=== PATIENT | female | born 1955 | race Asian ===

== ENCOUNTER 2018-05-23 19:32 | Inpatient (IN) | payer MEDICAID ==
[2018-05-23 20:35] LABS: % EOSINOPHILS 1.2 % (0.0-5.0); % LYMPHOCYTES 24.4 % (20.0-50.0); % MONOCYTES 7.9 % (2.0-10.0); % NEUTROPHILS 66.5 % (40.0-80.0); EOSINOPHILE ABSOLUTE 0.1 Th/cmm (0.1-0.4); HEMATOCRIT 35.9 % (41.0-60); HEMOGLOBIN 12.2 gm/dL (12-16); LYMPHOCYTE ABSOLUTE 1.8 Th/cmm (1.5-3.0); MEAN CORPUSCULAR HEMOGLOBIN 32.6 pg (27.0-31.0); MEAN PLATELET VOLUME 8.7 fl; MONOCYTE ABSOLUTE 0.6 Th/cmm (0.3-1.0); NEUTROPHILE ABSOLUTE 4.8 Th/cmm (1.8-8.0); PLATELET COUNT 153 Th/cmm (150-400); RED BLOOD COUNT 3.74 Mil/cmm (3.80-5.10); RED CELL DISTRIBUTION WIDTH 12.7 % (11.5-20.0); WHITE BLOOD COUNT 7.3 Th/cmm (4.8-10.8)
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
[2018-05-23 21:26] LABS: URINE SOURCE RANDOM
[2018-05-23 21:31] LABS: URINE BILIRUBIN NEGATIVE (NEGATIVE); URINE BLOOD NEGATIVE (NEGATIVE); URINE GLUCOSE (UA) 100 mg/dL (NEGATIVE); URINE KETONE NEGATIVE (NEGATIVE); URINE LEUKOCYTE ESTERASE NEGATIVE (NEGATIVE); URINE NITRATE NEGATIVE (NEGATIVE); URINE PH 7.5 (4.6 - 8.0); URINE PROTEIN NEGATIVE (NEGATIVE); URINE UROBILINOGEN 0.2 E.U./dL (0.2 - 1.0)
[2018-05-23 21:32] LABS: URINE CLARITY CLEAR (CLEAR); URINE COLOR YELLOW; URINE MICROSCOPIC INDICATED? YES
[2018-05-23 21:39] LABS: URINE EPITHELIAL CELLS FEW /lpf (FEW); URINE RBC 0-2 /hpf (0-5); URINE WBC 0-2 /hpf (0-5)
[2018-05-23 21:40] LABS: URINE BACTERIA OCCASIONAL /hpf (NONE SEEN)
[2018-05-23] MEDS ORDERED: Haloperidol Lactate 5 mg/mL 1mL Vial IM STA (22:55)
[2018-05-23 23:52] LABS: ALB/GLOB RATIO 1.5 (1.0-1.8); BILIRUBIN,TOTAL 0.2 mg/dL (0.3-1.0); BUN - UREA NITROGEN 14 mg/dL (7-25); CALCIUM SERUM 9.1 mg/dL (8.6-10.3); CARBON DIOXIDE 17.5 mEq/L (21.0-31.0); CREATININE - SERUM 0.5 mg/dL (0.6-1.2); GFR AFRICAN-AMERICAN > 60.0 ml/min (>90); GFR NON AFRICAN-AMERICAN > 60.0 ml/min; GLUCOSE 241 mg/dL (70-105); SGOT 18 U/L (13-39); SGPT/ALT 14 U/L (7-52); TOTAL PROTEIN,SERUM 6.7 gm/dL (6.0-8.3)
[2018-05-24] MEDS ORDERED: Haloperidol Lactate 5 mg/mL 1mL Vial IM STA (00:18)
[2018-05-24] MEDS ORDERED: Haloperidol Lactate 5 mg/mL 1mL Vial ONE (00:51)
[2018-05-24 01:20] LABS: ALKALINE PHOSPHATASE 92 U/L (34-104); ANION GAP 23.7 (7.0-16.0); CHLORIDE 93 mEq/L (98-107); POTASSIUM SERUM 4.2 mEq/L (3.5-5.1); SODIUM SERUM 130 mEq/L (136-145)
[2018-05-24] MEDS: Sodium Chloride 0.45% 1,000 ML IV SCH (02:10)
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
--- NOTE | 2018-05-24 08:28 | Diagnostic Imaging Report ---
Portable chest x-ray HISTORY: Shortness of breath The overall heart size is difficult to assess with portable technique and poor inspiration. No acute focal pulmonary processes. Suggestion of old right rib fractures. Deformity associated with an old fracture of the distal right clavicle noted. IMPRESSION: 1. No definite acute pulmonary abnormalities
[2018-05-24 08:40] LABS: % BASOPHILS 0.2 % (0.0-2.0); % LYMPHOCYTES 20.7 % (20.0-50.0); % MONOCYTES 8.4 % (2.0-10.0); % NEUTROPHILS 69.7 % (40.0-80.0); EOSINOPHILE ABSOLUTE 0.1 Th/cmm (0.1-0.4); HEMATOCRIT 36.2 % (41.0-60); HEMOGLOBIN 12.8 gm/dL (12-16); LYMPHOCYTE ABSOLUTE 1.5 Th/cmm (1.5-3.0); MEAN CELL VOLUME 94.5 fl (81-100); MEAN CORPUSCULAR HEMOGLOBIN 33.4 pg (27.0-31.0); MEAN CORPUSCULAR HGB CONC 35.4 pg (28.0-36.0); MEAN PLATELET VOLUME 8.2 fl; MONOCYTE ABSOLUTE 0.6 Th/cmm (0.3-1.0); PLATELET COUNT 193 Th/cmm (150-400); RED BLOOD COUNT 3.83 Mil/cmm (3.80-5.10); RED CELL DISTRIBUTION WIDTH 13.1 % (11.5-20.0); WHITE BLOOD COUNT 7.2 Th/cmm (4.8-10.8)
[2018-05-24 09:28] LABS: ALB/GLOB RATIO 1.7 (1.0-1.8); ALKALINE PHOSPHATASE 88 U/L (34-104); ANION GAP 11.4 (7.0-16.0); BILIRUBIN,TOTAL 0.3 mg/dL (0.3-1.0); BUN - UREA NITROGEN 12 mg/dL (7-25); CALCIUM SERUM 9.2 mg/dL (8.6-10.3); CARBON DIOXIDE 28.5 mEq/L (21.0-31.0); CHLORIDE 96 mEq/L (98-107); CHOLESTEROL 171 mg/dL (<200); CREATININE - SERUM 0.5 mg/dL (0.6-1.2); GFR AFRICAN-AMERICAN > 60.0 ml/min (>90); GFR NON AFRICAN-AMERICAN > 60.0 ml/min; GLUCOSE 209 mg/dL (70-105); HDL -HIGH DENSITY LIPOPROTEIN 67 mg/dL (23-92); POTASSIUM SERUM 3.9 mEq/L (3.5-5.1); SGOT 18 U/L (13-39); SGPT/ALT 14 U/L (7-52); SODIUM SERUM 132 mEq/L (136-145); TOTAL PROTEIN,SERUM 6.4 gm/dL (6.0-8.3); TRIGLYCERIDES 191 mg/dL (<150)
[2018-05-24 11:06] VITALS: BP 139/82
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
[2018-05-24 21:26] LABS: A1C % 5.9 % (4.0-6.0)
[2018-05-25 06:51] LABS: % BASOPHILS 0.5 % (0.0-2.0); % EOSINOPHILS 1.1 % (0.0-5.0); % LYMPHOCYTES 27.1 % (20.0-50.0); % MONOCYTES 11.5 % (2.0-10.0); % NEUTROPHILS 59.8 % (40.0-80.0); EOSINOPHILE ABSOLUTE 0.1 Th/cmm (0.1-0.4); HEMATOCRIT 35.2 % (41.0-60); HEMOGLOBIN 12.2 gm/dL (12-16); LYMPHOCYTE ABSOLUTE 1.9 Th/cmm (1.5-3.0); MEAN CELL VOLUME 94.1 fl (81-100); MEAN CORPUSCULAR HEMOGLOBIN 32.7 pg (27.0-31.0); MEAN CORPUSCULAR HGB CONC 34.7 pg (28.0-36.0); MONOCYTE ABSOLUTE 0.8 Th/cmm (0.3-1.0); NEUTROPHILE ABSOLUTE 4.2 Th/cmm (1.8-8.0); PLATELET COUNT 194 Th/cmm (150-400); RED BLOOD COUNT 3.74 Mil/cmm (3.80-5.10); RED CELL DISTRIBUTION WIDTH 12.9 % (11.5-20.0)
[2018-05-25 07:06] LABS: ALB/GLOB RATIO 1.4 (1.0-1.8); ALBUMIN 3.6 gm/dL (3.7-5.3); ALKALINE PHOSPHATASE 57 U/L (34-104); ANION GAP 9.4 (7.0-16.0); BILIRUBIN,TOTAL 0.3 mg/dL (0.3-1.0); BUN - UREA NITROGEN 14 mg/dL (7-25); CALCIUM SERUM 9.1 mg/dL (8.6-10.3); CARBON DIOXIDE 29.7 mEq/L (21.0-31.0); CHLORIDE 98 mEq/L (98-107); CREATININE - SERUM 0.4 mg/dL (0.6-1.2); GFR AFRICAN-AMERICAN > 60.0 ml/min (>90); GFR NON AFRICAN-AMERICAN > 60.0 ml/min; POTASSIUM SERUM 4.1 mEq/L (3.5-5.1); SGOT 17 U/L (13-39); SGPT/ALT 16 U/L (7-52); SODIUM SERUM 133 mEq/L (136-145); TOTAL PROTEIN,SERUM 6.1 gm/dL (6.0-8.3)
[2018-05-25 07:15] LABS: GLUCOSE 126 mg/dL (70-105)
--- NOTE | 2018-05-25 11:49 | General Progress Note ---
Subjective - Review of Systems Events since last encounter: patient irritable confused Objective - Results Result Diagrams: 05/25/18 06:15 05/25/18 06:15 Recent Labs: Laboratory Last Values WBC 7.0 Th/cmm (4.8-10.8) 05/25/18 06:15 RBC 3.74 Mil/cmm (3.80-5.10) L 05/25/18 06:15 Hgb 12.2 gm/dL (12-16) 05/25/18 06:15 Hct 35.2 % (41.0-60) L 05/25/18 06:15 MCV 94.1 fl (81-100) 05/25/18 06:15 MCH 32.7 pg (27.0-31.0) H 05/25/18 06:15 MCHC Differential 34.7 pg (28.0-36.0) 05/25/18 06:15 RDW 12.9 % (11.5-20.0) 05/25/18 06:15 Plt Count 194 Th/cmm (150-400) 05/25/18 06:15 MPV 8.0 fl 05/25/18 06:15 Neutrophils % 59.8 % (40.0-80.0) 05/25/18 06:15 Lymphocytes % 27.1 % (20.0-50.0) 05/25/18 06:15 Monocytes % 11.5 % (2.0-10.0) H 05/25/18 06:15 Eosinophils % 1.1 % (0.0-5.0) 05/25/18 06:15 Basophils % 0.5 % (0.0-2.0) 05/25/18 06:15 Sodium 133 mEq/L (136-145) L 05/25/18 06:15 Potassium 4.1 mEq/L (3.5-5.1) 05/25/18 06:15 Chloride 98 mEq/L (98-107) 05/25/18 06:15 Carbon Dioxide 29.7 mEq/L (21.0-31.0) 05/25/18 06:15 Anion Gap 9.4 (7.0-16.0) 05/25/18 06:15 BUN 14 mg/dL (7-25) 05/25/18 06:15 Creatinine 0.4 mg/dL (0.6-1.2) L 05/25/18 06:15 Est GFR ( Amer) > 60.0 ml/min (>90) 05/25/18 06:15 Est GFR (Non-Af Amer) > 60.0 ml/min 05/25/18 06:15 BUN/Creatinine Ratio 35.0 05/25/18 06:15 Glucose 126 mg/dL (70-105) H D 05/25/18 06:15 POC Glucose 141 MG/DL (70 - 105) H 05/24/18 11:49 Hemoglobin A1c % 5.9 % (4.0-6.0) 05/23/18 20:08 Calcium 9.1 mg/dL (8.6-10.3) 05/25/18 06:15 Total Bilirubin 0.3 mg/dL (0.3-1.0) 05/25/18 06:15 AST 17 U/L (13-39) 05/25/18 06:15 ALT 16 U/L (7-52) 05/25/18 06:15 Alkaline Phosphatase 57 U/L (34-104) 05/25/18 06:15 Troponin I 0.01 ng/mL (0.01-0.05) 05/23/18 20:08 B-Natriuretic Peptide 44.6 pg/mL (5.0-100.0) 05/23/18 20:08 Total Protein 6.1 gm/dL (6.0-8.3) 05/25/18 06:15 Albumin 3.6 gm/dL (3.7-5.3) L 05/25/18 06:15 Globulin 2.5 gm/dL 05/25/18 06:15 Albumin/Globulin Ratio 1.4 (1.0-1.8) 05/25/18 06:15 Triglycerides 191 mg/dL (<150) H 05/24/18 08:14 Cholesterol 171 mg/dL (<200) 05/24/18 08:14 LDL Cholesterol Direct 80 mg/dL (75-193) 05/24/18 08:14 HDL Cholesterol 67 mg/dL (23-92) 05/24/18 08:14 Urine Source RANDOM 05/23/18 20:30 Urine Color YELLOW 05/23/18 20:30 Urine Clarity CLEAR (CLEAR) 05/23/18 20:30 Urine pH 7.5 (4.6 - 8.0) 05/23/18 20:30 Ur Specific [place] 1.010 (1.005-1.030) 05/23/18 20:30 Urine Protein NEGATIVE mg/dL (NEGATIVE) 05/23/18 20:30 Urine Glucose (UA) 100 mg/dL (NEGATIVE) H 05/23/18 20:30 Urine Ketones NEGATIVE mg/dL (NEGATIVE) 05/23/18 20:30 Urine Blood NEGATIVE (NEGATIVE) 05/23/18 20:30 Urine Nitrate NEGATIVE (NEGATIVE) 05/23/18 20:30 Urine Bilirubin NEGATIVE (NEGATIVE) 05/23/18 20:30 Urine Urobilinogen 0.2 E.U./dL (0.2 - 1.0) 05/23/18 20:30 Ur Leukocyte Esterase NEGATIVE (NEGATIVE) 05/23/18 20:30 Urine RBC 0-2 /hpf (0-5) 05/23/18 20:30 Urine WBC 0-2 /hpf (0-5) 05/23/18 20:30 Ur Epithelial Cells FEW /lpf (FEW) 05/23/18 20:30 Urine Bacteria OCCASIONAL /hpf (NONE SEEN) 05/23/18 20:30 - Physical Exam Vitals and I&O: Vital Signs Temp 97.6 F 05/25/18 00:00 Pulse 64 05/25/18 09:49 Resp 18 05/25/18 00:00 BP 115/74 05/25/18 09:49 Pulse Ox 97 05/25/18 00:00 Intake & Output 05/24/18 05/25/18 05/25/18 18:59 06:59 18:59 Intake Total 800 200 Balance 800 200 Weight (lbs) 55.701 kg 55.707 kg Intake: Oral 800 200 Other: # Voids 6 2 # Bowel Movements 3 Weight Source Bedscale Bedscale Active Medications: Current Medications Divalproex Sodium (Depakote Dr) 250 mg PO QAM [facility]; Protocol Stop: 07/24/18 08:59 Last Admin: 05/25/18 09:47 Dose: 250 mg Divalproex Sodium (Depakote Er) 500 mg PO QPM [facility]; Protocol Stop: 07/23/18 16:59 Last Admin: 05/24/18 16:57 Dose: 500 mg Famotidine (Pepcid) 20 mg PO DAILY [facility] Stop: 07/24/18 08:59 Last Admin: 05/25/18 09:47 Dose: 20 mg Gabapentin (Neurontin) 300 mg PO BID [facility] Stop: 07/23/18 16:59 Last Admin: 05/25/18 09:47 Dose: 300 mg Sodium Chloride (Nacl 0.45%) 1,000 mls @ 50 mls/hr IV .Q20H [facility] Stop: 07/23/18 01:57 Last Admin: 05/24/18 02:10 Dose: 50 mls/hr Lorazepam (Ativan) 1 mg IVP Q4HR PRN; Protocol PRN Reason: agitation Stop: 07/23/18 02:35 Last Admin: 05/24/18 02:38 Dose: 1 mg Lorazepam (Ativan) 1 mg PO Q4HR PRN; Protocol PRN Reason: Agitation Stop: 07/23/18 07:14 Last Admin: 05/24/18 15:33 Dose: 1 mg Memantine (Namenda) 10 mg PO BID [facility] Stop: 07/23/18 16:59 Last Admin: 05/25/18 09:47 Dose: 10 mg Metformin HCl (Glucophage) 500 mg PO BID [facility] Stop: 07/23/18 16:59 Last Admin: 05/25/18 09:46 Dose: 500 mg Propranolol HCl (Inderal) 10 mg PO BID [facility] Stop: 07/23/18 16:59 Last Admin: 05/25/18 09:49 Dose: 10 mg Quetiapine Fumarate (Seroquel) 25 mg PO TID [facility]; Protocol Stop: 07/23/18 13:59 Last Admin: 05/25/18 09:47 Dose: 25 mg Risperidone (Risperdal) 3 mg PO HS [facility]; Protocol Stop: 07/23/18 20:59 Last Admin: 05/24/18 23:11 Dose: 3 mg Simvastatin (Zocor) 20 mg PO HS [facility]; Protocol Stop: 07/23/18 20:59 Last Admin: 05/24/18 23:11 Dose: 20 mg Nutritional Asmnt/Malnutr-PDOC - Dietary Evaluation Malnutrition Findings (Please click <Entered> for more info): Nutritional Asmnt/Malnutrition Start: 05/24/18 16: 46 Text: Status: Complete Freq: Protocol: Document 05/24/18 16:46 [email or web address] (Rec: 05/24/18 16:53 [email or web address]) Nutritional Asmnt/Malnutrition Patient General Information Nutritional Screening High Risk Diagnosis altered mental status Pertinent Medical Hx/Surgical Hx HTN, DM, dyslipidemia, dementia, bipolar Subjective Information Pt seen lying in bed at time of visit, has 1:1 sitter. Per Sitter, pt ate very well 100% of lunch. Pt is Vietnamese speaking noted per nurse note. Current Diet Order/ Nutrition Support CCHO 60gm Pertinent Medications pepcid, glucophage, seroquel, nacl 0.45% Pertinent Labs 05/24 Na 132, Cl 96, Cr 0.5, glucose 209, POC 136-141 Nutritional Hx/Data Height 1.68 m Height (Calculated Centimeters) 167.6 Current Weight (lbs) 55.792 kg Weight (Calculated Kilograms) 55.8 Weight (Calculated Grams) 14511.9 [place] Body Weight 142 Body Mass Index (BMI) 19.8 Weight Status Approriate GI Symptoms GI Symptoms None Last BM not indicated Difficult in: None Skin Integrity/Comment: old abdominal midline incision scar Current %PO Good (75-100%) Estimated Nutritional Goals BEE in Kcals: Using Current wt Calories/Kcals/Kg 25-30 Kcals Calculated 4508-6561 Protein: Using Current wt Protein g/k-1.2 Protein Calculated 56-67 Fluid: ml 1400-1680ml (1ml/kcal) Nutritional Problem 1. Problem Problem altered nutrition related labs Etiology hx of DM, electrolytes imbalance Signs/Symptoms: glucose 209, POC 136-141, Na 132, Cl 96 Malnutrition Alert Is there a minimum of two criteria No selected? Query Text:Check all the applicable criteria. A minimum of two criteria are recommended for diagnosis of either severe or non-severe malnutrition. Malnutrition Related to Morbid Obesity Malnutrition related to morbid obesity No Intervention/Recommendation Comments 1. Continue with CCHO 60gm diet as ordered. 2. Monitor PO intake, wt, labs and skin integrity 3. F/U as moderate risk in 3-5 days, 05/27-05/29 Expected Outcomes/Goals Expected Outcomes/Goals 1. PO intake to meet at least 75% of nutritional needs. 2. Wt stability, skin to remain intact, labs to approach WNL.
--- NOTE | 2018-05-25 18:10 | Consultation ---
DATE OF CONSULTATION: 05/25/[address] Patiño. HISTORY OF PRESENT ILLNESS: This is a 63-year-old oriental male patient who has been agitated, yelling, screaming, and aggressive behavior at this time. The patient was brought to the Emergency Room and the patient is admitted. The patient had abnormal EKG and hence cardiac consult was requested. PAST MEDICAL HISTORY: Hypertension, diabetes, hyperlipidemia, dementia, and bipolar. FAMILY HISTORY: Unremarkable. SOCIAL HISTORY: The patient is a nonsmoker. PHYSICAL EXAMINATION: VITAL SIGNS: Blood pressure 130/80, pulse 70, and respirations 20. HEAD: Normocephalic. No lumps or bumps. EYES: Pupils equal, reactive to light. Fundi show AV nicking, sclerae white, conjunctivae pink. NECK: Carotid 2+. Normal upstroke. JVD flat. Thyroid not palpable. Lymph nodes not palpable. CHEST: Shows increased AP diameter. No kyphosis, scoliosis. LUNGS: Bilateral bronchovesicular breath sounds. HEART: PMI fifth intercostal space with lateral to midclavicular line. S1, S2. No S3, S4, soft systolic murmur. ABDOMEN: Soft. Liver, spleen not palpable. No organomegaly. Bowel sounds active. NEUROLOGIC: Unremarkable. EXTREMITIES: Peripheral pulses 2+. No pedal edema. DIAGNOSTIC STUDIES: Her EKG shows anterior wall infarct, age indeterminant. CLINICAL IMPRESSION: 1. 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 2. Hypertension. 3. Diabetes mellitus type 2. 4. Hyperlipidemia. 5. Dementia. 6. Bipolar. PLAN: The patient's infarction is old. We will continue with present management. The patient did not keep the telemetry. JOB# [id number]
[2018-05-26] MEDS: Sodium Chloride 0.45% 1,000 ML IV SCH ×2 (07:53→13:33)
--- NOTE | 2018-05-27 10:02 | Internal Medicine Prog Note ---
Internal Medicine Subjective - Subjective Service Date: 05/27/18 Patient seen and examined:: with staff Patient is:: awake Per staff patient has:: no adverse event, tolerating meds Internal Medicine Objective - Results Result Diagrams: 05/25/18 06:15 05/25/18 06:15 Recent Labs: Laboratory Last Values WBC 7.0 Th/cmm (4.8-10.8) 05/25/18 06:15 RBC 3.74 Mil/cmm (3.80-5.10) L 05/25/18 06:15 Hgb 12.2 gm/dL (12-16) 05/25/18 06:15 Hct 35.2 % (41.0-60) L 05/25/18 06:15 MCV 94.1 fl (81-100) 05/25/18 06:15 MCH 32.7 pg (27.0-31.0) H 05/25/18 06:15 MCHC Differential 34.7 pg (28.0-36.0) 05/25/18 06:15 RDW 12.9 % (11.5-20.0) 05/25/18 06:15 Plt Count 194 Th/cmm (150-400) 05/25/18 06:15 MPV 8.0 fl 05/25/18 06:15 Neutrophils % 59.8 % (40.0-80.0) 05/25/18 06:15 Lymphocytes % 27.1 % (20.0-50.0) 05/25/18 06:15 Monocytes % 11.5 % (2.0-10.0) H 05/25/18 06:15 Eosinophils % 1.1 % (0.0-5.0) 05/25/18 06:15 Basophils % 0.5 % (0.0-2.0) 05/25/18 06:15 Sodium 133 mEq/L (136-145) L 05/25/18 06:15 Potassium 4.1 mEq/L (3.5-5.1) 05/25/18 06:15 Chloride 98 mEq/L (98-107) 05/25/18 06:15 Carbon Dioxide 29.7 mEq/L (21.0-31.0) 05/25/18 06:15 Anion Gap 9.4 (7.0-16.0) 05/25/18 06:15 BUN 14 mg/dL (7-25) 05/25/18 06:15 Creatinine 0.4 mg/dL (0.6-1.2) L 05/25/18 06:15 Est GFR ( Amer) > 60.0 ml/min (>90) 05/25/18 06:15 Est GFR (Non-Af Amer) > 60.0 ml/min 05/25/18 06:15 BUN/Creatinine Ratio 35.0 05/25/18 06:15 Glucose 126 mg/dL (70-105) H D 05/25/18 06:15 POC Glucose 141 MG/DL (70 - 105) H 05/24/18 11:49 Hemoglobin A1c % 5.9 % (4.0-6.0) 05/23/18 20:08 Calcium 9.1 mg/dL (8.6-10.3) 05/25/18 06:15 Total Bilirubin 0.3 mg/dL (0.3-1.0) 05/25/18 06:15 AST 17 U/L (13-39) 05/25/18 06:15 ALT 16 U/L (7-52) 05/25/18 06:15 Alkaline Phosphatase 57 U/L (34-104) 05/25/18 06:15 Troponin I 0.01 ng/mL (0.01-0.05) 05/23/18 20:08 B-Natriuretic Peptide 44.6 pg/mL (5.0-100.0) 05/23/18 20:08 Total Protein 6.1 gm/dL (6.0-8.3) 05/25/18 06:15 Albumin 3.6 gm/dL (3.7-5.3) L 05/25/18 06:15 Globulin 2.5 gm/dL 05/25/18 06:15 Albumin/Globulin Ratio 1.4 (1.0-1.8) 05/25/18 06:15 Triglycerides 191 mg/dL (<150) H 05/24/18 08:14 Cholesterol 171 mg/dL (<200) 05/24/18 08:14 LDL Cholesterol Direct 80 mg/dL (75-193) 05/24/18 08:14 HDL Cholesterol 67 mg/dL (23-92) 05/24/18 08:14 Urine Source RANDOM 05/23/18 20:30 Urine Color YELLOW 05/23/18 20:30 Urine Clarity CLEAR (CLEAR) 05/23/18 20:30 Urine pH 7.5 (4.6 - 8.0) 05/23/18 20:30 Ur Specific [place] 1.010 (1.005-1.030) 05/23/18 20:30 Urine Protein NEGATIVE mg/dL (NEGATIVE) 05/23/18 20:30 Urine Glucose (UA) 100 mg/dL (NEGATIVE) H 05/23/18 20:30 Urine Ketones NEGATIVE mg/dL (NEGATIVE) 05/23/18 20:30 Urine Blood NEGATIVE (NEGATIVE) 05/23/18 20:30 Urine Nitrate NEGATIVE (NEGATIVE) 05/23/18 20:30 Urine Bilirubin NEGATIVE (NEGATIVE) 05/23/18 20:30 Urine Urobilinogen 0.2 E.U./dL (0.2 - 1.0) 05/23/18 20:30 Ur Leukocyte Esterase NEGATIVE (NEGATIVE) 05/23/18 20:30 Urine RBC 0-2 /hpf (0-5) 05/23/18 20:30 Urine WBC 0-2 /hpf (0-5) 05/23/18 20:30 Ur Epithelial Cells FEW /lpf (FEW) 05/23/18 20:30 Urine Bacteria OCCASIONAL /hpf (NONE SEEN) 05/23/18 20:30 - Physical Exam Vitals and I&O: Vital Signs Temp 97.2 F 05/27/18 08:00 Pulse 56 05/27/18 08:54 Resp 18 05/27/18 08:00 BP 149/73 05/27/18 08:54 Pulse Ox 100 05/27/18 08:00 Intake & Output 05/26/18 05/27/18 05/27/18 18:59 06:59 18:59 Intake Total 1500 440 Balance 1500 440 Weight (lbs) 121 lb 121 lb Intake: Oral 1500 440 Other: # Voids 5 3 Stool Characteristics Soft Weight Source Bedscale Estimated Active Medications: Current Medications Divalproex Sodium (Depakote Dr) 250 mg PO QAM [facility]; Protocol Stop: 07/24/18 08:59 Last Admin: 05/27/18 08:52 Dose: 250 mg Divalproex Sodium (Depakote Er) 500 mg PO QPM [facility]; Protocol Stop: 07/23/18 16:59 Last Admin: 05/26/18 17:35 Dose: 500 mg Famotidine (Pepcid) 20 mg PO DAILY [facility] Stop: 07/24/18 08:59 Last Admin: 05/27/18 08:53 Dose: 20 mg Gabapentin (Neurontin) 300 mg PO BID [facility] Stop: 07/23/18 16:59 Last Admin: 05/27/18 08:52 Dose: 300 mg Sodium Chloride (Nacl 0.45%) 1,000 mls @ 50 mls/hr IV .Q20H [facility] Stop: 07/23/18 01:57 Last Admin: 05/26/18 13:33 Dose: Not Given Lorazepam (Ativan) 1 mg IVP Q4HR PRN; Protocol PRN Reason: agitation Stop: 07/23/18 02:35 Last Admin: 05/24/18 02:38 Dose: 1 mg Lorazepam (Ativan) 1 mg PO Q4HR PRN; Protocol PRN Reason: Agitation Stop: 07/23/18 07:14 Last Admin: 05/27/18 08:54 Dose: 1 mg Memantine (Namenda) 10 mg PO BID [facility] Stop: 07/23/18 16:59 Last Admin: 05/27/18 08:53 Dose: 10 mg Metformin HCl (Glucophage) 500 mg PO BID [facility] Stop: 07/23/18 16:59 Last Admin: 05/27/18 08:53 Dose: 500 mg Propranolol HCl (Inderal) 10 mg PO BID [facility] Stop: 07/23/18 16:59 Last Admin: 05/27/18 08:54 Dose: 10 mg Quetiapine Fumarate (Seroquel) 25 mg PO TID [facility]; Protocol Stop: 07/23/18 13:59 Last Admin: 05/27/18 08:53 Dose: 25 mg Risperidone (Risperdal) 3 mg PO HS [facility]; Protocol Stop: 07/23/18 20:59 Last Admin: 05/26/18 20:19 Dose: 3 mg Simvastatin (Zocor) 20 mg PO HS [facility]; Protocol Stop: 07/23/18 20:59 Last Admin: 05/26/18 23:39 Dose: 20 mg General: alert HEENT: NC/AT, PERRLA Neck: Supple Lungs: CTAB Cardiovascular: RRR, Normal S1, Normal S2, without murmur Abdomen: soft, non-tender, non-distended Neurological: alert Internal Medicine Assmt/Plan - Assessment Assessment: abnormal ekg htn hyperlipidemia dementia - Plan Plan: follow up labs in am cardiology follow up continue current plan of care Nutritional Asmnt/Malnutr-PDOC - Dietary Evaluation Malnutrition Findings (Please click <Entered> for more info): Nutritional Asmnt/Malnutrition Start: 05/24/18 16: 46 Text: Status: Complete Freq: Protocol: Document 05/24/18 16:46 ZUHAIR (Rec: 05/24/18 16:53 [email or web address] [email or web address]) Nutritional Asmnt/Malnutrition Patient General Information Nutritional Screening High Risk Diagnosis altered mental status Pertinent Medical Hx/Surgical Hx HTN, DM, dyslipidemia, dementia, bipolar Subjective Information Pt seen lying in bed at time of visit, has 1:1 sitter. Per Sitter, pt ate very well 100% of lunch. Pt is Bengali speaking noted per nurse note. Current Diet Order/ Nutrition Support CCHO 60gm Pertinent Medications pepcid, glucophage, seroquel, nacl 0.45% Pertinent Labs 05/24 Na 132, Cl 96, Cr 0.5, glucose 209, POC 136-141 Nutritional Hx/Data Height 5 ft 6 in Height (Calculated Centimeters) 167.6 Current Weight (lbs) 123 lb Weight (Calculated Kilograms) 55.8 Weight (Calculated Grams) 03657.9 [place] Body Weight 142 Body Mass Index (BMI) 19.8 Weight Status Approriate GI Symptoms GI Symptoms None Last BM not indicated Difficult in: None Skin Integrity/Comment: old abdominal midline incision scar Current %PO Good (75-100%) Estimated Nutritional Goals BEE in Kcals: Using Current wt Calories/Kcals/Kg 25-30 Kcals Calculated 4269-8858 Protein: Using Current wt Protein g/k-1.2 Protein Calculated 56-67 Fluid: ml 1400-1680ml (1ml/kcal) Nutritional Problem 1. Problem Problem altered nutrition related labs Etiology hx of DM, electrolytes imbalance Signs/Symptoms: glucose 209, POC 136-141, Na 132, Cl 96 Malnutrition Alert Is there a minimum of two criteria No selected? Query Text:Check all the applicable criteria. A minimum of two criteria are recommended for diagnosis of either severe or non-severe malnutrition. Malnutrition Related to Morbid Obesity Malnutrition related to morbid obesity No Intervention/Recommendation Comments 1. Continue with [facility] 60gm diet as ordered. 2. Monitor PO intake, wt, labs and skin integrity 3. F/U as moderate risk in 3-5 days, 05/27-05/29 Expected Outcomes/Goals Expected Outcomes/Goals 1. PO intake to meet at least 75% of nutritional needs. 2. Wt stability, skin to remain intact, labs to approach WNL.
[2018-05-28 05:49] LABS: % BASOPHILS 0.2 % (0.0-2.0); % EOSINOPHILS 1.8 % (0.0-5.0); % LYMPHOCYTES 30.9 % (20.0-50.0); % MONOCYTES 11.8 % (2.0-10.0); % NEUTROPHILS 55.3 % (40.0-80.0); EOSINOPHILE ABSOLUTE 0.1 Th/cmm (0.1-0.4); HEMATOCRIT 35.7 % (41.0-60); HEMOGLOBIN 12.1 gm/dL (12-16); LYMPHOCYTE ABSOLUTE 1.9 Th/cmm (1.5-3.0); MEAN CELL VOLUME 96.9 fl (81-100); MEAN CORPUSCULAR HEMOGLOBIN 32.9 pg (27.0-31.0); MEAN CORPUSCULAR HGB CONC 33.9 pg (28.0-36.0); MEAN PLATELET VOLUME 7.9 fl; MONOCYTE ABSOLUTE 0.7 Th/cmm (0.3-1.0); NEUTROPHILE ABSOLUTE 3.4 Th/cmm (1.8-8.0); PLATELET COUNT 186 Th/cmm (150-400); RED BLOOD COUNT 3.69 Mil/cmm (3.80-5.10); RED CELL DISTRIBUTION WIDTH 12.9 % (11.5-20.0); WHITE BLOOD COUNT 6.1 Th/cmm (4.8-10.8)
[2018-05-28 05:58] LABS: ANION GAP 10.5 (7.0-16.0); BUN - UREA NITROGEN 17 mg/dL (7-25); CALCIUM SERUM 9.2 mg/dL (8.6-10.3); CARBON DIOXIDE 27.2 mEq/L (21.0-31.0); CHLORIDE 101 mEq/L (98-107); CREATININE - SERUM 0.4 mg/dL (0.6-1.2); GFR AFRICAN-AMERICAN > 60.0 ml/min (>90); GFR NON AFRICAN-AMERICAN > 60.0 ml/min; GLUCOSE 138 mg/dL (70-105); POTASSIUM SERUM 3.7 mEq/L (3.5-5.1); SODIUM SERUM 135 mEq/L (136-145)
--- NOTE | 2018-05-28 13:05 | General Progress Note ---
Subjective - Review of Systems Events since last encounter: awake in no distress tolerating meds well Objective - Results Result Diagrams: 05/28/18 05:05 05/28/18 05:05 Recent Labs: Laboratory Last Values WBC 6.1 Th/cmm (4.8-10.8) 05/28/18 05:05 RBC 3.69 Mil/cmm (3.80-5.10) L 05/28/18 05:05 Hgb 12.1 gm/dL (12-16) 05/28/18 05:05 Hct 35.7 % (41.0-60) L 05/28/18 05:05 MCV 96.9 fl (81-100) 05/28/18 05:05 MCH 32.9 pg (27.0-31.0) H 05/28/18 05:05 MCHC Differential 33.9 pg (28.0-36.0) 05/28/18 05:05 RDW 12.9 % (11.5-20.0) 05/28/18 05:05 Plt Count 186 Th/cmm (150-400) 05/28/18 05:05 MPV 7.9 fl 05/28/18 05:05 Neutrophils % 55.3 % (40.0-80.0) 05/28/18 05:05 Lymphocytes % 30.9 % (20.0-50.0) 05/28/18 05:05 Monocytes % 11.8 % (2.0-10.0) H 05/28/18 05:05 Eosinophils % 1.8 % (0.0-5.0) 05/28/18 05:05 Basophils % 0.2 % (0.0-2.0) 05/28/18 05:05 Sodium 135 mEq/L (136-145) L 05/28/18 05:05 Potassium 3.7 mEq/L (3.5-5.1) 05/28/18 05:05 Chloride 101 mEq/L (98-107) 05/28/18 05:05 Carbon Dioxide 27.2 mEq/L (21.0-31.0) 05/28/18 05:05 Anion Gap 10.5 (7.0-16.0) 05/28/18 05:05 BUN 17 mg/dL (7-25) 05/28/18 05:05 Creatinine 0.4 mg/dL (0.6-1.2) L 05/28/18 05:05 Est GFR ( Amer) > 60.0 ml/min (>90) 05/28/18 05:05 Est GFR (Non-Af Amer) > 60.0 ml/min 05/28/18 05:05 BUN/Creatinine Ratio 42.5 05/28/18 05:05 Glucose 138 mg/dL (70-105) H 05/28/18 05:05 POC Glucose 141 MG/DL (70 - 105) H 05/24/18 11:49 Hemoglobin A1c % 5.9 % (4.0-6.0) 05/23/18 20:08 Calcium 9.2 mg/dL (8.6-10.3) 05/28/18 05:05 Total Bilirubin 0.3 mg/dL (0.3-1.0) 05/25/18 06:15 AST 17 U/L (13-39) 05/25/18 06:15 ALT 16 U/L (7-52) 05/25/18 06:15 Alkaline Phosphatase 57 U/L (34-104) 05/25/18 06:15 Troponin I 0.01 ng/mL (0.01-0.05) 05/23/18 20:08 B-Natriuretic Peptide 44.6 pg/mL (5.0-100.0) 05/23/18 20:08 Total Protein 6.1 gm/dL (6.0-8.3) 05/25/18 06:15 Albumin 3.6 gm/dL (3.7-5.3) L 05/25/18 06:15 Globulin 2.5 gm/dL 05/25/18 06:15 Albumin/Globulin Ratio 1.4 (1.0-1.8) 05/25/18 06:15 Triglycerides 191 mg/dL (<150) H 05/24/18 08:14 Cholesterol 171 mg/dL (<200) 05/24/18 08:14 LDL Cholesterol Direct 80 mg/dL (75-193) 05/24/18 08:14 HDL Cholesterol 67 mg/dL (23-92) 05/24/18 08:14 Urine Source RANDOM 05/23/18 20:30 Urine Color YELLOW 05/23/18 20:30 Urine Clarity CLEAR (CLEAR) 05/23/18 20:30 Urine pH 7.5 (4.6 - 8.0) 05/23/18 20:30 Ur Specific [place] 1.010 (1.005-1.030) 05/23/18 20:30 Urine Protein NEGATIVE mg/dL (NEGATIVE) 05/23/18 20:30 Urine Glucose (UA) 100 mg/dL (NEGATIVE) H 05/23/18 20:30 Urine Ketones NEGATIVE mg/dL (NEGATIVE) 05/23/18 20:30 Urine Blood NEGATIVE (NEGATIVE) 05/23/18 20:30 Urine Nitrate NEGATIVE (NEGATIVE) 05/23/18 20:30 Urine Bilirubin NEGATIVE (NEGATIVE) 05/23/18 20:30 Urine Urobilinogen 0.2 E.U./dL (0.2 - 1.0) 05/23/18 20:30 Ur Leukocyte Esterase NEGATIVE (NEGATIVE) 05/23/18 20:30 Urine RBC 0-2 /hpf (0-5) 05/23/18 20:30 Urine WBC 0-2 /hpf (0-5) 05/23/18 20:30 Ur Epithelial Cells FEW /lpf (FEW) 05/23/18 20:30 Urine Bacteria OCCASIONAL /hpf (NONE SEEN) 05/23/18 20:30 - Physical Exam Vitals and I&O: Vital Signs Temp 97.7 F 05/28/18 04:48 Pulse 60 05/28/18 04:48 Resp 18 05/28/18 04:48 BP 131/69 05/28/18 04:48 Pulse Ox 98 05/28/18 04:48 Intake & Output 05/27/18 05/28/18 05/28/18 18:59 06:59 18:59 Intake Total 700 Balance 700 Weight (lbs) 54.885 kg Intake: Oral 700 Other: Stool Characteristics Soft Weight Source Estimated Active Medications: Current Medications Divalproex Sodium (Depakote Dr) 250 mg PO QAM [facility]; Protocol Stop: 07/24/18 08:59 Last Admin: 05/27/18 08:52 Dose: 250 mg Divalproex Sodium (Depakote Er) 500 mg PO QPM [facility]; Protocol Stop: 07/23/18 16:59 Last Admin: 05/27/18 16:26 Dose: 500 mg Famotidine (Pepcid) 20 mg PO DAILY [facility] Stop: 07/24/18 08:59 Last Admin: 05/27/18 08:53 Dose: 20 mg Gabapentin (Neurontin) 300 mg PO BID [facility] Stop: 07/23/18 16:59 Last Admin: 05/27/18 16:26 Dose: 300 mg Sodium Chloride (Nacl 0.45%) 1,000 mls @ 50 mls/hr IV .Q20H [facility] Stop: 07/23/18 01:57 Last Admin: 05/26/18 13:33 Dose: Not Given Lorazepam (Ativan) 1 mg IVP Q4HR PRN; Protocol PRN Reason: agitation Stop: 07/23/18 02:35 Last Admin: 05/24/18 02:38 Dose: 1 mg Lorazepam (Ativan) 1 mg PO Q4HR PRN; Protocol PRN Reason: Agitation Stop: 07/23/18 07:14 Last Admin: 05/27/18 08:54 Dose: 1 mg Memantine (Namenda) 10 mg PO BID [facility] Stop: 07/23/18 16:59 Last Admin: 05/27/18 16:26 Dose: 10 mg Metformin HCl (Glucophage) 500 mg PO BID [facility] Stop: 07/23/18 16:59 Last Admin: 05/27/18 16:26 Dose: 500 mg Propranolol HCl (Inderal) 10 mg PO BID [facility] Stop: 07/23/18 16:59 Last Admin: 05/27/18 16:29 Dose: Not Given Quetiapine Fumarate (Seroquel) 25 mg PO TID [facility]; Protocol Stop: 07/23/18 13:59 Last Admin: 05/27/18 20:02 Dose: 25 mg Risperidone (Risperdal) 3 mg PO HS [facility]; Protocol Stop: 07/23/18 20:59 Last Admin: 05/27/18 20:02 Dose: 3 mg Simvastatin (Zocor) 20 mg PO HS [facility]; Protocol Stop: 07/23/18 20:59 Last Admin: 05/27/18 20:02 Dose: 20 mg Nutritional Asmnt/Malnutr-PDOC - Dietary Evaluation Malnutrition Findings (Please click <Entered> for more info): Nutritional Asmnt/Malnutrition Start: 05/24/18 16: 46 Text: Status: Complete Freq: Protocol: Document 05/24/18 16:46 [email or web address] (Rec: 05/24/18 16:53 AKOSUA [email or web address]) Nutritional Asmnt/Malnutrition Patient General Information Nutritional Screening High Risk Diagnosis altered mental status Pertinent Medical Hx/Surgical Hx HTN, DM, dyslipidemia, dementia, bipolar Subjective Information Pt seen lying in bed at time of visit, has 1:1 sitter. Per Sitter, pt ate very well 100% of lunch. Pt is Czech speaking noted per nurse note. Current Diet Order/ Nutrition Support CCHO 60gm Pertinent Medications pepcid, glucophage, seroquel, nacl 0.45% Pertinent Labs 05/24 Na 132, Cl 96, Cr 0.5, glucose 209, POC 136-141 Nutritional Hx/Data Height 1.68 m Height (Calculated Centimeters) 167.6 Current Weight (lbs) 55.792 kg Weight (Calculated Kilograms) 55.8 Weight (Calculated Grams) 19962.9 [place] Body Weight 142 Body Mass Index (BMI) 19.8 Weight Status Approriate GI Symptoms GI Symptoms None Last BM not indicated Difficult in: None Skin Integrity/Comment: old abdominal midline incision scar Current %PO Good (75-100%) Estimated Nutritional Goals BEE in Kcals: Using Current wt Calories/Kcals/Kg 25-30 Kcals Calculated 2964-4513 Protein: Using Current wt Protein g/k-1.2 Protein Calculated 56-67 Fluid: ml 1400-1680ml (1ml/kcal) Nutritional Problem 1. Problem Problem altered nutrition related labs Etiology hx of DM, electrolytes imbalance Signs/Symptoms: glucose 209, POC 136-141, Na 132, Cl 96 Malnutrition Alert Is there a minimum of two criteria No selected? Query Text:Check all the applicable criteria. A minimum of two criteria are recommended for diagnosis of either severe or non-severe malnutrition. Malnutrition Related to Morbid Obesity Malnutrition related to morbid obesity No Intervention/Recommendation Comments 1. Continue with CCHO 60gm diet as ordered. 2. Monitor PO intake, wt, labs and skin integrity 3. F/U as moderate risk in 3-5 days, 05/27-05/29 Expected Outcomes/Goals Expected Outcomes/Goals 1. PO intake to meet at least 75% of nutritional needs. 2. Wt stability, skin to remain intact, labs to approach WNL.
[2018-05-29] MEDS ORDERED: Pneumococcal Vaccine 0.5 mL Vial IM ONE (13:09)
--- NOTE | 2018-05-29 16:43 | Internal Medicine Prog Note ---
Internal Medicine Subjective - Subjective Patient is:: awake Per staff patient has:: no adverse event, tolerating meds Internal Medicine Objective - Results Result Diagrams: 05/28/18 05:05 05/28/18 05:05 Recent Labs: Laboratory Last Values WBC 6.1 Th/cmm (4.8-10.8) 05/28/18 05:05 RBC 3.69 Mil/cmm (3.80-5.10) L 05/28/18 05:05 Hgb 12.1 gm/dL (12-16) 05/28/18 05:05 Hct 35.7 % (41.0-60) L 05/28/18 05:05 MCV 96.9 fl (81-100) 05/28/18 05:05 MCH 32.9 pg (27.0-31.0) H 05/28/18 05:05 MCHC Differential 33.9 pg (28.0-36.0) 05/28/18 05:05 RDW 12.9 % (11.5-20.0) 05/28/18 05:05 Plt Count 186 Th/cmm (150-400) 05/28/18 05:05 MPV 7.9 fl 05/28/18 05:05 Neutrophils % 55.3 % (40.0-80.0) 05/28/18 05:05 Lymphocytes % 30.9 % (20.0-50.0) 05/28/18 05:05 Monocytes % 11.8 % (2.0-10.0) H 05/28/18 05:05 Eosinophils % 1.8 % (0.0-5.0) 05/28/18 05:05 Basophils % 0.2 % (0.0-2.0) 05/28/18 05:05 Sodium 135 mEq/L (136-145) L 05/28/18 05:05 Potassium 3.7 mEq/L (3.5-5.1) 05/28/18 05:05 Chloride 101 mEq/L (98-107) 05/28/18 05:05 Carbon Dioxide 27.2 mEq/L (21.0-31.0) 05/28/18 05:05 Anion Gap 10.5 (7.0-16.0) 05/28/18 05:05 BUN 17 mg/dL (7-25) 05/28/18 05:05 Creatinine 0.4 mg/dL (0.6-1.2) L 05/28/18 05:05 Est GFR ( Amer) > 60.0 ml/min (>90) 05/28/18 05:05 Est GFR (Non-Af Amer) > 60.0 ml/min 05/28/18 05:05 BUN/Creatinine Ratio 42.5 05/28/18 05:05 Glucose 138 mg/dL (70-105) H 05/28/18 05:05 POC Glucose 141 MG/DL (70 - 105) H 05/24/18 11:49 Hemoglobin A1c % 5.9 % (4.0-6.0) 05/23/18 20:08 Calcium 9.2 mg/dL (8.6-10.3) 05/28/18 05:05 Total Bilirubin 0.3 mg/dL (0.3-1.0) 05/25/18 06:15 AST 17 U/L (13-39) 05/25/18 06:15 ALT 16 U/L (7-52) 05/25/18 06:15 Alkaline Phosphatase 57 U/L (34-104) 05/25/18 06:15 Troponin I 0.01 ng/mL (0.01-0.05) 05/23/18 20:08 B-Natriuretic Peptide 44.6 pg/mL (5.0-100.0) 05/23/18 20:08 Total Protein 6.1 gm/dL (6.0-8.3) 05/25/18 06:15 Albumin 3.6 gm/dL (3.7-5.3) L 05/25/18 06:15 Globulin 2.5 gm/dL 05/25/18 06:15 Albumin/Globulin Ratio 1.4 (1.0-1.8) 05/25/18 06:15 Triglycerides 191 mg/dL (<150) H 05/24/18 08:14 Cholesterol 171 mg/dL (<200) 05/24/18 08:14 LDL Cholesterol Direct 80 mg/dL (75-193) 05/24/18 08:14 HDL Cholesterol 67 mg/dL (23-92) 05/24/18 08:14 Urine Source RANDOM 05/23/18 20:30 Urine Color YELLOW 05/23/18 20:30 Urine Clarity CLEAR (CLEAR) 05/23/18 20:30 Urine pH 7.5 (4.6 - 8.0) 05/23/18 20:30 Ur Specific [place] 1.010 (1.005-1.030) 05/23/18 20:30 Urine Protein NEGATIVE mg/dL (NEGATIVE) 05/23/18 20:30 Urine Glucose (UA) 100 mg/dL (NEGATIVE) H 05/23/18 20:30 Urine Ketones NEGATIVE mg/dL (NEGATIVE) 05/23/18 20:30 Urine Blood NEGATIVE (NEGATIVE) 05/23/18 20:30 Urine Nitrate NEGATIVE (NEGATIVE) 05/23/18 20:30 Urine Bilirubin NEGATIVE (NEGATIVE) 05/23/18 20:30 Urine Urobilinogen 0.2 E.U./dL (0.2 - 1.0) 05/23/18 20:30 Ur Leukocyte Esterase NEGATIVE (NEGATIVE) 05/23/18 20:30 Urine RBC 0-2 /hpf (0-5) 05/23/18 20:30 Urine WBC 0-2 /hpf (0-5) 05/23/18 20:30 Ur Epithelial Cells FEW /lpf (FEW) 05/23/18 20:30 Urine Bacteria OCCASIONAL /hpf (NONE SEEN) 05/23/18 20:30 - Physical Exam Vitals and I&O: Vital Signs Temp 97.0 F 05/29/18 14:35 Pulse 52 05/29/18 14:35 Resp 18 05/29/18 14:35 BP 126/74 05/29/18 14:35 Pulse Ox 100 05/29/18 14:35 Intake & Output 05/28/18 05/29/18 05/29/18 18:59 06:59 18:59 Intake Total 440 Balance 440 Weight (lbs) 54.885 kg Intake: Oral 440 Other: Stool Characteristics Soft Weight Source Estimated Active Medications: Current Medications Divalproex Sodium (Depakote Dr) 250 mg PO QAM [facility]; Protocol Stop: 07/24/18 08:59 Last Admin: 05/29/18 08:31 Dose: 250 mg Divalproex Sodium (Depakote Er) 500 mg PO QPM [facility]; Protocol Stop: 07/23/18 16:59 Last Admin: 05/28/18 16:56 Dose: 500 mg Famotidine (Pepcid) 20 mg PO DAILY [facility] Stop: 07/24/18 08:59 Last Admin: 05/29/18 08:31 Dose: 20 mg Gabapentin (Neurontin) 300 mg PO BID [facility] Stop: 07/23/18 16:59 Last Admin: 05/29/18 08:31 Dose: 300 mg Sodium Chloride (Nacl 0.45%) 1,000 mls @ 50 mls/hr IV .Q20H [facility] Stop: 07/23/18 01:57 Last Admin: 05/26/18 13:33 Dose: Not Given Lorazepam (Ativan) 1 mg IVP Q4HR PRN; Protocol PRN Reason: agitation Stop: 07/23/18 02:35 Last Admin: 05/24/18 02:38 Dose: 1 mg Lorazepam (Ativan) 1 mg PO Q4HR PRN; Protocol PRN Reason: Agitation Stop: 07/23/18 07:14 Last Admin: 05/29/18 15:33 Dose: 1 mg Memantine (Namenda) 10 mg PO BID [facility] Stop: 07/23/18 16:59 Last Admin: 05/29/18 08:32 Dose: 10 mg Metformin HCl (Glucophage) 500 mg PO BID [facility] Stop: 07/23/18 16:59 Last Admin: 05/29/18 08:31 Dose: 500 mg Propranolol HCl (Inderal) 10 mg PO BID [facility] Stop: 07/23/18 16:59 Last Admin: 05/29/18 08:32 Dose: 10 mg Quetiapine Fumarate (Seroquel) 25 mg PO TID [facility]; Protocol Stop: 07/23/18 13:59 Last Admin: 05/29/18 13:03 Dose: 25 mg Risperidone (Risperdal) 3 mg PO HS [facility]; Protocol Stop: 07/23/18 20:59 Last Admin: 05/28/18 20:06 Dose: 3 mg Simvastatin (Zocor) 20 mg PO HS [facility]; Protocol Stop: 07/23/18 20:59 Last Admin: 05/28/18 20:06 Dose: 20 mg General: alert HEENT: NC/AT, PERRLA Neck: Supple Lungs: CTAB Cardiovascular: RRR, Normal S1, Normal S2, without murmur Abdomen: soft, non-tender, non-distended Neurological: alert Nutritional Asmnt/Malnutr-PDOC - Dietary Evaluation Malnutrition Findings (Please click <Entered> for more info): Nutritional Asmnt/Malnutrition Start: 05/24/18 16: 46 Text: Status: Complete Freq: Protocol: Document 05/24/18 16:46 [email or web address] (Rec: 05/24/18 16:53 [email or web address]) Nutritional Asmnt/Malnutrition Patient General Information Nutritional Screening High Risk Diagnosis altered mental status Pertinent Medical Hx/Surgical Hx HTN, DM, dyslipidemia, dementia, bipolar Subjective Information Pt seen lying in bed at time of visit, has 1:1 sitter. Per Sitter, pt ate very well 100% of lunch. Pt is [place] speaking noted per nurse note. Current Diet Order/ Nutrition Support CCHO 60gm Pertinent Medications pepcid, glucophage, seroquel, nacl 0.45% Pertinent Labs 05/24 Na 132, Cl 96, Cr 0.5, glucose 209, POC 136-141 Nutritional Hx/Data Height 1.68 m Height (Calculated Centimeters) 167.6 Current Weight (lbs) 55.792 kg Weight (Calculated Kilograms) 55.8 Weight (Calculated Grams) 01816.9 [place] Body Weight 142 Body Mass Index (BMI) 19.8 Weight Status Approriate GI Symptoms GI Symptoms None Last BM not indicated Difficult in: None Skin Integrity/Comment: old abdominal midline incision scar Current %PO Good (75-100%) Estimated Nutritional Goals BEE in Kcals: Using Current wt Calories/Kcals/Kg 25-30 Kcals Calculated 5136-6655 Protein: Using Current wt Protein g/k-1.2 Protein Calculated 56-67 Fluid: ml 1400-1680ml (1ml/kcal) Nutritional Problem 1. Problem Problem altered nutrition related labs Etiology hx of DM, electrolytes imbalance Signs/Symptoms: glucose 209, POC 136-141, Na 132, Cl 96 Malnutrition Alert Is there a minimum of two criteria No selected? Query Text:Check all the applicable criteria. A minimum of two criteria are recommended for diagnosis of either severe or non-severe malnutrition. Malnutrition Related to Morbid Obesity Malnutrition related to morbid obesity No Intervention/Recommendation Comments 1. Continue with CCHO 60gm diet as ordered. 2. Monitor PO intake, wt, labs and skin integrity 3. F/U as moderate risk in 3-5 days, 05/27-05/29 Expected Outcomes/Goals Expected Outcomes/Goals 1. PO intake to meet at least 75% of nutritional needs. 2. Wt stability, skin to remain intact, labs to approach WNL.
--- NOTE | 2018-05-31 13:49 | Internal Medicine Prog Note ---
Internal Medicine Subjective - Subjective Service Date: 05/31/18 Patient is:: awake Per staff patient has:: no adverse event, tolerating meds Internal Medicine Objective - Results Result Diagrams: 05/28/18 05:05 05/28/18 05:05 Recent Labs: Laboratory Last Values WBC 6.1 Th/cmm (4.8-10.8) 05/28/18 05:05 RBC 3.69 Mil/cmm (3.80-5.10) L 05/28/18 05:05 Hgb 12.1 gm/dL (12-16) 05/28/18 05:05 Hct 35.7 % (41.0-60) L 05/28/18 05:05 MCV 96.9 fl (81-100) 05/28/18 05:05 MCH 32.9 pg (27.0-31.0) H 05/28/18 05:05 MCHC Differential 33.9 pg (28.0-36.0) 05/28/18 05:05 RDW 12.9 % (11.5-20.0) 05/28/18 05:05 Plt Count 186 Th/cmm (150-400) 05/28/18 05:05 MPV 7.9 fl 05/28/18 05:05 Neutrophils % 55.3 % (40.0-80.0) 05/28/18 05:05 Lymphocytes % 30.9 % (20.0-50.0) 05/28/18 05:05 Monocytes % 11.8 % (2.0-10.0) H 05/28/18 05:05 Eosinophils % 1.8 % (0.0-5.0) 05/28/18 05:05 Basophils % 0.2 % (0.0-2.0) 05/28/18 05:05 Sodium 135 mEq/L (136-145) L 05/28/18 05:05 Potassium 3.7 mEq/L (3.5-5.1) 05/28/18 05:05 Chloride 101 mEq/L (98-107) 05/28/18 05:05 Carbon Dioxide 27.2 mEq/L (21.0-31.0) 05/28/18 05:05 Anion Gap 10.5 (7.0-16.0) 05/28/18 05:05 BUN 17 mg/dL (7-25) 05/28/18 05:05 Creatinine 0.4 mg/dL (0.6-1.2) L 05/28/18 05:05 Est GFR ( Amer) > 60.0 ml/min (>90) 05/28/18 05:05 Est GFR (Non-Af Amer) > 60.0 ml/min 05/28/18 05:05 BUN/Creatinine Ratio 42.5 05/28/18 05:05 Glucose 138 mg/dL (70-105) H 05/28/18 05:05 POC Glucose 141 MG/DL (70 - 105) H 05/24/18 11:49 Hemoglobin A1c % 5.9 % (4.0-6.0) 05/23/18 20:08 Calcium 9.2 mg/dL (8.6-10.3) 05/28/18 05:05 Total Bilirubin 0.3 mg/dL (0.3-1.0) 05/25/18 06:15 AST 17 U/L (13-39) 05/25/18 06:15 ALT 16 U/L (7-52) 05/25/18 06:15 Alkaline Phosphatase 57 U/L (34-104) 05/25/18 06:15 Troponin I 0.01 ng/mL (0.01-0.05) 05/23/18 20:08 B-Natriuretic Peptide 44.6 pg/mL (5.0-100.0) 05/23/18 20:08 Total Protein 6.1 gm/dL (6.0-8.3) 05/25/18 06:15 Albumin 3.6 gm/dL (3.7-5.3) L 05/25/18 06:15 Globulin 2.5 gm/dL 05/25/18 06:15 Albumin/Globulin Ratio 1.4 (1.0-1.8) 05/25/18 06:15 Triglycerides 191 mg/dL (<150) H 05/24/18 08:14 Cholesterol 171 mg/dL (<200) 05/24/18 08:14 LDL Cholesterol Direct 80 mg/dL (75-193) 05/24/18 08:14 HDL Cholesterol 67 mg/dL (23-92) 05/24/18 08:14 Urine Source RANDOM 05/23/18 20:30 Urine Color YELLOW 05/23/18 20:30 Urine Clarity CLEAR (CLEAR) 05/23/18 20:30 Urine pH 7.5 (4.6 - 8.0) 05/23/18 20:30 Ur Specific [place] 1.010 (1.005-1.030) 05/23/18 20:30 Urine Protein NEGATIVE mg/dL (NEGATIVE) 05/23/18 20:30 Urine Glucose (UA) 100 mg/dL (NEGATIVE) H 05/23/18 20:30 Urine Ketones NEGATIVE mg/dL (NEGATIVE) 05/23/18 20:30 Urine Blood NEGATIVE (NEGATIVE) 05/23/18 20:30 Urine Nitrate NEGATIVE (NEGATIVE) 05/23/18 20:30 Urine Bilirubin NEGATIVE (NEGATIVE) 05/23/18 20:30 Urine Urobilinogen 0.2 E.U./dL (0.2 - 1.0) 05/23/18 20:30 Ur Leukocyte Esterase NEGATIVE (NEGATIVE) 05/23/18 20:30 Urine RBC 0-2 /hpf (0-5) 05/23/18 20:30 Urine WBC 0-2 /hpf (0-5) 05/23/18 20:30 Ur Epithelial Cells FEW /lpf (FEW) 05/23/18 20:30 Urine Bacteria OCCASIONAL /hpf (NONE SEEN) 05/23/18 20:30 - Physical Exam Vitals and I&O: Vital Signs Temp 98.3 F 05/31/18 08:00 Pulse 82 05/31/18 08:34 Resp 18 05/31/18 08:00 BP 112/68 05/31/18 08:34 Pulse Ox 98 05/31/18 08:00 Intake & Output 05/30/18 05/31/18 05/31/18 18:59 06:59 18:59 Intake Total 900 Balance 900 Weight (lbs) 128 lb 128 lb Intake: Oral 900 Other: # Voids 4 2 # Bowel Movements 1 0 Weight Source Bedscale Bedscale Active Medications: Current Medications Divalproex Sodium (Depakote Dr) 250 mg PO QAM [facility]; Protocol Stop: 07/24/18 08:59 Last Admin: 05/31/18 08:34 Dose: 250 mg Divalproex Sodium (Depakote Er) 500 mg PO QPM [facility]; Protocol Stop: 07/23/18 16:59 Last Admin: 05/30/18 16:52 Dose: 500 mg Famotidine (Pepcid) 20 mg PO DAILY [facility] Stop: 07/24/18 08:59 Last Admin: 05/31/18 08:34 Dose: 20 mg Gabapentin (Neurontin) 300 mg PO BID [facility] Stop: 07/23/18 16:59 Last Admin: 05/31/18 08:34 Dose: 300 mg Sodium Chloride (Nacl 0.45%) 1,000 mls @ 50 mls/hr IV .Q20H [facility] Stop: 07/23/18 01:57 Last Admin: 05/26/18 13:33 Dose: Not Given Lorazepam (Ativan) 1 mg PO Q4HR PRN; Protocol PRN Reason: Agitation Stop: 07/30/18 12:30 Memantine (Namenda) 10 mg PO BID [facility] Stop: 07/23/18 16:59 Last Admin: 05/31/18 08:34 Dose: 10 mg Metformin HCl (Glucophage) 500 mg PO BID [facility] Stop: 07/23/18 16:59 Last Admin: 05/31/18 08:34 Dose: 500 mg Propranolol HCl (Inderal) 10 mg PO BID [facility] Stop: 07/23/18 16:59 Last Admin: 05/31/18 08:34 Dose: Not Given Quetiapine Fumarate (Seroquel) 25 mg PO TID [facility]; Protocol Stop: 07/23/18 13:59 Last Admin: 05/31/18 08:34 Dose: 25 mg Risperidone (Risperdal) 3 mg PO HS [facility]; Protocol Stop: 07/23/18 20:59 Last Admin: 05/30/18 21:25 Dose: 3 mg Simvastatin (Zocor) 20 mg PO HS [facility]; Protocol Stop: 07/23/18 20:59 Last Admin: 05/30/18 21:25 Dose: 20 mg General: alert HEENT: NC/AT, PERRLA Neck: Supple Lungs: CTAB Cardiovascular: RRR, Normal S1, Normal S2, without murmur Abdomen: soft, non-tender, non-distended Neurological: alert Internal Medicine Assmt/Plan - Assessment Assessment: abnormal ekg htn hyperlipidemia dementia - Plan Plan: follow up labs in am cardiology follow up continue current plan of care Nutritional Asmnt/Malnutr-PDOC - Dietary Evaluation Malnutrition Findings (Please click <Entered> for more info): Nutritional Asmnt/Malnutrition Start: 05/24/18 16: 46 Text: Status: Complete Freq: Protocol: Document 05/24/18 16:46 BREANNEELTON (Rec: 05/24/18 16:53 [email or web address] [email or web address]) Nutritional Asmnt/Malnutrition Patient General Information Nutritional Screening High Risk Diagnosis altered mental status Pertinent Medical Hx/Surgical Hx HTN, DM, dyslipidemia, dementia, bipolar Subjective Information Pt seen lying in bed at time of visit, has 1:1 sitter. Per Sitter, pt ate very well 100% of lunch. Pt is Armenian speaking noted per nurse note. Current Diet Order/ Nutrition Support CCHO 60gm Pertinent Medications pepcid, glucophage, seroquel, nacl 0.45% Pertinent Labs 05/24 Na 132, Cl 96, Cr 0.5, glucose 209, POC 136-141 Nutritional Hx/Data Height 5 ft 6 in Height (Calculated Centimeters) 167.6 Current Weight (lbs) 123 lb Weight (Calculated Kilograms) 55.8 Weight (Calculated Grams) 62282.9 [place] Body Weight 142 Body Mass Index (BMI) 19.8 Weight Status Approriate GI Symptoms GI Symptoms None Last BM not indicated Difficult in: None Skin Integrity/Comment: old abdominal midline incision scar Current %PO Good (75-100%) Estimated Nutritional Goals BEE in Kcals: Using Current wt Calories/Kcals/Kg 25-30 Kcals Calculated 4685-0528 Protein: Using Current wt Protein g/k-1.2 Protein Calculated 56-67 Fluid: ml 1400-1680ml (1ml/kcal) Nutritional Problem 1. Problem Problem altered nutrition related labs Etiology hx of DM, electrolytes imbalance Signs/Symptoms: glucose 209, POC 136-141, Na 132, Cl 96 Malnutrition Alert Is there a minimum of two criteria No selected? Query Text:Check all the applicable criteria. A minimum of two criteria are recommended for diagnosis of either severe or non-severe malnutrition. Malnutrition Related to Morbid Obesity Malnutrition related to morbid obesity No Intervention/Recommendation Comments 1. Continue with CCHO 60gm diet as ordered. 2. Monitor PO intake, wt, labs and skin integrity 3. F/U as moderate risk in 3-5 days, 05/27-05/29 Expected Outcomes/Goals Expected Outcomes/Goals 1. PO intake to meet at least 75% of nutritional needs. 2. Wt stability, skin to remain intact, labs to approach WNL.
--- NOTE | 2018-06-01 11:08 | General Progress Note ---
Subjective - Review of Systems Events since last encounter: awake alert no distress Objective - Results Result Diagrams: 05/28/18 05:05 05/28/18 05:05 Recent Labs: Laboratory Last Values WBC 6.1 Th/cmm (4.8-10.8) 05/28/18 05:05 RBC 3.69 Mil/cmm (3.80-5.10) L 05/28/18 05:05 Hgb 12.1 gm/dL (12-16) 05/28/18 05:05 Hct 35.7 % (41.0-60) L 05/28/18 05:05 MCV 96.9 fl (81-100) 05/28/18 05:05 MCH 32.9 pg (27.0-31.0) H 05/28/18 05:05 MCHC Differential 33.9 pg (28.0-36.0) 05/28/18 05:05 RDW 12.9 % (11.5-20.0) 05/28/18 05:05 Plt Count 186 Th/cmm (150-400) 05/28/18 05:05 MPV 7.9 fl 05/28/18 05:05 Neutrophils % 55.3 % (40.0-80.0) 05/28/18 05:05 Lymphocytes % 30.9 % (20.0-50.0) 05/28/18 05:05 Monocytes % 11.8 % (2.0-10.0) H 05/28/18 05:05 Eosinophils % 1.8 % (0.0-5.0) 05/28/18 05:05 Basophils % 0.2 % (0.0-2.0) 05/28/18 05:05 Sodium 135 mEq/L (136-145) L 05/28/18 05:05 Potassium 3.7 mEq/L (3.5-5.1) 05/28/18 05:05 Chloride 101 mEq/L (98-107) 05/28/18 05:05 Carbon Dioxide 27.2 mEq/L (21.0-31.0) 05/28/18 05:05 Anion Gap 10.5 (7.0-16.0) 05/28/18 05:05 BUN 17 mg/dL (7-25) 05/28/18 05:05 Creatinine 0.4 mg/dL (0.6-1.2) L 05/28/18 05:05 Est GFR ( Amer) > 60.0 ml/min (>90) 05/28/18 05:05 Est GFR (Non-Af Amer) > 60.0 ml/min 05/28/18 05:05 BUN/Creatinine Ratio 42.5 05/28/18 05:05 Glucose 138 mg/dL (70-105) H 05/28/18 05:05 POC Glucose 141 MG/DL (70 - 105) H 05/24/18 11:49 Hemoglobin A1c % 5.9 % (4.0-6.0) 05/23/18 20:08 Calcium 9.2 mg/dL (8.6-10.3) 05/28/18 05:05 Total Bilirubin 0.3 mg/dL (0.3-1.0) 05/25/18 06:15 AST 17 U/L (13-39) 05/25/18 06:15 ALT 16 U/L (7-52) 05/25/18 06:15 Alkaline Phosphatase 57 U/L (34-104) 05/25/18 06:15 Troponin I 0.01 ng/mL (0.01-0.05) 05/23/18 20:08 B-Natriuretic Peptide 44.6 pg/mL (5.0-100.0) 05/23/18 20:08 Total Protein 6.1 gm/dL (6.0-8.3) 05/25/18 06:15 Albumin 3.6 gm/dL (3.7-5.3) L 05/25/18 06:15 Globulin 2.5 gm/dL 05/25/18 06:15 Albumin/Globulin Ratio 1.4 (1.0-1.8) 05/25/18 06:15 Triglycerides 191 mg/dL (<150) H 05/24/18 08:14 Cholesterol 171 mg/dL (<200) 05/24/18 08:14 LDL Cholesterol Direct 80 mg/dL (75-193) 05/24/18 08:14 HDL Cholesterol 67 mg/dL (23-92) 05/24/18 08:14 Urine Source RANDOM 05/23/18 20:30 Urine Color YELLOW 05/23/18 20:30 Urine Clarity CLEAR (CLEAR) 05/23/18 20:30 Urine pH 7.5 (4.6 - 8.0) 05/23/18 20:30 Ur Specific [place] 1.010 (1.005-1.030) 05/23/18 20:30 Urine Protein NEGATIVE mg/dL (NEGATIVE) 05/23/18 20:30 Urine Glucose (UA) 100 mg/dL (NEGATIVE) H 05/23/18 20:30 Urine Ketones NEGATIVE mg/dL (NEGATIVE) 05/23/18 20:30 Urine Blood NEGATIVE (NEGATIVE) 05/23/18 20:30 Urine Nitrate NEGATIVE (NEGATIVE) 05/23/18 20:30 Urine Bilirubin NEGATIVE (NEGATIVE) 05/23/18 20:30 Urine Urobilinogen 0.2 E.U./dL (0.2 - 1.0) 05/23/18 20:30 Ur Leukocyte Esterase NEGATIVE (NEGATIVE) 05/23/18 20:30 Urine RBC 0-2 /hpf (0-5) 05/23/18 20:30 Urine WBC 0-2 /hpf (0-5) 05/23/18 20:30 Ur Epithelial Cells FEW /lpf (FEW) 05/23/18 20:30 Urine Bacteria OCCASIONAL /hpf (NONE SEEN) 05/23/18 20:30 - Physical Exam Vitals and I&O: Vital Signs Temp 98.0 F 06/01/18 04:00 Pulse 85 06/01/18 09:06 Resp 19 06/01/18 04:00 BP 145/40 06/01/18 09:06 Pulse Ox 99 06/01/18 04:00 Intake & Output 05/31/18 06/01/18 06/01/18 18:59 06:59 18:59 Intake Total 1800 500 Balance 1800 500 Weight (lbs) 58.06 kg 56.699 kg Intake: Oral 1800 500 Other: # Voids 4 5 # Bowel Movements 0 1 Weight Source Bedscale Bedscale Active Medications: Current Medications Divalproex Sodium (Depakote Dr) 250 mg PO QAM [facility]; Protocol Stop: 07/24/18 08:59 Last Admin: 06/01/18 09:04 Dose: 250 mg Divalproex Sodium (Depakote Er) 500 mg PO QPM [facility]; Protocol Stop: 07/23/18 16:59 Last Admin: 05/31/18 16:29 Dose: 500 mg Famotidine (Pepcid) 20 mg PO DAILY [facility] Stop: 07/24/18 08:59 Last Admin: 06/01/18 09:05 Dose: 20 mg Gabapentin (Neurontin) 300 mg PO BID [facility] Stop: 07/23/18 16:59 Last Admin: 06/01/18 09:05 Dose: 300 mg Sodium Chloride (Nacl 0.45%) 1,000 mls @ 50 mls/hr IV .Q20H [facility] Stop: 07/23/18 01:57 Last Admin: 05/26/18 13:33 Dose: Not Given Lorazepam (Ativan) 1 mg PO Q4HR PRN; Protocol PRN Reason: Agitation Stop: 07/30/18 12:30 Last Admin: 05/31/18 22:11 Dose: 1 mg Memantine (Namenda) 10 mg PO BID [facility] Stop: 07/23/18 16:59 Last Admin: 06/01/18 09:04 Dose: 10 mg Metformin HCl (Glucophage) 500 mg PO BID [facility] Stop: 07/23/18 16:59 Last Admin: 06/01/18 09:05 Dose: 500 mg Propranolol HCl (Inderal) 10 mg PO BID [facility] Stop: 07/23/18 16:59 Last Admin: 06/01/18 09:06 Dose: 10 mg Quetiapine Fumarate (Seroquel) 25 mg PO TID [facility]; Protocol Stop: 07/23/18 13:59 Last Admin: 06/01/18 09:04 Dose: 25 mg Risperidone (Risperdal) 3 mg PO [facility]; Protocol Stop: 07/23/18 20:59 Last Admin: 05/31/18 21:45 Dose: 3 mg Simvastatin (Zocor) 20 mg PO HS [facility]; Protocol Stop: 07/23/18 20:59 Last Admin: 05/31/18 21:44 Dose: 20 mg General: No acute distress HEENT: Atraumatic, PERRLA Neck: Supple, JVD, Thyromegaly Cardiovascular: Regular rate, Normal S1, Normal S2 Lungs: Clear to auscultation Abdomen: Bowel sounds Assessment/Plan - Plan Plan: as per order sheet Nutritional Asmnt/Malnutr-PDOC - Dietary Evaluation Malnutrition Findings (Please click <Entered> for more info): Nutritional Asmnt/Malnutrition Start: 05/24/18 16: 46 Text: Status: Complete Freq: Protocol: Document 05/24/18 16:46 [email or web address] (Rec: 05/24/18 16:53 [email or web address]) Nutritional Asmnt/Malnutrition Patient General Information Nutritional Screening High Risk Diagnosis altered mental status Pertinent Medical Hx/Surgical Hx HTN, DM, dyslipidemia, dementia, bipolar Subjective Information Pt seen lying in bed at time of visit, has 1:1 sitter. Per Sitter, pt ate very well 100% of lunch. Pt is Indonesian speaking noted per nurse note. Current Diet Order/ Nutrition Support CCHO 60gm Pertinent Medications pepcid, glucophage, seroquel, nacl 0.45% Pertinent Labs 05/24 Na 132, Cl 96, Cr 0.5, glucose 209, POC 136-141 Nutritional Hx/Data Height 1.68 m Height (Calculated Centimeters) 167.6 Current Weight (lbs) 55.792 kg Weight (Calculated Kilograms) 55.8 Weight (Calculated Grams) 12243.9 [place] Body Weight 142 Body Mass Index (BMI) 19.8 Weight Status Approriate GI Symptoms GI Symptoms None Last BM not indicated Difficult in: None Skin Integrity/Comment: old abdominal midline incision scar Current %PO Good (75-100%) Estimated Nutritional Goals BEE in Kcals: Using Current wt Calories/Kcals/Kg 25-30 Kcals Calculated 1080-5970 Protein: Using Current wt Protein g/k-1.2 Protein Calculated 56-67 Fluid: ml 1400-1680ml (1ml/kcal) Nutritional Problem 1. Problem Problem altered nutrition related labs Etiology hx of DM, electrolytes imbalance Signs/Symptoms: glucose 209, POC 136-141, Na 132, Cl 96 Malnutrition Alert Is there a minimum of two criteria No selected? Query Text:Check all the applicable criteria. A minimum of two criteria are recommended for diagnosis of either severe or non-severe malnutrition. Malnutrition Related to Morbid Obesity Malnutrition related to morbid obesity No Intervention/Recommendation Comments 1. Continue with CCHO 60gm diet as ordered. 2. Monitor PO intake, wt, labs and skin integrity 3. F/U as moderate risk in 3-5 days, 05/27-05/29 Expected Outcomes/Goals Expected Outcomes/Goals 1. PO intake to meet at least 75% of nutritional needs. 2. Wt stability, skin to remain intact, labs to approach WNL.
--- NOTE | 2018-06-02 11:54 | Internal Medicine Prog Note ---
Internal Medicine Subjective - Subjective Service Date: 06/02/18 Patient is:: awake Per staff patient has:: no adverse event, tolerating meds Internal Medicine Objective - Results Result Diagrams: 05/28/18 05:05 05/28/18 05:05 Recent Labs: Laboratory Last Values WBC 6.1 Th/cmm (4.8-10.8) 05/28/18 05:05 RBC 3.69 Mil/cmm (3.80-5.10) L 05/28/18 05:05 Hgb 12.1 gm/dL (12-16) 05/28/18 05:05 Hct 35.7 % (41.0-60) L 05/28/18 05:05 MCV 96.9 fl (81-100) 05/28/18 05:05 MCH 32.9 pg (27.0-31.0) H 05/28/18 05:05 MCHC Differential 33.9 pg (28.0-36.0) 05/28/18 05:05 RDW 12.9 % (11.5-20.0) 05/28/18 05:05 Plt Count 186 Th/cmm (150-400) 05/28/18 05:05 MPV 7.9 fl 05/28/18 05:05 Neutrophils % 55.3 % (40.0-80.0) 05/28/18 05:05 Lymphocytes % 30.9 % (20.0-50.0) 05/28/18 05:05 Monocytes % 11.8 % (2.0-10.0) H 05/28/18 05:05 Eosinophils % 1.8 % (0.0-5.0) 05/28/18 05:05 Basophils % 0.2 % (0.0-2.0) 05/28/18 05:05 Sodium 135 mEq/L (136-145) L 05/28/18 05:05 Potassium 3.7 mEq/L (3.5-5.1) 05/28/18 05:05 Chloride 101 mEq/L (98-107) 05/28/18 05:05 Carbon Dioxide 27.2 mEq/L (21.0-31.0) 05/28/18 05:05 Anion Gap 10.5 (7.0-16.0) 05/28/18 05:05 BUN 17 mg/dL (7-25) 05/28/18 05:05 Creatinine 0.4 mg/dL (0.6-1.2) L 05/28/18 05:05 Est GFR ( Amer) > 60.0 ml/min (>90) 05/28/18 05:05 Est GFR (Non-Af Amer) > 60.0 ml/min 05/28/18 05:05 BUN/Creatinine Ratio 42.5 05/28/18 05:05 Glucose 138 mg/dL (70-105) H 05/28/18 05:05 POC Glucose 141 MG/DL (70 - 105) H 05/24/18 11:49 Hemoglobin A1c % 5.9 % (4.0-6.0) 05/23/18 20:08 Calcium 9.2 mg/dL (8.6-10.3) 05/28/18 05:05 Total Bilirubin 0.3 mg/dL (0.3-1.0) 05/25/18 06:15 AST 17 U/L (13-39) 05/25/18 06:15 ALT 16 U/L (7-52) 05/25/18 06:15 Alkaline Phosphatase 57 U/L (34-104) 05/25/18 06:15 Troponin I 0.01 ng/mL (0.01-0.05) 05/23/18 20:08 B-Natriuretic Peptide 44.6 pg/mL (5.0-100.0) 05/23/18 20:08 Total Protein 6.1 gm/dL (6.0-8.3) 05/25/18 06:15 Albumin 3.6 gm/dL (3.7-5.3) L 05/25/18 06:15 Globulin 2.5 gm/dL 05/25/18 06:15 Albumin/Globulin Ratio 1.4 (1.0-1.8) 05/25/18 06:15 Triglycerides 191 mg/dL (<150) H 05/24/18 08:14 Cholesterol 171 mg/dL (<200) 05/24/18 08:14 LDL Cholesterol Direct 80 mg/dL (75-193) 05/24/18 08:14 HDL Cholesterol 67 mg/dL (23-92) 05/24/18 08:14 Urine Source RANDOM 05/23/18 20:30 Urine Color YELLOW 05/23/18 20:30 Urine Clarity CLEAR (CLEAR) 05/23/18 20:30 Urine pH 7.5 (4.6 - 8.0) 05/23/18 20:30 Ur Specific [place] 1.010 (1.005-1.030) 05/23/18 20:30 Urine Protein NEGATIVE mg/dL (NEGATIVE) 05/23/18 20:30 Urine Glucose (UA) 100 mg/dL (NEGATIVE) H 05/23/18 20:30 Urine Ketones NEGATIVE mg/dL (NEGATIVE) 05/23/18 20:30 Urine Blood NEGATIVE (NEGATIVE) 05/23/18 20:30 Urine Nitrate NEGATIVE (NEGATIVE) 05/23/18 20:30 Urine Bilirubin NEGATIVE (NEGATIVE) 05/23/18 20:30 Urine Urobilinogen 0.2 E.U./dL (0.2 - 1.0) 05/23/18 20:30 Ur Leukocyte Esterase NEGATIVE (NEGATIVE) 05/23/18 20:30 Urine RBC 0-2 /hpf (0-5) 05/23/18 20:30 Urine WBC 0-2 /hpf (0-5) 05/23/18 20:30 Ur Epithelial Cells FEW /lpf (FEW) 05/23/18 20:30 Urine Bacteria OCCASIONAL /hpf (NONE SEEN) 05/23/18 20:30 - Physical Exam Vitals and I&O: Vital Signs Temp 96.7 F 06/02/18 08:00 Pulse 63 06/02/18 09:02 Resp 18 06/02/18 10:00 BP 145/66 06/02/18 09:02 Pulse Ox 100 06/02/18 08:00 Intake & Output 06/01/18 06/02/18 06/02/18 18:59 06:59 18:59 Intake Total 2500 500 Balance 2500 500 Weight (lbs) 126 lb 125 lb Intake: Oral 2500 500 Other: # Voids 5 4 # Bowel Movements 1 Stool Characteristics Formed Weight Source Bedscale Bedscale Active Medications: Current Medications Divalproex Sodium (Depakote Dr) 250 mg PO QAM [facility]; Protocol Stop: 07/24/18 08:59 Last Admin: 06/02/18 09:01 Dose: 250 mg Divalproex Sodium (Depakote Er) 500 mg PO QPM [facility]; Protocol Stop: 07/23/18 16:59 Last Admin: 08/30/18 16:53 Dose: 500 mg Famotidine (Pepcid) 20 mg PO DAILY [facility] Stop: 07/24/18 08:59 Last Admin: 06/02/18 09:01 Dose: 20 mg Gabapentin (Neurontin) 300 mg PO BID [facility] Stop: 07/23/18 16:59 Last Admin: 06/02/18 09:01 Dose: 300 mg Sodium Chloride (Nacl 0.45%) 1,000 mls @ 50 mls/hr IV .Q20H [facility] Stop: 07/23/18 01:57 Last Admin: 05/26/18 13:33 Dose: Not Given Lorazepam (Ativan) 1 mg PO Q4HR PRN; Protocol PRN Reason: Agitation Stop: 07/30/18 12:30 Last Admin: 06/02/18 04:12 Dose: 1 mg Memantine (Namenda) 10 mg PO BID [facility] Stop: 07/23/18 16:59 Last Admin: 06/02/18 09:02 Dose: 10 mg Metformin HCl (Glucophage) 500 mg PO BID [facility] Stop: 07/23/18 16:59 Last Admin: 06/02/18 09:01 Dose: 500 mg Propranolol HCl (Inderal) 10 mg PO BID [facility] Stop: 07/23/18 16:59 Last Admin: 06/02/18 09:02 Dose: 10 mg Quetiapine Fumarate (Seroquel) 25 mg PO TID [facility]; Protocol Stop: 07/23/18 13:59 Last Admin: 06/02/18 09:02 Dose: 25 mg Risperidone (Risperdal) 3 mg PO HS [facility]; Protocol Stop: 07/23/18 20:59 Last Admin: 06/01/18 20:44 Dose: 3 mg Simvastatin (Zocor) 20 mg PO HS [facility]; Protocol Stop: 07/23/18 20:59 Last Admin: 06/01/18 20:44 Dose: 20 mg General: alert HEENT: NC/AT, PERRLA Neck: Supple Lungs: CTAB Cardiovascular: RRR, Normal S1, Normal S2, without murmur Abdomen: soft, non-tender, non-distended Neurological: alert Internal Medicine Assmt/Plan - Assessment Assessment: abnormal ekg htn hyperlipidemia dementia - Plan Plan: follow up labs in am cardiology follow up continue current plan of care Nutritional Asmnt/Malnutr-PDOC - Dietary Evaluation Malnutrition Findings (Please click <Entered> for more info): Nutritional Asmnt/Malnutrition Start: 05/24/18 16: 46 Text: Status: Complete Freq: Protocol: Document 05/24/18 16:46 AKOSUA (Rec: 05/24/18 16:53 [email or web address]) Nutritional Asmnt/Malnutrition Patient General Information Nutritional Screening High Risk Diagnosis altered mental status Pertinent Medical Hx/Surgical Hx HTN, DM, dyslipidemia, dementia, bipolar Subjective Information Pt seen lying in bed at time of visit, has 1:1 sitter. Per Sitter, pt ate very well 100% of lunch. Pt is Hungarian speaking noted per nurse note. Current Diet Order/ Nutrition Support CCHO 60gm Pertinent Medications pepcid, glucophage, seroquel, nacl 0.45% Pertinent Labs 05/24 Na 132, Cl 96, Cr 0.5, glucose 209, POC 136-141 Nutritional Hx/Data Height 5 ft 6 in Height (Calculated Centimeters) 167.6 Current Weight (lbs) 123 lb Weight (Calculated Kilograms) 55.8 Weight (Calculated Grams) [address]282.9 [place] Body Weight 142 Body Mass Index (BMI) 19.8 Weight Status Approriate GI Symptoms GI Symptoms None Last BM not indicated Difficult in: None Skin Integrity/Comment: old abdominal midline incision scar Current %PO Good (75-100%) Estimated Nutritional Goals BEE in Kcals: Using Current wt Calories/Kcals/Kg 25-30 Kcals Calculated 4270-8107 Protein: Using Current wt Protein g/k-1.2 Protein Calculated 56-67 Fluid: ml 1400-1680ml (1ml/kcal) Nutritional Problem 1. Problem Problem altered nutrition related labs Etiology hx of DM, electrolytes imbalance Signs/Symptoms: glucose 209, POC 136-141, Na 132, Cl 96 Malnutrition Alert Is there a minimum of two criteria No selected? Query Text:Check all the applicable criteria. A minimum of two criteria are recommended for diagnosis of either severe or non-severe malnutrition. Malnutrition Related to Morbid Obesity Malnutrition related to morbid obesity No Intervention/Recommendation Comments 1. Continue with CCHO 60gm diet as ordered. 2. Monitor PO intake, wt, labs and skin integrity 3. F/U as moderate risk in 3-5 days, 05/27-05/29 Expected Outcomes/Goals Expected Outcomes/Goals 1. PO intake to meet at least 75% of nutritional needs. 2. Wt stability, skin to remain intact, labs to approach WNL.
--- NOTE | 2018-06-03 19:07 | Progress Notes ---
DATE: 06/03/2018 SUBJECTIVE: The patient was seen in her room. The patient is currently on a 1:1 sitter due to confusion and agitation. Currently, the patient appears to be guarded and easily gets agitated . Currently, the patient is in no acute distress. OBJECTIVE: VITAL SIGNS: Temperature 97.4, heart rate of 84, blood pressure 132/62, respiration of 18 and 99% on room air. HEENT: Head is atraumatic and normocephalic. Eyes: Bilateral conjunctivae are clear. Bilateral pupils equal, round and reactive. NECK: Supple. No JVD. CARDIOVASCULAR: S1 and S2, without murmur. PULMONARY: Clear to auscultation. GASTROINTESTINAL: Soft and nontender without guarding. Positive bowel sounds. MUSCULOSKELETAL: No clubbing. No cyanosis noted. ASSESSMENT: 1. Dementia. 2. Hypertension. 3. Hyperlipidemia. PLAN: We will continue to keep the patient inpatient. We will follow up with a director hospice operations to monitor the patient's condition and behavior. Treatment plans were discussed with the patient's nurse. Treatment plans were discussed with Dr. Patiño. JOB# [id number]
[2018-06-04 05:44] LABS: % EOSINOPHILS 1.5 % (0.0-5.0); % LYMPHOCYTES 35.6 % (20.0-50.0); % MONOCYTES 12.5 % (2.0-10.0); % NEUTROPHILS 49.4 % (40.0-80.0); BASOPHILE ABSOLUTE 0.1 Th/cumm (0-0.2); EOSINOPHILE ABSOLUTE 0.1 Th/cmm (0.1-0.4); HEMATOCRIT 39.3 % (41.0-60); HEMOGLOBIN 13.1 gm/dL (12-16); LYMPHOCYTE ABSOLUTE 2.2 Th/cmm (1.5-3.0); MEAN CORPUSCULAR HEMOGLOBIN 32.4 pg (27.0-31.0); MEAN CORPUSCULAR HGB CONC 33.4 pg (28.0-36.0); MEAN PLATELET VOLUME 8.7 fl; MONOCYTE ABSOLUTE 0.8 Th/cmm (0.3-1.0); NEUTROPHILE ABSOLUTE 3.1 Th/cmm (1.8-8.0); PLATELET COUNT 168 Th/cmm (150-400); RED BLOOD COUNT 4.05 Mil/cmm (3.80-5.10); RED CELL DISTRIBUTION WIDTH 13.3 % (11.5-20.0); WHITE BLOOD COUNT 6.3 Th/cmm (4.8-10.8)
[2018-06-04 05:59] LABS: BUN - UREA NITROGEN 16 mg/dL (7-25); CALCIUM SERUM 9.5 mg/dL (8.6-10.3); CARBON DIOXIDE 24.7 mEq/L (21.0-31.0); CHLORIDE 98 mEq/L (98-107); CREATININE - SERUM 0.4 mg/dL (0.6-1.2); GFR AFRICAN-AMERICAN > 60.0 ml/min (>90); GFR NON AFRICAN-AMERICAN > 60.0 ml/min; GLUCOSE 133 mg/dL (70-105); POTASSIUM SERUM 3.7 mEq/L (3.5-5.1); SODIUM SERUM 130 mEq/L (136-145)
--- NOTE | 2018-06-04 09:17 | General Progress Note ---
Subjective - Review of Systems Events since last encounter: patient is irritable confused Objective - Results Result Diagrams: 06/04/18 05:00 06/04/18 05:00 Recent Labs: Laboratory Last Values WBC 6.3 Th/cmm (4.8-10.8) 06/04/18 05:00 RBC 4.05 Mil/cmm (3.80-5.10) 06/04/18 05:00 Hgb 13.1 gm/dL (12-16) 06/04/18 05:00 Hct 39.3 % (41.0-60) L 06/04/18 05:00 MCV 97.0 fl (81-100) 06/04/18 05:00 MCH 32.4 pg (27.0-31.0) H 06/04/18 05:00 MCHC Differential 33.4 pg (28.0-36.0) 06/04/18 05:00 RDW 13.3 % (11.5-20.0) 06/04/18 05:00 Plt Count 168 Th/cmm (150-400) 06/04/18 05:00 MPV 8.7 fl 06/04/18 05:00 Neutrophils % 49.4 % (40.0-80.0) 06/04/18 05:00 Lymphocytes % 35.6 % (20.0-50.0) 06/04/18 05:00 Monocytes % 12.5 % (2.0-10.0) H 06/04/18 05:00 Eosinophils % 1.5 % (0.0-5.0) 06/04/18 05:00 Basophils % 1.0 % (0.0-2.0) 06/04/18 05:00 Sodium 130 mEq/L (136-145) L 06/04/18 05:00 Potassium 3.7 mEq/L (3.5-5.1) 06/04/18 05:00 Chloride 98 mEq/L (98-107) 06/04/18 05:00 Carbon Dioxide 24.7 mEq/L (21.0-31.0) 06/04/18 05:00 Anion Gap 11.0 (7.0-16.0) 06/04/18 05:00 BUN 16 mg/dL (7-25) 06/04/18 05:00 Creatinine 0.4 mg/dL (0.6-1.2) L 06/04/18 05:00 Est GFR ( Amer) > 60.0 ml/min (>90) 06/04/18 05:00 Est GFR (Non-Af Amer) > 60.0 ml/min 06/04/18 05:00 BUN/Creatinine Ratio 40.0 06/04/18 05:00 Glucose 133 mg/dL (70-105) H 06/04/18 05:00 POC Glucose 141 MG/DL (70 - 105) H 05/24/18 11:49 Hemoglobin A1c % 5.9 % (4.0-6.0) 05/23/18 20:08 Calcium 9.5 mg/dL (8.6-10.3) 06/04/18 05:00 Total Bilirubin 0.3 mg/dL (0.3-1.0) 05/25/18 06:15 AST 17 U/L (13-39) 05/25/18 06:15 ALT 16 U/L (7-52) 05/25/18 06:15 Alkaline Phosphatase 57 U/L (34-104) 05/25/18 06:15 Troponin I 0.01 ng/mL (0.01-0.05) 05/23/18 20:08 B-Natriuretic Peptide 44.6 pg/mL (5.0-100.0) 05/23/18 20:08 Total Protein 6.1 gm/dL (6.0-8.3) 05/25/18 06:15 Albumin 3.6 gm/dL (3.7-5.3) L 05/25/18 06:15 Globulin 2.5 gm/dL 05/25/18 06:15 Albumin/Globulin Ratio 1.4 (1.0-1.8) 05/25/18 06:15 Triglycerides 191 mg/dL (<150) H 05/24/18 08:14 Cholesterol 171 mg/dL (<200) 05/24/18 08:14 LDL Cholesterol Direct 80 mg/dL (75-193) 05/24/18 08:14 HDL Cholesterol 67 mg/dL (23-92) 05/24/18 08:14 Urine Source RANDOM 05/23/18 20:30 Urine Color YELLOW 05/23/18 20:30 Urine Clarity CLEAR (CLEAR) 05/23/18 20:30 Urine pH 7.5 (4.6 - 8.0) 05/23/18 20:30 Ur Specific [place] 1.010 (1.005-1.030) 05/23/18 20:30 Urine Protein NEGATIVE mg/dL (NEGATIVE) 05/23/18 20:30 Urine Glucose (UA) 100 mg/dL (NEGATIVE) H 05/23/18 20:30 Urine Ketones NEGATIVE mg/dL (NEGATIVE) 05/23/18 20:30 Urine Blood NEGATIVE (NEGATIVE) 05/23/18 20:30 Urine Nitrate NEGATIVE (NEGATIVE) 05/23/18 20:30 Urine Bilirubin NEGATIVE (NEGATIVE) 05/23/18 20:30 Urine Urobilinogen 0.2 E.U./dL (0.2 - 1.0) 05/23/18 20:30 Ur Leukocyte Esterase NEGATIVE (NEGATIVE) 05/23/18 20:30 Urine RBC 0-2 /hpf (0-5) 05/23/18 20:30 Urine WBC 0-2 /hpf (0-5) 05/23/18 20:30 Ur Epithelial Cells FEW /lpf (FEW) 05/23/18 20:30 Urine Bacteria OCCASIONAL /hpf (NONE SEEN) 05/23/18 20:30 - Physical Exam Vitals and I&O: Vital Signs Temp 97.0 F 06/04/18 08:01 Pulse 67 06/04/18 08:19 Resp 18 06/04/18 08:01 BP 126/70 06/04/18 08:19 Pulse Ox 98 06/04/18 08:01 Intake & Output 06/03/18 06/04/18 06/04/18 18:59 06:59 18:59 Intake Total 750 600 Balance 750 600 Weight (lbs) 57.153 kg 58.06 kg Intake: Oral 750 600 Other: # Voids 4 4 # Bowel Movements 1 1 Weight Source Bedscale Bedscale Active Medications: Current Medications Divalproex Sodium (Depakote Dr) 250 mg PO QAM [facility]; Protocol Stop: 07/24/18 08:59 Last Admin: 06/04/18 08:19 Dose: 250 mg Divalproex Sodium (Depakote Er) 500 mg PO QPM [facility]; Protocol Stop: 07/23/18 16:59 Last Admin: 06/03/18 16:16 Dose: 500 mg Famotidine (Pepcid) 20 mg PO DAILY [facility] Stop: 07/24/18 08:59 Last Admin: 06/04/18 08:19 Dose: 20 mg Gabapentin (Neurontin) 300 mg PO BID [facility] Stop: 07/23/18 16:59 Last Admin: 06/04/18 08:19 Dose: 300 mg Sodium Chloride (Nacl 0.45%) 1,000 mls @ 50 mls/hr IV .Q20H [facility] Stop: 07/23/18 01:57 Last Admin: 05/26/18 13:33 Dose: Not Given Lorazepam (Ativan) 1 mg PO Q4HR PRN; Protocol PRN Reason: Agitation Stop: 07/30/18 12:30 Last Admin: 06/03/18 22:04 Dose: 1 mg Memantine (Namenda) 10 mg PO BID [facility] Stop: 07/23/18 16:59 Last Admin: 06/04/18 08:19 Dose: 10 mg Metformin HCl (Glucophage) 500 mg PO BID [facility] Stop: 07/23/18 16:59 Last Admin: 06/04/18 08:19 Dose: 500 mg Propranolol HCl (Inderal) 10 mg PO BID [facility] Stop: 07/23/18 16:59 Last Admin: 06/04/18 08:19 Dose: 10 mg Quetiapine Fumarate (Seroquel) 25 mg PO TID [facility]; Protocol Stop: 07/23/18 13:59 Last Admin: 06/04/18 08:19 Dose: 25 mg Risperidone (Risperdal) 3 mg PO [facility]; Protocol Stop: 07/23/18 20:59 Last Admin: 06/03/18 20:39 Dose: 3 mg Simvastatin (Zocor) 20 mg PO HS [facility]; Protocol Stop: 07/23/18 20:59 Last Admin: 06/03/18 20:39 Dose: 20 mg General: No acute distress HEENT: Atraumatic, PERRLA Neck: Supple, JVD, Thyromegaly Cardiovascular: Regular rate, Normal S1, Normal S2 Lungs: Clear to auscultation Abdomen: Bowel sounds Assessment/Plan - Problem List Patient Problems: All Active Problems Dementia (Acute) F03.90 HTN (hypertension) (Acute) I10 Hyperlipidemia (Acute) E78.5 - Plan Plan: as per order sheet cpm Nutritional Asmnt/Malnutr-PDOC - Dietary Evaluation Malnutrition Findings (Please click <Entered> for more info): Nutritional Asmnt/Malnutrition Start: 05/24/18 16: 46 Text: Status: Complete Freq: Protocol: Document 05/24/18 16:46 AKOSUA (Rec: 05/24/18 16:53 [email or web address]) Nutritional Asmnt/Malnutrition Patient General Information Nutritional Screening High Risk Diagnosis altered mental status Pertinent Medical Hx/Surgical Hx HTN, DM, dyslipidemia, dementia, bipolar Subjective Information Pt seen lying in bed at time of visit, has 1:1 sitter. Per Sitter, pt ate very well 100% of lunch. Pt is Nepali speaking noted per nurse note. Current Diet Order/ Nutrition Support CCHO 60gm Pertinent Medications pepcid, glucophage, seroquel, nacl 0.45% Pertinent Labs 05/24 Na 132, Cl 96, Cr 0.5, glucose 209, POC 136-141 Nutritional Hx/Data Height 1.68 m Height (Calculated Centimeters) 167.6 Current Weight (lbs) 55.792 kg Weight (Calculated Kilograms) 55.8 Weight (Calculated Grams) 66476.9 [place] Body Weight 142 Body Mass Index (BMI) 19.8 Weight Status Approriate GI Symptoms GI Symptoms None Last BM not indicated Difficult in: None Skin Integrity/Comment: old abdominal midline incision scar Current %PO Good (75-100%) Estimated Nutritional Goals BEE in Kcals: Using Current wt Calories/Kcals/Kg 25-30 Kcals Calculated 7074-3903 Protein: Using Current wt Protein g/k-1.2 Protein Calculated 56-67 Fluid: ml 1400-1680ml (1ml/kcal) Nutritional Problem 1. Problem Problem altered nutrition related labs Etiology hx of DM, electrolytes imbalance Signs/Symptoms: glucose 209, POC 136-141, Na 132, Cl 96 Malnutrition Alert Is there a minimum of two criteria No selected? Query Text:Check all the applicable criteria. A minimum of two criteria are recommended for diagnosis of either severe or non-severe malnutrition. Malnutrition Related to Morbid Obesity Malnutrition related to morbid obesity No Intervention/Recommendation Comments 1. Continue with CCHO 60gm diet as ordered. 2. Monitor PO intake, wt, labs and skin integrity 3. F/U as moderate risk in 3-5 days, 05/27-05/29 Expected Outcomes/Goals Expected Outcomes/Goals 1. PO intake to meet at least 75% of nutritional needs. 2. Wt stability, skin to remain intact, labs to approach WNL.
--- NOTE | 2018-06-05 10:16 | General Progress Note ---
Subjective - Review of Systems Events since last encounter: patient still confused irritable Objective - Results Result Diagrams: 06/04/18 05:00 06/04/18 05:00 Recent Labs: Laboratory Last Values WBC 6.3 Th/cmm (4.8-10.8) 06/04/18 05:00 RBC 4.05 Mil/cmm (3.80-5.10) 06/04/18 05:00 Hgb 13.1 gm/dL (12-16) 06/04/18 05:00 Hct 39.3 % (41.0-60) L 06/04/18 05:00 MCV 97.0 fl (81-100) 06/04/18 05:00 MCH 32.4 pg (27.0-31.0) H 06/04/18 05:00 MCHC Differential 33.4 pg (28.0-36.0) 06/04/18 05:00 RDW 13.3 % (11.5-20.0) 06/04/18 05:00 Plt Count 168 Th/cmm (150-400) 06/04/18 05:00 MPV 8.7 fl 06/04/18 05:00 Neutrophils % 49.4 % (40.0-80.0) 06/04/18 05:00 Lymphocytes % 35.6 % (20.0-50.0) 06/04/18 05:00 Monocytes % 12.5 % (2.0-10.0) H 06/04/18 05:00 Eosinophils % 1.5 % (0.0-5.0) 06/04/18 05:00 Basophils % 1.0 % (0.0-2.0) 06/04/18 05:00 Sodium 130 mEq/L (136-145) L 06/04/18 05:00 Potassium 3.7 mEq/L (3.5-5.1) 06/04/18 05:00 Chloride 98 mEq/L (98-107) 06/04/18 05:00 Carbon Dioxide 24.7 mEq/L (21.0-31.0) 06/04/18 05:00 Anion Gap 11.0 (7.0-16.0) 06/04/18 05:00 BUN 16 mg/dL (7-25) 06/04/18 05:00 Creatinine 0.4 mg/dL (0.6-1.2) L 06/04/18 05:00 Est GFR ( Amer) > 60.0 ml/min (>90) 06/04/18 05:00 Est GFR (Non-Af Amer) > 60.0 ml/min 06/04/18 05:00 BUN/Creatinine Ratio 40.0 06/04/18 05:00 Glucose 133 mg/dL (70-105) H 06/04/18 05:00 POC Glucose 141 MG/DL (70 - 105) H 05/24/18 11:49 Hemoglobin A1c % 5.9 % (4.0-6.0) 05/23/18 20:08 Calcium 9.5 mg/dL (8.6-10.3) 06/04/18 05:00 Total Bilirubin 0.3 mg/dL (0.3-1.0) 05/25/18 06:15 AST 17 U/L (13-39) 05/25/18 06:15 ALT 16 U/L (7-52) 05/25/18 06:15 Alkaline Phosphatase 57 U/L (34-104) 05/25/18 06:15 Troponin I 0.01 ng/mL (0.01-0.05) 05/23/18 20:08 B-Natriuretic Peptide 44.6 pg/mL (5.0-100.0) 05/23/18 20:08 Total Protein 6.1 gm/dL (6.0-8.3) 05/25/18 06:15 Albumin 3.6 gm/dL (3.7-5.3) L 05/25/18 06:15 Globulin 2.5 gm/dL 05/25/18 06:15 Albumin/Globulin Ratio 1.4 (1.0-1.8) 05/25/18 06:15 Triglycerides 191 mg/dL (<150) H 05/24/18 08:14 Cholesterol 171 mg/dL (<200) 05/24/18 08:14 LDL Cholesterol Direct 80 mg/dL (75-193) 05/24/18 08:14 HDL Cholesterol 67 mg/dL (23-92) 05/24/18 08:14 Urine Source RANDOM 05/23/18 20:30 Urine Color YELLOW 05/23/18 20:30 Urine Clarity CLEAR (CLEAR) 05/23/18 20:30 Urine pH 7.5 (4.6 - 8.0) 05/23/18 20:30 Ur Specific [place] 1.010 (1.005-1.030) 05/23/18 20:30 Urine Protein NEGATIVE mg/dL (NEGATIVE) 05/23/18 20:30 Urine Glucose (UA) 100 mg/dL (NEGATIVE) H 05/23/18 20:30 Urine Ketones NEGATIVE mg/dL (NEGATIVE) 05/23/18 20:30 Urine Blood NEGATIVE (NEGATIVE) 05/23/18 20:30 Urine Nitrate NEGATIVE (NEGATIVE) 05/23/18 20:30 Urine Bilirubin NEGATIVE (NEGATIVE) 05/23/18 20:30 Urine Urobilinogen 0.2 E.U./dL (0.2 - 1.0) 05/23/18 20:30 Ur Leukocyte Esterase NEGATIVE (NEGATIVE) 05/23/18 20:30 Urine RBC 0-2 /hpf (0-5) 05/23/18 20:30 Urine WBC 0-2 /hpf (0-5) 05/23/18 20:30 Ur Epithelial Cells FEW /lpf (FEW) 05/23/18 20:30 Urine Bacteria OCCASIONAL /hpf (NONE SEEN) 05/23/18 20:30 - Physical Exam Vitals and I&O: Vital Signs Temp 98.7 F 06/05/18 08:23 Pulse 91 06/05/18 08:23 Resp 18 06/05/18 08:23 BP 124/67 06/05/18 08:23 Pulse Ox 95 06/05/18 08:23 Intake & Output 06/04/18 06/05/18 06/05/18 18:59 06:59 18:59 Intake Total 700 450 Balance 700 450 Weight (lbs) 58.06 kg 58.06 kg Intake: Oral 700 450 Other: # Voids 4 3 # Bowel Movements 0 Weight Source Bedscale Bedscale Active Medications: Current Medications Divalproex Sodium (Depakote Dr) 250 mg PO QAM [facility]; Protocol Stop: 07/24/18 08:59 Last Admin: 06/05/18 08:20 Dose: 250 mg Divalproex Sodium (Depakote Er) 500 mg PO QPM [facility]; Protocol Stop: 07/23/18 16:59 Last Admin: 06/04/18 16:04 Dose: 500 mg Famotidine (Pepcid) 20 mg PO DAILY [facility] Stop: 07/24/18 08:59 Last Admin: 06/05/18 08:20 Dose: 20 mg Gabapentin (Neurontin) 300 mg PO BID [facility] Stop: 07/23/18 16:59 Last Admin: 06/05/18 08:20 Dose: 300 mg Sodium Chloride (Nacl 0.45%) 1,000 mls @ 50 mls/hr IV .Q20H [facility] Stop: 07/23/18 01:57 Last Admin: 05/26/18 13:33 Dose: Not Given Lorazepam (Ativan) 1 mg PO Q4HR PRN; Protocol PRN Reason: Agitation Stop: 07/30/18 12:30 Last Admin: 06/05/18 08:20 Dose: 1 mg Magnesium Hydroxide (Milk Of Magnesia) 30 ml PO DAILY PRN PRN Reason: Constipation Stop: 08/03/18 17:37 Memantine (Namenda) 10 mg PO BID [facility] Stop: 07/23/18 16:59 Last Admin: 06/05/18 08:20 Dose: 10 mg Metformin HCl (Glucophage) 500 mg PO BID [facility] Stop: 07/23/18 16:59 Last Admin: 06/05/18 08:20 Dose: 500 mg Propranolol HCl (Inderal) 10 mg PO BID [facility] Stop: 07/23/18 16:59 Last Admin: 06/05/18 08:19 Dose: 10 mg Quetiapine Fumarate (Seroquel) 25 mg PO TID [facility]; Protocol Stop: 07/23/18 13:59 Last Admin: 06/05/18 08:20 Dose: 25 mg Risperidone (Risperdal) 3 mg PO HS [facility]; Protocol Stop: 07/23/18 20:59 Last Admin: 06/04/18 20:47 Dose: 3 mg Simvastatin (Zocor) 20 mg PO HS [facility]; Protocol Stop: 07/23/18 20:59 Last Admin: 06/04/18 20:47 Dose: 20 mg General: No acute distress HEENT: Atraumatic, PERRLA Neck: Supple, JVD, Thyromegaly Cardiovascular: Regular rate, Normal S1, Normal S2 Lungs: Clear to auscultation Abdomen: Bowel sounds Assessment/Plan - Problem List Patient Problems: All Active Problems Dementia (Acute) F03.90 HTN (hypertension) (Acute) I10 Hyperlipidemia (Acute) E78.5 - Plan Plan: as per order sheet cpm Nutritional Asmnt/Malnutr-PDOC - Dietary Evaluation Malnutrition Findings (Please click <Entered> for more info): Nutritional Asmnt/Malnutrition Start: 05/24/18 16: 46 Text: Status: Complete Freq: Protocol: Document 05/24/18 16:46 [email or web address] (Rec: 05/24/18 16:53 [email or web address] [email or web address]) Nutritional Asmnt/Malnutrition Patient General Information Nutritional Screening High Risk Diagnosis altered mental status Pertinent Medical Hx/Surgical Hx HTN, DM, dyslipidemia, dementia, bipolar Subjective Information Pt seen lying in bed at time of visit, has 1:1 sitter. Per Sitter, pt ate very well 100% of lunch. Pt is Uzbek speaking noted per nurse note. Current Diet Order/ Nutrition Support CCHO 60gm Pertinent Medications pepcid, glucophage, seroquel, nacl 0.45% Pertinent Labs 05/24 Na 132, Cl 96, Cr 0.5, glucose 209, POC 136-141 Nutritional Hx/Data Height 1.68 m Height (Calculated Centimeters) 167.6 Current Weight (lbs) 55.792 kg Weight (Calculated Kilograms) 55.8 Weight (Calculated Grams) 72184.9 [place] Body Weight 142 Body Mass Index (BMI) 19.8 Weight Status Approriate GI Symptoms GI Symptoms None Last BM not indicated Difficult in: None Skin Integrity/Comment: old abdominal midline incision scar Current %PO Good (75-100%) Estimated Nutritional Goals BEE in Kcals: Using Current wt Calories/Kcals/Kg 25-30 Kcals Calculated 4365-3723 Protein: Using Current wt Protein g/k-1.2 Protein Calculated 56-67 Fluid: ml 1400-1680ml (1ml/kcal) Nutritional Problem 1. Problem Problem altered nutrition related labs Etiology hx of DM, electrolytes imbalance Signs/Symptoms: glucose 209, POC 136-141, Na 132, Cl 96 Malnutrition Alert Is there a minimum of two criteria No selected? Query Text:Check all the applicable criteria. A minimum of two criteria are recommended for diagnosis of either severe or non-severe malnutrition. Malnutrition Related to Morbid Obesity Malnutrition related to morbid obesity No Intervention/Recommendation Comments 1. Continue with CCHO 60gm diet as ordered. 2. Monitor PO intake, wt, labs and skin integrity 3. F/U as moderate risk in 3-5 days, 05/27-05/29 Expected Outcomes/Goals Expected Outcomes/Goals 1. PO intake to meet at least 75% of nutritional needs. 2. Wt stability, skin to remain intact, labs to approach WNL.
[2018-06-06] MEDS: Magnesium Hydroxide (MOM) 30 mL UDC PO PRN (16:46)
[2018-06-07] MEDS: Magnesium Hydroxide (MOM) 30 mL UDC PO PRN (08:44)
--- NOTE | 2018-06-07 15:28 | General Progress Note ---
Subjective - Review of Systems Events since last encounter: patient awake in no distress no signs of pain Objective - Results Result Diagrams: 06/04/18 05:00 06/04/18 05:00 Recent Labs: Laboratory Last Values WBC 6.3 Th/cmm (4.8-10.8) 06/04/18 05:00 RBC 4.05 Mil/cmm (3.80-5.10) 06/04/18 05:00 Hgb 13.1 gm/dL (12-16) 06/04/18 05:00 Hct 39.3 % (41.0-60) L 06/04/18 05:00 MCV 97.0 fl (81-100) 06/04/18 05:00 MCH 32.4 pg (27.0-31.0) H 06/04/18 05:00 MCHC Differential 33.4 pg (28.0-36.0) 06/04/18 05:00 RDW 13.3 % (11.5-20.0) 06/04/18 05:00 Plt Count 168 Th/cmm (150-400) 06/04/18 05:00 MPV 8.7 fl 06/04/18 05:00 Neutrophils % 49.4 % (40.0-80.0) 06/04/18 05:00 Lymphocytes % 35.6 % (20.0-50.0) 06/04/18 05:00 Monocytes % 12.5 % (2.0-10.0) H 06/04/18 05:00 Eosinophils % 1.5 % (0.0-5.0) 06/04/18 05:00 Basophils % 1.0 % (0.0-2.0) 06/04/18 05:00 Sodium 130 mEq/L (136-145) L 06/04/18 05:00 Potassium 3.7 mEq/L (3.5-5.1) 06/04/18 05:00 Chloride 98 mEq/L (98-107) 06/04/18 05:00 Carbon Dioxide 24.7 mEq/L (21.0-31.0) 06/04/18 05:00 Anion Gap 11.0 (7.0-16.0) 06/04/18 05:00 BUN 16 mg/dL (7-25) 06/04/18 05:00 Creatinine 0.4 mg/dL (0.6-1.2) L 06/04/18 05:00 Est GFR ( Amer) > 60.0 ml/min (>90) 06/04/18 05:00 Est GFR (Non-Af Amer) > 60.0 ml/min 06/04/18 05:00 BUN/Creatinine Ratio 40.0 06/04/18 05:00 Glucose 133 mg/dL (70-105) H 06/04/18 05:00 POC Glucose 141 MG/DL (70 - 105) H 05/24/18 11:49 Hemoglobin A1c % 5.9 % (4.0-6.0) 05/23/18 20:08 Calcium 9.5 mg/dL (8.6-10.3) 06/04/18 05:00 Total Bilirubin 0.3 mg/dL (0.3-1.0) 05/25/18 06:15 AST 17 U/L (13-39) 05/25/18 06:15 ALT 16 U/L (7-52) 05/25/18 06:15 Alkaline Phosphatase 57 U/L (34-104) 05/25/18 06:15 Troponin I 0.01 ng/mL (0.01-0.05) 05/23/18 20:08 B-Natriuretic Peptide 44.6 pg/mL (5.0-100.0) 05/23/18 20:08 Total Protein 6.1 gm/dL (6.0-8.3) 05/25/18 06:15 Albumin 3.6 gm/dL (3.7-5.3) L 05/25/18 06:15 Globulin 2.5 gm/dL 05/25/18 06:15 Albumin/Globulin Ratio 1.4 (1.0-1.8) 05/25/18 06:15 Triglycerides 191 mg/dL (<150) H 05/24/18 08:14 Cholesterol 171 mg/dL (<200) 05/24/18 08:14 LDL Cholesterol Direct 80 mg/dL (75-193) 05/24/18 08:14 HDL Cholesterol 67 mg/dL (23-92) 05/24/18 08:14 Urine Source RANDOM 05/23/18 20:30 Urine Color YELLOW 05/23/18 20:30 Urine Clarity CLEAR (CLEAR) 05/23/18 20:30 Urine pH 7.5 (4.6 - 8.0) 05/23/18 20:30 Ur Specific [place] 1.010 (1.005-1.030) 05/23/18 20:30 Urine Protein NEGATIVE mg/dL (NEGATIVE) 05/23/18 20:30 Urine Glucose (UA) 100 mg/dL (NEGATIVE) H 05/23/18 20:30 Urine Ketones NEGATIVE mg/dL (NEGATIVE) 05/23/18 20:30 Urine Blood NEGATIVE (NEGATIVE) 05/23/18 20:30 Urine Nitrate NEGATIVE (NEGATIVE) 05/23/18 20:30 Urine Bilirubin NEGATIVE (NEGATIVE) 05/23/18 20:30 Urine Urobilinogen 0.2 E.U./dL (0.2 - 1.0) 05/23/18 20:30 Ur Leukocyte Esterase NEGATIVE (NEGATIVE) 05/23/18 20:30 Urine RBC 0-2 /hpf (0-5) 05/23/18 20:30 Urine WBC 0-2 /hpf (0-5) 05/23/18 20:30 Ur Epithelial Cells FEW /lpf (FEW) 05/23/18 20:30 Urine Bacteria OCCASIONAL /hpf (NONE SEEN) 05/23/18 20:30 - Physical Exam Vitals and I&O: Vital Signs Temp 97.4 F 06/07/18 11:00 Pulse 96 06/07/18 11:00 Resp 19 06/07/18 11:00 BP 143/88 06/07/18 11:00 Pulse Ox 96 06/07/18 11:00 Intake & Output 06/06/18 06/07/18 06/07/18 18:59 06:59 18:59 Intake Total 700 Balance 700 Weight (lbs) 58.967 kg 58.967 kg Intake: Oral 700 Other: # Voids 5 # Bowel Movements 0 0 Weight Source Bedscale Bedscale Active Medications: Current Medications Divalproex Sodium (Depakote Dr) 250 mg PO QAM [facility]; Protocol Stop: 07/24/18 08:59 Last Admin: 06/07/18 08:43 Dose: 250 mg Divalproex Sodium (Depakote Er) 500 mg PO QPM [facility]; Protocol Stop: 07/23/18 16:59 Last Admin: 06/06/18 16:39 Dose: 500 mg Famotidine (Pepcid) 20 mg PO DAILY [facility] Stop: 07/24/18 08:59 Last Admin: 06/07/18 08:44 Dose: 20 mg Gabapentin (Neurontin) 300 mg PO BID [facility] Stop: 07/23/18 16:59 Last Admin: 06/07/18 08:44 Dose: 300 mg Sodium Chloride (Nacl 0.45%) 1,000 mls @ 50 mls/hr IV .Q20H [facility] Stop: 07/23/18 01:57 Last Admin: 05/26/18 13:33 Dose: Not Given Lactulose (Cephulac) 30 gm PO DAILY PRN PRN Reason: Constipation Stop: 08/06/18 13:18 Lorazepam (Ativan) 1 mg PO Q4HR PRN; Protocol PRN Reason: Agitation Stop: 07/30/18 12:30 Last Admin: 06/06/18 14:39 Dose: 1 mg Magnesium Hydroxide (Milk Of Magnesia) 30 ml PO DAILY PRN PRN Reason: Constipation Stop: 08/03/18 17:37 Last Admin: 06/07/18 08:44 Dose: 30 ml Memantine (Namenda) 10 mg PO BID [facility] Stop: 07/23/18 16:59 Last Admin: 06/07/18 08:44 Dose: 10 mg Metformin HCl (Glucophage) 500 mg PO BID [facility] Stop: 07/23/18 16:59 Last Admin: 06/07/18 08:43 Dose: 500 mg Propranolol HCl (Inderal) 10 mg PO BID [facility] Stop: 07/23/18 16:59 Last Admin: 06/07/18 08:44 Dose: 10 mg Quetiapine Fumarate (Seroquel) 25 mg PO TID [facility]; Protocol Stop: 07/23/18 13:59 Last Admin: 06/07/18 13:31 Dose: 25 mg Risperidone (Risperdal) 3 mg PO HS [facility]; Protocol Stop: 07/23/18 20:59 Last Admin: 06/06/18 21:00 Dose: 3 mg Simvastatin (Zocor) 20 mg PO HS [facility]; Protocol Stop: 07/23/18 20:59 Last Admin: 06/06/18 21:00 Dose: 20 mg General: No acute distress HEENT: Atraumatic, PERRLA Neck: Supple, JVD, Thyromegaly Cardiovascular: Regular rate, Normal S1, Normal S2 Lungs: Clear to auscultation Abdomen: Bowel sounds Assessment/Plan - Problem List Patient Problems: All Active Problems Dementia (Acute) F03.90 HTN (hypertension) (Acute) I10 Hyperlipidemia (Acute) E78.5 - Plan Plan: as per order sheet cpm Nutritional Asmnt/Malnutr-PDOC - Dietary Evaluation Malnutrition Findings (Please click <Entered> for more info): Nutritional Asmnt/Malnutrition Start: 05/24/18 16: 46 Text: Status: Complete Freq: Protocol: Document 05/24/18 16:46 LCHENG (Rec: 05/24/18 16:53 [email or web address] [email or web address]) Nutritional Asmnt/Malnutrition Patient General Information Nutritional Screening High Risk Diagnosis altered mental status Pertinent Medical Hx/Surgical Hx HTN, DM, dyslipidemia, dementia, bipolar Subjective Information Pt seen lying in bed at time of visit, has 1:1 sitter. Per Sitter, pt ate very well 100% of lunch. Pt is Maori speaking noted per nurse note. Current Diet Order/ Nutrition Support CCHO 60gm Pertinent Medications pepcid, glucophage, seroquel, nacl 0.45% Pertinent Labs 05/24 Na 132, Cl 96, Cr 0.5, glucose 209, POC 136-141 Nutritional Hx/Data Height 1.68 m Height (Calculated Centimeters) 167.6 Current Weight (lbs) 55.792 kg Weight (Calculated Kilograms) 55.8 Weight (Calculated Grams) 57750.9 [place] Body Weight 142 Body Mass Index (BMI) 19.8 Weight Status Approriate GI Symptoms GI Symptoms None Last BM not indicated Difficult in: None Skin Integrity/Comment: old abdominal midline incision scar Current %PO Good (75-100%) Estimated Nutritional Goals BEE in Kcals: Using Current wt Calories/Kcals/Kg 25-30 Kcals Calculated 8562-4850 Protein: Using Current wt Protein g/k-1.2 Protein Calculated 56-67 Fluid: ml 1400-1680ml (1ml/kcal) Nutritional Problem 1. Problem Problem altered nutrition related labs Etiology hx of DM, electrolytes imbalance Signs/Symptoms: glucose 209, POC 136-141, Na 132, Cl 96 Malnutrition Alert Is there a minimum of two criteria No selected? Query Text:Check all the applicable criteria. A minimum of two criteria are recommended for diagnosis of either severe or non-severe malnutrition. Malnutrition Related to Morbid Obesity Malnutrition related to morbid obesity No Intervention/Recommendation Comments 1. Continue with [facility] 60gm diet as ordered. 2. Monitor PO intake, wt, labs and skin integrity 3. F/U as moderate risk in 3-5 days, 05/27-05/29 Expected Outcomes/Goals Expected Outcomes/Goals 1. PO intake to meet at least 75% of nutritional needs. 2. Wt stability, skin to remain intact, labs to approach WNL.
[2018-06-07] MEDS: Lactulose 10 Gm/15 mL 30mL UDC PO PRN (16:32)
[2018-06-08 06:39] LABS: % BASOPHILS 0.2 % (0.0-2.0); % EOSINOPHILS 1.3 % (0.0-5.0); % LYMPHOCYTES 35.6 % (20.0-50.0); % MONOCYTES 11.1 % (2.0-10.0); % NEUTROPHILS 51.8 % (40.0-80.0); EOSINOPHILE ABSOLUTE 0.1 Th/cmm (0.1-0.4); HEMATOCRIT 40.3 % (41.0-60); HEMOGLOBIN 13.4 gm/dL (12-16); LYMPHOCYTE ABSOLUTE 2.4 Th/cmm (1.5-3.0); MEAN CELL VOLUME 96.8 fl (81-100); MEAN CORPUSCULAR HEMOGLOBIN 32.1 pg (27.0-31.0); MEAN CORPUSCULAR HGB CONC 33.2 pg (28.0-36.0); MEAN PLATELET VOLUME 8.5 fl; MONOCYTE ABSOLUTE 0.7 Th/cmm (0.3-1.0); NEUTROPHILE ABSOLUTE 3.5 Th/cmm (1.8-8.0); PLATELET COUNT 213 Th/cmm (150-400); RED BLOOD COUNT 4.16 Mil/cmm (3.80-5.10); RED CELL DISTRIBUTION WIDTH 13.6 % (11.5-20.0); WHITE BLOOD COUNT 6.7 Th/cmm (4.8-10.8)
[2018-06-08 06:58] LABS: ANION GAP 10.4 (7.0-16.0); BUN - UREA NITROGEN 18 mg/dL (7-25); CALCIUM SERUM 9.8 mg/dL (8.6-10.3); CARBON DIOXIDE 31.4 mEq/L (21.0-31.0); CHLORIDE 99 mEq/L (98-107); CREATININE - SERUM 0.5 mg/dL (0.6-1.2); GFR AFRICAN-AMERICAN > 60.0 ml/min (>90); GFR NON AFRICAN-AMERICAN > 60.0 ml/min; GLUCOSE 138 mg/dL (70-105); POTASSIUM SERUM 3.8 mEq/L (3.5-5.1); SODIUM SERUM 137 mEq/L (136-145)
--- NOTE | 2018-06-08 11:23 | General Progress Note ---
Subjective - Review of Systems Events since last encounter: patient awake in no acute distress Objective - Results Result Diagrams: 06/08/18 06:08 06/08/18 06:08 Recent Labs: Laboratory Last Values WBC 6.7 Th/cmm (4.8-10.8) 06/08/18 06:08 RBC 4.16 Mil/cmm (3.80-5.10) 06/08/18 06:08 Hgb 13.4 gm/dL (12-16) 06/08/18 06:08 Hct 40.3 % (41.0-60) L 06/08/18 06:08 MCV 96.8 fl (81-100) 06/08/18 06:08 MCH 32.1 pg (27.0-31.0) H 06/08/18 06:08 MCHC Differential 33.2 pg (28.0-36.0) 06/08/18 06:08 RDW 13.6 % (11.5-20.0) 06/08/18 06:08 Plt Count 213 Th/cmm (150-400) 06/08/18 06:08 MPV 8.5 fl 06/08/18 06:08 Neutrophils % 51.8 % (40.0-80.0) 06/08/18 06:08 Lymphocytes % 35.6 % (20.0-50.0) 06/08/18 06:08 Monocytes % 11.1 % (2.0-10.0) H 06/08/18 06:08 Eosinophils % 1.3 % (0.0-5.0) 06/08/18 06:08 Basophils % 0.2 % (0.0-2.0) 06/08/18 06:08 Sodium 137 mEq/L (136-145) 06/08/18 06:08 Potassium 3.8 mEq/L (3.5-5.1) 06/08/18 06:08 Chloride 99 mEq/L (98-107) 06/08/18 06:08 Carbon Dioxide 31.4 mEq/L (21.0-31.0) H 06/08/18 06:08 Anion Gap 10.4 (7.0-16.0) 06/08/18 06:08 BUN 18 mg/dL (7-25) 06/08/18 06:08 Creatinine 0.5 mg/dL (0.6-1.2) L 06/08/18 06:08 Est GFR ( Amer) > 60.0 ml/min (>90) 06/08/18 06:08 Est GFR (Non-Af Amer) > 60.0 ml/min 06/08/18 06:08 BUN/Creatinine Ratio 36.0 06/08/18 06:08 Glucose 138 mg/dL (70-105) H 06/08/18 06:08 POC Glucose 141 MG/DL (70 - 105) H 05/24/18 11:49 Hemoglobin A1c % 5.9 % (4.0-6.0) 05/23/18 20:08 Calcium 9.8 mg/dL (8.6-10.3) 06/08/18 06:08 Total Bilirubin 0.3 mg/dL (0.3-1.0) 05/25/18 06:15 AST 17 U/L (13-39) 05/25/18 06:15 ALT 16 U/L (7-52) 05/25/18 06:15 Alkaline Phosphatase 57 U/L (34-104) 05/25/18 06:15 Troponin I 0.01 ng/mL (0.01-0.05) 05/23/18 20:08 B-Natriuretic Peptide 44.6 pg/mL (5.0-100.0) 05/23/18 20:08 Total Protein 6.1 gm/dL (6.0-8.3) 05/25/18 06:15 Albumin 3.6 gm/dL (3.7-5.3) L 05/25/18 06:15 Globulin 2.5 gm/dL 05/25/18 06:15 Albumin/Globulin Ratio 1.4 (1.0-1.8) 05/25/18 06:15 Triglycerides 191 mg/dL (<150) H 05/24/18 08:14 Cholesterol 171 mg/dL (<200) 05/24/18 08:14 LDL Cholesterol Direct 80 mg/dL (75-193) 05/24/18 08:14 HDL Cholesterol 67 mg/dL (23-92) 05/24/18 08:14 Urine Source RANDOM 05/23/18 20:30 Urine Color YELLOW 05/23/18 20:30 Urine Clarity CLEAR (CLEAR) 05/23/18 20:30 Urine pH 7.5 (4.6 - 8.0) 05/23/18 20:30 Ur Specific [place] 1.010 (1.005-1.030) 05/23/18 20:30 Urine Protein NEGATIVE mg/dL (NEGATIVE) 05/23/18 20:30 Urine Glucose (UA) 100 mg/dL (NEGATIVE) H 05/23/18 20:30 Urine Ketones NEGATIVE mg/dL (NEGATIVE) 05/23/18 20:30 Urine Blood NEGATIVE (NEGATIVE) 05/23/18 20:30 Urine Nitrate NEGATIVE (NEGATIVE) 05/23/18 20:30 Urine Bilirubin NEGATIVE (NEGATIVE) 05/23/18 20:30 Urine Urobilinogen 0.2 E.U./dL (0.2 - 1.0) 05/23/18 20:30 Ur Leukocyte Esterase NEGATIVE (NEGATIVE) 05/23/18 20:30 Urine RBC 0-2 /hpf (0-5) 05/23/18 20:30 Urine WBC 0-2 /hpf (0-5) 05/23/18 20:30 Ur Epithelial Cells FEW /lpf (FEW) 05/23/18 20:30 Urine Bacteria OCCASIONAL /hpf (NONE SEEN) 05/23/18 20:30 - Physical Exam Vitals and I&O: Vital Signs Temp 97.4 F 06/08/18 04:00 Pulse 87 06/08/18 04:00 Resp 20 06/08/18 07:41 BP 117/75 06/08/18 04:00 Pulse Ox 95 06/08/18 04:00 Intake & Output 06/07/18 06/08/18 06/08/18 18:59 06:59 18:59 Intake Total 800 600 Output Total 0 Balance 800 600 Weight (lbs) 58.967 kg 58.967 kg 58.967 kg Intake: Oral 800 600 Output: Stool 0 Other: # Voids 3 2 # Bowel Movements 2 0 Weight Source Bedscale Bedscale Bedscale Active Medications: Current Medications Divalproex Sodium (Depakote Dr) 250 mg PO QAM [facility]; Protocol Stop: 07/24/18 08:59 Last Admin: 06/08/18 08:56 Dose: 250 mg Divalproex Sodium (Depakote Er) 500 mg PO QPM [facility]; Protocol Stop: 07/23/18 16:59 Last Admin: 06/07/18 16:28 Dose: 500 mg Famotidine (Pepcid) 20 mg PO DAILY [facility] Stop: 07/24/18 08:59 Last Admin: 06/08/18 08:58 Dose: 20 mg Gabapentin (Neurontin) 300 mg PO BID [facility] Stop: 07/23/18 16:59 Last Admin: 06/08/18 08:56 Dose: 300 mg Sodium Chloride (Nacl 0.45%) 1,000 mls @ 50 mls/hr IV .Q20H [facility] Stop: 07/23/18 01:57 Last Admin: 05/26/18 13:33 Dose: Not Given Lactulose (Cephulac) 30 gm PO DAILY PRN PRN Reason: Constipation Stop: 08/06/18 13:18 Last Admin: 06/07/18 16:32 Dose: 30 gm Lorazepam (Ativan) 1 mg PO Q4HR PRN; Protocol PRN Reason: Agitation Stop: 07/30/18 12:30 Last Admin: 06/06/18 14:39 Dose: 1 mg Magnesium Hydroxide (Milk Of Magnesia) 30 ml PO DAILY PRN PRN Reason: Constipation Stop: 08/03/18 17:37 Last Admin: 06/07/18 08:44 Dose: 30 ml Memantine (Namenda) 10 mg PO BID [facility] Stop: 07/23/18 16:59 Last Admin: 06/08/18 08:56 Dose: 10 mg Metformin HCl (Glucophage) 500 mg PO BID [facility] Stop: 07/23/18 16:59 Last Admin: 06/08/18 08:57 Dose: 500 mg Propranolol HCl (Inderal) 10 mg PO BID [facility] Stop: 07/23/18 16:59 Last Admin: 06/07/18 16:28 Dose: 10 mg Quetiapine Fumarate (Seroquel) 25 mg PO TID [facility]; Protocol Stop: 07/23/18 13:59 Last Admin: 06/07/18 21:00 Dose: 25 mg Risperidone (Risperdal) 3 mg PO HS [facility]; Protocol Stop: 07/23/18 20:59 Last Admin: 06/07/18 21:00 Dose: 3 mg Simvastatin (Zocor) 20 mg PO HS [facility]; Protocol Stop: 07/23/18 20:59 Last Admin: 06/07/18 21:00 Dose: 20 mg General: No acute distress HEENT: Atraumatic, PERRLA Neck: Supple, JVD, Thyromegaly Cardiovascular: Regular rate, Normal S1, Normal S2 Lungs: Clear to auscultation Abdomen: Bowel sounds Assessment/Plan - Problem List Patient Problems: All Active Problems Dementia (Acute) F03.90 HTN (hypertension) (Acute) I10 Hyperlipidemia (Acute) E78.5 - Plan Plan: as per order sheet cpm Nutritional Asmnt/Malnutr-PDOC - Dietary Evaluation Malnutrition Findings (Please click <Entered> for more info): Nutritional Asmnt/Malnutrition Start: 05/24/18 16: 46 Text: Status: Complete Freq: Protocol: Document 05/24/18 16:46 AKOSUA (Rec: 05/24/18 16:53 [email or web address]) Nutritional Asmnt/Malnutrition Patient General Information Nutritional Screening High Risk Diagnosis altered mental status Pertinent Medical Hx/Surgical Hx HTN, DM, dyslipidemia, dementia, bipolar Subjective Information Pt seen lying in bed at time of visit, has 1:1 sitter. Per Sitter, pt ate very well 100% of lunch. Pt is Syriac speaking noted per nurse note. Current Diet Order/ Nutrition Support CCHO 60gm Pertinent Medications pepcid, glucophage, seroquel, nacl 0.45% Pertinent Labs 05/24 Na 132, Cl 96, Cr 0.5, glucose 209, POC 136-141 Nutritional Hx/Data Height 1.68 m Height (Calculated Centimeters) 167.6 Current Weight (lbs) 55.792 kg Weight (Calculated Kilograms) 55.8 Weight (Calculated Grams) 12027.9 [place] Body Weight 142 Body Mass Index (BMI) 19.8 Weight Status Approriate GI Symptoms GI Symptoms None Last BM not indicated Difficult in: None Skin Integrity/Comment: old abdominal midline incision scar Current %PO Good (75-100%) Estimated Nutritional Goals BEE in Kcals: Using Current wt Calories/Kcals/Kg 25-30 Kcals Calculated 3646-6586 Protein: Using Current wt Protein g/k-1.2 Protein Calculated 56-67 Fluid: ml 1400-1680ml (1ml/kcal) Nutritional Problem 1. Problem Problem altered nutrition related labs Etiology hx of DM, electrolytes imbalance Signs/Symptoms: glucose 209, POC 136-141, Na 132, Cl 96 Malnutrition Alert Is there a minimum of two criteria No selected? Query Text:Check all the applicable criteria. A minimum of two criteria are recommended for diagnosis of either severe or non-severe malnutrition. Malnutrition Related to Morbid Obesity Malnutrition related to morbid obesity No Intervention/Recommendation Comments 1. Continue with CCHO 60gm diet as ordered. 2. Monitor PO intake, wt, labs and skin integrity 3. F/U as moderate risk in 3-5 days, 05/27-05/29 Expected Outcomes/Goals Expected Outcomes/Goals 1. PO intake to meet at least 75% of nutritional needs. 2. Wt stability, skin to remain intact, labs to approach WNL.
--- NOTE | 2018-06-09 16:01 | Internal Medicine Prog Note ---
Internal Medicine Subjective - Subjective Service Date: 06/09/18 Patient is:: awake Per staff patient has:: no adverse event, tolerating meds Internal Medicine Objective - Results Result Diagrams: 06/08/18 06:08 06/08/18 06:08 Recent Labs: Laboratory Last Values WBC 6.7 Th/cmm (4.8-10.8) 06/08/18 06:08 RBC 4.16 Mil/cmm (3.80-5.10) 06/08/18 06:08 Hgb 13.4 gm/dL (12-16) 06/08/18 06:08 Hct 40.3 % (41.0-60) L 06/08/18 06:08 MCV 96.8 fl (81-100) 06/08/18 06:08 MCH 32.1 pg (27.0-31.0) H 06/08/18 06:08 MCHC Differential 33.2 pg (28.0-36.0) 06/08/18 06:08 RDW 13.6 % (11.5-20.0) 06/08/18 06:08 Plt Count 213 Th/cmm (150-400) 06/08/18 06:08 MPV 8.5 fl 06/08/18 06:08 Neutrophils % 51.8 % (40.0-80.0) 06/08/18 06:08 Lymphocytes % 35.6 % (20.0-50.0) 06/08/18 06:08 Monocytes % 11.1 % (2.0-10.0) H 06/08/18 06:08 Eosinophils % 1.3 % (0.0-5.0) 06/08/18 06:08 Basophils % 0.2 % (0.0-2.0) 06/08/18 06:08 Sodium 137 mEq/L (136-145) 06/08/18 06:08 Potassium 3.8 mEq/L (3.5-5.1) 06/08/18 06:08 Chloride 99 mEq/L (98-107) 06/08/18 06:08 Carbon Dioxide 31.4 mEq/L (21.0-31.0) H 06/08/18 06:08 Anion Gap 10.4 (7.0-16.0) 06/08/18 06:08 BUN 18 mg/dL (7-25) 06/08/18 06:08 Creatinine 0.5 mg/dL (0.6-1.2) L 06/08/18 06:08 Est GFR ( Amer) > 60.0 ml/min (>90) 06/08/18 06:08 Est GFR (Non-Af Amer) > 60.0 ml/min 06/08/18 06:08 BUN/Creatinine Ratio 36.0 06/08/18 06:08 Glucose 138 mg/dL (70-105) H 06/08/18 06:08 POC Glucose 141 MG/DL (70 - 105) H 05/24/18 11:49 Hemoglobin A1c % 5.9 % (4.0-6.0) 05/23/18 20:08 Calcium 9.8 mg/dL (8.6-10.3) 06/08/18 06:08 Total Bilirubin 0.3 mg/dL (0.3-1.0) 05/25/18 06:15 AST 17 U/L (13-39) 05/25/18 06:15 ALT 16 U/L (7-52) 05/25/18 06:15 Alkaline Phosphatase 57 U/L (34-104) 05/25/18 06:15 Troponin I 0.01 ng/mL (0.01-0.05) 05/23/18 20:08 B-Natriuretic Peptide 44.6 pg/mL (5.0-100.0) 05/23/18 20:08 Total Protein 6.1 gm/dL (6.0-8.3) 05/25/18 06:15 Albumin 3.6 gm/dL (3.7-5.3) L 05/25/18 06:15 Globulin 2.5 gm/dL 05/25/18 06:15 Albumin/Globulin Ratio 1.4 (1.0-1.8) 05/25/18 06:15 Triglycerides 191 mg/dL (<150) H 05/24/18 08:14 Cholesterol 171 mg/dL (<200) 05/24/18 08:14 LDL Cholesterol Direct 80 mg/dL (75-193) 05/24/18 08:14 HDL Cholesterol 67 mg/dL (23-92) 05/24/18 08:14 Urine Source RANDOM 05/23/18 20:30 Urine Color YELLOW 05/23/18 20:30 Urine Clarity CLEAR (CLEAR) 05/23/18 20:30 Urine pH 7.5 (4.6 - 8.0) 05/23/18 20:30 Ur Specific [place] 1.010 (1.005-1.030) 05/23/18 20:30 Urine Protein NEGATIVE mg/dL (NEGATIVE) 05/23/18 20:30 Urine Glucose (UA) 100 mg/dL (NEGATIVE) H 05/23/18 20:30 Urine Ketones NEGATIVE mg/dL (NEGATIVE) 05/23/18 20:30 Urine Blood NEGATIVE (NEGATIVE) 05/23/18 20:30 Urine Nitrate NEGATIVE (NEGATIVE) 05/23/18 20:30 Urine Bilirubin NEGATIVE (NEGATIVE) 05/23/18 20:30 Urine Urobilinogen 0.2 E.U./dL (0.2 - 1.0) 05/23/18 20:30 Ur Leukocyte Esterase NEGATIVE (NEGATIVE) 05/23/18 20:30 Urine RBC 0-2 /hpf (0-5) 05/23/18 20:30 Urine WBC 0-2 /hpf (0-5) 05/23/18 20:30 Ur Epithelial Cells FEW /lpf (FEW) 05/23/18 20:30 Urine Bacteria OCCASIONAL /hpf (NONE SEEN) 05/23/18 20:30 - Physical Exam Vitals and I&O: Vital Signs Temp 98.1 F 06/09/18 04:00 Pulse 75 06/09/18 09:54 Resp 18 06/09/18 08:00 BP 148/73 06/09/18 09:54 Pulse Ox 99 06/09/18 04:00 Intake & Output 06/08/18 06/09/18 06/09/18 18:59 06:59 18:59 Weight (lbs) 130 lb Other: Weight Source Bedscale Active Medications: Current Medications Divalproex Sodium (Depakote Dr) 250 mg PO QAM [facility]; Protocol Stop: 07/24/18 08:59 Last Admin: 06/09/18 09:53 Dose: 250 mg Divalproex Sodium (Depakote Er) 500 mg PO QPM [facility]; Protocol Stop: 07/23/18 16:59 Last Admin: 06/08/18 16:37 Dose: 500 mg Famotidine (Pepcid) 20 mg PO DAILY [facility] Stop: 07/24/18 08:59 Last Admin: 06/09/18 09:53 Dose: 20 mg Gabapentin (Neurontin) 300 mg PO BID [facility] Stop: 07/23/18 16:59 Last Admin: 06/09/18 09:53 Dose: 300 mg Sodium Chloride (Nacl 0.45%) 1,000 mls @ 50 mls/hr IV .Q20H [facility] Stop: 07/23/18 01:57 Last Admin: 05/26/18 13:33 Dose: Not Given Lactulose (Cephulac) 30 gm PO DAILY PRN PRN Reason: Constipation Stop: 08/06/18 13:18 Last Admin: 06/07/18 16:32 Dose: 30 gm Lorazepam (Ativan) 1 mg PO Q4HR PRN; Protocol PRN Reason: Agitation Stop: 07/30/18 12:30 Last Admin: 06/09/18 00:24 Dose: 1 mg Magnesium Hydroxide (Milk Of Magnesia) 30 ml PO DAILY PRN PRN Reason: Constipation Stop: 08/03/18 17:37 Last Admin: 06/07/18 08:44 Dose: 30 ml Memantine (Namenda) 10 mg PO BID [facility] Stop: 07/23/18 16:59 Last Admin: 06/09/18 09:53 Dose: 10 mg Metformin HCl (Glucophage) 500 mg PO BID [facility] Stop: 07/23/18 16:59 Last Admin: 06/09/18 09:52 Dose: 500 mg Propranolol HCl (Inderal) 10 mg PO BID [facility] Stop: 07/23/18 16:59 Last Admin: 06/09/18 09:54 Dose: 10 mg Quetiapine Fumarate (Seroquel) 25 mg PO TID [facility]; Protocol Stop: 07/23/18 13:59 Last Admin: 06/09/18 09:52 Dose: 25 mg Risperidone (Risperdal) 3 mg PO HS [facility]; Protocol Stop: 07/23/18 20:59 Last Admin: 06/08/18 22:07 Dose: 3 mg Simvastatin (Zocor) 20 mg PO HS [facility]; Protocol Stop: 07/23/18 20:59 Last Admin: 06/08/18 22:07 Dose: 20 mg General: alert HEENT: NC/AT, PERRLA Neck: Supple Lungs: CTAB Cardiovascular: RRR, Normal S1, Normal S2, without murmur Abdomen: soft, non-tender, non-distended Neurological: alert Internal Medicine Assmt/Plan - Assessment Assessment: abnormal ekg htn hyperlipidemia dementia - Plan Plan: follow up labs in am cardiology follow up continue current plan of care Nutritional Asmnt/Malnutr-PDOC - Dietary Evaluation Malnutrition Findings (Please click <Entered> for more info): Nutritional Asmnt/Malnutrition Start: 05/24/18 16: 46 Text: Status: Complete Freq: Protocol: Document 05/24/18 16:46 LCHENG (Rec: 05/24/18 16:53 HENG [email or web address]) Nutritional Asmnt/Malnutrition Patient General Information Nutritional Screening High Risk Diagnosis altered mental status Pertinent Medical Hx/Surgical Hx HTN, DM, dyslipidemia, dementia, bipolar Subjective Information Pt seen lying in bed at time of visit, has 1:1 sitter. Per Sitter, pt ate very well 100% of lunch. Pt is Romanian speaking noted per nurse note. Current Diet Order/ Nutrition Support CCHO 60gm Pertinent Medications pepcid, glucophage, seroquel, nacl 0.45% Pertinent Labs 05/24 Na 132, Cl 96, Cr 0.5, glucose 209, POC 136-141 Nutritional Hx/Data Height 5 ft 6 in Height (Calculated Centimeters) 167.6 Current Weight (lbs) 123 lb Weight (Calculated Kilograms) 55.8 Weight (Calculated Grams) 63409.9 [place] Body Weight 142 Body Mass Index (BMI) 19.8 Weight Status Approriate GI Symptoms GI Symptoms None Last BM not indicated Difficult in: None Skin Integrity/Comment: old abdominal midline incision scar Current %PO Good (75-100%) Estimated Nutritional Goals BEE in Kcals: Using Current wt Calories/Kcals/Kg 25-30 Kcals Calculated 0637-5218 Protein: Using Current wt Protein g/k-1.2 Protein Calculated 56-67 Fluid: ml 1400-1680ml (1ml/kcal) Nutritional Problem 1. Problem Problem altered nutrition related labs Etiology hx of DM, electrolytes imbalance Signs/Symptoms: glucose 209, POC 136-141, Na 132, Cl 96 Malnutrition Alert Is there a minimum of two criteria No selected? Query Text:Check all the applicable criteria. A minimum of two criteria are recommended for diagnosis of either severe or non-severe malnutrition. Malnutrition Related to Morbid Obesity Malnutrition related to morbid obesity No Intervention/Recommendation Comments 1. Continue with [facility] 60gm diet as ordered. 2. Monitor PO intake, wt, labs and skin integrity 3. F/U as moderate risk in 3-5 days, 05/27-05/29 Expected Outcomes/Goals Expected Outcomes/Goals 1. PO intake to meet at least 75% of nutritional needs. 2. Wt stability, skin to remain intact, labs to approach WNL.
--- NOTE | 2018-06-10 22:18 | Progress Notes ---
DATE: 06/10/2018 SUBJECTIVE: The patient was seen in her room. The patient is a poor historian due to medical condition. Otherwise, the patient appears to be in no acute distress. The patient is still currently on a 1:1 sitter for safety. OBJECTIVE: VITAL SIGNS: Temperature 96.7, heart rate 73, blood pressure 137/80, respiration of 16, 96% on room air. HEENT: Head is atraumatic and normocephalic. Eyes: Bilateral conjunctivae are clear. Bilateral pupils are equally round and reactive. NECK: Supple. No JVD. CARDIOVASCULAR: S1 and S2, without murmur. PULMONARY: Clear to auscultation. GASTROINTESTINAL: Soft and nontender without guarding. Positive bowel sounds. MUSCULOSKELETAL: No clubbing. No cyanosis noted. ASSESSMENT: 1. Dementia. 2. Hypertension. 3. Hyperlipidemia. PLAN: With the patient inpatient, we will follow up with the social media developer for placement. Treatment plans were discussed with the patient's nurse. Treatment plans were discussed with Dr. Patiño. JOB# [id number]
[2018-06-11] MEDS: Hydrocodone/APAP 5mg/325mg Tab PO PRN ×3 (03:39→17:57)
[2018-06-11 06:47] LABS: % BASOPHILS 0.5 % (0.0-2.0); % EOSINOPHILS 0.4 % (0.0-5.0); % LYMPHOCYTES 21.8 % (20.0-50.0); % MONOCYTES 12.3 % (2.0-10.0); HEMATOCRIT 33.7 % (41.0-60); HEMOGLOBIN 11.2 gm/dL (12-16); LYMPHOCYTE ABSOLUTE 1.9 Th/cmm (1.5-3.0); MEAN CELL VOLUME 97.2 fl (81-100); MEAN CORPUSCULAR HEMOGLOBIN 32.3 pg (27.0-31.0); MEAN CORPUSCULAR HGB CONC 33.2 pg (28.0-36.0); MEAN PLATELET VOLUME 8.5 fl; MONOCYTE ABSOLUTE 1.1 Th/cmm (0.3-1.0); NEUTROPHILE ABSOLUTE 5.9 Th/cmm (1.8-8.0); PLATELET COUNT 196 Th/cmm (150-400); RED BLOOD COUNT 3.47 Mil/cmm (3.80-5.10); RED CELL DISTRIBUTION WIDTH 13.4 % (11.5-20.0); WHITE BLOOD COUNT 8.9 Th/cmm (4.8-10.8)
[2018-06-11 07:04] LABS: ANION GAP 9.5 (7.0-16.0); BUN - UREA NITROGEN 11 mg/dL (7-25); CALCIUM SERUM 8.8 mg/dL (8.6-10.3); CARBON DIOXIDE 27.9 mEq/L (21.0-31.0); CHLORIDE 94 mEq/L (98-107); CREATININE - SERUM 0.4 mg/dL (0.6-1.2); GFR AFRICAN-AMERICAN > 60.0 ml/min (>90); GFR NON AFRICAN-AMERICAN > 60.0 ml/min; GLUCOSE 206 mg/dL (70-105); POTASSIUM SERUM 3.4 mEq/L (3.5-5.1); SODIUM SERUM 128 mEq/L (136-145)
[2018-06-11] MEDS ORDERED: Potassium Chloride 20 mEq ER Tab PO ONE (08:51)
--- NOTE | 2018-06-11 09:31 | Diagnostic Imaging Report ---
Right shoulder 3 views Indication: Fall Comparison: Chest x-ray performed 05/23/2018 Findings: There is a mildly displaced fracture involving the right humeral neck and metadiaphyseal region. Subtle extension to the right humeral head cannot be excluded. No dislocation. Mild degenerative changes are noted. Mild surrounding soft tissue swelling is noted. There appears to be an old right lower rib fracture. Impression: Mild displaced acute appearing fracture of the right humeral neck and negative diaphyseal region. Subtle extension to the right humeral head cannot be excluded. No evidence of dislocation. In the setting of trauma, if clinical symptoms persist and there is continued concern for an occult fracture, follow up exams in 5-7 days is suggested.
--- NOTE | 2018-06-11 11:18 | General Progress Note ---
Subjective - Review of Systems Events since last encounter: patient awake in no distress poor historian with h/o dementia Objective - Results Result Diagrams: 06/11/18 06:24 06/11/18 06:24 Recent Labs: Laboratory Last Values WBC 8.9 Th/cmm (4.8-10.8) 06/11/18 06:24 RBC 3.47 Mil/cmm (3.80-5.10) L 06/11/18 06:24 Hgb 11.2 gm/dL (12-16) L 06/11/18 06:24 Hct 33.7 % (41.0-60) L 06/11/18 06:24 MCV 97.2 fl (81-100) 06/11/18 06:24 MCH 32.3 pg (27.0-31.0) H 06/11/18 06:24 MCHC Differential 33.2 pg (28.0-36.0) 06/11/18 06:24 RDW 13.4 % (11.5-20.0) 06/11/18 06:24 Plt Count 196 Th/cmm (150-400) 06/11/18 06:24 MPV 8.5 fl 06/11/18 06:24 Neutrophils % 65.0 % (40.0-80.0) 06/11/18 06:24 Lymphocytes % 21.8 % (20.0-50.0) 06/11/18 06:24 Monocytes % 12.3 % (2.0-10.0) H 06/11/18 06:24 Eosinophils % 0.4 % (0.0-5.0) 06/11/18 06:24 Basophils % 0.5 % (0.0-2.0) 06/11/18 06:24 Sodium 128 mEq/L (136-145) L 06/11/18 06:24 Potassium 3.4 mEq/L (3.5-5.1) L 06/11/18 06:24 Chloride 94 mEq/L (98-107) L 06/11/18 06:24 Carbon Dioxide 27.9 mEq/L (21.0-31.0) 06/11/18 06:24 Anion Gap 9.5 (7.0-16.0) 06/11/18 06:24 BUN 11 mg/dL (7-25) 06/11/18 06:24 Creatinine 0.4 mg/dL (0.6-1.2) L 06/11/18 06:24 Est GFR ( Amer) > 60.0 ml/min (>90) 06/11/18 06:24 Est GFR (Non-Af Amer) > 60.0 ml/min 06/11/18 06:24 BUN/Creatinine Ratio 27.5 06/11/18 06:24 Glucose 206 mg/dL (70-105) H 06/11/18 06:24 POC Glucose 141 MG/DL (70 - 105) H 05/24/18 11:49 Hemoglobin A1c % 5.9 % (4.0-6.0) 05/23/18 20:08 Calcium 8.8 mg/dL (8.6-10.3) 06/11/18 06:24 Total Bilirubin 0.3 mg/dL (0.3-1.0) 05/25/18 06:15 AST 17 U/L (13-39) 05/25/18 06:15 ALT 16 U/L (7-52) 05/25/18 06:15 Alkaline Phosphatase 57 U/L (34-104) 05/25/18 06:15 Troponin I 0.01 ng/mL (0.01-0.05) 05/23/18 20:08 B-Natriuretic Peptide 44.6 pg/mL (5.0-100.0) 05/23/18 20:08 Total Protein 6.1 gm/dL (6.0-8.3) 05/25/18 06:15 Albumin 3.6 gm/dL (3.7-5.3) L 05/25/18 06:15 Globulin 2.5 gm/dL 05/25/18 06:15 Albumin/Globulin Ratio 1.4 (1.0-1.8) 05/25/18 06:15 Triglycerides 191 mg/dL (<150) H 05/24/18 08:14 Cholesterol 171 mg/dL (<200) 05/24/18 08:14 LDL Cholesterol Direct 80 mg/dL (75-193) 05/24/18 08:14 HDL Cholesterol 67 mg/dL (23-92) 05/24/18 08:14 Urine Source RANDOM 05/23/18 20:30 Urine Color YELLOW 05/23/18 20:30 Urine Clarity CLEAR (CLEAR) 05/23/18 20:30 Urine pH 7.5 (4.6 - 8.0) 05/23/18 20:30 Ur Specific [place] 1.010 (1.005-1.030) 05/23/18 20:30 Urine Protein NEGATIVE mg/dL (NEGATIVE) 05/23/18 20:30 Urine Glucose (UA) 100 mg/dL (NEGATIVE) H 05/23/18 20:30 Urine Ketones NEGATIVE mg/dL (NEGATIVE) 05/23/18 20:30 Urine Blood NEGATIVE (NEGATIVE) 05/23/18 20:30 Urine Nitrate NEGATIVE (NEGATIVE) 05/23/18 20:30 Urine Bilirubin NEGATIVE (NEGATIVE) 05/23/18 20:30 Urine Urobilinogen 0.2 E.U./dL (0.2 - 1.0) 05/23/18 20:30 Ur Leukocyte Esterase NEGATIVE (NEGATIVE) 05/23/18 20:30 Urine RBC 0-2 /hpf (0-5) 05/23/18 20:30 Urine WBC 0-2 /hpf (0-5) 05/23/18 20:30 Ur Epithelial Cells FEW /lpf (FEW) 05/23/18 20:30 Urine Bacteria OCCASIONAL /hpf (NONE SEEN) 05/23/18 20:30 - Physical Exam Vitals and I&O: Vital Signs Temp 98.2 F 06/11/18 04:00 Pulse 72 06/11/18 09:47 Resp 20 06/11/18 04:00 BP 130/81 06/11/18 09:47 Pulse Ox 98 06/11/18 04:00 Intake & Output 06/10/18 06/11/18 06/11/18 18:59 06:59 18:59 Intake Total 500 Output Total 1 Balance 499 Weight (lbs) 58.967 kg Intake: Oral 500 Output: Stool 1 Other: # Voids 3 Stool Characteristics Brown Weight Source Bedscale Active Medications: Current Medications Acetaminophen (Tylenol) 650 mg PO Q4H PRN PRN Reason: Pain (Moderate) Stop: 08/09/18 19:58 Last Admin: 06/10/18 20:27 Dose: 650 mg Acetaminophen/Hydrocodone Bitart ([place] 5mg/325mg) 1 tab PO Q6H PRN PRN Reason: Pain (Severe) 7-10 Stop: 08/09/18 21:57 Last Admin: 06/11/18 11:02 Dose: 1 tab Divalproex Sodium (Depakote Dr) 250 mg PO QAM [facility]; Protocol Stop: 07/24/18 08:59 Last Admin: 06/11/18 09:47 Dose: 250 mg Divalproex Sodium (Depakote Er) 500 mg PO QPM [facility]; Protocol Stop: 07/23/18 16:59 Last Admin: 06/10/18 16:05 Dose: 500 mg Famotidine (Pepcid) 20 mg PO DAILY MARGARETH Stop: 07/24/18 08:59 Last Admin: 06/11/18 09:47 Dose: 20 mg Gabapentin (Neurontin) 300 mg PO BID [facility] Stop: 07/23/18 16:59 Last Admin: 06/11/18 09:47 Dose: 300 mg Sodium Chloride (Nacl 0.45%) 1,000 mls @ 50 mls/hr IV .Q20H [facility] Stop: 07/23/18 01:57 Last Admin: 05/26/18 13:33 Dose: Not Given Lactulose (Cephulac) 30 gm PO DAILY PRN PRN Reason: Constipation Stop: 08/06/18 13:18 Last Admin: 06/07/18 16:32 Dose: 30 gm Lorazepam (Ativan) 1 mg PO Q4HR PRN; Protocol PRN Reason: Agitation Stop: 07/30/18 12:30 Last Admin: 06/11/18 05:27 Dose: 1 mg Magnesium Hydroxide (Milk Of Magnesia) 30 ml PO DAILY PRN PRN Reason: Constipation Stop: 08/03/18 17:37 Last Admin: 06/07/18 08:44 Dose: 30 ml Memantine (Namenda) 10 mg PO BID [facility] Stop: 07/23/18 16:59 Last Admin: 06/11/18 09:47 Dose: 10 mg Metformin HCl (Glucophage) 500 mg PO BID [facility] Stop: 07/23/18 16:59 Last Admin: 06/11/18 09:47 Dose: 500 mg Propranolol HCl (Inderal) 10 mg PO BID [facility] Stop: 07/23/18 16:59 Last Admin: 06/11/18 09:47 Dose: 10 mg Quetiapine Fumarate (Seroquel) 25 mg PO TID [facility]; Protocol Stop: 07/23/18 13:59 Last Admin: 06/11/18 09:47 Dose: 25 mg Risperidone (Risperdal) 3 mg PO HS MARGARETH; Protocol Stop: 07/23/18 20:59 Last Admin: 06/10/18 20:27 Dose: 3 mg Simvastatin (Zocor) 20 mg PO HS MARGARETH; Protocol Stop: 07/23/18 20:59 Last Admin: 06/10/18 20:27 Dose: 20 mg Sodium Chloride (Nacl Tab) 2 gm PO BID MARGARETH Stop: 08/10/18 08:59 Last Admin: 06/11/18 09:46 Dose: 2 gm General: No acute distress HEENT: Atraumatic, PERRLA Neck: Supple, JVD, Thyromegaly Cardiovascular: Regular rate, Normal S1, Normal S2 Lungs: Clear to auscultation Abdomen: Bowel sounds Assessment/Plan - Problem List Patient Problems: All Active Problems Dementia (Acute) F03.90 HTN (hypertension) (Acute) I10 Hyperlipidemia (Acute) E78.5 - Plan Plan: as per order sheet cpm Nutritional Asmnt/Malnutr-PDOC - Dietary Evaluation Malnutrition Findings (Please click <Entered> for more info): Nutritional Asmnt/Malnutrition Start: 05/24/18 16: 46 Text: Status: Complete Freq: Protocol: Document 05/24/18 16:46 LCHENG (Rec: 05/24/18 16:53 [email or web address] [id number]) Nutritional Asmnt/Malnutrition Patient General Information Nutritional Screening High Risk Diagnosis altered mental status Pertinent Medical Hx/Surgical Hx HTN, DM, dyslipidemia, dementia, bipolar Subjective Information Pt seen lying in bed at time of visit, has 1:1 sitter. Per Sitter, pt ate very well 100% of lunch. Pt is Lao speaking noted per nurse note. Current Diet Order/ Nutrition Support CCHO 60gm Pertinent Medications pepcid, glucophage, seroquel, nacl 0.45% Pertinent Labs 05/24 Na 132, Cl 96, Cr 0.5, glucose 209, POC 136-141 Nutritional Hx/Data Height 1.68 m Height (Calculated Centimeters) 167.6 Current Weight (lbs) 55.792 kg Weight (Calculated Kilograms) 55.8 Weight (Calculated Grams) 72582.9 [place] Body Weight 142 Body Mass Index (BMI) 19.8 Weight Status Approriate GI Symptoms GI Symptoms None Last BM not indicated Difficult in: None Skin Integrity/Comment: old abdominal midline incision scar Current %PO Good (75-100%) Estimated Nutritional Goals BEE in Kcals: Using Current wt Calories/Kcals/Kg 25-30 Kcals Calculated 4856-9097 Protein: Using Current wt Protein g/k-1.2 Protein Calculated 56-67 Fluid: ml 1400-1680ml (1ml/kcal) Nutritional Problem 1. Problem Problem altered nutrition related labs Etiology hx of DM, electrolytes imbalance Signs/Symptoms: glucose 209, POC 136-141, Na 132, Cl 96 Malnutrition Alert Is there a minimum of two criteria No selected? Query Text:Check all the applicable criteria. A minimum of two criteria are recommended for diagnosis of either severe or non-severe malnutrition. Malnutrition Related to Morbid Obesity Malnutrition related to morbid obesity No Intervention/Recommendation Comments 1. Continue with [facility] 60gm diet as ordered. 2. Monitor PO intake, wt, labs and skin integrity 3. F/U as moderate risk in 3-5 days, 05/27-05/29 Expected Outcomes/Goals Expected Outcomes/Goals 1. PO intake to meet at least 75% of nutritional needs. 2. Wt stability, skin to remain intact, labs to approach WNL.
[2018-06-12] MEDS: Hydrocodone/APAP 5mg/325mg Tab PO PRN ×3 (04:17→20:59)
--- NOTE | 2018-06-12 04:32 | Consultation ---
DATE OF CONSULTATION: 06/11/2018 ORTHOPEDIC SURGERY CONSULTATION HISTORY OF PRESENT ILLNESS: The patient is a 63-year-old lady admitted to the [facility] on 05/24/2018 because of "increasing agitation." She lives at a board and care facility and apparently became belligerent and hostile and out of control, so she was brought to the Emergency Room. She has been under treatment for her condition and apparently, she fell during the night on 06/09/2018, injuring her right shoulder. X-rays were taken, which showed a fracture. I was called in orthopedic consultation regarding this injury. PAST MEDICAL HISTORY: I can get no information from the patient whatsoever. She is agitated and pacing in her room. She will not wear her sling. She moved her right arm about wildly as she is fussing with the bed clothes like she is trying to make her bed. I observed bruising and swelling about the right shoulder/upper humerus area. I did not attempt to move the arm, but I observed her moving it through 30-40% of normal range. I observed that she moved and used her hand and fingers quite well. The left arm and shoulder are normal and are less than half the size of the injured right shoulder. I am unable to evaluate the patient much further because of her constant pacing about and she will not follow any requests or commands. X-rays of right shoulder, two views on 06/10/2018 show a fracture of the upper shaft just below the surgical neck of the right humerus, overall alignment -- the bone ends are in contact i.e., not offset. There is slight angulation or displacement. ORTHOPEDIC DIAGNOSIS: Fracture, proximal right humerus, closed, displaced. RECOMMENDATIONS: The patient does not appear to be a suitable surgical candidate at this point. If she would wear her sling and not the elbow hang down by gravity, it would probably keep the fracture in satisfactory position. If she did have surgery and plate and screw fixation of the fracture, her wild behavior and activities would probably pull the fixation apart and that would be problem and probably require a second operation to remove the hardware. A followup x-ray in a few days to check the position would be appropriate if it is desired that she have surgery, I would like to wait 5-7 days and allow the swelling and reaction to the trauma to subside somewhat. If the followup x-ray showed that the fracture is still nondisplaced or minimally displaced, then she could be treated nonoperatively. I will follow this patient with you. Thank you for this interesting referral. JOB# [id number]
[2018-06-12 05:52] LABS: ALB/GLOB RATIO 1.5 (1.0-1.8); ALKALINE PHOSPHATASE 58 U/L (34-104); ANION GAP 9.7 (7.0-16.0); BILIRUBIN,TOTAL 0.4 mg/dL (0.3-1.0); BUN - UREA NITROGEN 9 mg/dL (7-25); CALCIUM SERUM 9.4 mg/dL (8.6-10.3); CHLORIDE 95 mEq/L (98-107); CREATININE - SERUM 0.4 mg/dL (0.6-1.2); GFR AFRICAN-AMERICAN > 60.0 ml/min (>90); GFR NON AFRICAN-AMERICAN > 60.0 ml/min; GLUCOSE 174 mg/dL (70-105); POTASSIUM SERUM 3.7 mEq/L (3.5-5.1); SGOT 12 U/L (13-39); SGPT/ALT 10 U/L (7-52); SODIUM SERUM 132 mEq/L (136-145); TOTAL PROTEIN,SERUM 6.7 gm/dL (6.0-8.3)
--- NOTE | 2018-06-12 15:18 | General Progress Note ---
Subjective - Review of Systems Events since last encounter: patient admitted with increased agitation otherwise in no distress Objective - Results Result Diagrams: 06/11/18 06:24 06/12/18 04:55 Recent Labs: Laboratory Last Values WBC 8.9 Th/cmm (4.8-10.8) 06/11/18 06:24 RBC 3.47 Mil/cmm (3.80-5.10) L 06/11/18 06:24 Hgb 11.2 gm/dL (12-16) L 06/11/18 06:24 Hct 33.7 % (41.0-60) L 06/11/18 06:24 MCV 97.2 fl (81-100) 06/11/18 06:24 MCH 32.3 pg (27.0-31.0) H 06/11/18 06:24 MCHC Differential 33.2 pg (28.0-36.0) 06/11/18 06:24 RDW 13.4 % (11.5-20.0) 06/11/18 06:24 Plt Count 196 Th/cmm (150-400) 06/11/18 06:24 MPV 8.5 fl 06/11/18 06:24 Neutrophils % 65.0 % (40.0-80.0) 06/11/18 06:24 Lymphocytes % 21.8 % (20.0-50.0) 06/11/18 06:24 Monocytes % 12.3 % (2.0-10.0) H 06/11/18 06:24 Eosinophils % 0.4 % (0.0-5.0) 06/11/18 06:24 Basophils % 0.5 % (0.0-2.0) 06/11/18 06:24 Sodium 132 mEq/L (136-145) L 06/12/18 04:55 Potassium 3.7 mEq/L (3.5-5.1) 06/12/18 04:55 Chloride 95 mEq/L (98-107) L 06/12/18 04:55 Carbon Dioxide 31.0 mEq/L (21.0-31.0) 06/12/18 04:55 Anion Gap 9.7 (7.0-16.0) 06/12/18 04:55 BUN 9 mg/dL (7-25) 06/12/18 04:55 Creatinine 0.4 mg/dL (0.6-1.2) L 06/12/18 04:55 Est GFR ( Amer) > 60.0 ml/min (>90) 06/12/18 04:55 Est GFR (Non-Af Amer) > 60.0 ml/min 06/12/18 04:55 BUN/Creatinine Ratio 22.5 06/12/18 04:55 Glucose 174 mg/dL (70-105) H 06/12/18 04:55 POC Glucose 141 MG/DL (70 - 105) H 05/24/18 11:49 Hemoglobin A1c % 5.9 % (4.0-6.0) 05/23/18 20:08 Calcium 9.4 mg/dL (8.6-10.3) 06/12/18 04:55 Total Bilirubin 0.4 mg/dL (0.3-1.0) 06/12/18 04:55 AST 12 U/L (13-39) L 06/12/18 04:55 ALT 10 U/L (7-52) 06/12/18 04:55 Alkaline Phosphatase 58 U/L (34-104) 06/12/18 04:55 Troponin I 0.01 ng/mL (0.01-0.05) 05/23/18 20:08 B-Natriuretic Peptide 44.6 pg/mL (5.0-100.0) 05/23/18 20:08 Total Protein 6.7 gm/dL (6.0-8.3) 06/12/18 04:55 Albumin 4.0 gm/dL (3.7-5.3) 06/12/18 04:55 Globulin 2.7 gm/dL 06/12/18 04:55 Albumin/Globulin Ratio 1.5 (1.0-1.8) 06/12/18 04:55 Triglycerides 191 mg/dL (<150) H 05/24/18 08:14 Cholesterol 171 mg/dL (<200) 05/24/18 08:14 LDL Cholesterol Direct 80 mg/dL (75-193) 05/24/18 08:14 HDL Cholesterol 67 mg/dL (23-92) 05/24/18 08:14 Urine Source RANDOM 05/23/18 20:30 Urine Color YELLOW 05/23/18 20:30 Urine Clarity CLEAR (CLEAR) 05/23/18 20:30 Urine pH 7.5 (4.6 - 8.0) 05/23/18 20:30 Ur Specific [place] 1.010 (1.005-1.030) 05/23/18 20:30 Urine Protein NEGATIVE mg/dL (NEGATIVE) 05/23/18 20:30 Urine Glucose (UA) 100 mg/dL (NEGATIVE) H 05/23/18 20:30 Urine Ketones NEGATIVE mg/dL (NEGATIVE) 05/23/18 20:30 Urine Blood NEGATIVE (NEGATIVE) 05/23/18 20:30 Urine Nitrate NEGATIVE (NEGATIVE) 05/23/18 20:30 Urine Bilirubin NEGATIVE (NEGATIVE) 05/23/18 20:30 Urine Urobilinogen 0.2 E.U./dL (0.2 - 1.0) 05/23/18 20:30 Ur Leukocyte Esterase NEGATIVE (NEGATIVE) 05/23/18 20:30 Urine RBC 0-2 /hpf (0-5) 05/23/18 20:30 Urine WBC 0-2 /hpf (0-5) 05/23/18 20:30 Ur Epithelial Cells FEW /lpf (FEW) 05/23/18 20:30 Urine Bacteria OCCASIONAL /hpf (NONE SEEN) 05/23/18 20:30 - Physical Exam Vitals and I&O: Vital Signs Temp 98.7 F 06/12/18 12:00 Pulse 83 06/12/18 12:00 Resp 18 06/12/18 12:00 BP 123/69 06/12/18 12:00 Pulse Ox 97 06/12/18 12:00 Intake & Output 06/11/18 06/12/18 06/12/18 18:59 06:59 18:59 Intake Total 1000 Balance 1000 Weight (lbs) 58.967 kg 58.967 kg Intake: Oral 1000 Other: # Voids 4 Weight Source Bedscale Estimated Active Medications: Current Medications Acetaminophen (Tylenol) 650 mg PO Q4H PRN PRN Reason: Pain (Moderate) Stop: 08/09/18 19:58 Last Admin: 06/10/18 20:27 Dose: 650 mg Acetaminophen/Hydrocodone Bitart ([place] 5mg/325mg) 1 tab PO Q6H PRN PRN Reason: Pain (Severe) 7-10 Stop: 08/09/18 21:57 Last Admin: 06/12/18 11:43 Dose: 1 tab Divalproex Sodium (Depakote Dr) 250 mg PO QAM [facility]; Protocol Stop: 07/24/18 08:59 Last Admin: 06/12/18 08:28 Dose: 250 mg Divalproex Sodium (Depakote Er) 500 mg PO QPM [facility]; Protocol Stop: 07/23/18 16:59 Last Admin: 06/11/18 16:43 Dose: 500 mg Famotidine (Pepcid) 20 mg PO DAILY MARGARETH Stop: 07/24/18 08:59 Last Admin: 06/12/18 08:28 Dose: 20 mg Gabapentin (Neurontin) 300 mg PO BID MARGARETH Stop: 07/23/18 16:59 Last Admin: 06/12/18 08:28 Dose: 300 mg Sodium Chloride (Nacl 0.45%) 1,000 mls @ 50 mls/hr IV .Q20H [facility] Stop: 07/23/18 01:57 Last Admin: 05/26/18 13:33 Dose: Not Given Lactulose (Cephulac) 30 gm PO DAILY PRN PRN Reason: Constipation Stop: 08/06/18 13:18 Last Admin: 06/07/18 16:32 Dose: 30 gm Lorazepam (Ativan) 1 mg PO Q4HR PRN; Protocol PRN Reason: Agitation Stop: 07/30/18 12:30 Last Admin: 06/12/18 04:17 Dose: 1 mg Magnesium Hydroxide (Milk Of Magnesia) 30 ml PO DAILY PRN PRN Reason: Constipation Stop: 08/03/18 17:37 Last Admin: 06/07/18 08:44 Dose: 30 ml Memantine (Namenda) 10 mg PO BID [facility] Stop: 07/23/18 16:59 Last Admin: 06/12/18 08:28 Dose: 10 mg Metformin HCl (Glucophage) 500 mg PO BID MARGARETH Stop: 07/23/18 16:59 Last Admin: 06/12/18 08:28 Dose: 500 mg Propranolol HCl (Inderal) 10 mg PO BID [facility] Stop: 07/23/18 16:59 Last Admin: 06/12/18 08:28 Dose: 10 mg Quetiapine Fumarate (Seroquel) 25 mg PO TID [facility]; Protocol Stop: 07/23/18 13:59 Last Admin: 06/12/18 14:05 Dose: 25 mg Risperidone (Risperdal) 3 mg PO HS MARGARETH; Protocol Stop: 07/23/18 20:59 Last Admin: 06/11/18 21:55 Dose: 3 mg Simvastatin (Zocor) 20 mg PO HS MARGARETH; Protocol Stop: 07/23/18 20:59 Last Admin: 06/11/18 21:56 Dose: 20 mg Sodium Chloride (Nacl Tab) 2 gm PO BID MARGARETH Stop: 08/10/18 08:59 Last Admin: 06/12/18 08:28 Dose: 2 gm General: No acute distress HEENT: Atraumatic, PERRLA Neck: Supple, JVD, Thyromegaly Cardiovascular: Regular rate, Normal S1, Normal S2 Lungs: Clear to auscultation Abdomen: Bowel sounds Assessment/Plan - Problem List Patient Problems: All Active Problems Dementia (Acute) F03.90 HTN (hypertension) (Acute) I10 Hyperlipidemia (Acute) E78.5 - Plan Plan: as per order sheet cpm Nutritional Asmnt/Malnutr-PDOC - Dietary Evaluation Malnutrition Findings (Please click <Entered> for more info): Nutritional Asmnt/Malnutrition Start: 05/24/18 16: 46 Text: Status: Complete Freq: Protocol: Document 05/24/18 16:46 LCHENG (Rec: 05/24/18 16:53 [email or web address]) Nutritional Asmnt/Malnutrition Patient General Information Nutritional Screening High Risk Diagnosis altered mental status Pertinent Medical Hx/Surgical Hx HTN, DM, dyslipidemia, dementia, bipolar Subjective Information Pt seen lying in bed at time of visit, has 1:1 sitter. Per Sitter, pt ate very well 100% of lunch. Pt is Kinyarwanda speaking noted per nurse note. Current Diet Order/ Nutrition Support CCHO 60gm Pertinent Medications pepcid, glucophage, seroquel, nacl 0.45% Pertinent Labs 05/24 Na 132, Cl 96, Cr 0.5, glucose 209, POC 136-141 Nutritional Hx/Data Height 1.68 m Height (Calculated Centimeters) 167.6 Current Weight (lbs) 55.792 kg Weight (Calculated Kilograms) 55.8 Weight (Calculated Grams) 62811.9 [place] Body Weight 142 Body Mass Index (BMI) 19.8 Weight Status Approriate GI Symptoms GI Symptoms None Last BM not indicated Difficult in: None Skin Integrity/Comment: old abdominal midline incision scar Current %PO Good (75-100%) Estimated Nutritional Goals BEE in Kcals: Using Current wt Calories/Kcals/Kg 25-30 Kcals Calculated 0327-5388 Protein: Using Current wt Protein g/k-1.2 Protein Calculated 56-67 Fluid: ml 1400-1680ml (1ml/kcal) Nutritional Problem 1. Problem Problem altered nutrition related labs Etiology hx of DM, electrolytes imbalance Signs/Symptoms: glucose 209, POC 136-141, Na 132, Cl 96 Malnutrition Alert Is there a minimum of two criteria No selected? Query Text:Check all the applicable criteria. A minimum of two criteria are recommended for diagnosis of either severe or non-severe malnutrition. Malnutrition Related to Morbid Obesity Malnutrition related to morbid obesity No Intervention/Recommendation Comments 1. Continue with CCHO 60gm diet as ordered. 2. Monitor PO intake, wt, labs and skin integrity 3. F/U as moderate risk in 3-5 days, 05/27-05/29 Expected Outcomes/Goals Expected Outcomes/Goals 1. PO intake to meet at least 75% of nutritional needs. 2. Wt stability, skin to remain intact, labs to approach WNL.
[2018-06-13] MEDS: Hydrocodone/APAP 5mg/325mg Tab PO PRN (04:14)
--- NOTE | 2018-06-13 19:52 | Internal Medicine Prog Note ---
Internal Medicine Subjective - Subjective Service Date: 06/13/18 Patient is:: awake, confused Per staff patient has:: no adverse event, tolerating meds Internal Medicine Objective - Results Result Diagrams: 06/11/18 06:24 06/12/18 04:55 Recent Labs: Laboratory Last Values WBC 8.9 Th/cmm (4.8-10.8) 06/11/18 06:24 RBC 3.47 Mil/cmm (3.80-5.10) L 06/11/18 06:24 Hgb 11.2 gm/dL (12-16) L 06/11/18 06:24 Hct 33.7 % (41.0-60) L 06/11/18 06:24 MCV 97.2 fl (81-100) 06/11/18 06:24 MCH 32.3 pg (27.0-31.0) H 06/11/18 06:24 MCHC Differential 33.2 pg (28.0-36.0) 06/11/18 06:24 RDW 13.4 % (11.5-20.0) 06/11/18 06:24 Plt Count 196 Th/cmm (150-400) 06/11/18 06:24 MPV 8.5 fl 06/11/18 06:24 Neutrophils % 65.0 % (40.0-80.0) 06/11/18 06:24 Lymphocytes % 21.8 % (20.0-50.0) 06/11/18 06:24 Monocytes % 12.3 % (2.0-10.0) H 06/11/18 06:24 Eosinophils % 0.4 % (0.0-5.0) 06/11/18 06:24 Basophils % 0.5 % (0.0-2.0) 06/11/18 06:24 Sodium 132 mEq/L (136-145) L 06/12/18 04:55 Potassium 3.7 mEq/L (3.5-5.1) 06/12/18 04:55 Chloride 95 mEq/L (98-107) L 06/12/18 04:55 Carbon Dioxide 31.0 mEq/L (21.0-31.0) 06/12/18 04:55 Anion Gap 9.7 (7.0-16.0) 06/12/18 04:55 BUN 9 mg/dL (7-25) 06/12/18 04:55 Creatinine 0.4 mg/dL (0.6-1.2) L 06/12/18 04:55 Est GFR ( Amer) > 60.0 ml/min (>90) 06/12/18 04:55 Est GFR (Non-Af Amer) > 60.0 ml/min 06/12/18 04:55 BUN/Creatinine Ratio 22.5 06/12/18 04:55 Glucose 174 mg/dL (70-105) H 06/12/18 04:55 POC Glucose 141 MG/DL (70 - 105) H 05/24/18 11:49 Hemoglobin A1c % 5.9 % (4.0-6.0) 05/23/18 20:08 Calcium 9.4 mg/dL (8.6-10.3) 06/12/18 04:55 Total Bilirubin 0.4 mg/dL (0.3-1.0) 06/12/18 04:55 AST 12 U/L (13-39) L 06/12/18 04:55 ALT 10 U/L (7-52) 06/12/18 04:55 Alkaline Phosphatase 58 U/L (34-104) 06/12/18 04:55 Troponin I 0.01 ng/mL (0.01-0.05) 05/23/18 20:08 B-Natriuretic Peptide 44.6 pg/mL (5.0-100.0) 05/23/18 20:08 Total Protein 6.7 gm/dL (6.0-8.3) 06/12/18 04:55 Albumin 4.0 gm/dL (3.7-5.3) 06/12/18 04:55 Globulin 2.7 gm/dL 06/12/18 04:55 Albumin/Globulin Ratio 1.5 (1.0-1.8) 06/12/18 04:55 Triglycerides 191 mg/dL (<150) H 05/24/18 08:14 Cholesterol 171 mg/dL (<200) 05/24/18 08:14 LDL Cholesterol Direct 80 mg/dL (75-193) 05/24/18 08:14 HDL Cholesterol 67 mg/dL (23-92) 05/24/18 08:14 Urine Source RANDOM 05/23/18 20:30 Urine Color YELLOW 08/21/18 20:30 Urine Clarity CLEAR (CLEAR) 05/23/18 20:30 Urine pH 7.5 (4.6 - 8.0) 05/23/18 20:30 Ur Specific [place] 1.010 (1.005-1.030) 05/23/18 20:30 Urine Protein NEGATIVE mg/dL (NEGATIVE) 05/23/18 20:30 Urine Glucose (UA) 100 mg/dL (NEGATIVE) H 05/23/18 20:30 Urine Ketones NEGATIVE mg/dL (NEGATIVE) 05/23/18 20:30 Urine Blood NEGATIVE (NEGATIVE) 05/23/18 20:30 Urine Nitrate NEGATIVE (NEGATIVE) 05/23/18 20:30 Urine Bilirubin NEGATIVE (NEGATIVE) 05/23/18 20:30 Urine Urobilinogen 0.2 E.U./dL (0.2 - 1.0) 05/23/18 20:30 Ur Leukocyte Esterase NEGATIVE (NEGATIVE) 05/23/18 20:30 Urine RBC 0-2 /hpf (0-5) 05/23/18 20:30 Urine WBC 0-2 /hpf (0-5) 05/23/18 20:30 Ur Epithelial Cells FEW /lpf (FEW) 05/23/18 20:30 Urine Bacteria OCCASIONAL /hpf (NONE SEEN) 05/23/18 20:30 - Physical Exam Vitals and I&O: Vital Signs Temp 97.7 F 06/13/18 16:00 Pulse 96 06/13/18 16:45 Resp 18 06/13/18 16:00 BP 155/86 06/13/18 16:45 Pulse Ox 95 06/13/18 16:00 Intake & Output 06/13/18 06/13/18 06/14/18 06:59 18:59 06:59 Intake Total 240 1100 Balance 240 1100 Weight (lbs) 130 lb 130 lb Intake: Oral 240 1100 Other: # Voids 1 4 Weight Source Estimated Bedscale Active Medications: Current Medications Acetaminophen (Tylenol) 650 mg PO Q4H PRN PRN Reason: Pain (Moderate) Stop: 08/09/18 19:58 Last Admin: 06/10/18 20:27 Dose: 650 mg Acetaminophen/Hydrocodone Bitart ([place] 5mg/325mg) 1 tab PO Q6H PRN PRN Reason: Pain (Severe) 7-10 Stop: 08/09/18 21:57 Last Admin: 06/13/18 04:14 Dose: 1 tab Divalproex Sodium (Depakote Dr) 250 mg PO QAM [facility]; Protocol Stop: 07/24/18 08:59 Last Admin: 06/13/18 08:54 Dose: 250 mg Divalproex Sodium (Depakote Er) 500 mg PO QPM [facility]; Protocol Stop: 07/23/18 16:59 Last Admin: 06/13/18 16:44 Dose: 500 mg Famotidine (Pepcid) 20 mg PO DAILY [facility] Stop: 07/24/18 08:59 Last Admin: 06/13/18 08:54 Dose: 20 mg Gabapentin (Neurontin) 300 mg PO BID [facility] Stop: 07/23/18 16:59 Last Admin: 06/13/18 17:32 Dose: 300 mg Sodium Chloride (Nacl 0.45%) 1,000 mls @ 50 mls/hr IV .Q20H [facility] Stop: 07/23/18 01:57 Last Admin: 05/26/18 13:33 Dose: Not Given Lactulose (Cephulac) 30 gm PO DAILY PRN PRN Reason: Constipation Stop: 08/06/18 13:18 Last Admin: 06/07/18 16:32 Dose: 30 gm Lorazepam (Ativan) 1 mg PO Q4HR PRN; Protocol PRN Reason: Agitation Stop: 07/30/18 12:30 Last Admin: 06/13/18 04:13 Dose: 1 mg Magnesium Hydroxide (Milk Of Magnesia) 30 ml PO DAILY PRN PRN Reason: Constipation Stop: 08/03/18 17:37 Last Admin: 06/07/18 08:44 Dose: 30 ml Memantine (Namenda) 10 mg PO BID [facility] Stop: 07/23/18 16:59 Last Admin: 06/13/18 16:43 Dose: 10 mg Metformin HCl (Glucophage) 500 mg PO BID [facility] Stop: 07/23/18 16:59 Last Admin: 06/13/18 16:45 Dose: 500 mg Propranolol HCl (Inderal) 10 mg PO BID [facility] Stop: 07/23/18 16:59 Last Admin: 06/13/18 16:45 Dose: 10 mg Quetiapine Fumarate (Seroquel) 25 mg PO TID [facility]; Protocol Stop: 07/23/18 13:59 Last Admin: 06/13/18 13:54 Dose: 25 mg Risperidone (Risperdal) 3 mg PO HS [facility]; Protocol Stop: 07/23/18 20:59 Last Admin: 06/12/18 20:59 Dose: 3 mg Simvastatin (Zocor) 20 mg PO HS [facility]; Protocol Stop: 07/23/18 20:59 Last Admin: 06/12/18 20:59 Dose: 20 mg Sodium Chloride (Nacl Tab) 2 gm PO BID [facility] Stop: 08/10/18 08:59 Last Admin: 06/13/18 16:44 Dose: 2 gm General: alert HEENT: NC/AT, PERRLA Neck: Supple Lungs: CTAB Cardiovascular: RRR, Normal S1, Normal S2, without murmur Abdomen: soft, non-tender, non-distended Neurological: alert Internal Medicine Assmt/Plan - Assessment Assessment: abnormal ekg htn hyperlipidemia dementia - Plan Plan: follow up labs in am cardiology follow up continue current plan of care Nutritional Asmnt/Malnutr-PDOC - Dietary Evaluation Malnutrition Findings (Please click <Entered> for more info): Nutritional Asmnt/Malnutrition Start: 05/24/18 16: 46 Text: Status: Complete Freq: Protocol: Document 05/24/18 16:46 LCHENG (Rec: 05/24/18 16:53 [email or web address]) Nutritional Asmnt/Malnutrition Patient General Information Nutritional Screening High Risk Diagnosis altered mental status Pertinent Medical Hx/Surgical Hx HTN, DM, dyslipidemia, dementia, bipolar Subjective Information Pt seen lying in bed at time of visit, has 1:1 sitter. Per Sitter, pt ate very well 100% of lunch. Pt is Thai speaking noted per nurse note. Current Diet Order/ Nutrition Support CCHO 60gm Pertinent Medications pepcid, glucophage, seroquel, nacl 0.45% Pertinent Labs 05/24 Na 132, Cl 96, Cr 0.5, glucose 209, POC 136-141 Nutritional Hx/Data Height 5 ft 6 in Height (Calculated Centimeters) 167.6 Current Weight (lbs) 123 lb Weight (Calculated Kilograms) 55.8 Weight (Calculated Grams) 79559.9 [place] Body Weight 142 Body Mass Index (BMI) 19.8 Weight Status Approriate GI Symptoms GI Symptoms None Last BM not indicated Difficult in: None Skin Integrity/Comment: old abdominal midline incision scar Current %PO Good (75-100%) Estimated Nutritional Goals BEE in Kcals: Using Current wt Calories/Kcals/Kg 25-30 Kcals Calculated 1483-5608 Protein: Using Current wt Protein g/k-1.2 Protein Calculated 56-67 Fluid: ml 1400-1680ml (1ml/kcal) Nutritional Problem 1. Problem Problem altered nutrition related labs Etiology hx of DM, electrolytes imbalance Signs/Symptoms: glucose 209, POC 136-141, Na 132, Cl 96 Malnutrition Alert Is there a minimum of two criteria No selected? Query Text:Check all the applicable criteria. A minimum of two criteria are recommended for diagnosis of either severe or non-severe malnutrition. Malnutrition Related to Morbid Obesity Malnutrition related to morbid obesity No Intervention/Recommendation Comments 1. Continue with CCHO 60gm diet as ordered. 2. Monitor PO intake, wt, labs and skin integrity 3. F/U as moderate risk in 3-5 days, 05/27-05/29 Expected Outcomes/Goals Expected Outcomes/Goals 1. PO intake to meet at least 75% of nutritional needs. 2. Wt stability, skin to remain intact, labs to approach WNL.
--- NOTE | 2018-06-14 12:09 | General Progress Note ---
Subjective - Review of Systems Events since last encounter: awake alert but confused tolerating meds well Objective - Results Result Diagrams: 06/11/18 06:24 06/12/18 04:55 Recent Labs: Laboratory Last Values WBC 8.9 Th/cmm (4.8-10.8) 06/11/18 06:24 RBC 3.47 Mil/cmm (3.80-5.10) L 06/11/18 06:24 Hgb 11.2 gm/dL (12-16) L 06/11/18 06:24 Hct 33.7 % (41.0-60) L 06/11/18 06:24 MCV 97.2 fl (81-100) 06/11/18 06:24 MCH 32.3 pg (27.0-31.0) H 06/11/18 06:24 MCHC Differential 33.2 pg (28.0-36.0) 06/11/18 06:24 RDW 13.4 % (11.5-20.0) 06/11/18 06:24 Plt Count 196 Th/cmm (150-400) 06/11/18 06:24 MPV 8.5 fl 06/11/18 06:24 Neutrophils % 65.0 % (40.0-80.0) 06/11/18 06:24 Lymphocytes % 21.8 % (20.0-50.0) 06/11/18 06:24 Monocytes % 12.3 % (2.0-10.0) H 06/11/18 06:24 Eosinophils % 0.4 % (0.0-5.0) 06/11/18 06:24 Basophils % 0.5 % (0.0-2.0) 06/11/18 06:24 Sodium 132 mEq/L (136-145) L 06/12/18 04:55 Potassium 3.7 mEq/L (3.5-5.1) 06/12/18 04:55 Chloride 95 mEq/L (98-107) L 06/12/18 04:55 Carbon Dioxide 31.0 mEq/L (21.0-31.0) 06/12/18 04:55 Anion Gap 9.7 (7.0-16.0) 06/12/18 04:55 BUN 9 mg/dL (7-25) 06/12/18 04:55 Creatinine 0.4 mg/dL (0.6-1.2) L 06/12/18 04:55 Est GFR ( Amer) > 60.0 ml/min (>90) 06/12/18 04:55 Est GFR (Non-Af Amer) > 60.0 ml/min 06/12/18 04:55 BUN/Creatinine Ratio 22.5 06/12/18 04:55 Glucose 174 mg/dL (70-105) H 06/12/18 04:55 POC Glucose 141 MG/DL (70 - 105) H 05/24/18 11:49 Hemoglobin A1c % 5.9 % (4.0-6.0) 05/23/18 20:08 Calcium 9.4 mg/dL (8.6-10.3) 06/12/18 04:55 Total Bilirubin 0.4 mg/dL (0.3-1.0) 06/12/18 04:55 AST 12 U/L (13-39) L 06/12/18 04:55 ALT 10 U/L (7-52) 06/12/18 04:55 Alkaline Phosphatase 58 U/L (34-104) 06/12/18 04:55 Troponin I 0.01 ng/mL (0.01-0.05) 05/23/18 20:08 B-Natriuretic Peptide 44.6 pg/mL (5.0-100.0) 05/23/18 20:08 Total Protein 6.7 gm/dL (6.0-8.3) 06/12/18 04:55 Albumin 4.0 gm/dL (3.7-5.3) 06/12/18 04:55 Globulin 2.7 gm/dL 06/12/18 04:55 Albumin/Globulin Ratio 1.5 (1.0-1.8) 06/12/18 04:55 Triglycerides 191 mg/dL (<150) H 05/24/18 08:14 Cholesterol 171 mg/dL (<200) 05/24/18 08:14 LDL Cholesterol Direct 80 mg/dL (75-193) 05/24/18 08:14 HDL Cholesterol 67 mg/dL (23-92) 05/24/18 08:14 Urine Source RANDOM 05/23/18 20:30 Urine Color YELLOW 05/23/18 20:30 Urine Clarity CLEAR (CLEAR) 05/23/18 20:30 Urine pH 7.5 (4.6 - 8.0) 05/23/18 20:30 Ur Specific [place] 1.010 (1.005-1.030) 05/23/18 20:30 Urine Protein NEGATIVE mg/dL (NEGATIVE) 05/23/18 20:30 Urine Glucose (UA) 100 mg/dL (NEGATIVE) H 05/23/18 20:30 Urine Ketones NEGATIVE mg/dL (NEGATIVE) 05/23/18 20:30 Urine Blood NEGATIVE (NEGATIVE) 05/23/18 20:30 Urine Nitrate NEGATIVE (NEGATIVE) 05/23/18 20:30 Urine Bilirubin NEGATIVE (NEGATIVE) 05/23/18 20:30 Urine Urobilinogen 0.2 E.U./dL (0.2 - 1.0) 05/23/18 20:30 Ur Leukocyte Esterase NEGATIVE (NEGATIVE) 05/23/18 20:30 Urine RBC 0-2 /hpf (0-5) 05/23/18 20:30 Urine WBC 0-2 /hpf (0-5) 05/23/18 20:30 Ur Epithelial Cells FEW /lpf (FEW) 05/23/18 20:30 Urine Bacteria OCCASIONAL /hpf (NONE SEEN) 05/23/18 20:30 - Physical Exam Vitals and I&O: Vital Signs Temp 97.0 F 06/14/18 08:00 Pulse 96 06/14/18 08:28 Resp 18 06/14/18 08:00 BP 144/97 06/14/18 08:28 Pulse Ox 94 06/14/18 08:00 Intake & Output 06/13/18 06/14/18 06/14/18 18:59 06:59 18:59 Intake Total 1100 Balance 1100 Weight (lbs) 58.967 kg 59.421 kg Intake: Oral 1100 Other: # Voids 4 3 Weight Source Bedscale Bedscale Active Medications: Current Medications Acetaminophen (Tylenol) 650 mg PO Q4H PRN PRN Reason: Pain (Moderate) Stop: 08/09/18 19:58 Last Admin: 06/10/18 20:27 Dose: 650 mg Acetaminophen/Hydrocodone Bitart ([place] 5mg/325mg) 1 tab PO Q6H PRN PRN Reason: Pain (Severe) 7-10 Stop: 08/09/18 21:57 Last Admin: 06/13/18 04:14 Dose: 1 tab Divalproex Sodium (Depakote Dr) 250 mg PO QAM [facility]; Protocol Stop: 07/24/18 08:59 Last Admin: 06/14/18 08:25 Dose: 250 mg Divalproex Sodium (Depakote Er) 500 mg PO QPM [facility]; Protocol Stop: 07/23/18 16:59 Last Admin: 06/13/18 16:44 Dose: 500 mg Famotidine (Pepcid) 20 mg PO DAILY [facility] Stop: 07/24/18 08:59 Last Admin: 06/14/18 08:24 Dose: 20 mg Gabapentin (Neurontin) 300 mg PO BID [facility] Stop: 07/23/18 16:59 Last Admin: 06/14/18 08:24 Dose: 300 mg Sodium Chloride (Nacl 0.45%) 1,000 mls @ 50 mls/hr IV .Q20H [facility] Stop: 07/23/18 01:57 Last Admin: 05/26/18 13:33 Dose: Not Given Lactulose (Cephulac) 30 gm PO DAILY PRN PRN Reason: Constipation Stop: 08/06/18 13:18 Last Admin: 06/07/18 16:32 Dose: 30 gm Lorazepam (Ativan) 1 mg PO Q4HR PRN; Protocol PRN Reason: Agitation Stop: 07/30/18 12:30 Last Admin: 06/13/18 04:13 Dose: 1 mg Magnesium Hydroxide (Milk Of Magnesia) 30 ml PO DAILY PRN PRN Reason: Constipation Stop: 08/03/18 17:37 Last Admin: 06/07/18 08:44 Dose: 30 ml Memantine (Namenda) 10 mg PO BID [facility] Stop: 07/23/18 16:59 Last Admin: 06/14/18 08:25 Dose: 10 mg Metformin HCl (Glucophage) 500 mg PO BID [facility] Stop: 07/23/18 16:59 Last Admin: 06/14/18 08:24 Dose: 500 mg Propranolol HCl (Inderal) 10 mg PO BID [facility] Stop: 07/23/18 16:59 Last Admin: 06/14/18 08:28 Dose: 10 mg Quetiapine Fumarate (Seroquel) 25 mg PO TID [facility]; Protocol Stop: 07/23/18 13:59 Last Admin: 06/14/18 08:24 Dose: 25 mg Risperidone (Risperdal) 3 mg PO HS [facility]; Protocol Stop: 07/23/18 20:59 Last Admin: 06/13/18 21:01 Dose: 3 mg Simvastatin (Zocor) 20 mg PO HS [facility]; Protocol Stop: 07/23/18 20:59 Last Admin: 06/13/18 21:01 Dose: 20 mg Sodium Chloride (Nacl Tab) 2 gm PO BID [facility] Stop: 08/10/18 08:59 Last Admin: 06/14/18 08:24 Dose: 2 gm General: No acute distress HEENT: Atraumatic, PERRLA Neck: Supple, JVD, Thyromegaly Cardiovascular: Regular rate, Normal S1, Normal S2 Lungs: Clear to auscultation Abdomen: Bowel sounds Assessment/Plan - Problem List Patient Problems: All Active Problems Dementia (Acute) F03.90 HTN (hypertension) (Acute) I10 Hyperlipidemia (Acute) E78.5 - Plan Plan: continue current management Nutritional Asmnt/Malnutr-PDOC - Dietary Evaluation Malnutrition Findings (Please click <Entered> for more info): Nutritional Asmnt/Malnutrition Start: 05/24/18 16: 46 Text: Status: Complete Freq: Protocol: Document 05/24/18 16:46 [email or web address] (Rec: 05/24/18 16:53 AKOSUA [email or web address]) Nutritional Asmnt/Malnutrition Patient General Information Nutritional Screening High Risk Diagnosis altered mental status Pertinent Medical Hx/Surgical Hx HTN, DM, dyslipidemia, dementia, bipolar Subjective Information Pt seen lying in bed at time of visit, has 1:1 sitter. Per Sitter, pt ate very well 100% of lunch. Pt is Occitan speaking noted per nurse note. Current Diet Order/ Nutrition Support CCHO 60gm Pertinent Medications pepcid, glucophage, seroquel, nacl 0.45% Pertinent Labs 05/24 Na 132, Cl 96, Cr 0.5, glucose 209, POC 136-141 Nutritional Hx/Data Height 1.68 m Height (Calculated Centimeters) 167.6 Current Weight (lbs) 55.792 kg Weight (Calculated Kilograms) 55.8 Weight (Calculated Grams) 26455.9 [place] Body Weight 142 Body Mass Index (BMI) 19.8 Weight Status Approriate GI Symptoms GI Symptoms None Last BM not indicated Difficult in: None Skin Integrity/Comment: old abdominal midline incision scar Current %PO Good (75-100%) Estimated Nutritional Goals BEE in Kcals: Using Current wt Calories/Kcals/Kg 25-30 Kcals Calculated 7981-0725 Protein: Using Current wt Protein g/k-1.2 Protein Calculated 56-67 Fluid: ml 1400-1680ml (1ml/kcal) Nutritional Problem 1. Problem Problem altered nutrition related labs Etiology hx of DM, electrolytes imbalance Signs/Symptoms: glucose 209, POC 136-141, Na 132, Cl 96 Malnutrition Alert Is there a minimum of two criteria No selected? Query Text:Check all the applicable criteria. A minimum of two criteria are recommended for diagnosis of either severe or non-severe malnutrition. Malnutrition Related to Morbid Obesity Malnutrition related to morbid obesity No Intervention/Recommendation Comments 1. Continue with CCHO 60gm diet as ordered. 2. Monitor PO intake, wt, labs and skin integrity 3. F/U as moderate risk in 3-5 days, 05/27-05/29 Expected Outcomes/Goals Expected Outcomes/Goals 1. PO intake to meet at least 75% of nutritional needs. 2. Wt stability, skin to remain intact, labs to approach WNL.
[2018-06-14] MEDS: Hydrocodone/APAP 5mg/325mg Tab PO PRN (21:19)
[2018-06-15] MEDS: Hydrocodone/APAP 5mg/325mg Tab PO PRN ×2 (08:57→18:15)
--- NOTE | 2018-06-15 09:44 | General Progress Note ---
Subjective - Review of Systems Events since last encounter: patient still confused in no acute distress Objective - Results Result Diagrams: 06/11/18 06:24 06/12/18 04:55 Recent Labs: Laboratory Last Values WBC 8.9 Th/cmm (4.8-10.8) 06/11/18 06:24 RBC 3.47 Mil/cmm (3.80-5.10) L 06/11/18 06:24 Hgb 11.2 gm/dL (12-16) L 06/11/18 06:24 Hct 33.7 % (41.0-60) L 06/11/18 06:24 MCV 97.2 fl (81-100) 06/11/18 06:24 MCH 32.3 pg (27.0-31.0) H 06/11/18 06:24 MCHC Differential 33.2 pg (28.0-36.0) 06/11/18 06:24 RDW 13.4 % (11.5-20.0) 06/11/18 06:24 Plt Count 196 Th/cmm (150-400) 06/11/18 06:24 MPV 8.5 fl 06/11/18 06:24 Neutrophils % 65.0 % (40.0-80.0) 06/11/18 06:24 Lymphocytes % 21.8 % (20.0-50.0) 06/11/18 06:24 Monocytes % 12.3 % (2.0-10.0) H 06/11/18 06:24 Eosinophils % 0.4 % (0.0-5.0) 06/11/18 06:24 Basophils % 0.5 % (0.0-2.0) 06/11/18 06:24 Sodium 132 mEq/L (136-145) L 06/12/18 04:55 Potassium 3.7 mEq/L (3.5-5.1) 06/12/18 04:55 Chloride 95 mEq/L (98-107) L 06/12/18 04:55 Carbon Dioxide 31.0 mEq/L (21.0-31.0) 06/12/18 04:55 Anion Gap 9.7 (7.0-16.0) 06/12/18 04:55 BUN 9 mg/dL (7-25) 06/12/18 04:55 Creatinine 0.4 mg/dL (0.6-1.2) L 06/12/18 04:55 Est GFR ( Amer) > 60.0 ml/min (>90) 06/12/18 04:55 Est GFR (Non-Af Amer) > 60.0 ml/min 06/12/18 04:55 BUN/Creatinine Ratio 22.5 06/12/18 04:55 Glucose 174 mg/dL (70-105) H 06/12/18 04:55 POC Glucose 141 MG/DL (70 - 105) H 05/24/18 11:49 Hemoglobin A1c % 5.9 % (4.0-6.0) 05/23/18 20:08 Calcium 9.4 mg/dL (8.6-10.3) 06/12/18 04:55 Total Bilirubin 0.4 mg/dL (0.3-1.0) 06/12/18 04:55 AST 12 U/L (13-39) L 06/12/18 04:55 ALT 10 U/L (7-52) 06/12/18 04:55 Alkaline Phosphatase 58 U/L (34-104) 06/12/18 04:55 Troponin I 0.01 ng/mL (0.01-0.05) 05/23/18 20:08 B-Natriuretic Peptide 44.6 pg/mL (5.0-100.0) 05/23/18 20:08 Total Protein 6.7 gm/dL (6.0-8.3) 06/12/18 04:55 Albumin 4.0 gm/dL (3.7-5.3) 06/12/18 04:55 Globulin 2.7 gm/dL 06/12/18 04:55 Albumin/Globulin Ratio 1.5 (1.0-1.8) 06/12/18 04:55 Triglycerides 191 mg/dL (<150) H 05/24/18 08:14 Cholesterol 171 mg/dL (<200) 05/24/18 08:14 LDL Cholesterol Direct 80 mg/dL (75-193) 05/24/18 08:14 HDL Cholesterol 67 mg/dL (23-92) 05/24/18 08:14 Urine Source RANDOM 05/23/18 20:30 Urine Color YELLOW 05/23/18 20:30 Urine Clarity CLEAR (CLEAR) 05/23/18 20:30 Urine pH 7.5 (4.6 - 8.0) 05/23/18 20:30 Ur Specific [place] 1.010 (1.005-1.030) 05/23/18 20:30 Urine Protein NEGATIVE mg/dL (NEGATIVE) 05/23/18 20:30 Urine Glucose (UA) 100 mg/dL (NEGATIVE) H 05/23/18 20:30 Urine Ketones NEGATIVE mg/dL (NEGATIVE) 05/23/18 20:30 Urine Blood NEGATIVE (NEGATIVE) 05/23/18 20:30 Urine Nitrate NEGATIVE (NEGATIVE) 05/23/18 20:30 Urine Bilirubin NEGATIVE (NEGATIVE) 05/23/18 20:30 Urine Urobilinogen 0.2 E.U./dL (0.2 - 1.0) 05/23/18 20:30 Ur Leukocyte Esterase NEGATIVE (NEGATIVE) 05/23/18 20:30 Urine RBC 0-2 /hpf (0-5) 05/23/18 20:30 Urine WBC 0-2 /hpf (0-5) 05/23/18 20:30 Ur Epithelial Cells FEW /lpf (FEW) 05/23/18 20:30 Urine Bacteria OCCASIONAL /hpf (NONE SEEN) 05/23/18 20:30 - Physical Exam Vitals and I&O: Vital Signs Temp 97.6 F 06/15/18 08:00 Pulse 98 06/15/18 08:00 Resp 20 06/15/18 08:00 BP 144/72 06/15/18 08:00 Pulse Ox 98 06/15/18 08:00 Intake & Output 06/14/18 06/15/18 06/15/18 18:59 06:59 18:59 Intake Total 950 Balance 950 Weight (lbs) 59.421 kg Intake: Oral 950 Other: # Voids 3 # Bowel Movements 0 Weight Source Bedscale Active Medications: Current Medications Acetaminophen (Tylenol) 650 mg PO Q4H PRN PRN Reason: Pain (Moderate) Stop: 08/09/18 19:58 Last Admin: 06/10/18 20:27 Dose: 650 mg Acetaminophen/Hydrocodone Bitart ([place] 5mg/325mg) 1 tab PO Q6H PRN PRN Reason: Pain (Severe) 7-10 Stop: 08/09/18 21:57 Last Admin: 06/15/18 08:57 Dose: 1 tab Divalproex Sodium (Depakote Dr) 250 mg PO QAM [facility]; Protocol Stop: 07/24/18 08:59 Last Admin: 06/15/18 08:56 Dose: 250 mg Divalproex Sodium (Depakote Er) 500 mg PO QPM [facility]; Protocol Stop: 07/23/18 16:59 Last Admin: 06/14/18 16:38 Dose: 500 mg Famotidine (Pepcid) 20 mg PO DAILY [facility] Stop: 07/24/18 08:59 Last Admin: 06/15/18 08:56 Dose: 20 mg Gabapentin (Neurontin) 300 mg PO BID [facility] Stop: 07/23/18 16:59 Last Admin: 06/15/18 08:57 Dose: 300 mg Sodium Chloride (Nacl 0.45%) 1,000 mls @ 50 mls/hr IV .Q20H MARG[facility]ETH Stop: 07/23/18 01:57 Last Admin: 05/26/18 13:33 Dose: Not Given Lactulose (Cephulac) 30 gm PO DAILY PRN PRN Reason: Constipation Stop: 08/06/18 13:18 Last Admin: 06/07/18 16:32 Dose: 30 gm Lorazepam (Ativan) 1 mg PO Q4HR PRN; Protocol PRN Reason: Agitation Stop: 07/30/18 12:30 Last Admin: 06/15/18 08:57 Dose: 1 mg Magnesium Hydroxide (Milk Of Magnesia) 30 ml PO DAILY PRN PRN Reason: Constipation Stop: 08/03/18 17:37 Last Admin: 06/07/18 08:44 Dose: 30 ml Memantine (Namenda) 10 mg PO BID [facility] Stop: 07/23/18 16:59 Last Admin: 06/15/18 08:57 Dose: 10 mg Metformin HCl (Glucophage) 500 mg PO BID [facility] Stop: 07/23/18 16:59 Last Admin: 06/15/18 08:58 Dose: 500 mg Propranolol HCl (Inderal) 10 mg PO BID [facility] Stop: 07/23/18 16:59 Last Admin: 06/15/18 08:58 Dose: Not Given Quetiapine Fumarate (Seroquel) 25 mg PO TID [facility]; Protocol Stop: 07/23/18 13:59 Last Admin: 06/15/18 08:58 Dose: 25 mg Risperidone (Risperdal) 3 mg PO HS [facility]; Protocol Stop: 07/23/18 20:59 Last Admin: 06/14/18 21:20 Dose: 3 mg Simvastatin (Zocor) 20 mg PO HS [facility]; Protocol Stop: 07/23/18 20:59 Last Admin: 06/14/18 21:17 Dose: 20 mg Sodium Chloride (Nacl Tab) 2 gm PO BID [facility] Stop: 08/10/18 08:59 Last Admin: 06/15/18 09:03 Dose: Not Given General: No acute distress HEENT: Atraumatic, PERRLA Neck: Supple, JVD, Thyromegaly Cardiovascular: Regular rate, Normal S1, Normal S2 Lungs: Clear to auscultation Abdomen: Bowel sounds Assessment/Plan - Problem List Patient Problems: All Active Problems Dementia (Acute) F03.90 HTN (hypertension) (Acute) I10 Hyperlipidemia (Acute) E78.5 - Plan Plan: continue current management Nutritional Asmnt/Malnutr-PDOC - Dietary Evaluation Malnutrition Findings (Please click <Entered> for more info): Nutritional Asmnt/Malnutrition Start: 05/24/18 16: 46 Text: Status: Complete Freq: Protocol: Document 05/24/18 16:46 [email or web address] (Rec: 05/24/18 16:53 [email or web address] [email or web address]) Nutritional Asmnt/Malnutrition Patient General Information Nutritional Screening High Risk Diagnosis altered mental status Pertinent Medical Hx/Surgical Hx HTN, DM, dyslipidemia, dementia, bipolar Subjective Information Pt seen lying in bed at time of visit, has 1:1 sitter. Per Sitter, pt ate very well 100% of lunch. Pt is Spanish speaking noted per nurse note. Current Diet Order/ Nutrition Support CCHO 60gm Pertinent Medications pepcid, glucophage, seroquel, nacl 0.45% Pertinent Labs 05/24 Na 132, Cl 96, Cr 0.5, glucose 209, POC 136-141 Nutritional Hx/Data Height 1.68 m Height (Calculated Centimeters) 167.6 Current Weight (lbs) 55.792 kg Weight (Calculated Kilograms) 55.8 Weight (Calculated Grams) 09104.9 [place] Body Weight 142 Body Mass Index (BMI) 19.8 Weight Status Approriate GI Symptoms GI Symptoms None Last BM not indicated Difficult in: None Skin Integrity/Comment: old abdominal midline incision scar Current %PO Good (75-100%) Estimated Nutritional Goals BEE in Kcals: Using Current wt Calories/Kcals/Kg 25-30 Kcals Calculated 6575-4398 Protein: Using Current wt Protein g/k-1.2 Protein Calculated 56-67 Fluid: ml 1400-1680ml (1ml/kcal) Nutritional Problem 1. Problem Problem altered nutrition related labs Etiology hx of DM, electrolytes imbalance Signs/Symptoms: glucose 209, POC 136-141, Na 132, Cl 96 Malnutrition Alert Is there a minimum of two criteria No selected? Query Text:Check all the applicable criteria. A minimum of two criteria are recommended for diagnosis of either severe or non-severe malnutrition. Malnutrition Related to Morbid Obesity Malnutrition related to morbid obesity No Intervention/Recommendation Comments 1. [facility] diet as ordered. 2. Monitor PO intake, wt, labs and skin integrity 3. F/U as moderate risk in 3-5 days, 05/27-05/29 Expected Outcomes/Goals Expected Outcomes/Goals 1. PO intake to meet at least 75% of nutritional needs. 2. Wt stability, skin to remain intact, labs to approach WNL.
[2018-06-15] MEDS: Lactulose 10 Gm/15 mL 30mL UDC PO PRN (18:18)
--- NOTE | 2018-06-16 21:12 | Internal Medicine Prog Note ---
Internal Medicine Subjective - Subjective Service Date: 06/16/18 Patient seen and examined:: with staff Patient is:: awake, confused Per staff patient has:: no adverse event, tolerating meds Internal Medicine Objective - Results Result Diagrams: 06/11/18 06:24 06/12/18 04:55 Recent Labs: Laboratory Last Values WBC 8.9 Th/cmm (4.8-10.8) 06/11/18 06:24 RBC 3.47 Mil/cmm (3.80-5.10) L 06/11/18 06:24 Hgb 11.2 gm/dL (12-16) L 06/11/18 06:24 Hct 33.7 % (41.0-60) L 06/11/18 06:24 MCV 97.2 fl (81-100) 06/11/18 06:24 MCH 32.3 pg (27.0-31.0) H 06/11/18 06:24 MCHC Differential 33.2 pg (28.0-36.0) 06/11/18 06:24 RDW 13.4 % (11.5-20.0) 06/11/18 06:24 Plt Count 196 Th/cmm (150-400) 06/11/18 06:24 MPV 8.5 fl 06/11/18 06:24 Neutrophils % 65.0 % (40.0-80.0) 06/11/18 06:24 Lymphocytes % 21.8 % (20.0-50.0) 06/11/18 06:24 Monocytes % 12.3 % (2.0-10.0) H 06/11/18 06:24 Eosinophils % 0.4 % (0.0-5.0) 06/11/18 06:24 Basophils % 0.5 % (0.0-2.0) 06/11/18 06:24 Sodium 132 mEq/L (136-145) L 06/12/18 04:55 Potassium 3.7 mEq/L (3.5-5.1) 06/12/18 04:55 Chloride 95 mEq/L (98-107) L 06/12/18 04:55 Carbon Dioxide 31.0 mEq/L (21.0-31.0) 06/12/18 04:55 Anion Gap 9.7 (7.0-16.0) 06/12/18 04:55 BUN 9 mg/dL (7-25) 06/12/18 04:55 Creatinine 0.4 mg/dL (0.6-1.2) L 06/12/18 04:55 Est GFR ( Amer) > 60.0 ml/min (>90) 06/12/18 04:55 Est GFR (Non-Af Amer) > 60.0 ml/min 06/12/18 04:55 BUN/Creatinine Ratio 22.5 06/12/18 04:55 Glucose 174 mg/dL (70-105) H 06/12/18 04:55 POC Glucose 141 MG/DL (70 - 105) H 05/24/18 11:49 Hemoglobin A1c % 5.9 % (4.0-6.0) 05/23/18 20:08 Calcium 9.4 mg/dL (8.6-10.3) 06/12/18 04:55 Total Bilirubin 0.4 mg/dL (0.3-1.0) 06/12/18 04:55 AST 12 U/L (13-39) L 06/12/18 04:55 ALT 10 U/L (7-52) 06/12/18 04:55 Alkaline Phosphatase 58 U/L (34-104) 06/12/18 04:55 Troponin I 0.01 ng/mL (0.01-0.05) 05/23/18 20:08 B-Natriuretic Peptide 44.6 pg/mL (5.0-100.0) 05/23/18 20:08 Total Protein 6.7 gm/dL (6.0-8.3) 06/12/18 04:55 Albumin 4.0 gm/dL (3.7-5.3) 06/12/18 04:55 Globulin 2.7 gm/dL 06/12/18 04:55 Albumin/Globulin Ratio 1.5 (1.0-1.8) 06/12/18 04:55 Triglycerides 191 mg/dL (<150) H 05/24/18 08:14 Cholesterol 171 mg/dL (<200) 05/24/18 08:14 LDL Cholesterol Direct 80 mg/dL (75-193) 05/24/18 08:14 HDL Cholesterol 67 mg/dL (23-92) 05/24/18 08:14 Urine Source RANDOM 05/23/18 20:30 Urine Color YELLOW 05/23/18 20:30 Urine Clarity CLEAR (CLEAR) 05/23/18 20:30 Urine pH 7.5 (4.6 - 8.0) 05/23/18 20:30 Ur Specific [place] 1.010 (1.005-1.030) 05/23/18 20:30 Urine Protein NEGATIVE mg/dL (NEGATIVE) 05/23/18 20:30 Urine Glucose (UA) 100 mg/dL (NEGATIVE) H 05/23/18 20:30 Urine Ketones NEGATIVE mg/dL (NEGATIVE) 05/23/18 20:30 Urine Blood NEGATIVE (NEGATIVE) 05/23/18 20:30 Urine Nitrate NEGATIVE (NEGATIVE) 05/23/18 20:30 Urine Bilirubin NEGATIVE (NEGATIVE) 05/23/18 20:30 Urine Urobilinogen 0.2 E.U./dL (0.2 - 1.0) 05/23/18 20:30 Ur Leukocyte Esterase NEGATIVE (NEGATIVE) 05/23/18 20:30 Urine RBC 0-2 /hpf (0-5) 05/23/18 20:30 Urine WBC 0-2 /hpf (0-5) 05/23/18 20:30 Ur Epithelial Cells FEW /lpf (FEW) 05/23/18 20:30 Urine Bacteria OCCASIONAL /hpf (NONE SEEN) 05/23/18 20:30 - Physical Exam Vitals and I&O: Vital Signs Temp 97.3 F 06/16/18 16:00 Pulse 93 06/16/18 18:17 Resp 17 06/16/18 16:00 BP 130/75 06/16/18 18:17 Pulse Ox 98 06/16/18 16:00 Intake & Output 06/16/18 06/16/18 06/17/18 06:59 18:59 06:59 Intake Total 1000 1000 Balance 1000 1000 Weight (lbs) 131 lb 130 lb Intake: Oral 1000 1000 Other: # Voids 3 3 # Bowel Movements 1 1 Stool Characteristics Formed Weight Source Bedscale Bedscale Active Medications: Current Medications Acetaminophen (Tylenol) 650 mg PO Q4H PRN PRN Reason: Pain (Moderate) Stop: 08/09/18 19:58 Last Admin: 06/10/18 20:27 Dose: 650 mg Acetaminophen/Hydrocodone Bitart ([place] 5mg/325mg) 1 tab PO Q6H PRN PRN Reason: Pain (Severe) 7-10 Stop: 08/09/18 21:57 Last Admin: 06/15/18 18:15 Dose: 1 tab Divalproex Sodium (Depakote Dr) 250 mg PO QAM [facility]; Protocol Stop: 07/24/18 08:59 Last Admin: 06/16/18 09:17 Dose: 250 mg Divalproex Sodium (Depakote Er) 500 mg PO QPM [facility]; Protocol Stop: 07/23/18 16:59 Last Admin: 06/16/18 16:56 Dose: 500 mg Famotidine (Pepcid) 20 mg PO DAILY [facility] Stop: 07/24/18 08:59 Last Admin: 06/16/18 09:17 Dose: 20 mg Gabapentin (Neurontin) 300 mg PO BID [facility] Stop: 07/23/18 16:59 Last Admin: 06/16/18 16:57 Dose: 300 mg Sodium Chloride (Nacl 0.45%) 1,000 mls @ 50 mls/hr IV .Q20H [facility] Stop: 07/23/18 01:57 Last Admin: 05/26/18 13:33 Dose: Not Given Lactulose (Cephulac) 30 gm PO DAILY PRN PRN Reason: Constipation Stop: 08/06/18 13:18 Last Admin: 06/15/18 18:18 Dose: 30 gm Lorazepam (Ativan) 1 mg PO Q4HR PRN; Protocol PRN Reason: Agitation Stop: 07/30/18 12:30 Last Admin: 06/16/18 20:35 Dose: 1 mg Magnesium Hydroxide (Milk Of Magnesia) 30 ml PO DAILY PRN PRN Reason: Constipation Stop: 08/03/18 17:37 Last Admin: 06/07/18 08:44 Dose: 30 ml Memantine (Namenda) 10 mg PO BID [facility] Stop: 07/23/18 16:59 Last Admin: 06/16/18 16:57 Dose: 10 mg Metformin HCl (Glucophage) 500 mg PO BID [facility] Stop: 07/23/18 16:59 Last Admin: 06/16/18 16:56 Dose: 500 mg Propranolol HCl (Inderal) 10 mg PO BID [facility] Stop: 07/23/18 16:59 Last Admin: 06/16/18 18:17 Dose: 10 mg Quetiapine Fumarate (Seroquel) 25 mg PO TID [facility]ARGARETH; Protocol Stop: 07/23/18 13:59 Last Admin: 06/16/18 20:33 Dose: 25 mg Risperidone (Risperdal) 3 mg PO HS MARGARETH; Protocol Stop: 07/23/18 20:59 Last Admin: 06/16/18 20:33 Dose: 3 mg Simvastatin (Zocor) 20 mg PO HS [facility]ARGARETH; Protocol Stop: 07/23/18 20:59 Last Admin: 06/16/18 20:33 Dose: 20 mg Sodium Chloride (Nacl Tab) 2 gm PO BID [facility]ARGARETH Stop: 08/10/18 08:59 Last Admin: 06/16/18 16:57 Dose: 2 gm General: alert HEENT: NC/AT, PERRLA Neck: Supple Lungs: CTAB Cardiovascular: RRR, Normal S1, Normal S2, without murmur Abdomen: soft, non-tender, non-distended Neurological: alert Internal Medicine Assmt/Plan - Assessment Assessment: abnormal ekg htn hyperlipidemia dementia - Plan Plan: follow up labs in am cardiology follow up continue current plan of care Nutritional Asmnt/Malnutr-PDOC - Dietary Evaluation Malnutrition Findings (Please click <Entered> for more info): Nutritional Asmnt/Malnutrition Start: 05/24/18 16: 46 Text: Status: Complete Freq: Protocol: Document 05/24/18 16:46 LCHENG (Rec: 05/24/18 16:53 [email or web address]) Nutritional Asmnt/Malnutrition Patient General Information Nutritional Screening High Risk Diagnosis altered mental status Pertinent Medical Hx/Surgical Hx HTN, DM, dyslipidemia, dementia, bipolar Subjective Information Pt seen lying in bed at time of visit, has 1:1 sitter. Per Sitter, pt ate very well 100% of lunch. Pt is Italian speaking noted per nurse note. Current Diet Order/ Nutrition Support CCHO 60gm Pertinent Medications pepcid, glucophage, seroquel, nacl 0.45% Pertinent Labs 05/24 Na 132, Cl 96, Cr 0.5, glucose 209, POC 136-141 Nutritional Hx/Data Height 5 ft 6 in Height (Calculated Centimeters) 167.6 Current Weight (lbs) 123 lb Weight (Calculated Kilograms) 55.8 Weight (Calculated Grams) 43140.9 [place] Body Weight 142 Body Mass Index (BMI) 19.8 Weight Status Approriate GI Symptoms GI Symptoms None Last BM not indicated Difficult in: None Skin Integrity/Comment: old abdominal midline incision scar Current %PO Good (75-100%) Estimated Nutritional Goals BEE in Kcals: Using Current wt Calories/Kcals/Kg 25-30 Kcals Calculated 3284-5026 Protein: Using Current wt Protein g/k-1.2 Protein Calculated 56-67 Fluid: ml 1400-1680ml (1ml/kcal) Nutritional Problem 1. Problem Problem altered nutrition related labs Etiology hx of DM, electrolytes imbalance Signs/Symptoms: glucose 209, POC 136-141, Na 132, Cl 96 Malnutrition Alert Is there a minimum of two criteria No selected? Query Text:Check all the applicable criteria. A minimum of two criteria are recommended for diagnosis of either severe or non-severe malnutrition. Malnutrition Related to Morbid Obesity Malnutrition related to morbid obesity No Intervention/Recommendation Comments 1. Continue with CCHO 60gm diet as ordered. 2. Monitor PO intake, wt, labs and skin integrity 3. F/U as moderate risk in 3-5 days, 05/27-05/29 Expected Outcomes/Goals Expected Outcomes/Goals 1. PO intake to meet at least 75% of nutritional needs. 2. Wt stability, skin to remain intact, labs to approach WNL.
--- NOTE | 2018-06-17 19:32 | Progress Notes ---
DATE: 06/17/2018 SUBJECTIVE: The patient was seen in her room with a 1:1 sitter for safety. The patient sustained a mechanical fall one week ago and had fracture on the right humerus. The patient appears to be in no acute distress, but a poor historian and easily gets agitated. OBJECTIVE: VITAL SIGNS: Temperature 97.2, heart rate 67, blood pressure 142/79, respirations of 18 and 95% on room air. HEENT: Head is atraumatic and normocephalic. Eyes: Bilateral conjunctivae are clear. Bilateral pupils are equally round and reactive. NECK: Supple. No JVD. CARDIOVASCULAR: S1 and S2, without murmur. PULMONARY: Clear to auscultation. GASTROINTESTINAL: Soft and nontender without guarding. Positive bowel sounds. MUSCULOSKELETAL: No clubbing. No cyanosis noted. ASSESSMENT: 1. Dementia. 2. Hyperlipidemia. 3. Hypertension. 4. Osteoarthritis. 5. Status post fall. 6. Right humerus fracture. PLAN: We will continue 1:1 sitter for safety and will follow up with the orthopedic doctor to see for evaluation if the patient will benefit with a surgical intervention or more on conservative management. Treatment plans were discussed with the patient's nurse. Treatment plans were discussed with Dr. Patiño. JOB# [id number]
[2018-06-17] MEDS: Hydrocodone/APAP 5mg/325mg Tab PO PRN (22:45)
[2018-06-18] MEDS ORDERED: Haloperidol Lactate 5 mg/mL 1mL Vial IM ONE (05:08)
--- NOTE | 2018-06-18 12:17 | General Progress Note ---
Subjective - Review of Systems Events since last encounter: patient awake aler s/p fall fracture rt humerus in no distress Objective - Results Result Diagrams: 06/11/18 06:24 06/12/18 04:55 Recent Labs: Laboratory Last Values WBC 8.9 Th/cmm (4.8-10.8) 06/11/18 06:24 RBC 3.47 Mil/cmm (3.80-5.10) L 06/11/18 06:24 Hgb 11.2 gm/dL (12-16) L 06/11/18 06:24 Hct 33.7 % (41.0-60) L 06/11/18 06:24 MCV 97.2 fl (81-100) 06/11/18 06:24 MCH 32.3 pg (27.0-31.0) H 06/11/18 06:24 MCHC Differential 33.2 pg (28.0-36.0) 06/11/18 06:24 RDW 13.4 % (11.5-20.0) 06/11/18 06:24 Plt Count 196 Th/cmm (150-400) 06/11/18 06:24 MPV 8.5 fl 06/11/18 06:24 Neutrophils % 65.0 % (40.0-80.0) 06/11/18 06:24 Lymphocytes % 21.8 % (20.0-50.0) 06/11/18 06:24 Monocytes % 12.3 % (2.0-10.0) H 06/11/18 06:24 Eosinophils % 0.4 % (0.0-5.0) 06/11/18 06:24 Basophils % 0.5 % (0.0-2.0) 06/11/18 06:24 Sodium 132 mEq/L (136-145) L 06/12/18 04:55 Potassium 3.7 mEq/L (3.5-5.1) 06/12/18 04:55 Chloride 95 mEq/L (98-107) L 06/12/18 04:55 Carbon Dioxide 31.0 mEq/L (21.0-31.0) 06/12/18 04:55 Anion Gap 9.7 (7.0-16.0) 06/12/18 04:55 BUN 9 mg/dL (7-25) 06/12/18 04:55 Creatinine 0.4 mg/dL (0.6-1.2) L 06/12/18 04:55 Est GFR ( Amer) > 60.0 ml/min (>90) 06/12/18 04:55 Est GFR (Non-Af Amer) > 60.0 ml/min 06/12/18 04:55 BUN/Creatinine Ratio 22.5 06/12/18 04:55 Glucose 174 mg/dL (70-105) H 06/12/18 04:55 POC Glucose 141 MG/DL (70 - 105) H 05/24/18 11:49 Hemoglobin A1c % 5.9 % (4.0-6.0) 05/23/18 20:08 Calcium 9.4 mg/dL (8.6-10.3) 06/12/18 04:55 Total Bilirubin 0.4 mg/dL (0.3-1.0) 06/12/18 04:55 AST 12 U/L (13-39) L 06/12/18 04:55 ALT 10 U/L (7-52) 06/12/18 04:55 Alkaline Phosphatase 58 U/L (34-104) 06/12/18 04:55 Troponin I 0.01 ng/mL (0.01-0.05) 05/23/18 20:08 B-Natriuretic Peptide 44.6 pg/mL (5.0-100.0) 05/23/18 20:08 Total Protein 6.7 gm/dL (6.0-8.3) 06/12/18 04:55 Albumin 4.0 gm/dL (3.7-5.3) 06/12/18 04:55 Globulin 2.7 gm/dL 06/12/18 04:55 Albumin/Globulin Ratio 1.5 (1.0-1.8) 06/12/18 04:55 Triglycerides 191 mg/dL (<150) H 05/24/18 08:14 Cholesterol 171 mg/dL (<200) 05/24/18 08:14 LDL Cholesterol Direct 80 mg/dL (75-193) 05/24/18 08:14 HDL Cholesterol 67 mg/dL (23-92) 05/24/18 08:14 Urine Source RANDOM 05/23/18 20:30 Urine Color YELLOW 05/23/18 20:30 Urine Clarity CLEAR (CLEAR) 05/23/18 20:30 Urine pH 7.5 (4.6 - 8.0) 05/23/18 20:30 Ur Specific [place] 1.010 (1.005-1.030) 05/23/18 20:30 Urine Protein NEGATIVE mg/dL (NEGATIVE) 05/23/18 20:30 Urine Glucose (UA) 100 mg/dL (NEGATIVE) H 05/23/18 20:30 Urine Ketones NEGATIVE mg/dL (NEGATIVE) 05/23/18 20:30 Urine Blood NEGATIVE (NEGATIVE) 05/23/18 20:30 Urine Nitrate NEGATIVE (NEGATIVE) 05/23/18 20:30 Urine Bilirubin NEGATIVE (NEGATIVE) 05/23/18 20:30 Urine Urobilinogen 0.2 E.U./dL (0.2 - 1.0) 05/23/18 20:30 Ur Leukocyte Esterase NEGATIVE (NEGATIVE) 05/23/18 20:30 Urine RBC 0-2 /hpf (0-5) 05/23/18 20:30 Urine WBC 0-2 /hpf (0-5) 05/23/18 20:30 Ur Epithelial Cells FEW /lpf (FEW) 05/23/18 20:30 Urine Bacteria OCCASIONAL /hpf (NONE SEEN) 05/23/18 20:30 - Physical Exam Vitals and I&O: Vital Signs Temp 97.6 F 06/18/18 08:00 Pulse 81 06/18/18 08:40 Resp 18 06/18/18 08:00 BP 182/90 06/18/18 08:40 Pulse Ox 98 06/18/18 08:00 Intake & Output 06/17/18 06/18/18 06/18/18 18:59 06:59 18:59 Intake Total 1000 250 250 Balance 1000 250 250 Weight (lbs) 55.61 kg 55.338 kg 55.338 kg Intake: Oral 1000 250 250 Other: # Voids 4 Weight Source Bedscale Bedscale Bedscale Active Medications: Current Medications Acetaminophen (Tylenol) 650 mg PO Q4H PRN PRN Reason: Pain (Moderate) Stop: 08/09/18 19:58 Last Admin: 06/10/18 20:27 Dose: 650 mg Acetaminophen/Hydrocodone Bitart ([place] 5mg/325mg) 1 tab PO Q6H PRN PRN Reason: Pain (Severe) 7-10 Stop: 08/09/18 21:57 Last Admin: 06/17/18 22:45 Dose: 1 tab Divalproex Sodium (Depakote Dr) 250 mg PO QAM [facility]; Protocol Stop: 07/24/18 08:59 Last Admin: 06/18/18 08:39 Dose: 250 mg Divalproex Sodium (Depakote Er) 500 mg PO QPM [facility]; Protocol Stop: 07/23/18 16:59 Last Admin: 06/17/18 16:22 Dose: 500 mg Famotidine (Pepcid) 20 mg PO DAILY [facility] Stop: 07/24/18 08:59 Last Admin: 06/18/18 08:40 Dose: 20 mg Gabapentin (Neurontin) 300 mg PO BID [facility] Stop: 07/23/18 16:59 Last Admin: 06/18/18 08:39 Dose: 300 mg Sodium Chloride (Nacl 0.45%) 1,000 mls @ 50 mls/hr IV .Q20H [facility] Stop: 07/23/18 01:57 Last Admin: 05/26/18 13:33 Dose: Not Given Lactulose (Cephulac) 30 gm PO DAILY PRN PRN Reason: Constipation Stop: 08/06/18 13:18 Last Admin: 06/15/18 18:18 Dose: 30 gm Lorazepam (Ativan) 1 mg PO Q4HR PRN; Protocol PRN Reason: Agitation Stop: 07/30/18 12:30 Last Admin: 06/18/18 03:42 Dose: 1 mg Magnesium Hydroxide (Milk Of Magnesia) 30 ml PO DAILY PRN PRN Reason: Constipation Stop: 08/03/18 17:37 Last Admin: 06/07/18 08:44 Dose: 30 ml Memantine (Namenda) 10 mg PO BID [facility] Stop: 07/23/18 16:59 Last Admin: 06/18/18 08:40 Dose: 10 mg Metformin HCl (Glucophage) 500 mg PO BID [facility] Stop: 07/23/18 16:59 Last Admin: 06/18/18 08:39 Dose: 500 mg Propranolol HCl (Inderal) 10 mg PO BID [facility] Stop: 07/23/18 16:59 Last Admin: 06/18/18 08:40 Dose: 10 mg Quetiapine Fumarate (Seroquel) 25 mg PO TID [facility]; Protocol Stop: 07/23/18 13:59 Last Admin: 06/18/18 08:40 Dose: 25 mg Risperidone (Risperdal) 3 mg PO HS [facility]; Protocol Stop: 07/23/18 20:59 Last Admin: 06/17/18 21:37 Dose: 3 mg Simvastatin (Zocor) 20 mg PO HS [facility]; Protocol Stop: 07/23/18 20:59 Last Admin: 06/17/18 21:37 Dose: 20 mg Sodium Chloride (Nacl Tab) 2 gm PO BID [facility] Stop: 08/10/18 08:59 Last Admin: 06/18/18 08:39 Dose: 2 gm General: No acute distress HEENT: Atraumatic, PERRLA Neck: Supple, JVD, Thyromegaly Cardiovascular: Regular rate, Normal S1, Normal S2 Lungs: Clear to auscultation Abdomen: Bowel sounds Assessment/Plan - Problem List Patient Problems: All Active Problems Dementia (Acute) F03.90 HTN (hypertension) (Acute) I10 Hyperlipidemia (Acute) E78.5 Right humeral fracture (Acute) S42.301A Status post fall (Acute) Z91.81 - Plan Plan: continue current management Nutritional Asmnt/Malnutr-PDOC - Dietary Evaluation Malnutrition Findings (Please click <Entered> for more info): Nutritional Asmnt/Malnutrition Start: 05/24/18 16: 46 Text: Status: Complete Freq: Protocol: Document 05/24/18 16:46 LCHENG (Rec: 05/24/18 16:53 [email or web address]) Nutritional Asmnt/Malnutrition Patient General Information Nutritional Screening High Risk Diagnosis altered mental status Pertinent Medical Hx/Surgical Hx HTN, DM, dyslipidemia, dementia, bipolar Subjective Information Pt seen lying in bed at time of visit, has 1:1 sitter. Per Sitter, pt ate very well 100% of lunch. Pt is Divehi speaking noted per nurse note. Current Diet Order/ Nutrition Support CCHO 60gm Pertinent Medications pepcid, glucophage, seroquel, nacl 0.45% Pertinent Labs 05/24 Na 132, Cl 96, Cr 0.5, glucose 209, POC 136-141 Nutritional Hx/Data Height 1.68 m Height (Calculated Centimeters) 167.6 Current Weight (lbs) 55.792 kg Weight (Calculated Kilograms) 55.8 Weight (Calculated Grams) 80135.9 [place] Body Weight 142 Body Mass Index (BMI) 19.8 Weight Status Approriate GI Symptoms GI Symptoms None Last BM not indicated Difficult in: None Skin Integrity/Comment: old abdominal midline incision scar Current %PO Good (75-100%) Estimated Nutritional Goals BEE in Kcals: Using Current wt Calories/Kcals/Kg 25-30 Kcals Calculated 2958-8661 Protein: Using Current wt Protein g/k-1.2 Protein Calculated 56-67 Fluid: ml 1400-1680ml (1ml/kcal) Nutritional Problem 1. Problem Problem altered nutrition related labs Etiology hx of DM, electrolytes imbalance Signs/Symptoms: glucose 209, POC 136-141, Na 132, Cl 96 Malnutrition Alert Is there a minimum of two criteria No selected? Query Text:Check all the applicable criteria. A minimum of two criteria are recommended for diagnosis of either severe or non-severe malnutrition. Malnutrition Related to Morbid Obesity Malnutrition related to morbid obesity No Intervention/Recommendation Comments 1. Continue with [facility] 60gm diet as ordered. 2. Monitor PO intake, wt, labs and skin integrity 3. F/U as moderate risk in 3-5 days, 05/27-05/29 Expected Outcomes/Goals Expected Outcomes/Goals 1. PO intake to meet at least 75% of nutritional needs. 2. Wt stability, skin to remain intact, labs to approach WNL.
[2018-06-19] MEDS: Hydrocodone/APAP 5mg/325mg Tab PO PRN (11:26)
--- NOTE | 2018-06-19 15:55 | General Progress Note ---
Subjective - Review of Systems Events since last encounter: patient awake alert s/p fall fracture rt humerus Objective - Results Result Diagrams: 06/11/18 06:24 06/12/18 04:55 Recent Labs: Laboratory Last Values WBC 8.9 Th/cmm (4.8-10.8) 06/11/18 06:24 RBC 3.47 Mil/cmm (3.80-5.10) L 06/11/18 06:24 Hgb 11.2 gm/dL (12-16) L 06/11/18 06:24 Hct 33.7 % (41.0-60) L 06/11/18 06:24 MCV 97.2 fl (81-100) 06/11/18 06:24 MCH 32.3 pg (27.0-31.0) H 06/11/18 06:24 MCHC Differential 33.2 pg (28.0-36.0) 06/11/18 06:24 RDW 13.4 % (11.5-20.0) 06/11/18 06:24 Plt Count 196 Th/cmm (150-400) 06/11/18 06:24 MPV 8.5 fl 06/11/18 06:24 Neutrophils % 65.0 % (40.0-80.0) 06/11/18 06:24 Lymphocytes % 21.8 % (20.0-50.0) 06/11/18 06:24 Monocytes % 12.3 % (2.0-10.0) H 06/11/18 06:24 Eosinophils % 0.4 % (0.0-5.0) 06/11/18 06:24 Basophils % 0.5 % (0.0-2.0) 06/11/18 06:24 Sodium 132 mEq/L (136-145) L 06/12/18 04:55 Potassium 3.7 mEq/L (3.5-5.1) 06/12/18 04:55 Chloride 95 mEq/L (98-107) L 06/12/18 04:55 Carbon Dioxide 31.0 mEq/L (21.0-31.0) 06/12/18 04:55 Anion Gap 9.7 (7.0-16.0) 06/12/18 04:55 BUN 9 mg/dL (7-25) 06/12/18 04:55 Creatinine 0.4 mg/dL (0.6-1.2) L 06/12/18 04:55 Est GFR ( Amer) > 60.0 ml/min (>90) 06/12/18 04:55 Est GFR (Non-Af Amer) > 60.0 ml/min 06/12/18 04:55 BUN/Creatinine Ratio 22.5 06/12/18 04:55 Glucose 174 mg/dL (70-105) H 06/12/18 04:55 POC Glucose 141 MG/DL (70 - 105) H 05/24/18 11:49 Hemoglobin A1c % 5.9 % (4.0-6.0) 05/23/18 20:08 Calcium 9.4 mg/dL (8.6-10.3) 06/12/18 04:55 Total Bilirubin 0.4 mg/dL (0.3-1.0) 06/12/18 04:55 AST 12 U/L (13-39) L 06/12/18 04:55 ALT 10 U/L (7-52) 06/12/18 04:55 Alkaline Phosphatase 58 U/L (34-104) 06/12/18 04:55 Troponin I 0.01 ng/mL (0.01-0.05) 05/23/18 20:08 B-Natriuretic Peptide 44.6 pg/mL (5.0-100.0) 05/23/18 20:08 Total Protein 6.7 gm/dL (6.0-8.3) 06/12/18 04:55 Albumin 4.0 gm/dL (3.7-5.3) 06/12/18 04:55 Globulin 2.7 gm/dL 06/12/18 04:55 Albumin/Globulin Ratio 1.5 (1.0-1.8) 06/12/18 04:55 Triglycerides 191 mg/dL (<150) H 05/24/18 08:14 Cholesterol 171 mg/dL (<200) 05/24/18 08:14 LDL Cholesterol Direct 80 mg/dL (75-193) 05/24/18 08:14 HDL Cholesterol 67 mg/dL (23-92) 05/24/18 08:14 Urine Source RANDOM 05/23/18 20:30 Urine Color YELLOW 05/23/18 20:30 Urine Clarity CLEAR (CLEAR) 05/23/18 20:30 Urine pH 7.5 (4.6 - 8.0) 05/23/18 20:30 Ur Specific [place] 1.010 (1.005-1.030) 05/23/18 20:30 Urine Protein NEGATIVE mg/dL (NEGATIVE) 05/23/18 20:30 Urine Glucose (UA) 100 mg/dL (NEGATIVE) H 05/23/18 20:30 Urine Ketones NEGATIVE mg/dL (NEGATIVE) 05/23/18 20:30 Urine Blood NEGATIVE (NEGATIVE) 05/23/18 20:30 Urine Nitrate NEGATIVE (NEGATIVE) 05/23/18 20:30 Urine Bilirubin NEGATIVE (NEGATIVE) 05/23/18 20:30 Urine Urobilinogen 0.2 E.U./dL (0.2 - 1.0) 05/23/18 20:30 Ur Leukocyte Esterase NEGATIVE (NEGATIVE) 05/23/18 20:30 Urine RBC 0-2 /hpf (0-5) 05/23/18 20:30 Urine WBC 0-2 /hpf (0-5) 05/23/18 20:30 Ur Epithelial Cells FEW /lpf (FEW) 05/23/18 20:30 Urine Bacteria OCCASIONAL /hpf (NONE SEEN) 05/23/18 20:30 - Physical Exam Vitals and I&O: Vital Signs Temp 96.2 F 06/19/18 12:00 Pulse 68 06/19/18 12:00 Resp 18 06/19/18 12:00 BP 133/78 06/19/18 12:00 Pulse Ox 97 06/19/18 12:00 Intake & Output 06/18/18 06/19/18 06/19/18 18:59 06:59 18:59 Intake Total 1250 650 Balance 1250 650 Weight (lbs) 55.338 kg 55.338 kg Intake: Oral 1250 650 Other: # Voids 3 3 Weight Source Bedscale Bedscale Active Medications: Current Medications Acetaminophen (Tylenol) 650 mg PO Q4H PRN PRN Reason: Pain (Moderate) Stop: 08/09/18 19:58 Last Admin: 06/10/18 20:27 Dose: 650 mg Acetaminophen/Hydrocodone Bitart ([place] 5mg/325mg) 1 tab PO Q6H PRN PRN Reason: Pain (Severe) 7-10 Stop: 08/09/18 21:57 Last Admin: 06/19/18 11:26 Dose: 1 tab Divalproex Sodium (Depakote Dr) 250 mg PO QAM [facility]; Protocol Stop: 07/24/18 08:59 Last Admin: 06/19/18 09:36 Dose: 250 mg Divalproex Sodium (Depakote Er) 500 mg PO QPM [facility]; Protocol Stop: 07/23/18 16:59 Last Admin: 06/18/18 16:32 Dose: 500 mg Famotidine (Pepcid) 20 mg PO DAILY [facility] Stop: 07/24/18 08:59 Last Admin: 06/19/18 09:35 Dose: 20 mg Gabapentin (Neurontin) 300 mg PO BID [facility] Stop: 07/23/18 16:59 Last Admin: 06/19/18 09:36 Dose: 300 mg Sodium Chloride (Nacl 0.45%) 1,000 mls @ 50 mls/hr IV .Q20H [facility] Stop: 07/23/18 01:57 Last Admin: 05/26/18 13:33 Dose: Not Given Lactulose (Cephulac) 30 gm PO DAILY PRN PRN Reason: Constipation Stop: 08/06/18 13:18 Last Admin: 06/15/18 18:18 Dose: 30 gm Lorazepam (Ativan) 1 mg PO Q4HR PRN; Protocol PRN Reason: Agitation Stop: 07/30/18 12:30 Last Admin: 06/19/18 11:25 Dose: 1 mg Magnesium Hydroxide (Milk Of Magnesia) 30 ml PO DAILY PRN PRN Reason: Constipation Stop: 08/03/18 17:37 Last Admin: 06/07/18 08:44 Dose: 30 ml Memantine (Namenda) 10 mg PO BID [facility] Stop: 07/23/18 16:59 Last Admin: 06/19/18 09:35 Dose: 10 mg Metformin HCl (Glucophage) 500 mg PO BID [facility] Stop: 07/23/18 16:59 Last Admin: 06/19/18 09:35 Dose: 500 mg Propranolol HCl (Inderal) 10 mg PO BID [facility] Stop: 07/23/18 16:59 Last Admin: 06/19/18 09:36 Dose: 10 mg Quetiapine Fumarate (Seroquel) 25 mg PO TID [facility]; Protocol Stop: 07/23/18 13:59 Last Admin: 06/19/18 13:28 Dose: 25 mg Risperidone (Risperdal) 3 mg PO HS [facility]; Protocol Stop: 07/23/18 20:59 Last Admin: 06/18/18 20:38 Dose: 3 mg Simvastatin (Zocor) 20 mg PO HS [facility]; Protocol Stop: 07/23/18 20:59 Last Admin: 06/18/18 20:38 Dose: 20 mg Sodium Chloride (Nacl Tab) 2 gm PO BID [facility] Stop: 08/10/18 08:59 Last Admin: 06/19/18 09:35 Dose: 2 gm General: No acute distress HEENT: Atraumatic, PERRLA Neck: Supple, JVD, Thyromegaly Cardiovascular: Regular rate, Normal S1, Normal S2 Lungs: Clear to auscultation Abdomen: Bowel sounds Assessment/Plan - Problem List Patient Problems: All Active Problems Dementia (Acute) F03.90 HTN (hypertension) (Acute) I10 Hyperlipidemia (Acute) E78.5 Right humeral fracture (Acute) S42.301A Status post fall (Acute) Z91.81 - Plan Plan: continue current management Nutritional Asmnt/Malnutr-PDOC - Dietary Evaluation Malnutrition Findings (Please click <Entered> for more info): Nutritional Asmnt/Malnutrition Start: 05/24/18 16: 46 Text: Status: Complete Freq: Protocol: Document 05/24/18 16:46 LCHENG (Rec: 05/24/18 16:53 LCHENG [email or web address]) Nutritional Asmnt/Malnutrition Patient General Information Nutritional Screening High Risk Diagnosis altered mental status Pertinent Medical Hx/Surgical Hx HTN, DM, dyslipidemia, dementia, bipolar Subjective Information Pt seen lying in bed at time of visit, has 1:1 sitter. Per Sitter, pt ate very well 100% of lunch. Pt is Italian speaking noted per nurse note. Current Diet Order/ Nutrition Support CCHO 60gm Pertinent Medications pepcid, glucophage, seroquel, nacl 0.45% Pertinent Labs 05/24 Na 132, Cl 96, Cr 0.5, glucose 209, POC 136-141 Nutritional Hx/Data Height 1.68 m Height (Calculated Centimeters) 167.6 Current Weight (lbs) 55.792 kg Weight (Calculated Kilograms) 55.8 Weight (Calculated Grams) 17557.9 [place] Body Weight 142 Body Mass Index (BMI) 19.8 Weight Status Approriate GI Symptoms GI Symptoms None Last BM not indicated Difficult in: None Skin Integrity/Comment: old abdominal midline incision scar Current %PO Good (75-100%) Estimated Nutritional Goals BEE in Kcals: Using Current wt Calories/Kcals/Kg 25-30 Kcals Calculated 6081-9392 Protein: Using Current wt Protein g/k-1.2 Protein Calculated 56-67 Fluid: ml 1400-1680ml (1ml/kcal) Nutritional Problem 1. Problem Problem altered nutrition related labs Etiology hx of DM, electrolytes imbalance Signs/Symptoms: glucose 209, POC 136-141, Na 132, Cl 96 Malnutrition Alert Is there a minimum of two criteria No selected? Query Text:Check all the applicable criteria. A minimum of two criteria are recommended for diagnosis of either severe or non-severe malnutrition. Malnutrition Related to Morbid Obesity Malnutrition related to morbid obesity No Intervention/Recommendation Comments 1. Continue with [facility] 60gm diet as ordered. 2. Monitor PO intake, wt, labs and skin integrity 3. F/U as moderate risk in 3-5 days, 05/27-05/29 Expected Outcomes/Goals Expected Outcomes/Goals 1. PO intake to meet at least 75% of nutritional needs. 2. Wt stability, skin to remain intact, labs to approach WNL.
[2018-06-20] MEDS: Hydrocodone/APAP 5mg/325mg Tab PO PRN ×2 (10:55→20:37)
--- NOTE | 2018-06-20 13:20 | Internal Medicine Prog Note ---
Internal Medicine Subjective - Subjective Service Date: 06/20/18 Patient is:: awake, confused Per staff patient has:: no adverse event, tolerating meds Internal Medicine Objective - Results Result Diagrams: 06/11/18 06:24 06/12/18 04:55 Recent Labs: Laboratory Last Values WBC 8.9 Th/cmm (4.8-10.8) 06/11/18 06:24 RBC 3.47 Mil/cmm (3.80-5.10) L 06/11/18 06:24 Hgb 11.2 gm/dL (12-16) L 06/11/18 06:24 Hct 33.7 % (41.0-60) L 06/11/18 06:24 MCV 97.2 fl (81-100) 06/11/18 06:24 MCH 32.3 pg (27.0-31.0) H 06/11/18 06:24 MCHC Differential 33.2 pg (28.0-36.0) 06/11/18 06:24 RDW 13.4 % (11.5-20.0) 06/11/18 06:24 Plt Count 196 Th/cmm (150-400) 06/11/18 06:24 MPV 8.5 fl 06/11/18 06:24 Neutrophils % 65.0 % (40.0-80.0) 06/11/18 06:24 Lymphocytes % 21.8 % (20.0-50.0) 06/11/18 06:24 Monocytes % 12.3 % (2.0-10.0) H 06/11/18 06:24 Eosinophils % 0.4 % (0.0-5.0) 06/11/18 06:24 Basophils % 0.5 % (0.0-2.0) 06/11/18 06:24 Sodium 132 mEq/L (136-145) L 06/12/18 04:55 Potassium 3.7 mEq/L (3.5-5.1) 06/12/18 04:55 Chloride 95 mEq/L (98-107) L 06/12/18 04:55 Carbon Dioxide 31.0 mEq/L (21.0-31.0) 06/12/18 04:55 Anion Gap 9.7 (7.0-16.0) 06/12/18 04:55 BUN 9 mg/dL (7-25) 06/12/18 04:55 Creatinine 0.4 mg/dL (0.6-1.2) L 06/12/18 04:55 Est GFR ( Amer) > 60.0 ml/min (>90) 06/12/18 04:55 Est GFR (Non-Af Amer) > 60.0 ml/min 06/12/18 04:55 BUN/Creatinine Ratio 22.5 06/12/18 04:55 Glucose 174 mg/dL (70-105) H 06/12/18 04:55 POC Glucose 141 MG/DL (70 - 105) H 05/24/18 11:49 Hemoglobin A1c % 5.9 % (4.0-6.0) 05/23/18 20:08 Calcium 9.4 mg/dL (8.6-10.3) 06/12/18 04:55 Total Bilirubin 0.4 mg/dL (0.3-1.0) 06/12/18 04:55 AST 12 U/L (13-39) L 06/12/18 04:55 ALT 10 U/L (7-52) 06/12/18 04:55 Alkaline Phosphatase 58 U/L (34-104) 06/12/18 04:55 Troponin I 0.01 ng/mL (0.01-0.05) 05/23/18 20:08 B-Natriuretic Peptide 44.6 pg/mL (5.0-100.0) 05/23/18 20:08 Total Protein 6.7 gm/dL (6.0-8.3) 06/12/18 04:55 Albumin 4.0 gm/dL (3.7-5.3) 06/12/18 04:55 Globulin 2.7 gm/dL 06/12/18 04:55 Albumin/Globulin Ratio 1.5 (1.0-1.8) 06/12/18 04:55 Triglycerides 191 mg/dL (<150) H 05/24/18 08:14 Cholesterol 171 mg/dL (<200) 05/24/18 08:14 LDL Cholesterol Direct 80 mg/dL (75-193) 05/24/18 08:14 HDL Cholesterol 67 mg/dL (23-92) 05/24/18 08:14 Urine Source RANDOM 05/23/18 20:30 Urine Color YELLOW 08/21/18 20:30 Urine Clarity CLEAR (CLEAR) 05/23/18 20:30 Urine pH 7.5 (4.6 - 8.0) 05/23/18 20:30 Ur Specific [place] 1.010 (1.005-1.030) 05/23/18 20:30 Urine Protein NEGATIVE mg/dL (NEGATIVE) 05/23/18 20:30 Urine Glucose (UA) 100 mg/dL (NEGATIVE) H 05/23/18 20:30 Urine Ketones NEGATIVE mg/dL (NEGATIVE) 05/23/18 20:30 Urine Blood NEGATIVE (NEGATIVE) 05/23/18 20:30 Urine Nitrate NEGATIVE (NEGATIVE) 05/23/18 20:30 Urine Bilirubin NEGATIVE (NEGATIVE) 05/23/18 20:30 Urine Urobilinogen 0.2 E.U./dL (0.2 - 1.0) 05/23/18 20:30 Ur Leukocyte Esterase NEGATIVE (NEGATIVE) 05/23/18 20:30 Urine RBC 0-2 /hpf (0-5) 05/23/18 20:30 Urine WBC 0-2 /hpf (0-5) 05/23/18 20:30 Ur Epithelial Cells FEW /lpf (FEW) 05/23/18 20:30 Urine Bacteria OCCASIONAL /hpf (NONE SEEN) 05/23/18 20:30 - Physical Exam Vitals and I&O: Vital Signs Temp 96.8 F 06/20/18 08:00 Pulse 103 06/20/18 09:22 Resp 19 06/20/18 08:00 BP 132/90 06/20/18 09:22 Pulse Ox 99 06/20/18 08:00 Intake & Output 06/19/18 06/20/18 06/20/18 18:59 06:59 18:59 Intake Total 950 Balance 950 Weight (lbs) 122 lb 123 lb Intake: Oral 950 Other: # Voids 3 4 # Bowel Movements 0 Weight Source Bedscale Bedscale Active Medications: Current Medications Acetaminophen (Tylenol) 650 mg PO Q4H PRN PRN Reason: Pain (Moderate) Stop: 08/09/18 19:58 Last Admin: 06/10/18 20:27 Dose: 650 mg Acetaminophen/Hydrocodone Bitart ([place] 5mg/325mg) 1 tab PO Q6H PRN PRN Reason: Pain (Severe) 7-10 Stop: 08/09/18 21:57 Last Admin: 06/20/18 10:55 Dose: 1 tab Divalproex Sodium (Depakote Dr) 250 mg PO QAM [facility]; Protocol Stop: 07/24/18 08:59 Last Admin: 06/20/18 09:21 Dose: 250 mg Divalproex Sodium (Depakote Er) 500 mg PO QPM [facility]; Protocol Stop: 07/23/18 16:59 Last Admin: 06/19/18 16:21 Dose: 500 mg Famotidine (Pepcid) 20 mg PO DAILY [facility] Stop: 07/24/18 08:59 Last Admin: 06/20/18 09:21 Dose: 20 mg Gabapentin (Neurontin) 300 mg PO BID [facility] Stop: 07/23/18 16:59 Last Admin: 06/20/18 09:22 Dose: 300 mg Sodium Chloride (Nacl 0.45%) 1,000 mls @ 50 mls/hr IV .Q20H [facility] Stop: 07/23/18 01:57 Last Admin: 05/26/18 13:33 Dose: Not Given Lactulose (Cephulac) 30 gm PO DAILY PRN PRN Reason: Constipation Stop: 08/06/18 13:18 Last Admin: 06/15/18 18:18 Dose: 30 gm Lorazepam (Ativan) 1 mg PO Q4HR PRN; Protocol PRN Reason: Agitation Stop: 07/30/18 12:30 Last Admin: 06/20/18 10:55 Dose: 1 mg Magnesium Hydroxide (Milk Of Magnesia) 30 ml PO DAILY PRN PRN Reason: Constipation Stop: 08/03/18 17:37 Last Admin: 06/07/18 08:44 Dose: 30 ml Memantine (Namenda) 10 mg PO BID [facility] Stop: 07/23/18 16:59 Last Admin: 06/20/18 09:22 Dose: 10 mg Metformin HCl (Glucophage) 500 mg PO BID [facility] Stop: 07/23/18 16:59 Last Admin: 06/20/18 09:21 Dose: 500 mg Propranolol HCl (Inderal) 10 mg PO BID [facility] Stop: 07/23/18 16:59 Last Admin: 06/20/18 09:22 Dose: Not Given Quetiapine Fumarate (Seroquel) 25 mg PO TID [facility]; Protocol Stop: 07/23/18 13:59 Last Admin: 06/20/18 09:21 Dose: 25 mg Risperidone (Risperdal) 3 mg PO HS [facility]; Protocol Stop: 07/23/18 20:59 Last Admin: 06/19/18 21:10 Dose: 3 mg Simvastatin (Zocor) 20 mg PO HS [facility]; Protocol Stop: 07/23/18 20:59 Last Admin: 06/19/18 21:15 Dose: 20 mg Sodium Chloride (Nacl Tab) 2 gm PO BID [facility] Stop: 08/10/18 08:59 Last Admin: 06/20/18 09:22 Dose: 2 gm General: alert HEENT: NC/AT, PERRLA Neck: Supple Lungs: CTAB Cardiovascular: RRR, Normal S1, Normal S2, without murmur Abdomen: soft, non-tender, non-distended Neurological: alert Internal Medicine Assmt/Plan - Assessment Assessment: abnormal ekg htn hyperlipidemia dementia - Plan Plan: follow up labs in am cardiology follow up continue current plan of care Nutritional Asmnt/Malnutr-PDOC - Dietary Evaluation Malnutrition Findings (Please click <Entered> for more info): Nutritional Asmnt/Malnutrition Start: 05/24/18 16: 46 Text: Status: Complete Freq: Protocol: Document 05/24/18 16:46 LCHENG (Rec: 05/24/18 16:53 [email or web address]) Nutritional Asmnt/Malnutrition Patient General Information Nutritional Screening High Risk Diagnosis altered mental status Pertinent Medical Hx/Surgical Hx HTN, DM, dyslipidemia, dementia, bipolar Subjective Information Pt seen lying in bed at time of visit, has 1:1 sitter. Per Sitter, pt ate very well 100% of lunch. Pt is Chinese speaking noted per nurse note. Current Diet Order/ Nutrition Support CCHO 60gm Pertinent Medications pepcid, glucophage, seroquel, nacl 0.45% Pertinent Labs 05/24 Na 132, Cl 96, Cr 0.5, glucose 209, POC 136-141 Nutritional Hx/Data Height 5 ft 6 in Height (Calculated Centimeters) 167.6 Current Weight (lbs) 123 lb Weight (Calculated Kilograms) 55.8 Weight (Calculated Grams) 37982.9 [place] Body Weight 142 Body Mass Index (BMI) 19.8 Weight Status Approriate GI Symptoms GI Symptoms None Last BM not indicated Difficult in: None Skin Integrity/Comment: old abdominal midline incision scar Current %PO Good (75-100%) Estimated Nutritional Goals BEE in Kcals: Using Current wt Calories/Kcals/Kg 25-30 Kcals Calculated 1399-1284 Protein: Using Current wt Protein g/k-1.2 Protein Calculated 56-67 Fluid: ml 1400-1680ml (1ml/kcal) Nutritional Problem 1. Problem Problem altered nutrition related labs Etiology hx of DM, electrolytes imbalance Signs/Symptoms: glucose 209, POC 136-141, Na 132, Cl 96 Malnutrition Alert Is there a minimum of two criteria No selected? Query Text:Check all the applicable criteria. A minimum of two criteria are recommended for diagnosis of either severe or non-severe malnutrition. Malnutrition Related to Morbid Obesity Malnutrition related to morbid obesity No Intervention/Recommendation Comments 1. Continue with CCHO 60gm diet as ordered. 2. Monitor PO intake, wt, labs and skin integrity 3. F/U as moderate risk in 3-5 days, 05/27-05/29 Expected Outcomes/Goals Expected Outcomes/Goals 1. PO intake to meet at least 75% of nutritional needs. 2. Wt stability, skin to remain intact, labs to approach WNL.
[2018-06-21] MEDS: Hydrocodone/APAP 5mg/325mg Tab PO PRN ×2 (11:07→21:00)
--- NOTE | 2018-06-21 16:38 | General Progress Note ---
Subjective - Review of Systems Events since last encounter: patient is awake confused Objective - Results Result Diagrams: 06/11/18 06:24 06/12/18 04:55 Recent Labs: Laboratory Last Values WBC 8.9 Th/cmm (4.8-10.8) 06/11/18 06:24 RBC 3.47 Mil/cmm (3.80-5.10) L 06/11/18 06:24 Hgb 11.2 gm/dL (12-16) L 06/11/18 06:24 Hct 33.7 % (41.0-60) L 06/11/18 06:24 MCV 97.2 fl (81-100) 06/11/18 06:24 MCH 32.3 pg (27.0-31.0) H 06/11/18 06:24 MCHC Differential 33.2 pg (28.0-36.0) 06/11/18 06:24 RDW 13.4 % (11.5-20.0) 06/11/18 06:24 Plt Count 196 Th/cmm (150-400) 06/11/18 06:24 MPV 8.5 fl 06/11/18 06:24 Neutrophils % 65.0 % (40.0-80.0) 06/11/18 06:24 Lymphocytes % 21.8 % (20.0-50.0) 06/11/18 06:24 Monocytes % 12.3 % (2.0-10.0) H 06/11/18 06:24 Eosinophils % 0.4 % (0.0-5.0) 06/11/18 06:24 Basophils % 0.5 % (0.0-2.0) 06/11/18 06:24 Sodium 132 mEq/L (136-145) L 06/12/18 04:55 Potassium 3.7 mEq/L (3.5-5.1) 06/12/18 04:55 Chloride 95 mEq/L (98-107) L 06/12/18 04:55 Carbon Dioxide 31.0 mEq/L (21.0-31.0) 06/12/18 04:55 Anion Gap 9.7 (7.0-16.0) 06/12/18 04:55 BUN 9 mg/dL (7-25) 06/12/18 04:55 Creatinine 0.4 mg/dL (0.6-1.2) L 06/12/18 04:55 Est GFR ( Amer) > 60.0 ml/min (>90) 06/12/18 04:55 Est GFR (Non-Af Amer) > 60.0 ml/min 06/12/18 04:55 BUN/Creatinine Ratio 22.5 06/12/18 04:55 Glucose 174 mg/dL (70-105) H 06/12/18 04:55 POC Glucose 141 MG/DL (70 - 105) H 05/24/18 11:49 Hemoglobin A1c % 5.9 % (4.0-6.0) 05/23/18 20:08 Calcium 9.4 mg/dL (8.6-10.3) 06/12/18 04:55 Total Bilirubin 0.4 mg/dL (0.3-1.0) 06/12/18 04:55 AST 12 U/L (13-39) L 06/12/18 04:55 ALT 10 U/L (7-52) 06/12/18 04:55 Alkaline Phosphatase 58 U/L (34-104) 06/12/18 04:55 Troponin I 0.01 ng/mL (0.01-0.05) 05/23/18 20:08 B-Natriuretic Peptide 44.6 pg/mL (5.0-100.0) 05/23/18 20:08 Total Protein 6.7 gm/dL (6.0-8.3) 06/12/18 04:55 Albumin 4.0 gm/dL (3.7-5.3) 06/12/18 04:55 Globulin 2.7 gm/dL 06/12/18 04:55 Albumin/Globulin Ratio 1.5 (1.0-1.8) 06/12/18 04:55 Triglycerides 191 mg/dL (<150) H 05/24/18 08:14 Cholesterol 171 mg/dL (<200) 05/24/18 08:14 LDL Cholesterol Direct 80 mg/dL (75-193) 05/24/18 08:14 HDL Cholesterol 67 mg/dL (23-92) 05/24/18 08:14 Urine Source RANDOM 05/23/18 20:30 Urine Color YELLOW 05/23/18 20:30 Urine Clarity CLEAR (CLEAR) 05/23/18 20:30 Urine pH 7.5 (4.6 - 8.0) 05/23/18 20:30 Ur Specific [place] 1.010 (1.005-1.030) 05/23/18 20:30 Urine Protein NEGATIVE mg/dL (NEGATIVE) 05/23/18 20:30 Urine Glucose (UA) 100 mg/dL (NEGATIVE) H 05/23/18 20:30 Urine Ketones NEGATIVE mg/dL (NEGATIVE) 05/23/18 20:30 Urine Blood NEGATIVE (NEGATIVE) 05/23/18 20:30 Urine Nitrate NEGATIVE (NEGATIVE) 05/23/18 20:30 Urine Bilirubin NEGATIVE (NEGATIVE) 05/23/18 20:30 Urine Urobilinogen 0.2 E.U./dL (0.2 - 1.0) 05/23/18 20:30 Ur Leukocyte Esterase NEGATIVE (NEGATIVE) 05/23/18 20:30 Urine RBC 0-2 /hpf (0-5) 05/23/18 20:30 Urine WBC 0-2 /hpf (0-5) 05/23/18 20:30 Ur Epithelial Cells FEW /lpf (FEW) 05/23/18 20:30 Urine Bacteria OCCASIONAL /hpf (NONE SEEN) 05/23/18 20:30 - Physical Exam Vitals and I&O: Vital Signs Temp 98.1 F 06/21/18 08:00 Pulse 82 06/21/18 09:42 Resp 20 06/21/18 10:28 BP 122/78 06/21/18 09:42 Pulse Ox 99 06/21/18 08:00 Intake & Output 06/20/18 06/21/18 06/21/18 18:59 06:59 18:59 Intake Total 450 Balance 450 Weight (lbs) 55.792 kg 56.019 kg Intake: Oral 450 Other: # Voids 3 5 # Bowel Movements 0 Weight Source Bedscale Bedscale Active Medications: Current Medications Acetaminophen (Tylenol) 650 mg PO Q4H PRN PRN Reason: Pain (Moderate) Stop: 08/09/18 19:58 Last Admin: 06/10/18 20:27 Dose: 650 mg Acetaminophen/Hydrocodone Bitart ([place] 5mg/325mg) 1 tab PO Q6H PRN PRN Reason: Pain (Severe) 7-10 Stop: 08/09/18 21:57 Last Admin: 06/21/18 11:07 Dose: 1 tab Divalproex Sodium (Depakote Dr) 250 mg PO QAM [facility]; Protocol Stop: 07/24/18 08:59 Last Admin: 06/21/18 09:40 Dose: 250 mg Divalproex Sodium (Depakote Er) 500 mg PO QPM [facility]; Protocol Stop: 07/23/18 16:59 Last Admin: 06/21/18 16:25 Dose: 500 mg Famotidine (Pepcid) 20 mg PO DAILY [facility] Stop: 07/24/18 08:59 Last Admin: 06/21/18 09:40 Dose: 20 mg Gabapentin (Neurontin) 300 mg PO BID [facility] Stop: 07/23/18 16:59 Last Admin: 06/21/18 16:25 Dose: 300 mg Sodium Chloride (Nacl 0.45%) 1,000 mls @ 50 mls/hr IV .Q20H [facility] Stop: 07/23/18 01:57 Last Admin: 05/26/18 13:33 Dose: Not Given Lactulose (Cephulac) 30 gm PO DAILY PRN PRN Reason: Constipation Stop: 08/06/18 13:18 Last Admin: 06/15/18 18:18 Dose: 30 gm Lorazepam (Ativan) 1 mg PO Q4HR PRN; Protocol PRN Reason: Agitation Stop: 07/30/18 12:30 Last Admin: 06/21/18 11:08 Dose: 1 mg Magnesium Hydroxide (Milk Of Magnesia) 30 ml PO DAILY PRN PRN Reason: Constipation Stop: 08/03/18 17:37 Last Admin: 06/07/18 08:44 Dose: 30 ml Memantine (Namenda) 10 mg PO BID [facility] Stop: 07/23/18 16:59 Last Admin: 06/21/18 16:26 Dose: 10 mg Metformin HCl (Glucophage) 500 mg PO BID [facility] Stop: 07/23/18 16:59 Last Admin: 06/21/18 16:26 Dose: 500 mg Propranolol HCl (Inderal) 10 mg PO BID [facility] Stop: 07/23/18 16:59 Last Admin: 06/21/18 09:42 Dose: 10 mg Quetiapine Fumarate (Seroquel) 25 mg PO TID [facility]; Protocol Stop: 07/23/18 13:59 Last Admin: 06/21/18 13:22 Dose: 25 mg Risperidone (Risperdal) 3 mg PO HS [facility]; Protocol Stop: 07/23/18 20:59 Last Admin: 06/20/18 20:36 Dose: 3 mg Simvastatin (Zocor) 20 mg PO HS [facility]; Protocol Stop: 07/23/18 20:59 Last Admin: 06/20/18 20:37 Dose: 20 mg Sodium Chloride (Nacl Tab) 2 gm PO BID [facility] Stop: 08/10/18 08:59 Last Admin: 06/21/18 16:26 Dose: 2 gm General: No acute distress HEENT: Atraumatic, PERRLA Neck: Supple, JVD, Thyromegaly Cardiovascular: Regular rate, Normal S1, Normal S2 Lungs: Clear to auscultation Abdomen: Bowel sounds Assessment/Plan - Problem List Patient Problems: All Active Problems Dementia (Acute) F03.90 HTN (hypertension) (Acute) I10 Hyperlipidemia (Acute) E78.5 Right humeral fracture (Acute) S42.301A Status post fall (Acute) Z91.81 - Plan Plan: continue current management Nutritional Asmnt/Malnutr-PDOC - Dietary Evaluation Malnutrition Findings (Please click <Entered> for more info): Nutritional Asmnt/Malnutrition Start: 05/24/18 16: 46 Text: Status: Complete Freq: Protocol: Document 05/24/18 16:46 LCHENG (Rec: 05/24/18 16:53 [email or web address] [email or web address]) Nutritional Asmnt/Malnutrition Patient General Information Nutritional Screening High Risk Diagnosis altered mental status Pertinent Medical Hx/Surgical Hx HTN, DM, dyslipidemia, dementia, bipolar Subjective Information Pt seen lying in bed at time of visit, has 1:1 sitter. Per Sitter, pt ate very well 100% of lunch. Pt is Portuguese speaking noted per nurse note. Current Diet Order/ Nutrition Support CCHO 60gm Pertinent Medications pepcid, glucophage, seroquel, nacl 0.45% Pertinent Labs 05/24 Na 132, Cl 96, Cr 0.5, glucose 209, POC 136-141 Nutritional Hx/Data Height 1.68 m Height (Calculated Centimeters) 167.6 Current Weight (lbs) 55.792 kg Weight (Calculated Kilograms) 55.8 Weight (Calculated Grams) 99217.9 [place] Body Weight 142 Body Mass Index (BMI) 19.8 Weight Status Approriate GI Symptoms GI Symptoms None Last BM not indicated Difficult in: None Skin Integrity/Comment: old abdominal midline incision scar Current %PO Good (75-100%) Estimated Nutritional Goals BEE in Kcals: Using Current wt Calories/Kcals/Kg 25-30 Kcals Calculated 0797-4233 Protein: Using Current wt Protein g/k-1.2 Protein Calculated 56-67 Fluid: ml 1400-1680ml (1ml/kcal) Nutritional Problem 1. Problem Problem altered nutrition related labs Etiology hx of DM, electrolytes imbalance Signs/Symptoms: glucose 209, POC 136-141, Na 132, Cl 96 Malnutrition Alert Is there a minimum of two criteria No selected? Query Text:Check all the applicable criteria. A minimum of two criteria are recommended for diagnosis of either severe or non-severe malnutrition. Malnutrition Related to Morbid Obesity Malnutrition related to morbid obesity No Intervention/Recommendation Comments 1. Continue with CCHO 60gm diet as ordered. 2. Monitor PO intake, wt, labs and skin integrity 3. F/U as moderate risk in 3-5 days, 05/27-05/29 Expected Outcomes/Goals Expected Outcomes/Goals 1. PO intake to meet at least 75% of nutritional needs. 2. Wt stability, skin to remain intact, labs to approach WNL.
[2018-06-22] MEDS: Hydrocodone/APAP 5mg/325mg Tab PO PRN ×2 (09:20→21:59)
--- NOTE | 2018-06-22 10:13 | General Progress Note ---
Subjective - Review of Systems Events since last encounter: patient is awake confused no signs of pain Objective - Results Result Diagrams: 06/11/18 06:24 06/12/18 04:55 Recent Labs: Laboratory Last Values WBC 8.9 Th/cmm (4.8-10.8) 06/11/18 06:24 RBC 3.47 Mil/cmm (3.80-5.10) L 06/11/18 06:24 Hgb 11.2 gm/dL (12-16) L 06/11/18 06:24 Hct 33.7 % (41.0-60) L 06/11/18 06:24 MCV 97.2 fl (81-100) 06/11/18 06:24 MCH 32.3 pg (27.0-31.0) H 06/11/18 06:24 MCHC Differential 33.2 pg (28.0-36.0) 06/11/18 06:24 RDW 13.4 % (11.5-20.0) 06/11/18 06:24 Plt Count 196 Th/cmm (150-400) 06/11/18 06:24 MPV 8.5 fl 06/11/18 06:24 Neutrophils % 65.0 % (40.0-80.0) 06/11/18 06:24 Lymphocytes % 21.8 % (20.0-50.0) 06/11/18 06:24 Monocytes % 12.3 % (2.0-10.0) H 06/11/18 06:24 Eosinophils % 0.4 % (0.0-5.0) 06/11/18 06:24 Basophils % 0.5 % (0.0-2.0) 06/11/18 06:24 Sodium 132 mEq/L (136-145) L 06/12/18 04:55 Potassium 3.7 mEq/L (3.5-5.1) 06/12/18 04:55 Chloride 95 mEq/L (98-107) L 06/12/18 04:55 Carbon Dioxide 31.0 mEq/L (21.0-31.0) 06/12/18 04:55 Anion Gap 9.7 (7.0-16.0) 06/12/18 04:55 BUN 9 mg/dL (7-25) 06/12/18 04:55 Creatinine 0.4 mg/dL (0.6-1.2) L 06/12/18 04:55 Est GFR ( Amer) > 60.0 ml/min (>90) 06/12/18 04:55 Est GFR (Non-Af Amer) > 60.0 ml/min 06/12/18 04:55 BUN/Creatinine Ratio 22.5 06/12/18 04:55 Glucose 174 mg/dL (70-105) H 06/12/18 04:55 POC Glucose 141 MG/DL (70 - 105) H 05/24/18 11:49 Hemoglobin A1c % 5.9 % (4.0-6.0) 05/23/18 20:08 Calcium 9.4 mg/dL (8.6-10.3) 06/12/18 04:55 Total Bilirubin 0.4 mg/dL (0.3-1.0) 06/12/18 04:55 AST 12 U/L (13-39) L 06/12/18 04:55 ALT 10 U/L (7-52) 06/12/18 04:55 Alkaline Phosphatase 58 U/L (34-104) 06/12/18 04:55 Troponin I 0.01 ng/mL (0.01-0.05) 05/23/18 20:08 B-Natriuretic Peptide 44.6 pg/mL (5.0-100.0) 05/23/18 20:08 Total Protein 6.7 gm/dL (6.0-8.3) 06/12/18 04:55 Albumin 4.0 gm/dL (3.7-5.3) 06/12/18 04:55 Globulin 2.7 gm/dL 06/12/18 04:55 Albumin/Globulin Ratio 1.5 (1.0-1.8) 06/12/18 04:55 Triglycerides 191 mg/dL (<150) H 05/24/18 08:14 Cholesterol 171 mg/dL (<200) 05/24/18 08:14 LDL Cholesterol Direct 80 mg/dL (75-193) 05/24/18 08:14 HDL Cholesterol 67 mg/dL (23-92) 05/24/18 08:14 Urine Source RANDOM 05/23/18 20:30 Urine Color YELLOW 05/23/18 20:30 Urine Clarity CLEAR (CLEAR) 05/23/18 20:30 Urine pH 7.5 (4.6 - 8.0) 05/23/18 20:30 Ur Specific [place] 1.010 (1.005-1.030) 05/23/18 20:30 Urine Protein NEGATIVE mg/dL (NEGATIVE) 05/23/18 20:30 Urine Glucose (UA) 100 mg/dL (NEGATIVE) H 05/23/18 20:30 Urine Ketones NEGATIVE mg/dL (NEGATIVE) 05/23/18 20:30 Urine Blood NEGATIVE (NEGATIVE) 05/23/18 20:30 Urine Nitrate NEGATIVE (NEGATIVE) 05/23/18 20:30 Urine Bilirubin NEGATIVE (NEGATIVE) 05/23/18 20:30 Urine Urobilinogen 0.2 E.U./dL (0.2 - 1.0) 05/23/18 20:30 Ur Leukocyte Esterase NEGATIVE (NEGATIVE) 05/23/18 20:30 Urine RBC 0-2 /hpf (0-5) 05/23/18 20:30 Urine WBC 0-2 /hpf (0-5) 05/23/18 20:30 Ur Epithelial Cells FEW /lpf (FEW) 05/23/18 20:30 Urine Bacteria OCCASIONAL /hpf (NONE SEEN) 05/23/18 20:30 - Physical Exam Vitals and I&O: Vital Signs Temp 97.0 F 06/22/18 09:31 Pulse 93 06/22/18 09:31 Resp 19 06/22/18 09:31 BP 173/85 06/22/18 09:31 Pulse Ox 98 06/22/18 09:31 Intake & Output 06/21/18 06/22/18 06/22/18 18:59 06:59 18:59 Intake Total 950 Balance 950 Weight (lbs) 55.792 kg Intake: Oral 950 Other: # Voids 5 Weight Source Bedscale Active Medications: Current Medications Acetaminophen (Tylenol) 650 mg PO Q4H PRN PRN Reason: Pain (Moderate) Stop: 08/09/18 19:58 Last Admin: 06/10/18 20:27 Dose: 650 mg Acetaminophen/Hydrocodone Bitart (Rozet 5mg/325mg) 1 tab PO Q6H PRN PRN Reason: Pain (Severe) 7-10 Stop: 08/09/18 21:57 Last Admin: 06/22/18 09:20 Dose: 1 tab Divalproex Sodium (Depakote Dr) 250 mg PO QAM [facility]; Protocol Stop: 07/24/18 08:59 Last Admin: 06/22/18 09:21 Dose: 250 mg Divalproex Sodium (Depakote Er) 500 mg PO QPM [facility]; Protocol Stop: 07/23/18 16:59 Last Admin: 06/21/18 16:25 Dose: 500 mg Famotidine (Pepcid) 20 mg PO DAILY [facility] Stop: 07/24/18 08:59 Last Admin: 06/22/18 09:21 Dose: 20 mg Gabapentin (Neurontin) 300 mg PO BID [facility] Stop: 07/23/18 16:59 Last Admin: 06/22/18 09:21 Dose: 300 mg Sodium Chloride (Nacl 0.45%) 1,000 mls @ 50 mls/hr IV .Q20H [facility] Stop: 07/23/18 01:57 Last Admin: 05/26/18 13:33 Dose: Not Given Lactulose (Cephulac) 30 gm PO DAILY PRN PRN Reason: Constipation Stop: 08/06/18 13:18 Last Admin: 06/15/18 18:18 Dose: 30 gm Lorazepam (Ativan) 1 mg PO Q4HR PRN; Protocol PRN Reason: Agitation Stop: 07/30/18 12:30 Last Admin: 06/22/18 02:26 Dose: 1 mg Magnesium Hydroxide (Milk Of Magnesia) 30 ml PO DAILY PRN PRN Reason: Constipation Stop: 08/03/18 17:37 Last Admin: 06/07/18 08:44 Dose: 30 ml Memantine (Namenda) 10 mg PO BID [facility] Stop: 07/23/18 16:59 Last Admin: 06/22/18 09:21 Dose: 10 mg Metformin HCl (Glucophage) 500 mg PO BID [facility] Stop: 07/23/18 16:59 Last Admin: 06/22/18 09:20 Dose: 500 mg Propranolol HCl (Inderal) 10 mg PO BID [facility] Stop: 07/23/18 16:59 Last Admin: 06/22/18 09:23 Dose: 10 mg Quetiapine Fumarate (Seroquel) 25 mg PO TID [facility]; Protocol Stop: 07/23/18 13:59 Last Admin: 06/22/18 09:22 Dose: 25 mg Risperidone (Risperdal) 3 mg PO HS MARGARETH; Protocol Stop: 07/23/18 20:59 Last Admin: 06/21/18 21:01 Dose: 3 mg Simvastatin (Zocor) 20 mg PO HS [facility]ARG[facility]ETH; Protocol Stop: 07/23/18 20:59 Last Admin: 06/21/18 21:01 Dose: 20 mg Sodium Chloride (Nacl Tab) 2 gm PO BID [facility]ARG[facility]ETH Stop: 08/10/18 08:59 Last Admin: 06/22/18 09:20 Dose: 2 gm General: No acute distress HEENT: Atraumatic, PERRLA Neck: Supple, JVD, Thyromegaly Cardiovascular: Regular rate, Normal S1, Normal S2 Lungs: Clear to auscultation Abdomen: Bowel sounds Assessment/Plan - Problem List Patient Problems: All Active Problems Dementia (Acute) F03.90 HTN (hypertension) (Acute) I10 Hyperlipidemia (Acute) E78.5 Right humeral fracture (Acute) S42.301A Status post fall (Acute) Z91.81 - Plan Plan: continue current management Nutritional Asmnt/Malnutr-PDOC - Dietary Evaluation Malnutrition Findings (Please click <Entered> for more info): Nutritional Asmnt/Malnutrition Start: 05/24/18 16: 46 Text: Status: Complete Freq: Protocol: Document 05/24/18 16:46 FLORENTINOG (Rec: 05/24/18 16:53 [email or web address] [email or web address]) Nutritional Asmnt/Malnutrition Patient General Information Nutritional Screening High Risk Diagnosis altered mental status Pertinent Medical Hx/Surgical Hx HTN, DM, dyslipidemia, dementia, bipolar Subjective Information Pt seen lying in bed at time of visit, has 1:1 sitter. Per Sitter, pt ate very well 100% of lunch. Pt is Japanese speaking noted per nurse note. Current Diet Order/ Nutrition Support CCHO 60gm Pertinent Medications pepcid, glucophage, seroquel, nacl 0.45% Pertinent Labs 05/24 Na 132, Cl 96, Cr 0.5, glucose 209, POC 136-141 Nutritional Hx/Data Height 1.68 m Height (Calculated Centimeters) 167.6 Current Weight (lbs) 55.792 kg Weight (Calculated Kilograms) 55.8 Weight (Calculated Grams) 41733.9 [place] Body Weight 142 Body Mass Index (BMI) 19.8 Weight Status Approriate GI Symptoms GI Symptoms None Last BM not indicated Difficult in: None Skin Integrity/Comment: old abdominal midline incision scar Current %PO Good (75-100%) Estimated Nutritional Goals BEE in Kcals: Using Current wt Calories/Kcals/Kg 25-30 Kcals Calculated 3945-2606 Protein: Using Current wt Protein g/k-1.2 Protein Calculated 56-67 Fluid: ml 1400-1680ml (1ml/kcal) Nutritional Problem 1. Problem Problem altered nutrition related labs Etiology hx of DM, electrolytes imbalance Signs/Symptoms: glucose 209, POC 136-141, Na 132, Cl 96 Malnutrition Alert Is there a minimum of two criteria No selected? Query Text:Check all the applicable criteria. A minimum of two criteria are recommended for diagnosis of either severe or non-severe malnutrition. Malnutrition Related to Morbid Obesity Malnutrition related to morbid obesity No Intervention/Recommendation Comments 1. Continue with [facility] 60gm diet as ordered. 2. Monitor PO intake, wt, labs and skin integrity 3. F/U as moderate risk in 3-5 days, 05/27-05/29 Expected Outcomes/Goals Expected Outcomes/Goals 1. PO intake to meet at least 75% of nutritional needs. 2. Wt stability, skin to remain intact, labs to approach WNL.
[2018-06-23] MEDS: Magnesium Hydroxide (MOM) 30 mL UDC PO PRN (05:37)
[2018-06-23] MEDS: Hydrocodone/APAP 5mg/325mg Tab PO PRN (10:12)
--- NOTE | 2018-06-23 12:40 | Internal Medicine Prog Note ---
Internal Medicine Subjective - Subjective Service Date: 06/23/18 Patient is:: awake, confused Per staff patient has:: no adverse event, tolerating meds Internal Medicine Objective - Results Result Diagrams: 06/11/18 06:24 06/12/18 04:55 Recent Labs: Laboratory Last Values WBC 8.9 Th/cmm (4.8-10.8) 06/11/18 06:24 RBC 3.47 Mil/cmm (3.80-5.10) L 06/11/18 06:24 Hgb 11.2 gm/dL (12-16) L 06/11/18 06:24 Hct 33.7 % (41.0-60) L 06/11/18 06:24 MCV 97.2 fl (81-100) 06/11/18 06:24 MCH 32.3 pg (27.0-31.0) H 06/11/18 06:24 MCHC Differential 33.2 pg (28.0-36.0) 06/11/18 06:24 RDW 13.4 % (11.5-20.0) 06/11/18 06:24 Plt Count 196 Th/cmm (150-400) 06/11/18 06:24 MPV 8.5 fl 06/11/18 06:24 Neutrophils % 65.0 % (40.0-80.0) 06/11/18 06:24 Lymphocytes % 21.8 % (20.0-50.0) 06/11/18 06:24 Monocytes % 12.3 % (2.0-10.0) H 06/11/18 06:24 Eosinophils % 0.4 % (0.0-5.0) 06/11/18 06:24 Basophils % 0.5 % (0.0-2.0) 06/11/18 06:24 Sodium 132 mEq/L (136-145) L 06/12/18 04:55 Potassium 3.7 mEq/L (3.5-5.1) 06/12/18 04:55 Chloride 95 mEq/L (98-107) L 06/12/18 04:55 Carbon Dioxide 31.0 mEq/L (21.0-31.0) 06/12/18 04:55 Anion Gap 9.7 (7.0-16.0) 06/12/18 04:55 BUN 9 mg/dL (7-25) 06/12/18 04:55 Creatinine 0.4 mg/dL (0.6-1.2) L 06/12/18 04:55 Est GFR ( Amer) > 60.0 ml/min (>90) 06/12/18 04:55 Est GFR (Non-Af Amer) > 60.0 ml/min 06/12/18 04:55 BUN/Creatinine Ratio 22.5 06/12/18 04:55 Glucose 174 mg/dL (70-105) H 06/12/18 04:55 POC Glucose 141 MG/DL (70 - 105) H 05/24/18 11:49 Hemoglobin A1c % 5.9 % (4.0-6.0) 05/23/18 20:08 Calcium 9.4 mg/dL (8.6-10.3) 06/12/18 04:55 Total Bilirubin 0.4 mg/dL (0.3-1.0) 06/12/18 04:55 AST 12 U/L (13-39) L 06/12/18 04:55 ALT 10 U/L (7-52) 06/12/18 04:55 Alkaline Phosphatase 58 U/L (34-104) 06/12/18 04:55 Troponin I 0.01 ng/mL (0.01-0.05) 05/23/18 20:08 B-Natriuretic Peptide 44.6 pg/mL (5.0-100.0) 05/23/18 20:08 Total Protein 6.7 gm/dL (6.0-8.3) 06/12/18 04:55 Albumin 4.0 gm/dL (3.7-5.3) 06/12/18 04:55 Globulin 2.7 gm/dL 06/12/18 04:55 Albumin/Globulin Ratio 1.5 (1.0-1.8) 06/12/18 04:55 Triglycerides 191 mg/dL (<150) H 05/24/18 08:14 Cholesterol 171 mg/dL (<200) 05/24/18 08:14 LDL Cholesterol Direct 80 mg/dL (75-193) 05/24/18 08:14 HDL Cholesterol 67 mg/dL (23-92) 05/24/18 08:14 Urine Source RANDOM 05/23/18 20:30 Urine Color YELLOW 08/21/18 20:30 Urine Clarity CLEAR (CLEAR) 05/23/18 20:30 Urine pH 7.5 (4.6 - 8.0) 05/23/18 20:30 Ur Specific [place] 1.010 (1.005-1.030) 05/23/18 20:30 Urine Protein NEGATIVE mg/dL (NEGATIVE) 05/23/18 20:30 Urine Glucose (UA) 100 mg/dL (NEGATIVE) H 05/23/18 20:30 Urine Ketones NEGATIVE mg/dL (NEGATIVE) 05/23/18 20:30 Urine Blood NEGATIVE (NEGATIVE) 05/23/18 20:30 Urine Nitrate NEGATIVE (NEGATIVE) 05/23/18 20:30 Urine Bilirubin NEGATIVE (NEGATIVE) 05/23/18 20:30 Urine Urobilinogen 0.2 E.U./dL (0.2 - 1.0) 05/23/18 20:30 Ur Leukocyte Esterase NEGATIVE (NEGATIVE) 05/23/18 20:30 Urine RBC 0-2 /hpf (0-5) 05/23/18 20:30 Urine WBC 0-2 /hpf (0-5) 05/23/18 20:30 Ur Epithelial Cells FEW /lpf (FEW) 05/23/18 20:30 Urine Bacteria OCCASIONAL /hpf (NONE SEEN) 05/23/18 20:30 - Physical Exam Vitals and I&O: Vital Signs Temp 97.8 F 06/23/18 08:00 Pulse 98 06/23/18 08:33 Resp 20 06/23/18 08:00 BP 153/80 06/23/18 08:33 Pulse Ox 97 06/23/18 08:00 Intake & Output 06/22/18 06/23/18 06/23/18 18:59 06:59 18:59 Intake Total 800 400 Balance 800 400 Weight (lbs) 123 lb 122 lb 8 oz Intake: Oral 800 400 Other: # Voids 6 5 # Bowel Movements 0 Weight Source Bedscale Bedscale Active Medications: Current Medications Acetaminophen (Tylenol) 650 mg PO Q4H PRN PRN Reason: Pain (Moderate) Stop: 08/09/18 19:58 Last Admin: 06/10/18 20:27 Dose: 650 mg Acetaminophen/Hydrocodone Bitart ([place] 5mg/325mg) 1 tab PO Q6H PRN PRN Reason: Pain (Severe) 7-10 Stop: 08/09/18 21:57 Last Admin: 06/23/18 10:12 Dose: 1 tab Divalproex Sodium (Depakote Dr) 250 mg PO QAM [facility]; Protocol Stop: 07/24/18 08:59 Last Admin: 06/23/18 08:33 Dose: 250 mg Divalproex Sodium (Depakote Er) 500 mg PO QPM [facility]; Protocol Stop: 07/23/18 16:59 Last Admin: 06/22/18 16:28 Dose: 500 mg Famotidine (Pepcid) 20 mg PO DAILY [facility] Stop: 07/24/18 08:59 Last Admin: 06/23/18 08:31 Dose: 20 mg Gabapentin (Neurontin) 300 mg PO BID [facility] Stop: 07/23/18 16:59 Last Admin: 06/23/18 08:33 Dose: 300 mg Sodium Chloride (Nacl 0.45%) 1,000 mls @ 50 mls/hr IV .Q20H [facility] Stop: 07/23/18 01:57 Last Admin: 05/26/18 13:33 Dose: Not Given Lactulose (Cephulac) 30 gm PO DAILY PRN PRN Reason: Constipation Stop: 08/06/18 13:18 Last Admin: 06/15/18 18:18 Dose: 30 gm Lorazepam (Ativan) 1 mg PO Q4HR PRN; Protocol PRN Reason: Agitation Stop: 07/30/18 12:30 Last Admin: 06/23/18 10:13 Dose: 1 mg Magnesium Hydroxide (Milk Of Magnesia) 30 ml PO DAILY PRN PRN Reason: Constipation Stop: 08/03/18 17:37 Last Admin: 06/23/18 05:37 Dose: 30 ml Memantine (Namenda) 10 mg PO BID [facility] Stop: 07/23/18 16:59 Last Admin: 06/23/18 08:33 Dose: 10 mg Metformin HCl (Glucophage) 500 mg PO BID [facility] Stop: 07/23/18 16:59 Last Admin: 06/23/18 08:31 Dose: 500 mg Propranolol HCl (Inderal) 10 mg PO BID [facility] Stop: 07/23/18 16:59 Last Admin: 06/23/18 08:33 Dose: 10 mg Quetiapine Fumarate (Seroquel) 25 mg PO TID [facility]ARG[facility]ETH; Protocol Stop: 07/23/18 13:59 Last Admin: 06/23/18 08:31 Dose: 25 mg Risperidone (Risperdal) 3 mg PO HS MARGARETH; Protocol Stop: 07/23/18 20:59 Last Admin: 06/22/18 21:58 Dose: 3 mg Simvastatin (Zocor) 20 mg PO HS MARGARETH; Protocol Stop: 07/23/18 20:59 Last Admin: 06/22/18 21:59 Dose: 20 mg Sodium Chloride (Nacl Tab) 2 gm PO BID [facility]ARG[facility]ETH Stop: 08/10/18 08:59 Last Admin: 06/23/18 08:30 Dose: 2 gm General: alert HEENT: NC/AT, PERRLA Neck: Supple Lungs: CTAB Cardiovascular: RRR, Normal S1, Normal S2, without murmur Abdomen: soft, non-tender, non-distended Neurological: alert Internal Medicine Assmt/Plan - Assessment Assessment: abnormal ekg htn hyperlipidemia dementia - Plan Plan: continue current plan of care Nutritional Asmnt/Malnutr-PDOC - Dietary Evaluation Malnutrition Findings (Please click <Entered> for more info): Nutritional Asmnt/Malnutrition Start: 05/24/18 16: 46 Text: Status: Complete Freq: Protocol: Document 05/24/18 16:46 LCHENG (Rec: 05/24/18 16:53 [email or web address] [email or web address]) Nutritional Asmnt/Malnutrition Patient General Information Nutritional Screening High Risk Diagnosis altered mental status Pertinent Medical Hx/Surgical Hx HTN, DM, dyslipidemia, dementia, bipolar Subjective Information Pt seen lying in bed at time of visit, has 1:1 sitter. Per Sitter, pt ate very well 100% of lunch. Pt is Khmer speaking noted per nurse note. Current Diet Order/ Nutrition Support CCHO 60gm Pertinent Medications pepcid, glucophage, seroquel, nacl 0.45% Pertinent Labs 05/24 Na 132, Cl 96, Cr 0.5, glucose 209, POC 136-141 Nutritional Hx/Data Height 5 ft 6 in Height (Calculated Centimeters) 167.6 Current Weight (lbs) 123 lb Weight (Calculated Kilograms) 55.8 Weight (Calculated Grams) 97178.9 [place] Body Weight 142 Body Mass Index (BMI) 19.8 Weight Status Approriate GI Symptoms GI Symptoms None Last BM not indicated Difficult in: None Skin Integrity/Comment: old abdominal midline incision scar Current %PO Good (75-100%) Estimated Nutritional Goals BEE in Kcals: Using Current wt Calories/Kcals/Kg 25-30 Kcals Calculated 6855-3845 Protein: Using Current wt Protein g/k-1.2 Protein Calculated 56-67 Fluid: ml 1400-1680ml (1ml/kcal) Nutritional Problem 1. Problem Problem altered nutrition related labs Etiology hx of DM, electrolytes imbalance Signs/Symptoms: glucose 209, POC 136-141, Na 132, Cl 96 Malnutrition Alert Is there a minimum of two criteria No selected? Query Text:Check all the applicable criteria. A minimum of two criteria are recommended for diagnosis of either severe or non-severe malnutrition. Malnutrition Related to Morbid Obesity Malnutrition related to morbid obesity No Intervention/Recommendation Comments 1. Continue with CCHO 60gm diet as ordered. 2. Monitor PO intake, wt, labs and skin integrity 3. F/U as moderate risk in 3-5 days, 05/27-05/29 Expected Outcomes/Goals Expected Outcomes/Goals 1. PO intake to meet at least 75% of nutritional needs. 2. Wt stability, skin to remain intact, labs to approach WNL.
[2018-06-24] MEDS: Hydrocodone/APAP 5mg/325mg Tab PO PRN ×2 (14:33→23:57)
--- NOTE | 2018-06-24 16:09 | Internal Medicine Prog Note ---
Internal Medicine Subjective - Subjective Service Date: 06/24/18 Patient is:: awake, agitated, confused Per staff patient has:: no adverse event, tolerating meds Internal Medicine Objective - Results Result Diagrams: 06/11/18 06:24 06/12/18 04:55 Recent Labs: Laboratory Last Values WBC 8.9 Th/cmm (4.8-10.8) 06/11/18 06:24 RBC 3.47 Mil/cmm (3.80-5.10) L 06/11/18 06:24 Hgb 11.2 gm/dL (12-16) L 06/11/18 06:24 Hct 33.7 % (41.0-60) L 06/11/18 06:24 MCV 97.2 fl (81-100) 06/11/18 06:24 MCH 32.3 pg (27.0-31.0) H 06/11/18 06:24 MCHC Differential 33.2 pg (28.0-36.0) 06/11/18 06:24 RDW 13.4 % (11.5-20.0) 06/11/18 06:24 Plt Count 196 Th/cmm (150-400) 06/11/18 06:24 MPV 8.5 fl 06/11/18 06:24 Neutrophils % 65.0 % (40.0-80.0) 06/11/18 06:24 Lymphocytes % 21.8 % (20.0-50.0) 06/11/18 06:24 Monocytes % 12.3 % (2.0-10.0) H 06/11/18 06:24 Eosinophils % 0.4 % (0.0-5.0) 06/11/18 06:24 Basophils % 0.5 % (0.0-2.0) 06/11/18 06:24 Sodium 132 mEq/L (136-145) L 06/12/18 04:55 Potassium 3.7 mEq/L (3.5-5.1) 06/12/18 04:55 Chloride 95 mEq/L (98-107) L 06/12/18 04:55 Carbon Dioxide 31.0 mEq/L (21.0-31.0) 06/12/18 04:55 Anion Gap 9.7 (7.0-16.0) 06/12/18 04:55 BUN 9 mg/dL (7-25) 06/12/18 04:55 Creatinine 0.4 mg/dL (0.6-1.2) L 06/12/18 04:55 Est GFR ( Amer) > 60.0 ml/min (>90) 06/12/18 04:55 Est GFR (Non-Af Amer) > 60.0 ml/min 06/12/18 04:55 BUN/Creatinine Ratio 22.5 06/12/18 04:55 Glucose 174 mg/dL (70-105) H 06/12/18 04:55 POC Glucose 141 MG/DL (70 - 105) H 05/24/18 11:49 Hemoglobin A1c % 5.9 % (4.0-6.0) 05/23/18 20:08 Calcium 9.4 mg/dL (8.6-10.3) 06/12/18 04:55 Total Bilirubin 0.4 mg/dL (0.3-1.0) 06/12/18 04:55 AST 12 U/L (13-39) L 06/12/18 04:55 ALT 10 U/L (7-52) 06/12/18 04:55 Alkaline Phosphatase 58 U/L (34-104) 06/12/18 04:55 Troponin I 0.01 ng/mL (0.01-0.05) 05/23/18 20:08 B-Natriuretic Peptide 44.6 pg/mL (5.0-100.0) 05/23/18 20:08 Total Protein 6.7 gm/dL (6.0-8.3) 06/12/18 04:55 Albumin 4.0 gm/dL (3.7-5.3) 06/12/18 04:55 Globulin 2.7 gm/dL 06/12/18 04:55 Albumin/Globulin Ratio 1.5 (1.0-1.8) 06/12/18 04:55 Triglycerides 191 mg/dL (<150) H 05/24/18 08:14 Cholesterol 171 mg/dL (<200) 05/24/18 08:14 LDL Cholesterol Direct 80 mg/dL (75-193) 05/24/18 08:14 HDL Cholesterol 67 mg/dL (23-92) 05/24/18 08:14 Urine Source RANDOM 05/23/18 20:30 Urine Color YELLOW 05/23/18 20:30 Urine Clarity CLEAR (CLEAR) 05/23/18 20:30 Urine pH 7.5 (4.6 - 8.0) 05/23/18 20:30 Ur Specific [place] 1.010 (1.005-1.030) 05/23/18 20:30 Urine Protein NEGATIVE mg/dL (NEGATIVE) 05/23/18 20:30 Urine Glucose (UA) 100 mg/dL (NEGATIVE) H 05/23/18 20:30 Urine Ketones NEGATIVE mg/dL (NEGATIVE) 05/23/18 20:30 Urine Blood NEGATIVE (NEGATIVE) 05/23/18 20:30 Urine Nitrate NEGATIVE (NEGATIVE) 05/23/18 20:30 Urine Bilirubin NEGATIVE (NEGATIVE) 05/23/18 20:30 Urine Urobilinogen 0.2 E.U./dL (0.2 - 1.0) 05/23/18 20:30 Ur Leukocyte Esterase NEGATIVE (NEGATIVE) 05/23/18 20:30 Urine RBC 0-2 /hpf (0-5) 05/23/18 20:30 Urine WBC 0-2 /hpf (0-5) 05/23/18 20:30 Ur Epithelial Cells FEW /lpf (FEW) 05/23/18 20:30 Urine Bacteria OCCASIONAL /hpf (NONE SEEN) 05/23/18 20:30 - Physical Exam Vitals and I&O: Vital Signs Temp 97.6 F 06/24/18 12:00 Pulse 83 06/24/18 12:00 Resp 20 06/24/18 12:00 BP 130/78 06/24/18 12:00 Pulse Ox 100 06/24/18 12:00 Intake & Output 06/23/18 06/24/18 06/24/18 18:59 06:59 18:59 Intake Total 3000 1200 Balance 3000 1200 Weight (lbs) 122 lb 14.4 oz 122 lb Intake: Oral 3000 1200 Other: # Voids 9 4 # Bowel Movements 2 Weight Source Bedscale Bedscale Active Medications: Current Medications Acetaminophen (Tylenol) 650 mg PO Q4H PRN PRN Reason: Pain (Moderate) Stop: 08/09/18 19:58 Last Admin: 06/24/18 01:18 Dose: 650 mg Acetaminophen/Hydrocodone Bitart ([place] 5mg/325mg) 1 tab PO Q6H PRN PRN Reason: Pain (Severe) 7-10 Stop: 08/09/18 21:57 Last Admin: 06/24/18 14:33 Dose: 1 tab Divalproex Sodium (Depakote Dr) 250 mg PO QAM [facility]; Protocol Stop: 07/24/18 08:59 Last Admin: 06/24/18 09:03 Dose: 250 mg Divalproex Sodium (Depakote Er) 500 mg PO QPM [facility]; Protocol Stop: 07/23/18 16:59 Last Admin: 06/23/18 17:54 Dose: 500 mg Famotidine (Pepcid) 20 mg PO DAILY [facility] Stop: 07/24/18 08:59 Last Admin: 06/24/18 09:03 Dose: 20 mg Gabapentin (Neurontin) 300 mg PO BID [facility] Stop: 07/23/18 16:59 Last Admin: 06/24/18 09:03 Dose: 300 mg Sodium Chloride (Nacl 0.45%) 1,000 mls @ 50 mls/hr IV .Q20H [facility] Stop: 07/23/18 01:57 Last Admin: 05/26/18 13:33 Dose: Not Given Lactulose (Cephulac) 30 gm PO DAILY PRN PRN Reason: Constipation Stop: 08/06/18 13:18 Last Admin: 06/15/18 18:18 Dose: 30 gm Lorazepam (Ativan) 1 mg PO Q4HR PRN; Protocol PRN Reason: Agitation Stop: 07/30/18 12:30 Last Admin: 06/24/18 07:41 Dose: 1 mg Magnesium Hydroxide (Milk Of Magnesia) 30 ml PO DAILY PRN PRN Reason: Constipation Stop: 08/03/18 17:37 Last Admin: 06/23/18 05:37 Dose: 30 ml Memantine (Namenda) 10 mg PO BID [facility] Stop: 07/23/18 16:59 Last Admin: 06/24/18 09:03 Dose: 10 mg Metformin HCl (Glucophage) 500 mg PO BID [facility] Stop: 07/23/18 16:59 Last Admin: 06/24/18 09:03 Dose: 500 mg Propranolol HCl (Inderal) 10 mg PO BID [facility] Stop: 07/23/18 16:59 Last Admin: 06/24/18 09:03 Dose: 10 mg Quetiapine Fumarate (Seroquel) 25 mg PO TID [facility]; Protocol Stop: 07/23/18 13:59 Last Admin: 06/24/18 13:59 Dose: 25 mg Risperidone (Risperdal) 3 mg PO HS [facility]; Protocol Stop: 07/23/18 20:59 Last Admin: 06/23/18 21:14 Dose: 3 mg Simvastatin (Zocor) 20 mg PO HS [facility]; Protocol Stop: 07/23/18 20:59 Last Admin: 06/23/18 21:14 Dose: 20 mg Sodium Chloride (Nacl Tab) 2 gm PO BID [facility] Stop: 08/10/18 08:59 Last Admin: 06/24/18 09:02 Dose: 2 gm General: alert HEENT: NC/AT, PERRLA Neck: Supple Lungs: CTAB Cardiovascular: RRR, Normal S1, Normal S2, without murmur Abdomen: soft, non-tender, non-distended Neurological: alert Internal Medicine Assmt/Plan - Assessment Assessment: abnormal ekg htn hyperlipidemia dementia - Plan Plan: continue current plan of care Nutritional Asmnt/Malnutr-PDOC - Dietary Evaluation Malnutrition Findings (Please click <Entered> for more info): Nutritional Asmnt/Malnutrition Start: 05/24/18 16: 46 Text: Status: Complete Freq: Protocol: Document 05/24/18 16:46 LCHENG (Rec: 05/24/18 16:53 [email or web address]) Nutritional Asmnt/Malnutrition Patient General Information Nutritional Screening High Risk Diagnosis altered mental status Pertinent Medical Hx/Surgical Hx HTN, DM, dyslipidemia, dementia, bipolar Subjective Information Pt seen lying in bed at time of visit, has 1:1 sitter. Per Sitter, pt ate very well 100% of lunch. Pt is Wolof speaking noted per nurse note. Current Diet Order/ Nutrition Support CCHO 60gm Pertinent Medications pepcid, glucophage, seroquel, nacl 0.45% Pertinent Labs 05/24 Na 132, Cl 96, Cr 0.5, glucose 209, POC 136-141 Nutritional Hx/Data Height 5 ft 6 in Height (Calculated Centimeters) 167.6 Current Weight (lbs) 123 lb Weight (Calculated Kilograms) 55.8 Weight (Calculated Grams) 18956.9 [place] Body Weight 142 Body Mass Index (BMI) 19.8 Weight Status Approriate GI Symptoms GI Symptoms None Last BM not indicated Difficult in: None Skin Integrity/Comment: old abdominal midline incision scar Current %PO Good (75-100%) Estimated Nutritional Goals BEE in Kcals: Using Current wt Calories/Kcals/Kg 25-30 Kcals Calculated 1044-0459 Protein: Using Current wt Protein g/k-1.2 Protein Calculated 56-67 Fluid: ml 1400-1680ml (1ml/kcal) Nutritional Problem 1. Problem Problem altered nutrition related labs Etiology hx of DM, electrolytes imbalance Signs/Symptoms: glucose 209, POC 136-141, Na 132, Cl 96 Malnutrition Alert Is there a minimum of two criteria No selected? Query Text:Check all the applicable criteria. A minimum of two criteria are recommended for diagnosis of either severe or non-severe malnutrition. Malnutrition Related to Morbid Obesity Malnutrition related to morbid obesity No Intervention/Recommendation Comments 1. [facility] as ordered. 2. Monitor PO intake, wt, labs and skin integrity 3. F/U as moderate risk in 3-5 days, 05/27-05/29 Expected Outcomes/Goals Expected Outcomes/Goals 1. PO intake to meet at least 75% of nutritional needs. 2. Wt stability, skin to remain intact, labs to approach WNL.
[2018-06-25] MEDS: Hydrocodone/APAP 5mg/325mg Tab PO PRN ×2 (08:03→17:42)
--- NOTE | 2018-06-25 13:23 | Internal Medicine Prog Note ---
Internal Medicine Subjective - Subjective Service Date: 06/25/18 Patient is:: awake, agitated, confused Patient Complaints of:: unable to sleep Per staff patient has:: no adverse event, tolerating meds Internal Medicine Objective - Results Result Diagrams: 06/11/18 06:24 06/12/18 04:55 Recent Labs: Laboratory Last Values WBC 8.9 Th/cmm (4.8-10.8) 06/11/18 06:24 RBC 3.47 Mil/cmm (3.80-5.10) L 06/11/18 06:24 Hgb 11.2 gm/dL (12-16) L 06/11/18 06:24 Hct 33.7 % (41.0-60) L 06/11/18 06:24 MCV 97.2 fl (81-100) 06/11/18 06:24 MCH 32.3 pg (27.0-31.0) H 06/11/18 06:24 MCHC Differential 33.2 pg (28.0-36.0) 06/11/18 06:24 RDW 13.4 % (11.5-20.0) 06/11/18 06:24 Plt Count 196 Th/cmm (150-400) 06/11/18 06:24 MPV 8.5 fl 06/11/18 06:24 Neutrophils % 65.0 % (40.0-80.0) 06/11/18 06:24 Lymphocytes % 21.8 % (20.0-50.0) 06/11/18 06:24 Monocytes % 12.3 % (2.0-10.0) H 06/11/18 06:24 Eosinophils % 0.4 % (0.0-5.0) 06/11/18 06:24 Basophils % 0.5 % (0.0-2.0) 06/11/18 06:24 Sodium 132 mEq/L (136-145) L 06/12/18 04:55 Potassium 3.7 mEq/L (3.5-5.1) 06/12/18 04:55 Chloride 95 mEq/L (98-107) L 06/12/18 04:55 Carbon Dioxide 31.0 mEq/L (21.0-31.0) 06/12/18 04:55 Anion Gap 9.7 (7.0-16.0) 06/12/18 04:55 BUN 9 mg/dL (7-25) 06/12/18 04:55 Creatinine 0.4 mg/dL (0.6-1.2) L 06/12/18 04:55 Est GFR ( Amer) > 60.0 ml/min (>90) 06/12/18 04:55 Est GFR (Non-Af Amer) > 60.0 ml/min 06/12/18 04:55 BUN/Creatinine Ratio 22.5 06/12/18 04:55 Glucose 174 mg/dL (70-105) H 06/12/18 04:55 POC Glucose 141 MG/DL (70 - 105) H 05/24/18 11:49 Hemoglobin A1c % 5.9 % (4.0-6.0) 05/23/18 20:08 Calcium 9.4 mg/dL (8.6-10.3) 06/12/18 04:55 Total Bilirubin 0.4 mg/dL (0.3-1.0) 06/12/18 04:55 AST 12 U/L (13-39) L 06/12/18 04:55 ALT 10 U/L (7-52) 06/12/18 04:55 Alkaline Phosphatase 58 U/L (34-104) 06/12/18 04:55 Troponin I 0.01 ng/mL (0.01-0.05) 05/23/18 20:08 B-Natriuretic Peptide 44.6 pg/mL (5.0-100.0) 05/23/18 20:08 Total Protein 6.7 gm/dL (6.0-8.3) 06/12/18 04:55 Albumin 4.0 gm/dL (3.7-5.3) 06/12/18 04:55 Globulin 2.7 gm/dL 06/12/18 04:55 Albumin/Globulin Ratio 1.5 (1.0-1.8) 06/12/18 04:55 Triglycerides 191 mg/dL (<150) H 05/24/18 08:14 Cholesterol 171 mg/dL (<200) 05/24/18 08:14 LDL Cholesterol Direct 80 mg/dL (75-193) 05/24/18 08:14 HDL Cholesterol 67 mg/dL (23-92) 05/24/18 08:14 Urine Source RANDOM 08/21/18 20:30 Urine Color YELLOW 05/23/18 20:30 Urine Clarity CLEAR (CLEAR) 05/23/18 20:30 Urine pH 7.5 (4.6 - 8.0) 05/23/18 20:30 Ur Specific [place] 1.010 (1.005-1.030) 05/23/18 20:30 Urine Protein NEGATIVE mg/dL (NEGATIVE) 05/23/18 20:30 Urine Glucose (UA) 100 mg/dL (NEGATIVE) H 05/23/18 20:30 Urine Ketones NEGATIVE mg/dL (NEGATIVE) 05/23/18 20:30 Urine Blood NEGATIVE (NEGATIVE) 05/23/18 20:30 Urine Nitrate NEGATIVE (NEGATIVE) 05/23/18 20:30 Urine Bilirubin NEGATIVE (NEGATIVE) 05/23/18 20:30 Urine Urobilinogen 0.2 E.U./dL (0.2 - 1.0) 05/23/18 20:30 Ur Leukocyte Esterase NEGATIVE (NEGATIVE) 05/23/18 20:30 Urine RBC 0-2 /hpf (0-5) 05/23/18 20:30 Urine WBC 0-2 /hpf (0-5) 05/23/18 20:30 Ur Epithelial Cells FEW /lpf (FEW) 05/23/18 20:30 Urine Bacteria OCCASIONAL /hpf (NONE SEEN) 05/23/18 20:30 - Physical Exam Vitals and I&O: Vital Signs Temp 97.0 F 06/25/18 04:00 Pulse 89 06/25/18 08:05 Resp 20 06/25/18 04:00 BP 149/87 06/25/18 08:05 Pulse Ox 99 06/25/18 04:00 Intake & Output 06/24/18 06/25/18 06/25/18 18:59 06:59 18:59 Intake Total 1000 800 Output Total 0 Balance 1000 800 Weight (lbs) 122 lb 123 lb Intake: Oral 1000 800 Output: Stool 0 Other: # Voids 4 5 Weight Source Bedscale Bedscale Active Medications: Current Medications Acetaminophen (Tylenol) 650 mg PO Q4H PRN PRN Reason: Pain (Moderate) Stop: 08/09/18 19:58 Last Admin: 06/25/18 05:36 Dose: 650 mg Acetaminophen/Hydrocodone Bitart ([place] 5mg/325mg) 1 tab PO Q6H PRN PRN Reason: Pain (Severe) 7-10 Stop: 08/09/18 21:57 Last Admin: 06/25/18 08:03 Dose: 1 tab Divalproex Sodium (Depakote Dr) 250 mg PO QAM [facility]; Protocol Stop: 07/24/18 08:59 Last Admin: 06/25/18 08:03 Dose: 250 mg Divalproex Sodium (Depakote Er) 500 mg PO QPM [facility]; Protocol Stop: 07/23/18 16:59 Last Admin: 06/24/18 16:12 Dose: 500 mg Famotidine (Pepcid) 20 mg PO DAILY [facility] Stop: 07/24/18 08:59 Last Admin: 06/25/18 08:03 Dose: 20 mg Gabapentin (Neurontin) 300 mg PO BID [facility] Stop: 07/23/18 16:59 Last Admin: 06/25/18 08:03 Dose: 300 mg Sodium Chloride (Nacl 0.45%) 1,000 mls @ 50 mls/hr IV .Q20H [facility] Stop: 07/23/18 01:57 Last Admin: 05/26/18 13:33 Dose: Not Given Lactulose (Cephulac) 30 gm PO DAILY PRN PRN Reason: Constipation Stop: 08/06/18 13:18 Last Admin: 06/15/18 18:18 Dose: 30 gm Lorazepam (Ativan) 1 mg PO Q4HR PRN; Protocol PRN Reason: Agitation Stop: 07/30/18 12:30 Last Admin: 06/25/18 09:42 Dose: 1 mg Magnesium Hydroxide (Milk Of Magnesia) 30 ml PO DAILY PRN PRN Reason: Constipation Stop: 08/03/18 17:37 Last Admin: 06/23/18 05:37 Dose: 30 ml Memantine (Namenda) 10 mg PO BID [facility] Stop: 07/23/18 16:59 Last Admin: 06/25/18 08:03 Dose: 10 mg Metformin HCl (Glucophage) 500 mg PO BID [facility] Stop: 07/23/18 16:59 Last Admin: 06/25/18 08:03 Dose: 500 mg Propranolol HCl (Inderal) 10 mg PO BID [facility] Stop: 07/23/18 16:59 Last Admin: 06/25/18 08:05 Dose: 10 mg Quetiapine Fumarate (Seroquel) 25 mg PO TID [facility]; Protocol Stop: 07/23/18 13:59 Last Admin: 06/25/18 08:03 Dose: 25 mg Risperidone (Risperdal) 3 mg PO HS [facility]; Protocol Stop: 07/23/18 20:59 Last Admin: 06/24/18 20:12 Dose: 3 mg Simvastatin (Zocor) 20 mg PO HS [facility]; Protocol Stop: 07/23/18 20:59 Last Admin: 06/24/18 20:11 Dose: 20 mg Sodium Chloride (Nacl Tab) 2 gm PO BID [facility] Stop: 08/10/18 08:59 Last Admin: 06/25/18 08:02 Dose: 2 gm Zolpidem Tartrate (Ambien) 10 mg PO HS PRN PRN Reason: Insomnia Stop: 08/24/18 13:21 General: alert HEENT: NC/AT, PERRLA Neck: Supple Lungs: CTAB Cardiovascular: RRR, Normal S1, Normal S2, without murmur Abdomen: soft, non-tender, non-distended Neurological: alert Internal Medicine Assmt/Plan - Assessment Assessment: abnormal ekg htn hyperlipidemia dementia - Plan Plan: continue current plan of care Nutritional Asmnt/Malnutr-PDOC - Dietary Evaluation Malnutrition Findings (Please click <Entered> for more info): Nutritional Asmnt/Malnutrition Start: 05/24/18 16: 46 Text: Status: Complete Freq: Protocol: Document 05/24/18 16:46 LCHENG (Rec: 05/24/18 16:53 [email or web address]) Nutritional Asmnt/Malnutrition Patient General Information Nutritional Screening High Risk Diagnosis altered mental status Pertinent Medical Hx/Surgical Hx HTN, DM, dyslipidemia, dementia, bipolar Subjective Information Pt seen lying in bed at time of visit, has 1:1 sitter. Per Sitter, pt ate very well 100% of lunch. Pt is Kiswahili speaking noted per nurse note. Current Diet Order/ Nutrition Support CCHO 60gm Pertinent Medications pepcid, glucophage, seroquel, nacl 0.45% Pertinent Labs 05/24 Na 132, Cl 96, Cr 0.5, glucose 209, POC 136-141 Nutritional Hx/Data Height 5 ft 6 in Height (Calculated Centimeters) 167.6 Current Weight (lbs) 123 lb Weight (Calculated Kilograms) 55.8 Weight (Calculated Grams) 30436.9 [place] Body Weight 142 Body Mass Index (BMI) 19.8 Weight Status Approriate GI Symptoms GI Symptoms None Last BM not indicated Difficult in: None Skin Integrity/Comment: old abdominal midline incision scar Current %PO Good (75-100%) Estimated Nutritional Goals BEE in Kcals: Using Current wt Calories/Kcals/Kg 25-30 Kcals Calculated 9253-6061 Protein: Using Current wt Protein g/k-1.2 Protein Calculated 56-67 Fluid: ml 1400-1680ml (1ml/kcal) Nutritional Problem 1. Problem Problem altered nutrition related labs Etiology hx of DM, electrolytes imbalance Signs/Symptoms: glucose 209, POC 136-141, Na 132, Cl 96 Malnutrition Alert Is there a minimum of two criteria No selected? Query Text:Check all the applicable criteria. A minimum of two criteria are recommended for diagnosis of either severe or non-severe malnutrition. Malnutrition Related to Morbid Obesity Malnutrition related to morbid obesity No Intervention/Recommendation Comments 1. Continue with [facility] 60gm diet as ordered. 2. Monitor PO intake, wt, labs and skin integrity 3. F/U as moderate risk in 3-5 days, 05/27-05/29 Expected Outcomes/Goals Expected Outcomes/Goals 1. PO intake to meet at least 75% of nutritional needs. 2. Wt stability, skin to remain intact, labs to approach WNL.
[2018-06-26] MEDS: Hydrocodone/APAP 5mg/325mg Tab PO PRN ×2 (05:33→13:04)
[2018-06-28] MEDS: Hydrocodone/APAP 5mg/325mg Tab PO PRN (21:25)
--- NOTE | 2018-06-29 15:28 | General Progress Note ---
Subjective - Review of Systems Events since last encounter: patient awake alert confused Objective - Results Result Diagrams: 06/11/18 06:24 06/12/18 04:55 Recent Labs: Laboratory Last Values WBC 8.9 Th/cmm (4.8-10.8) 06/11/18 06:24 RBC 3.47 Mil/cmm (3.80-5.10) L 06/11/18 06:24 Hgb 11.2 gm/dL (12-16) L 06/11/18 06:24 Hct 33.7 % (41.0-60) L 06/11/18 06:24 MCV 97.2 fl (81-100) 06/11/18 06:24 MCH 32.3 pg (27.0-31.0) H 06/11/18 06:24 MCHC Differential 33.2 pg (28.0-36.0) 06/11/18 06:24 RDW 13.4 % (11.5-20.0) 06/11/18 06:24 Plt Count 196 Th/cmm (150-400) 06/11/18 06:24 MPV 8.5 fl 06/11/18 06:24 Neutrophils % 65.0 % (40.0-80.0) 06/11/18 06:24 Lymphocytes % 21.8 % (20.0-50.0) 06/11/18 06:24 Monocytes % 12.3 % (2.0-10.0) H 06/11/18 06:24 Eosinophils % 0.4 % (0.0-5.0) 06/11/18 06:24 Basophils % 0.5 % (0.0-2.0) 06/11/18 06:24 Sodium 132 mEq/L (136-145) L 06/12/18 04:55 Potassium 3.7 mEq/L (3.5-5.1) 06/12/18 04:55 Chloride 95 mEq/L (98-107) L 06/12/18 04:55 Carbon Dioxide 31.0 mEq/L (21.0-31.0) 06/12/18 04:55 Anion Gap 9.7 (7.0-16.0) 06/12/18 04:55 BUN 9 mg/dL (7-25) 06/12/18 04:55 Creatinine 0.4 mg/dL (0.6-1.2) L 06/12/18 04:55 Est GFR ( Amer) > 60.0 ml/min (>90) 06/12/18 04:55 Est GFR (Non-Af Amer) > 60.0 ml/min 06/12/18 04:55 BUN/Creatinine Ratio 22.5 06/12/18 04:55 Glucose 174 mg/dL (70-105) H 06/12/18 04:55 POC Glucose 141 MG/DL (70 - 105) H 05/24/18 11:49 Hemoglobin A1c % 5.9 % (4.0-6.0) 05/23/18 20:08 Calcium 9.4 mg/dL (8.6-10.3) 06/12/18 04:55 Total Bilirubin 0.4 mg/dL (0.3-1.0) 06/12/18 04:55 AST 12 U/L (13-39) L 06/12/18 04:55 ALT 10 U/L (7-52) 06/12/18 04:55 Alkaline Phosphatase 58 U/L (34-104) 06/12/18 04:55 Troponin I 0.01 ng/mL (0.01-0.05) 05/23/18 20:08 B-Natriuretic Peptide 44.6 pg/mL (5.0-100.0) 05/23/18 20:08 Total Protein 6.7 gm/dL (6.0-8.3) 06/12/18 04:55 Albumin 4.0 gm/dL (3.7-5.3) 06/12/18 04:55 Globulin 2.7 gm/dL 06/12/18 04:55 Albumin/Globulin Ratio 1.5 (1.0-1.8) 06/12/18 04:55 Triglycerides 191 mg/dL (<150) H 05/24/18 08:14 Cholesterol 171 mg/dL (<200) 05/24/18 08:14 LDL Cholesterol Direct 80 mg/dL (75-193) 05/24/18 08:14 HDL Cholesterol 67 mg/dL (23-92) 05/24/18 08:14 Urine Source RANDOM 05/23/18 20:30 Urine Color YELLOW 05/23/18 20:30 Urine Clarity CLEAR (CLEAR) 05/23/18 20:30 Urine pH 7.5 (4.6 - 8.0) 05/23/18 20:30 Ur Specific [place] 1.010 (1.005-1.030) 05/23/18 20:30 Urine Protein NEGATIVE mg/dL (NEGATIVE) 05/23/18 20:30 Urine Glucose (UA) 100 mg/dL (NEGATIVE) H 05/23/18 20:30 Urine Ketones NEGATIVE mg/dL (NEGATIVE) 05/23/18 20:30 Urine Blood NEGATIVE (NEGATIVE) 05/23/18 20:30 Urine Nitrate NEGATIVE (NEGATIVE) 05/23/18 20:30 Urine Bilirubin NEGATIVE (NEGATIVE) 05/23/18 20:30 Urine Urobilinogen 0.2 E.U./dL (0.2 - 1.0) 05/23/18 20:30 Ur Leukocyte Esterase NEGATIVE (NEGATIVE) 05/23/18 20:30 Urine RBC 0-2 /hpf (0-5) 05/23/18 20:30 Urine WBC 0-2 /hpf (0-5) 05/23/18 20:30 Ur Epithelial Cells FEW /lpf (FEW) 05/23/18 20:30 Urine Bacteria OCCASIONAL /hpf (NONE SEEN) 05/23/18 20:30 - Physical Exam Vitals and I&O: Vital Signs Temp 96.8 F 06/29/18 08:00 Pulse 85 06/29/18 08:19 Resp 18 06/29/18 08:00 BP 144/81 06/29/18 08:19 Pulse Ox 97 06/29/18 08:00 Intake & Output 06/28/18 06/29/18 06/29/18 18:59 06:59 18:59 Intake Total 1000 900 Balance 1000 900 Weight (lbs) 56.699 kg 56.245 kg Intake: Oral 1000 900 Other: # Voids 3 7 # Bowel Movements 1 Weight Source Bedscale Bedscale Active Medications: Current Medications Acetaminophen (Tylenol) 650 mg PO Q4H PRN PRN Reason: Pain (Moderate) Stop: 08/09/18 19:58 Last Admin: 06/28/18 02:55 Dose: 650 mg Acetaminophen/Hydrocodone Bitart ([place] 5mg/325mg) 1 tab PO Q6H PRN PRN Reason: Pain (Severe) 7-10 Stop: 08/09/18 21:57 Last Admin: 06/28/18 21:25 Dose: 1 tab Divalproex Sodium (Depakote Dr) 250 mg PO QAM [facility]; Protocol Stop: 07/24/18 08:59 Last Admin: 06/29/18 08:19 Dose: 250 mg Divalproex Sodium (Depakote Er) 500 mg PO QPM [facility]; Protocol Stop: 07/23/18 16:59 Last Admin: 06/28/18 17:49 Dose: 500 mg Famotidine (Pepcid) 20 mg PO DAILY MARGARETH Stop: 07/24/18 08:59 Last Admin: 06/29/18 08:19 Dose: 20 mg Gabapentin (Neurontin) 300 mg PO BID [facility] Stop: 07/23/18 16:59 Last Admin: 06/29/18 08:19 Dose: 300 mg Sodium Chloride (Nacl 0.45%) 1,000 mls @ 50 mls/hr IV .Q20H MARGARETH Stop: 07/23/18 01:57 Last Admin: 05/26/18 13:33 Dose: Not Given Lactulose (Cephulac) 30 gm PO DAILY PRN PRN Reason: Constipation Stop: 08/06/18 13:18 Last Admin: 06/15/18 18:18 Dose: 30 gm Lorazepam (Ativan) 1 mg PO Q4HR PRN; Protocol PRN Reason: Agitation Stop: 07/30/18 12:30 Last Admin: 06/28/18 20:36 Dose: 1 mg Magnesium Hydroxide (Milk Of Magnesia) 30 ml PO DAILY PRN PRN Reason: Constipation Stop: 08/03/18 17:37 Last Admin: 06/23/18 05:37 Dose: 30 ml Memantine (Namenda) 10 mg PO BID [facility] Stop: 07/23/18 16:59 Last Admin: 06/29/18 08:19 Dose: 10 mg Metformin HCl (Glucophage) 500 mg PO BID [facility] Stop: 07/23/18 16:59 Last Admin: 06/29/18 08:19 Dose: 500 mg Propranolol HCl (Inderal) 10 mg PO BID [facility] Stop: 07/23/18 16:59 Last Admin: 06/29/18 08:19 Dose: 10 mg Quetiapine Fumarate (Seroquel) 25 mg PO TID [facility]; Protocol Stop: 07/23/18 13:59 Last Admin: 06/29/18 13:21 Dose: 25 mg Risperidone (Risperdal) 3 mg PO HS MARGARETH; Protocol Stop: 07/23/18 20:59 Last Admin: 06/28/18 20:37 Dose: 3 mg Simvastatin (Zocor) 20 mg PO HS MARGARETH; Protocol Stop: 07/23/18 20:59 Last Admin: 06/28/18 20:37 Dose: 20 mg Sodium Chloride (Nacl Tab) 2 gm PO BID MARGARETH Stop: 08/10/18 08:59 Last Admin: 06/29/18 08:19 Dose: 2 gm Zolpidem Tartrate (Ambien) 10 mg PO HS PRN PRN Reason: Insomnia Stop: 08/24/18 20:59 Last Admin: 06/25/18 20:51 Dose: 10 mg General: No acute distress HEENT: Atraumatic, PERRLA Neck: Supple, JVD, Thyromegaly Cardiovascular: Regular rate, Normal S1, Normal S2 Lungs: Clear to auscultation Abdomen: Bowel sounds Assessment/Plan - Problem List Patient Problems: All Active Problems Dementia (Acute) F03.90 HTN (hypertension) (Acute) I10 Hyperlipidemia (Acute) E78.5 Right humeral fracture (Acute) S42.301A Status post fall (Acute) Z91.81 - Plan Plan: continue current management labs monitor vitals diet Nutritional Asmnt/Malnutr-PDOC - Dietary Evaluation Malnutrition Findings (Please click <Entered> for more info): Nutritional Asmnt/Malnutrition Start: 05/24/18 16: 46 Text: Status: Complete Freq: Protocol: Document 05/24/18 16:46 [email or web address] (Rec: 05/24/18 16:53 [email or web address] [email or web address]) Nutritional Asmnt/Malnutrition Patient General Information Nutritional Screening High Risk Diagnosis altered mental status Pertinent Medical Hx/Surgical Hx HTN, DM, dyslipidemia, dementia, bipolar Subjective Information Pt seen lying in bed at time of visit, has 1:1 sitter. Per Sitter, pt ate very well 100% of lunch. Pt is Romanian speaking noted per nurse note. Current Diet Order/ Nutrition Support CCHO 60gm Pertinent Medications pepcid, glucophage, seroquel, nacl 0.45% Pertinent Labs 05/24 Na 132, Cl 96, Cr 0.5, glucose 209, POC 136-141 Nutritional Hx/Data Height 1.68 m Height (Calculated Centimeters) 167.6 Current Weight (lbs) 55.792 kg Weight (Calculated Kilograms) 55.8 Weight (Calculated Grams) 87208.9 [place] Body Weight 142 Body Mass Index (BMI) 19.8 Weight Status Approriate GI Symptoms GI Symptoms None Last BM not indicated Difficult in: None Skin Integrity/Comment: old abdominal midline incision scar Current %PO Good (75-100%) Estimated Nutritional Goals BEE in Kcals: Using Current wt Calories/Kcals/Kg 25-30 Kcals Calculated 2800-4934 Protein: Using Current wt Protein g/k-1.2 Protein Calculated 56-67 Fluid: ml 1400-1680ml (1ml/kcal) Nutritional Problem 1. Problem Problem altered nutrition related labs Etiology hx of DM, electrolytes imbalance Signs/Symptoms: glucose 209, POC 136-141, Na 132, Cl 96 Malnutrition Alert Is there a minimum of two criteria No selected? Query Text:Check all the applicable criteria. A minimum of two criteria are recommended for diagnosis of either severe or non-severe malnutrition. Malnutrition Related to Morbid Obesity Malnutrition related to morbid obesity No Intervention/Recommendation Comments 1. Continue with [facility] 60gm diet as ordered. 2. Monitor PO intake, wt, labs and skin integrity 3. F/U as moderate risk in 3-5 days, 05/27-05/29 Expected Outcomes/Goals Expected Outcomes/Goals 1. PO intake to meet at least 75% of nutritional needs. 2. Wt stability, skin to remain intact, labs to approach WNL.
[2018-06-29] MEDS: Hydrocodone/APAP 5mg/325mg Tab PO PRN (15:39)
[2018-06-30] MEDS: Hydrocodone/APAP 5mg/325mg Tab PO PRN ×2 (02:14→20:26)
--- NOTE | 2018-07-01 09:17 | Progress Notes ---
DATE: 07/01/2018 SUBJECTIVE: The patient was seen in her room. The patient has 1:1 sitter for safety. The patient is a poor historian due to medical condition, appears to be guarded and irritable. Otherwise, the patient appears to be in no acute distress. OBJECTIVE: VITAL SIGNS: Temperature , heart rate of 80, blood pressure 144/96, respirations 18 and 99% on room air. HEENT: Head is atraumatic and normocephalic. Eyes: Bilateral conjunctivae are clear. Bilateral pupils are equally round and reactive. NECK: Supple. No JVD. CARDIOVASCULAR: S1 and S2, without murmur. PULMONARY: Clear to auscultation. GASTROINTESTINAL: Soft and nontender without guarding. Positive bowel sounds. MUSCULOSKELETAL: No clubbing. No cyanosis noted. ASSESSMENT: 1. Dementia. 2. Osteoarthritis. 3. Gastroesophageal reflux disease. 4. Hypertension. PLAN: The patient is currently for placement. We will follow up with the case management and social media marketer. We will discontinue IV fluids for patient has a good oral intake and refusing IV insertion. We will do CBC and CMP in the morning. Treatment plans were discussed with the patient's nurse. Treatment plans were discussed with Dr. Patiño. JOB# [id number]
[2018-07-02 06:20] LABS: % BASOPHILS 0.3 % (0.0-2.0); % EOSINOPHILS 0.8 % (0.0-5.0); % LYMPHOCYTES 19.3 % (20.0-50.0); % MONOCYTES 9.4 % (2.0-10.0); % NEUTROPHILS 70.2 % (40.0-80.0); EOSINOPHILE ABSOLUTE 0.1 Th/cmm (0.1-0.4); HEMATOCRIT 35.5 % (41.0-60); HEMOGLOBIN 11.9 gm/dL (12-16); LYMPHOCYTE ABSOLUTE 1.5 Th/cmm (1.5-3.0); MEAN CELL VOLUME 96.5 fl (81-100); MEAN CORPUSCULAR HEMOGLOBIN 32.3 pg (27.0-31.0); MEAN CORPUSCULAR HGB CONC 33.5 pg (28.0-36.0); MEAN PLATELET VOLUME 7.9 fl; MONOCYTE ABSOLUTE 0.7 Th/cmm (0.3-1.0); NEUTROPHILE ABSOLUTE 5.3 Th/cmm (1.8-8.0); PLATELET COUNT 249 Th/cmm (150-400); RED BLOOD COUNT 3.68 Mil/cmm (3.80-5.10); WHITE BLOOD COUNT 7.6 Th/cmm (4.8-10.8)
[2018-07-02 06:39] LABS: ALB/GLOB RATIO 1.4 (1.0-1.8); ALBUMIN 3.8 gm/dL (3.7-5.3); ALKALINE PHOSPHATASE 141 U/L (34-104); ANION GAP 8.6 (7.0-16.0); BILIRUBIN,TOTAL 0.4 mg/dL (0.3-1.0); BUN - UREA NITROGEN 14 mg/dL (7-25); CALCIUM SERUM 9.4 mg/dL (8.6-10.3); CARBON DIOXIDE 30.6 mEq/L (21.0-31.0); CHLORIDE 99 mEq/L (98-107); CREATININE - SERUM 0.4 mg/dL (0.6-1.2); GFR AFRICAN-AMERICAN > 60.0 ml/min (>90); GFR NON AFRICAN-AMERICAN > 60.0 ml/min; GLUCOSE 214 mg/dL (70-105); POTASSIUM SERUM 3.2 mEq/L (3.5-5.1); SGOT 9 U/L (13-39); SGPT/ALT 7 U/L (7-52); SODIUM SERUM 135 mEq/L (136-145); TOTAL PROTEIN,SERUM 6.5 gm/dL (6.0-8.3)
--- NOTE | 2018-07-02 09:39 | General Progress Note ---
Subjective - Review of Systems Events since last encounter: patient awake alert confused and irritable Objective - Results Result Diagrams: 07/02/18 05:58 07/02/18 05:58 Recent Labs: Laboratory Last Values WBC 7.6 Th/cmm (4.8-10.8) 07/02/18 05:58 RBC 3.68 Mil/cmm (3.80-5.10) L 07/02/18 05:58 Hgb 11.9 gm/dL (12-16) L 07/02/18 05:58 Hct 35.5 % (41.0-60) L 07/02/18 05:58 MCV 96.5 fl (81-100) 07/02/18 05:58 MCH 32.3 pg (27.0-31.0) H 07/02/18 05:58 MCHC Differential 33.5 pg (28.0-36.0) 07/02/18 05:58 RDW 13.0 % (11.5-20.0) 07/02/18 05:58 Plt Count 249 Th/cmm (150-400) 07/02/18 05:58 MPV 7.9 fl 07/02/18 05:58 Neutrophils % 70.2 % (40.0-80.0) 07/02/18 05:58 Lymphocytes % 19.3 % (20.0-50.0) L 07/02/18 05:58 Monocytes % 9.4 % (2.0-10.0) 07/02/18 05:58 Eosinophils % 0.8 % (0.0-5.0) 07/02/18 05:58 Basophils % 0.3 % (0.0-2.0) 07/02/18 05:58 Sodium 135 mEq/L (136-145) L 07/02/18 05:58 Potassium 3.2 mEq/L (3.5-5.1) L 07/02/18 05:58 Chloride 99 mEq/L (98-107) 07/02/18 05:58 Carbon Dioxide 30.6 mEq/L (21.0-31.0) 07/02/18 05:58 Anion Gap 8.6 (7.0-16.0) 07/02/18 05:58 BUN 14 mg/dL (7-25) 07/02/18 05:58 Creatinine 0.4 mg/dL (0.6-1.2) L 07/02/18 05:58 Est GFR ( Amer) > 60.0 ml/min (>90) 07/02/18 05:58 Est GFR (Non-Af Amer) > 60.0 ml/min 07/02/18 05:58 BUN/Creatinine Ratio 35.0 07/02/18 05:58 Glucose 214 mg/dL (70-105) H 07/02/18 05:58 POC Glucose 141 MG/DL (70 - 105) H 05/24/18 11:49 Hemoglobin A1c % 5.9 % (4.0-6.0) 05/23/18 20:08 Calcium 9.4 mg/dL (8.6-10.3) 07/02/18 05:58 Total Bilirubin 0.4 mg/dL (0.3-1.0) 07/02/18 05:58 AST 9 U/L (13-39) L 07/02/18 05:58 ALT 7 U/L (7-52) 07/02/18 05:58 Alkaline Phosphatase 141 U/L (34-104) H 07/02/18 05:58 Troponin I 0.01 ng/mL (0.01-0.05) 05/23/18 20:08 B-Natriuretic Peptide 44.6 pg/mL (5.0-100.0) 05/23/18 20:08 Total Protein 6.5 gm/dL (6.0-8.3) 07/02/18 05:58 Albumin 3.8 gm/dL (3.7-5.3) 07/02/18 05:58 Globulin 2.7 gm/dL 07/02/18 05:58 Albumin/Globulin Ratio 1.4 (1.0-1.8) 07/02/18 05:58 Triglycerides 191 mg/dL (<150) H 05/24/18 08:14 Cholesterol 171 mg/dL (<200) 05/24/18 08:14 LDL Cholesterol Direct 80 mg/dL (75-193) 05/24/18 08:14 HDL Cholesterol 67 mg/dL (23-92) 05/24/18 08:14 Urine Source RANDOM 05/23/18 20:30 Urine Color YELLOW 05/23/18 20:30 Urine Clarity CLEAR (CLEAR) 05/23/18 20:30 Urine pH 7.5 (4.6 - 8.0) 05/23/18 20:30 Ur Specific [place] 1.010 (1.005-1.030) 05/23/18 20:30 Urine Protein NEGATIVE mg/dL (NEGATIVE) 05/23/18 20:30 Urine Glucose (UA) 100 mg/dL (NEGATIVE) H 05/23/18 20:30 Urine Ketones NEGATIVE mg/dL (NEGATIVE) 05/23/18 20:30 Urine Blood NEGATIVE (NEGATIVE) 05/23/18 20:30 Urine Nitrate NEGATIVE (NEGATIVE) 05/23/18 20:30 Urine Bilirubin NEGATIVE (NEGATIVE) 05/23/18 20:30 Urine Urobilinogen 0.2 E.U./dL (0.2 - 1.0) 05/23/18 20:30 Ur Leukocyte Esterase NEGATIVE (NEGATIVE) 05/23/18 20:30 Urine RBC 0-2 /hpf (0-5) 05/23/18 20:30 Urine WBC 0-2 /hpf (0-5) 05/23/18 20:30 Ur Epithelial Cells FEW /lpf (FEW) 05/23/18 20:30 Urine Bacteria OCCASIONAL /hpf (NONE SEEN) 05/23/18 20:30 - Physical Exam Vitals and I&O: Vital Signs Temp 97.7 F 07/02/18 03:25 Pulse 97 07/02/18 08:20 Resp 19 07/02/18 03:25 BP 120/68 07/02/18 08:20 Pulse Ox 96 07/02/18 03:25 Intake & Output 07/01/18 07/02/18 07/02/18 18:59 06:59 18:59 Intake Total 1200 150 Balance 1200 150 Weight (lbs) 56.245 kg 56.245 kg Intake: Oral 1200 150 Other: # Voids 7 Weight Source Bedscale Bedscale Active Medications: Current Medications Acetaminophen (Tylenol) 650 mg PO Q4H PRN PRN Reason: Pain (Moderate) Stop: 08/09/18 19:58 Last Admin: 06/28/18 02:55 Dose: 650 mg Acetaminophen/Hydrocodone Bitart ([place] 5mg/325mg) 1 tab PO Q6H PRN PRN Reason: Pain (Severe) 7-10 Stop: 08/09/18 21:57 Last Admin: 06/30/18 20:26 Dose: 1 tab Divalproex Sodium (Depakote Dr) 250 mg PO QAM [facility]; Protocol Stop: 07/24/18 08:59 Last Admin: 07/02/18 08:21 Dose: 250 mg Divalproex Sodium (Depakote Er) 500 mg PO QPM [facility]; Protocol Stop: 07/23/18 16:59 Last Admin: 07/01/18 16:37 Dose: 500 mg Famotidine (Pepcid) 20 mg PO DAILY MARGARETH Stop: 07/24/18 08:59 Last Admin: 07/02/18 08:21 Dose: 20 mg Gabapentin (Neurontin) 300 mg PO BID MARGARETH Stop: 07/23/18 16:59 Last Admin: 07/02/18 08:21 Dose: 300 mg Lactulose (Cephulac) 30 gm PO DAILY PRN PRN Reason: Constipation Stop: 08/06/18 13:18 Last Admin: 06/15/18 18:18 Dose: 30 gm Lorazepam (Ativan) 1 mg PO Q4HR PRN; Protocol PRN Reason: Agitation Stop: 07/30/18 12:30 Last Admin: 07/02/18 03:18 Dose: 1 mg Magnesium Hydroxide (Milk Of Magnesia) 30 ml PO DAILY PRN PRN Reason: Constipation Stop: 08/03/18 17:37 Last Admin: 06/23/18 05:37 Dose: 30 ml Memantine (Namenda) 10 mg PO BID [facility] Stop: 07/23/18 16:59 Last Admin: 07/02/18 08:21 Dose: 10 mg Metformin HCl (Glucophage) 500 mg PO BID [facility] Stop: 07/23/18 16:59 Last Admin: 07/02/18 08:21 Dose: 500 mg Propranolol HCl (Inderal) 10 mg PO BID [facility] Stop: 07/23/18 16:59 Last Admin: 07/02/18 08:20 Dose: 10 mg Quetiapine Fumarate (Seroquel) 25 mg PO TID [facility]; Protocol Stop: 07/23/18 13:59 Last Admin: 07/02/18 08:21 Dose: 25 mg Risperidone (Risperdal) 3 mg PO HS [facility]; Protocol Stop: 07/23/18 20:59 Last Admin: 07/01/18 20:30 Dose: 3 mg Simvastatin (Zocor) 20 mg PO HS MARGARETH; Protocol Stop: 07/23/18 20:59 Last Admin: 07/01/18 20:30 Dose: 20 mg Sodium Chloride (Nacl Tab) 2 gm PO BID MARGARETH Stop: 08/10/18 08:59 Last Admin: 07/02/18 08:21 Dose: 2 gm Zolpidem Tartrate (Ambien) 10 mg PO HS PRN PRN Reason: Insomnia Stop: 08/24/18 20:59 Last Admin: 06/25/18 20:51 Dose: 10 mg General: No acute distress HEENT: Atraumatic, PERRLA Neck: Supple, JVD, Thyromegaly Cardiovascular: Regular rate, Normal S1, Normal S2 Lungs: Clear to auscultation Abdomen: Bowel sounds Assessment/Plan - Problem List Patient Problems: All Active Problems Dementia (Acute) F03.90 HTN (hypertension) (Acute) I10 Hyperlipidemia (Acute) E78.5 Right humeral fracture (Acute) S42.301A Status post fall (Acute) Z91.81 - Plan Plan: continue current management labs monitor vitals diet Nutritional Asmnt/Malnutr-PDOC - Dietary Evaluation Malnutrition Findings (Please click <Entered> for more info): Nutritional Asmnt/Malnutrition Start: 05/24/18 16: 46 Text: Status: Complete Freq: Protocol: Document 05/24/18 16:46 LCHENG (Rec: 05/24/18 16:53 [email or web address]) Nutritional Asmnt/Malnutrition Patient General Information Nutritional Screening High Risk Diagnosis altered mental status Pertinent Medical Hx/Surgical Hx HTN, DM, dyslipidemia, dementia, bipolar Subjective Information Pt seen lying in bed at time of visit, has 1:1 sitter. Per Sitter, pt ate very well 100% of lunch. Pt is Slovak speaking noted per nurse note. Current Diet Order/ Nutrition Support CCHO 60gm Pertinent Medications pepcid, glucophage, seroquel, nacl 0.45% Pertinent Labs 05/24 Na 132, Cl 96, Cr 0.5, glucose 209, POC 136-141 Nutritional Hx/Data Height 1.68 m Height (Calculated Centimeters) 167.6 Current Weight (lbs) 55.792 kg Weight (Calculated Kilograms) 55.8 Weight (Calculated Grams) 36251.9 [place] Body Weight 142 Body Mass Index (BMI) 19.8 Weight Status Approriate GI Symptoms GI Symptoms None Last BM not indicated Difficult in: None Skin Integrity/Comment: old abdominal midline incision scar Current %PO Good (75-100%) Estimated Nutritional Goals BEE in Kcals: Using Current wt Calories/Kcals/Kg 25-30 Kcals Calculated 6567-2621 Protein: Using Current wt Protein g/k-1.2 Protein Calculated 56-67 Fluid: ml 1400-1680ml (1ml/kcal) Nutritional Problem 1. Problem Problem altered nutrition related labs Etiology hx of DM, electrolytes imbalance Signs/Symptoms: glucose 209, POC 136-141, Na 132, Cl 96 Malnutrition Alert Is there a minimum of two criteria No selected? Query Text:Check all the applicable criteria. A minimum of two criteria are recommended for diagnosis of either severe or non-severe malnutrition. Malnutrition Related to Morbid Obesity Malnutrition related to morbid obesity No Intervention/Recommendation Comments 1. Continue with CCHO 60gm diet as ordered. 2. Monitor PO intake, wt, labs and skin integrity 3. F/U as moderate risk in 3-5 days, 05/27-05/29 Expected Outcomes/Goals Expected Outcomes/Goals 1. PO intake to meet at least 75% of nutritional needs. 2. Wt stability, skin to remain intact, labs to approach WNL.
[2018-07-02] MEDS ORDERED: Potassium Chloride 20 mEq ER Tab PO ONE (11:01)
[2018-07-02] MEDS: Hydrocodone/APAP 5mg/325mg Tab PO PRN (14:08)
[2018-07-03 05:42] LABS: BUN - UREA NITROGEN 17 mg/dL (7-25); CALCIUM SERUM 9.6 mg/dL (8.6-10.3); CARBON DIOXIDE 27.1 mEq/L (21.0-31.0); CHLORIDE 98 mEq/L (98-107); CREATININE - SERUM 0.5 mg/dL (0.6-1.2); GFR AFRICAN-AMERICAN > 60.0 ml/min (>90); GFR NON AFRICAN-AMERICAN > 60.0 ml/min; GLUCOSE 233 mg/dL (70-105); POTASSIUM SERUM 4.1 mEq/L (3.5-5.1); SODIUM SERUM 133 mEq/L (136-145)
--- NOTE | 2018-07-03 14:24 | General Progress Note ---
Subjective - Review of Systems Events since last encounter: still irritable confused Objective - Results Result Diagrams: 07/02/18 05:58 07/03/18 04:40 Recent Labs: Laboratory Last Values WBC 7.6 Th/cmm (4.8-10.8) 07/02/18 05:58 RBC 3.68 Mil/cmm (3.80-5.10) L 07/02/18 05:58 Hgb 11.9 gm/dL (12-16) L 07/02/18 05:58 Hct 35.5 % (41.0-60) L 07/02/18 05:58 MCV 96.5 fl (81-100) 07/02/18 05:58 MCH 32.3 pg (27.0-31.0) H 07/02/18 05:58 MCHC Differential 33.5 pg (28.0-36.0) 07/02/18 05:58 RDW 13.0 % (11.5-20.0) 07/02/18 05:58 Plt Count 249 Th/cmm (150-400) 07/02/18 05:58 MPV 7.9 fl 07/02/18 05:58 Neutrophils % 70.2 % (40.0-80.0) 07/02/18 05:58 Lymphocytes % 19.3 % (20.0-50.0) L 07/02/18 05:58 Monocytes % 9.4 % (2.0-10.0) 07/02/18 05:58 Eosinophils % 0.8 % (0.0-5.0) 07/02/18 05:58 Basophils % 0.3 % (0.0-2.0) 07/02/18 05:58 Sodium 133 mEq/L (136-145) L 07/03/18 04:40 Potassium 4.1 mEq/L (3.5-5.1) 07/03/18 04:40 Chloride 98 mEq/L (98-107) 07/03/18 04:40 Carbon Dioxide 27.1 mEq/L (21.0-31.0) 07/03/18 04:40 Anion Gap 12.0 (7.0-16.0) 07/03/18 04:40 BUN 17 mg/dL (7-25) 07/03/18 04:40 Creatinine 0.5 mg/dL (0.6-1.2) L 07/03/18 04:40 Est GFR ( Amer) > 60.0 ml/min (>90) 07/03/18 04:40 Est GFR (Non-Af Amer) > 60.0 ml/min 07/03/18 04:40 BUN/Creatinine Ratio 34.0 07/03/18 04:40 Glucose 233 mg/dL (70-105) H 07/03/18 04:40 POC Glucose 141 MG/DL (70 - 105) H 05/24/18 11:49 Hemoglobin A1c % 5.9 % (4.0-6.0) 05/23/18 20:08 Calcium 9.6 mg/dL (8.6-10.3) 07/03/18 04:40 Total Bilirubin 0.4 mg/dL (0.3-1.0) 07/02/18 05:58 AST 9 U/L (13-39) L 07/02/18 05:58 ALT 7 U/L (7-52) 07/02/18 05:58 Alkaline Phosphatase 141 U/L (34-104) H 07/02/18 05:58 Troponin I 0.01 ng/mL (0.01-0.05) 05/23/18 20:08 B-Natriuretic Peptide 44.6 pg/mL (5.0-100.0) 05/23/18 20:08 Total Protein 6.5 gm/dL (6.0-8.3) 07/02/18 05:58 Albumin 3.8 gm/dL (3.7-5.3) 07/02/18 05:58 Globulin 2.7 gm/dL 07/02/18 05:58 Albumin/Globulin Ratio 1.4 (1.0-1.8) 07/02/18 05:58 Triglycerides 191 mg/dL (<150) H 05/24/18 08:14 Cholesterol 171 mg/dL (<200) 05/24/18 08:14 LDL Cholesterol Direct 80 mg/dL (75-193) 05/24/18 08:14 HDL Cholesterol 67 mg/dL (23-92) 05/24/18 08:14 Urine Source RANDOM 05/23/18 20:30 Urine Color YELLOW 05/23/18 20:30 Urine Clarity CLEAR (CLEAR) 05/23/18 20:30 Urine pH 7.5 (4.6 - 8.0) 05/23/18 20:30 Ur Specific [place] 1.010 (1.005-1.030) 05/23/18 20:30 Urine Protein NEGATIVE mg/dL (NEGATIVE) 05/23/18 20:30 Urine Glucose (UA) 100 mg/dL (NEGATIVE) H 05/23/18 20:30 Urine Ketones NEGATIVE mg/dL (NEGATIVE) 05/23/18 20:30 Urine Blood NEGATIVE (NEGATIVE) 05/23/18 20:30 Urine Nitrate NEGATIVE (NEGATIVE) 05/23/18 20:30 Urine Bilirubin NEGATIVE (NEGATIVE) 05/23/18 20:30 Urine Urobilinogen 0.2 E.U./dL (0.2 - 1.0) 05/23/18 20:30 Ur Leukocyte Esterase NEGATIVE (NEGATIVE) 05/23/18 20:30 Urine RBC 0-2 /hpf (0-5) 05/23/18 20:30 Urine WBC 0-2 /hpf (0-5) 05/23/18 20:30 Ur Epithelial Cells FEW /lpf (FEW) 05/23/18 20:30 Urine Bacteria OCCASIONAL /hpf (NONE SEEN) 05/23/18 20:30 - Physical Exam Vitals and I&O: Vital Signs Temp 96.6 F 07/03/18 08:00 Pulse 112 07/03/18 09:14 Resp 18 07/03/18 08:00 BP 135/90 07/03/18 09:14 Pulse Ox 98 07/03/18 08:00 Intake & Output 07/02/18 07/03/18 07/03/18 18:59 06:59 18:59 Intake Total 1500 400 400 Balance 1500 400 400 Weight (lbs) 56.245 kg 56.699 kg 56.699 kg Intake: Oral 1500 400 400 Other: # Voids 8 10 10 Weight Source Bedscale Bedscale Bedscale Active Medications: Current Medications Acetaminophen (Tylenol) 650 mg PO Q4H PRN PRN Reason: Pain (Moderate) Stop: 08/09/18 19:58 Last Admin: 06/28/18 02:55 Dose: 650 mg Acetaminophen/Hydrocodone Bitart ([place] 5mg/325mg) 1 tab PO Q6H PRN PRN Reason: Pain (Severe) 7-10 Stop: 08/09/18 21:57 Last Admin: 07/02/18 14:08 Dose: 1 tab Divalproex Sodium (Depakote Dr) 250 mg PO QAM [facility]; Protocol Stop: 07/24/18 08:59 Last Admin: 07/03/18 09:13 Dose: 250 mg Divalproex Sodium (Depakote Er) 500 mg PO QPM [facility]; Protocol Stop: 07/23/18 16:59 Last Admin: 07/02/18 17:10 Dose: 500 mg Famotidine (Pepcid) 20 mg PO DAILY [facility] Stop: 07/24/18 08:59 Last Admin: 07/03/18 09:14 Dose: 20 mg Gabapentin (Neurontin) 300 mg PO BID [facility] Stop: 07/23/18 16:59 Last Admin: 07/03/18 09:14 Dose: 300 mg Lactulose (Cephulac) 30 gm PO DAILY PRN PRN Reason: Constipation Stop: 08/06/18 13:18 Last Admin: 06/15/18 18:18 Dose: 30 gm Lorazepam (Ativan) 1 mg PO Q4HR PRN; Protocol PRN Reason: Agitation Stop: 07/30/18 12:30 Last Admin: 07/02/18 12:13 Dose: 1 mg Magnesium Hydroxide (Milk Of Magnesia) 30 ml PO DAILY PRN PRN Reason: Constipation Stop: 08/03/18 17:37 Last Admin: 06/23/18 05:37 Dose: 30 ml Memantine (Namenda) 10 mg PO BID [facility] Stop: 07/23/18 16:59 Last Admin: 07/03/18 09:14 Dose: 10 mg Metformin HCl (Glucophage) 500 mg PO BID [facility] Stop: 07/23/18 16:59 Last Admin: 07/03/18 09:14 Dose: 500 mg Propranolol HCl (Inderal) 10 mg PO BID [facility] Stop: 07/23/18 16:59 Last Admin: 07/03/18 09:14 Dose: 10 mg Quetiapine Fumarate (Seroquel) 25 mg PO TID [facility]; Protocol Stop: 07/23/18 13:59 Last Admin: 07/03/18 09:14 Dose: 25 mg Risperidone (Risperdal) 3 mg PO HS [facility]; Protocol Stop: 07/23/18 20:59 Last Admin: 07/02/18 20:46 Dose: 3 mg Simvastatin (Zocor) 20 mg PO HS [facility]; Protocol Stop: 07/23/18 20:59 Last Admin: 07/02/18 20:47 Dose: 20 mg Sodium Chloride (Nacl Tab) 2 gm PO BID [facility] Stop: 08/10/18 08:59 Last Admin: 07/03/18 09:14 Dose: 2 gm General: No acute distress HEENT: Atraumatic, PERRLA Neck: Supple, JVD, Thyromegaly Cardiovascular: Regular rate, Normal S1, Normal S2 Lungs: Clear to auscultation Abdomen: Bowel sounds Assessment/Plan - Problem List Patient Problems: All Active Problems Dementia (Acute) F03.90 HTN (hypertension) (Acute) I10 Hyperlipidemia (Acute) E78.5 Right humeral fracture (Acute) S42.301A Status post fall (Acute) Z91.81 - Plan Plan: continue current management labs monitor vitals diet Nutritional Asmnt/Malnutr-PDOC - Dietary Evaluation Malnutrition Findings (Please click <Entered> for more info): Nutritional Asmnt/Malnutrition Start: 05/24/18 16: 46 Text: Status: Complete Freq: Protocol: Document 05/24/18 16:46 LCHENG (Rec: 05/24/18 16:53 [email or web address] [id number]) Nutritional Asmnt/Malnutrition Patient General Information Nutritional Screening High Risk Diagnosis altered mental status Pertinent Medical Hx/Surgical Hx HTN, DM, dyslipidemia, dementia, bipolar Subjective Information Pt seen lying in bed at time of visit, has 1:1 sitter. Per Sitter, pt ate very well 100% of lunch. Pt is Bulgarian speaking noted per nurse note. Current Diet Order/ Nutrition Support CCHO 60gm Pertinent Medications pepcid, glucophage, seroquel, nacl 0.45% Pertinent Labs 05/24 Na 132, Cl 96, Cr 0.5, glucose 209, POC 136-141 Nutritional Hx/Data Height 1.68 m Height (Calculated Centimeters) 167.6 Current Weight (lbs) 55.792 kg Weight (Calculated Kilograms) 55.8 Weight (Calculated Grams) 85596.9 [place] Body Weight 142 Body Mass Index (BMI) 19.8 Weight Status Approriate GI Symptoms GI Symptoms None Last BM not indicated Difficult in: None Skin Integrity/Comment: old abdominal midline incision scar Current %PO Good (75-100%) Estimated Nutritional Goals BEE in Kcals: Using Current wt Calories/Kcals/Kg 25-30 Kcals Calculated 1624-0174 Protein: Using Current wt Protein g/k-1.2 Protein Calculated 56-67 Fluid: ml 1400-1680ml (1ml/kcal) Nutritional Problem 1. Problem Problem altered nutrition related labs Etiology hx of DM, electrolytes imbalance Signs/Symptoms: glucose 209, POC 136-141, Na 132, Cl 96 Malnutrition Alert Is there a minimum of two criteria No selected? Query Text:Check all the applicable criteria. A minimum of two criteria are recommended for diagnosis of either severe or non-severe malnutrition. Malnutrition Related to Morbid Obesity Malnutrition related to morbid obesity No Intervention/Recommendation Comments 1. [facility] as ordered. 2. Monitor PO intake, wt, labs and skin integrity 3. F/U as moderate risk in 3-5 days, 05/27-05/29 Expected Outcomes/Goals Expected Outcomes/Goals 1. PO intake to meet at least 75% of nutritional needs. 2. Wt stability, skin to remain intact, labs to approach WNL.
[2018-07-03] MEDS: Hydrocodone/APAP 5mg/325mg Tab PO PRN (20:51)
--- NOTE | 2018-07-04 13:36 | Internal Medicine Prog Note ---
Internal Medicine Subjective - Subjective Service Date: 07/04/18 Patient is:: awake, agitated, confused Patient Complaints of:: unable to sleep Per staff patient has:: no adverse event, tolerating meds Internal Medicine Objective - Results Result Diagrams: 07/02/18 05:58 07/03/18 04:40 Recent Labs: Laboratory Last Values WBC 7.6 Th/cmm (4.8-10.8) 07/02/18 05:58 RBC 3.68 Mil/cmm (3.80-5.10) L 07/02/18 05:58 Hgb 11.9 gm/dL (12-16) L 07/02/18 05:58 Hct 35.5 % (41.0-60) L 07/02/18 05:58 MCV 96.5 fl (81-100) 07/02/18 05:58 MCH 32.3 pg (27.0-31.0) H 07/02/18 05:58 MCHC Differential 33.5 pg (28.0-36.0) 07/02/18 05:58 RDW 13.0 % (11.5-20.0) 07/02/18 05:58 Plt Count 249 Th/cmm (150-400) 07/02/18 05:58 MPV 7.9 fl 07/02/18 05:58 Neutrophils % 70.2 % (40.0-80.0) 07/02/18 05:58 Lymphocytes % 19.3 % (20.0-50.0) L 07/02/18 05:58 Monocytes % 9.4 % (2.0-10.0) 07/02/18 05:58 Eosinophils % 0.8 % (0.0-5.0) 07/02/18 05:58 Basophils % 0.3 % (0.0-2.0) 07/02/18 05:58 Sodium 133 mEq/L (136-145) L 07/03/18 04:40 Potassium 4.1 mEq/L (3.5-5.1) 07/03/18 04:40 Chloride 98 mEq/L (98-107) 07/03/18 04:40 Carbon Dioxide 27.1 mEq/L (21.0-31.0) 07/03/18 04:40 Anion Gap 12.0 (7.0-16.0) 07/03/18 04:40 BUN 17 mg/dL (7-25) 07/03/18 04:40 Creatinine 0.5 mg/dL (0.6-1.2) L 07/03/18 04:40 Est GFR ( Amer) > 60.0 ml/min (>90) 07/03/18 04:40 Est GFR (Non-Af Amer) > 60.0 ml/min 07/03/18 04:40 BUN/Creatinine Ratio 34.0 07/03/18 04:40 Glucose 233 mg/dL (70-105) H 07/03/18 04:40 POC Glucose 141 MG/DL (70 - 105) H 05/24/18 11:49 Hemoglobin A1c % 5.9 % (4.0-6.0) 05/23/18 20:08 Calcium 9.6 mg/dL (8.6-10.3) 07/03/18 04:40 Total Bilirubin 0.4 mg/dL (0.3-1.0) 07/02/18 05:58 AST 9 U/L (13-39) L 07/02/18 05:58 ALT 7 U/L (7-52) 07/02/18 05:58 Alkaline Phosphatase 141 U/L (34-104) H 07/02/18 05:58 Troponin I 0.01 ng/mL (0.01-0.05) 05/23/18 20:08 B-Natriuretic Peptide 44.6 pg/mL (5.0-100.0) 05/23/18 20:08 Total Protein 6.5 gm/dL (6.0-8.3) 07/02/18 05:58 Albumin 3.8 gm/dL (3.7-5.3) 07/02/18 05:58 Globulin 2.7 gm/dL 07/02/18 05:58 Albumin/Globulin Ratio 1.4 (1.0-1.8) 07/02/18 05:58 Triglycerides 191 mg/dL (<150) H 05/24/18 08:14 Cholesterol 171 mg/dL (<200) 05/24/18 08:14 LDL Cholesterol Direct 80 mg/dL (75-193) 05/24/18 08:14 HDL Cholesterol 67 mg/dL (23-92) 05/24/18 08:14 Urine Source RANDOM 05/23/18 20:30 Urine Color YELLOW 05/23/18 20:30 Urine Clarity CLEAR (CLEAR) 05/23/18 20:30 Urine pH 7.5 (4.6 - 8.0) 05/23/18 20:30 Ur Specific [place] 1.010 (1.005-1.030) 05/23/18 20:30 Urine Protein NEGATIVE mg/dL (NEGATIVE) 05/23/18 20:30 Urine Glucose (UA) 100 mg/dL (NEGATIVE) H 05/23/18 20:30 Urine Ketones NEGATIVE mg/dL (NEGATIVE) 05/23/18 20:30 Urine Blood NEGATIVE (NEGATIVE) 05/23/18 20:30 Urine Nitrate NEGATIVE (NEGATIVE) 05/23/18 20:30 Urine Bilirubin NEGATIVE (NEGATIVE) 05/23/18 20:30 Urine Urobilinogen 0.2 E.U./dL (0.2 - 1.0) 05/23/18 20:30 Ur Leukocyte Esterase NEGATIVE (NEGATIVE) 05/23/18 20:30 Urine RBC 0-2 /hpf (0-5) 05/23/18 20:30 Urine WBC 0-2 /hpf (0-5) 05/23/18 20:30 Ur Epithelial Cells FEW /lpf (FEW) 05/23/18 20:30 Urine Bacteria OCCASIONAL /hpf (NONE SEEN) 05/23/18 20:30 - Physical Exam Vitals and I&O: Vital Signs Temp 98.1 F 07/04/18 12:00 Pulse 95 07/04/18 12:00 Resp 18 07/04/18 12:00 BP 144/86 07/04/18 12:00 Pulse Ox 98 07/04/18 12:00 Intake & Output 07/03/18 07/04/18 07/04/18 18:59 06:59 18:59 Intake Total 900 Balance 900 Weight (lbs) 125 lb Intake: Oral 900 Other: # Voids 3 # Bowel Movements 1 Stool Characteristics Formed Weight Source Bedscale Active Medications: Current Medications Acetaminophen (Tylenol) 650 mg PO Q4H PRN PRN Reason: Pain (Moderate) Stop: 08/09/18 19:58 Last Admin: 06/28/18 02:55 Dose: 650 mg Acetaminophen/Hydrocodone Bitart ([place] 5mg/325mg) 1 tab PO Q6H PRN PRN Reason: Pain (Severe) 7-10 Stop: 08/09/18 21:57 Last Admin: 07/03/18 20:51 Dose: 1 tab Divalproex Sodium (Depakote Dr) 250 mg PO QAM [facility]; Protocol Stop: 07/24/18 08:59 Last Admin: 07/04/18 09:01 Dose: 250 mg Divalproex Sodium (Depakote Er) 500 mg PO QPM [facility]; Protocol Stop: 07/23/18 16:59 Last Admin: 07/03/18 17:42 Dose: 500 mg Famotidine (Pepcid) 20 mg PO DAILY [facility] Stop: 07/24/18 08:59 Last Admin: 07/04/18 09:01 Dose: 20 mg Gabapentin (Neurontin) 300 mg PO BID [facility] Stop: 07/23/18 16:59 Last Admin: 07/04/18 09:01 Dose: 300 mg Lactulose (Cephulac) 30 gm PO DAILY PRN PRN Reason: Constipation Stop: 08/06/18 13:18 Last Admin: 06/15/18 18:18 Dose: 30 gm Lorazepam (Ativan) 1 mg PO Q4HR PRN; Protocol PRN Reason: Agitation Stop: 07/30/18 12:30 Last Admin: 07/04/18 06:12 Dose: 1 mg Magnesium Hydroxide (Milk Of Magnesia) 30 ml PO DAILY PRN PRN Reason: Constipation Stop: 08/03/18 17:37 Last Admin: 06/23/18 05:37 Dose: 30 ml Memantine (Namenda) 10 mg PO BID [facility] Stop: 07/23/18 16:59 Last Admin: 07/04/18 09:01 Dose: 10 mg Metformin HCl (Glucophage) 500 mg PO BID [facility] Stop: 07/23/18 16:59 Last Admin: 07/04/18 09:01 Dose: 500 mg Propranolol HCl (Inderal) 10 mg PO BID [facility] Stop: 07/23/18 16:59 Last Admin: 07/04/18 09:50 Dose: 10 mg Quetiapine Fumarate (Seroquel) 25 mg PO TID [facility]; Protocol Stop: 07/23/18 13:59 Last Admin: 07/04/18 13:04 Dose: 25 mg Risperidone (Risperdal) 3 mg PO HS [facility]; Protocol Stop: 07/23/18 20:59 Last Admin: 07/03/18 20:51 Dose: 3 mg Simvastatin (Zocor) 20 mg PO HS [facility]; Protocol Stop: 07/23/18 20:59 Last Admin: 07/03/18 20:52 Dose: 20 mg Sodium Chloride (Nacl Tab) 2 gm PO BID [facility] Stop: 08/10/18 08:59 Last Admin: 07/04/18 09:01 Dose: 2 gm General: alert HEENT: NC/AT, PERRLA Neck: Supple Lungs: CTAB Cardiovascular: RRR, Normal S1, Normal S2, without murmur Abdomen: soft, non-tender, non-distended Neurological: alert Internal Medicine Assmt/Plan - Assessment Assessment: abnormal ekg htn hyperlipidemia dementia - Plan Plan: continue current plan of care Nutritional Asmnt/Malnutr-PDOC - Dietary Evaluation Malnutrition Findings (Please click <Entered> for more info): Nutritional Asmnt/Malnutrition Start: 05/24/18 16: 46 Text: Status: Complete Freq: Protocol: Document 05/24/18 16:46 LCHENG (Rec: 05/24/18 16:53 [email or web address]) Nutritional Asmnt/Malnutrition Patient General Information Nutritional Screening High Risk Diagnosis altered mental status Pertinent Medical Hx/Surgical Hx HTN, DM, dyslipidemia, dementia, bipolar Subjective Information Pt seen lying in bed at time of visit, has 1:1 sitter. Per Sitter, pt ate very well 100% of lunch. Pt is Yoruba speaking noted per nurse note. Current Diet Order/ Nutrition Support CCHO 60gm Pertinent Medications pepcid, glucophage, seroquel, nacl 0.45% Pertinent Labs 05/24 Na 132, Cl 96, Cr 0.5, glucose 209, POC 136-141 Nutritional Hx/Data Height 5 ft 6 in Height (Calculated Centimeters) 167.6 Current Weight (lbs) 123 lb Weight (Calculated Kilograms) 55.8 Weight (Calculated Grams) 01158.9 [place] Body Weight 142 Body Mass Index (BMI) 19.8 Weight Status Approriate GI Symptoms GI Symptoms None Last BM not indicated Difficult in: None Skin Integrity/Comment: old abdominal midline incision scar Current %PO Good (75-100%) Estimated Nutritional Goals BEE in Kcals: Using Current wt Calories/Kcals/Kg 25-30 Kcals Calculated 8559-4467 Protein: Using Current wt Protein g/k-1.2 Protein Calculated 56-67 Fluid: ml 1400-1680ml (1ml/kcal) Nutritional Problem 1. Problem Problem altered nutrition related labs Etiology hx of DM, electrolytes imbalance Signs/Symptoms: glucose 209, POC 136-141, Na 132, Cl 96 Malnutrition Alert Is there a minimum of two criteria No selected? Query Text:Check all the applicable criteria. A minimum of two criteria are recommended for diagnosis of either severe or non-severe malnutrition. Malnutrition Related to Morbid Obesity Malnutrition related to morbid obesity No Intervention/Recommendation Comments 1. Continue with [facility] 60gm diet as ordered. 2. Monitor PO intake, wt, labs and skin integrity 3. F/U as moderate risk in 3-5 days, 05/27-05/29 Expected Outcomes/Goals Expected Outcomes/Goals 1. PO intake to meet at least 75% of nutritional needs. 2. Wt stability, skin to remain intact, labs to approach WNL.
[2018-07-05] MEDS: Hydrocodone/APAP 5mg/325mg Tab PO PRN (02:16)
[2018-07-05] MEDS: Magnesium Hydroxide (MOM) 30 mL UDC PO PRN (14:36)
--- NOTE | 2018-07-05 16:57 | General Progress Note ---
Objective - Results Result Diagrams: 07/02/18 05:58 07/03/18 04:40 Recent Labs: Laboratory Last Values WBC 7.6 Th/cmm (4.8-10.8) 07/02/18 05:58 RBC 3.68 Mil/cmm (3.80-5.10) L 07/02/18 05:58 Hgb 11.9 gm/dL (12-16) L 07/02/18 05:58 Hct 35.5 % (41.0-60) L 07/02/18 05:58 MCV 96.5 fl (81-100) 07/02/18 05:58 MCH 32.3 pg (27.0-31.0) H 07/02/18 05:58 MCHC Differential 33.5 pg (28.0-36.0) 07/02/18 05:58 RDW 13.0 % (11.5-20.0) 07/02/18 05:58 Plt Count 249 Th/cmm (150-400) 07/02/18 05:58 MPV 7.9 fl 07/02/18 05:58 Neutrophils % 70.2 % (40.0-80.0) 07/02/18 05:58 Lymphocytes % 19.3 % (20.0-50.0) L 07/02/18 05:58 Monocytes % 9.4 % (2.0-10.0) 07/02/18 05:58 Eosinophils % 0.8 % (0.0-5.0) 07/02/18 05:58 Basophils % 0.3 % (0.0-2.0) 07/02/18 05:58 Sodium 133 mEq/L (136-145) L 07/03/18 04:40 Potassium 4.1 mEq/L (3.5-5.1) 07/03/18 04:40 Chloride 98 mEq/L (98-107) 07/03/18 04:40 Carbon Dioxide 27.1 mEq/L (21.0-31.0) 07/03/18 04:40 Anion Gap 12.0 (7.0-16.0) 07/03/18 04:40 BUN 17 mg/dL (7-25) 07/03/18 04:40 Creatinine 0.5 mg/dL (0.6-1.2) L 07/03/18 04:40 Est GFR ( Amer) > 60.0 ml/min (>90) 07/03/18 04:40 Est GFR (Non-Af Amer) > 60.0 ml/min 07/03/18 04:40 BUN/Creatinine Ratio 34.0 07/03/18 04:40 Glucose 233 mg/dL (70-105) H 07/03/18 04:40 POC Glucose 141 MG/DL (70 - 105) H 05/24/18 11:49 Hemoglobin A1c % 5.9 % (4.0-6.0) 05/23/18 20:08 Calcium 9.6 mg/dL (8.6-10.3) 07/03/18 04:40 Total Bilirubin 0.4 mg/dL (0.3-1.0) 07/02/18 05:58 AST 9 U/L (13-39) L 07/02/18 05:58 ALT 7 U/L (7-52) 07/02/18 05:58 Alkaline Phosphatase 141 U/L (34-104) H 07/02/18 05:58 Troponin I 0.01 ng/mL (0.01-0.05) 05/23/18 20:08 B-Natriuretic Peptide 44.6 pg/mL (5.0-100.0) 05/23/18 20:08 Total Protein 6.5 gm/dL (6.0-8.3) 07/02/18 05:58 Albumin 3.8 gm/dL (3.7-5.3) 07/02/18 05:58 Globulin 2.7 gm/dL 07/02/18 05:58 Albumin/Globulin Ratio 1.4 (1.0-1.8) 07/02/18 05:58 Triglycerides 191 mg/dL (<150) H 05/24/18 08:14 Cholesterol 171 mg/dL (<200) 05/24/18 08:14 LDL Cholesterol Direct 80 mg/dL (75-193) 05/24/18 08:14 HDL Cholesterol 67 mg/dL (23-92) 05/24/18 08:14 Urine Source RANDOM 05/23/18 20:30 Urine Color YELLOW 05/23/18 20:30 Urine Clarity CLEAR (CLEAR) 05/23/18 20:30 Urine pH 7.5 (4.6 - 8.0) 05/23/18 20:30 Ur Specific [place] 1.010 (1.005-1.030) 05/23/18 20:30 Urine Protein NEGATIVE mg/dL (NEGATIVE) 05/23/18 20:30 Urine Glucose (UA) 100 mg/dL (NEGATIVE) H 05/23/18 20:30 Urine Ketones NEGATIVE mg/dL (NEGATIVE) 05/23/18 20:30 Urine Blood NEGATIVE (NEGATIVE) 05/23/18 20:30 Urine Nitrate NEGATIVE (NEGATIVE) 05/23/18 20:30 Urine Bilirubin NEGATIVE (NEGATIVE) 05/23/18 20:30 Urine Urobilinogen 0.2 E.U./dL (0.2 - 1.0) 05/23/18 20:30 Ur Leukocyte Esterase NEGATIVE (NEGATIVE) 05/23/18 20:30 Urine RBC 0-2 /hpf (0-5) 05/23/18 20:30 Urine WBC 0-2 /hpf (0-5) 05/23/18 20:30 Ur Epithelial Cells FEW /lpf (FEW) 05/23/18 20:30 Urine Bacteria OCCASIONAL /hpf (NONE SEEN) 05/23/18 20:30 - Physical Exam Vitals and I&O: Vital Signs Temp 98 F 07/05/18 16:00 Pulse 91 07/05/18 16:05 Resp 18 07/05/18 16:00 BP 119/77 07/05/18 16:05 Pulse Ox 96 07/05/18 16:00 Intake & Output 07/04/18 07/05/18 07/05/18 18:59 06:59 18:59 Intake Total 900 800 Balance 900 800 Weight (lbs) 56.699 kg 56.245 kg Intake: Oral 900 800 Other: # Voids 7 5 # Bowel Movements 2 Stool Characteristics Formed Weight Source Bedscale Bedscale Active Medications: Current Medications Acetaminophen (Tylenol) 650 mg PO Q4H PRN PRN Reason: Pain (Moderate) Stop: 08/09/18 19:58 Last Admin: 06/28/18 02:55 Dose: 650 mg Acetaminophen/Hydrocodone Bitart ([place] 5mg/325mg) 1 tab PO Q6H PRN PRN Reason: Pain (Severe) 7-10 Stop: 08/09/18 21:57 Last Admin: 07/05/18 02:16 Dose: 1 tab Divalproex Sodium (Depakote Dr) 250 mg PO QAM [facility]; Protocol Stop: 07/24/18 08:59 Last Admin: 07/05/18 08:20 Dose: 250 mg Divalproex Sodium (Depakote Er) 500 mg PO QPM [facility]; Protocol Stop: 07/23/18 16:59 Last Admin: 07/05/18 16:05 Dose: 500 mg Famotidine (Pepcid) 20 mg PO DAILY [facility] Stop: 07/24/18 08:59 Last Admin: 07/05/18 08:20 Dose: 20 mg Gabapentin (Neurontin) 300 mg PO BID [facility] Stop: 07/23/18 16:59 Last Admin: 07/05/18 16:05 Dose: 300 mg Lactulose (Cephulac) 30 gm PO DAILY PRN PRN Reason: Constipation Stop: 08/06/18 13:18 Last Admin: 06/15/18 18:18 Dose: 30 gm Lorazepam (Ativan) 1 mg PO Q4HR PRN; Protocol PRN Reason: Agitation Stop: 07/30/18 12:30 Last Admin: 07/05/18 16:55 Dose: 1 mg Magnesium Hydroxide (Milk Of Magnesia) 30 ml PO DAILY PRN PRN Reason: Constipation Stop: 08/03/18 17:37 Last Admin: 07/05/18 14:36 Dose: 30 ml Memantine (Namenda) 10 mg PO BID [facility] Stop: 07/23/18 16:59 Last Admin: 07/05/18 16:05 Dose: 10 mg Metformin HCl (Glucophage) 500 mg PO BID [facility] Stop: 07/23/18 16:59 Last Admin: 07/05/18 16:05 Dose: 500 mg Propranolol HCl (Inderal) 10 mg PO BID [facility] Stop: 07/23/18 16:59 Last Admin: 07/05/18 16:05 Dose: 10 mg Quetiapine Fumarate (Seroquel) 25 mg PO TID [facility]; Protocol Stop: 07/23/18 13:59 Last Admin: 07/05/18 14:36 Dose: 25 mg Risperidone (Risperdal) 3 mg PO HS [facility]; Protocol Stop: 07/23/18 20:59 Last Admin: 07/04/18 20:23 Dose: 3 mg Simvastatin (Zocor) 20 mg PO HS [facility]; Protocol Stop: 07/23/18 20:59 Last Admin: 07/04/18 20:23 Dose: 20 mg Sodium Chloride (Nacl Tab) 2 gm PO BID [facility] Stop: 08/10/18 08:59 Last Admin: 07/05/18 16:05 Dose: 2 gm General: No acute distress HEENT: Atraumatic, PERRLA Neck: Supple, JVD, Thyromegaly Cardiovascular: Regular rate, Normal S1, Normal S2 Lungs: Clear to auscultation Abdomen: Bowel sounds Assessment/Plan - Problem List Patient Problems: All Active Problems Dementia (Acute) F03.90 HTN (hypertension) (Acute) I10 Hyperlipidemia (Acute) E78.5 Right humeral fracture (Acute) S42.301A Status post fall (Acute) Z91.81 - Plan Plan: continue current management labs monitor vitals diet Nutritional Asmnt/Malnutr-PDOC - Dietary Evaluation Malnutrition Findings (Please click <Entered> for more info): Nutritional Asmnt/Malnutrition Start: 05/24/18 16: 46 Text: Status: Complete Freq: Protocol: Document 05/24/18 16:46 LCHENG (Rec: 05/24/18 16:53 [email or web address]) Nutritional Asmnt/Malnutrition Patient General Information Nutritional Screening High Risk Diagnosis altered mental status Pertinent Medical Hx/Surgical Hx HTN, DM, dyslipidemia, dementia, bipolar Subjective Information Pt seen lying in bed at time of visit, has 1:1 sitter. Per Sitter, pt ate very well 100% of lunch. Pt is Nepali speaking noted per nurse note. Current Diet Order/ Nutrition Support CCHO 60gm Pertinent Medications pepcid, glucophage, seroquel, nacl 0.45% Pertinent Labs 05/24 Na 132, Cl 96, Cr 0.5, glucose 209, POC 136-141 Nutritional Hx/Data Height 1.68 m Height (Calculated Centimeters) 167.6 Current Weight (lbs) 55.792 kg Weight (Calculated Kilograms) 55.8 Weight (Calculated Grams) [address]11.9 [place] Body Weight 142 Body Mass Index (BMI) 19.8 Weight Status Approriate GI Symptoms GI Symptoms None Last BM not indicated Difficult in: None Skin Integrity/Comment: old abdominal midline incision scar Current %PO Good (75-100%) Estimated Nutritional Goals BEE in Kcals: Using Current wt Calories/Kcals/Kg 25-30 Kcals Calculated 4170-3926 Protein: Using Current wt Protein g/k-1.2 Protein Calculated 56-67 Fluid: ml 1400-1680ml (1ml/kcal) Nutritional Problem 1. Problem Problem altered nutrition related labs Etiology hx of DM, electrolytes imbalance Signs/Symptoms: glucose 209, POC 136-141, Na 132, Cl 96 Malnutrition Alert Is there a minimum of two criteria No selected? Query Text:Check all the applicable criteria. A minimum of two criteria are recommended for diagnosis of either severe or non-severe malnutrition. Malnutrition Related to Morbid Obesity Malnutrition related to morbid obesity No Intervention/Recommendation Comments 1. Continue with [facility] 60gm diet as ordered. 2. Monitor PO intake, wt, labs and skin integrity 3. F/U as moderate risk in 3-5 days, 05/27-05/29 Expected Outcomes/Goals Expected Outcomes/Goals 1. PO intake to meet at least 75% of nutritional needs. 2. Wt stability, skin to remain intact, labs to approach WNL.
[2018-07-06] MEDS: Hydrocodone/APAP 5mg/325mg Tab PO PRN (04:41)
--- NOTE | 2018-07-06 15:49 | General Progress Note ---
Subjective - Review of Systems Events since last encounter: patient is awake agitated at times very confused Objective - Results Result Diagrams: 07/02/18 05:58 07/03/18 04:40 Recent Labs: Laboratory Last Values WBC 7.6 Th/cmm (4.8-10.8) 07/02/18 05:58 RBC 3.68 Mil/cmm (3.80-5.10) L 07/02/18 05:58 Hgb 11.9 gm/dL (12-16) L 07/02/18 05:58 Hct 35.5 % (41.0-60) L 07/02/18 05:58 MCV 96.5 fl (81-100) 07/02/18 05:58 MCH 32.3 pg (27.0-31.0) H 07/02/18 05:58 MCHC Differential 33.5 pg (28.0-36.0) 07/02/18 05:58 RDW 13.0 % (11.5-20.0) 07/02/18 05:58 Plt Count 249 Th/cmm (150-400) 07/02/18 05:58 MPV 7.9 fl 07/02/18 05:58 Neutrophils % 70.2 % (40.0-80.0) 07/02/18 05:58 Lymphocytes % 19.3 % (20.0-50.0) L 07/02/18 05:58 Monocytes % 9.4 % (2.0-10.0) 07/02/18 05:58 Eosinophils % 0.8 % (0.0-5.0) 07/02/18 05:58 Basophils % 0.3 % (0.0-2.0) 07/02/18 05:58 Sodium 133 mEq/L (136-145) L 07/03/18 04:40 Potassium 4.1 mEq/L (3.5-5.1) 07/03/18 04:40 Chloride 98 mEq/L (98-107) 07/03/18 04:40 Carbon Dioxide 27.1 mEq/L (21.0-31.0) 07/03/18 04:40 Anion Gap 12.0 (7.0-16.0) 07/03/18 04:40 BUN 17 mg/dL (7-25) 07/03/18 04:40 Creatinine 0.5 mg/dL (0.6-1.2) L 07/03/18 04:40 Est GFR ( Amer) > 60.0 ml/min (>90) 07/03/18 04:40 Est GFR (Non-Af Amer) > 60.0 ml/min 07/03/18 04:40 BUN/Creatinine Ratio 34.0 07/03/18 04:40 Glucose 233 mg/dL (70-105) H 07/03/18 04:40 POC Glucose 141 MG/DL (70 - 105) H 05/24/18 11:49 Hemoglobin A1c % 5.9 % (4.0-6.0) 05/23/18 20:08 Calcium 9.6 mg/dL (8.6-10.3) 07/03/18 04:40 Total Bilirubin 0.4 mg/dL (0.3-1.0) 07/02/18 05:58 AST 9 U/L (13-39) L 07/02/18 05:58 ALT 7 U/L (7-52) 07/02/18 05:58 Alkaline Phosphatase 141 U/L (34-104) H 07/02/18 05:58 Troponin I 0.01 ng/mL (0.01-0.05) 05/23/18 20:08 B-Natriuretic Peptide 44.6 pg/mL (5.0-100.0) 05/23/18 20:08 Total Protein 6.5 gm/dL (6.0-8.3) 07/02/18 05:58 Albumin 3.8 gm/dL (3.7-5.3) 07/02/18 05:58 Globulin 2.7 gm/dL 07/02/18 05:58 Albumin/Globulin Ratio 1.4 (1.0-1.8) 07/02/18 05:58 Triglycerides 191 mg/dL (<150) H 05/24/18 08:14 Cholesterol 171 mg/dL (<200) 05/24/18 08:14 LDL Cholesterol Direct 80 mg/dL (75-193) 05/24/18 08:14 HDL Cholesterol 67 mg/dL (23-92) 05/24/18 08:14 Urine Source RANDOM 05/23/18 20:30 Urine Color YELLOW 05/23/18 20:30 Urine Clarity CLEAR (CLEAR) 05/23/18 20:30 Urine pH 7.5 (4.6 - 8.0) 05/23/18 20:30 Ur Specific [place] 1.010 (1.005-1.030) 05/23/18 20:30 Urine Protein NEGATIVE mg/dL (NEGATIVE) 05/23/18 20:30 Urine Glucose (UA) 100 mg/dL (NEGATIVE) H 05/23/18 20:30 Urine Ketones NEGATIVE mg/dL (NEGATIVE) 05/23/18 20:30 Urine Blood NEGATIVE (NEGATIVE) 05/23/18 20:30 Urine Nitrate NEGATIVE (NEGATIVE) 05/23/18 20:30 Urine Bilirubin NEGATIVE (NEGATIVE) 05/23/18 20:30 Urine Urobilinogen 0.2 E.U./dL (0.2 - 1.0) 05/23/18 20:30 Ur Leukocyte Esterase NEGATIVE (NEGATIVE) 05/23/18 20:30 Urine RBC 0-2 /hpf (0-5) 05/23/18 20:30 Urine WBC 0-2 /hpf (0-5) 05/23/18 20:30 Ur Epithelial Cells FEW /lpf (FEW) 05/23/18 20:30 Urine Bacteria OCCASIONAL /hpf (NONE SEEN) 05/23/18 20:30 - Physical Exam Vitals and I&O: Vital Signs Temp 97.7 F 07/06/18 08:00 Pulse 91 07/06/18 08:05 Resp 18 07/06/18 08:00 BP 145/80 07/06/18 08:05 Pulse Ox 98 07/06/18 08:00 Intake & Output 07/05/18 07/06/18 07/06/18 18:59 06:59 18:59 Intake Total 1000 1300 500 Balance 1000 1300 500 Weight (lbs) 57.153 kg 57.153 kg 57.153 kg Intake: Oral 1000 1300 500 Other: # Voids 5 4 2 # Bowel Movements 2 Weight Source Bedscale Bedscale Bedscale Active Medications: Current Medications Acetaminophen (Tylenol) 650 mg PO Q4H PRN PRN Reason: Pain (Moderate) Stop: 08/09/18 19:58 Last Admin: 06/28/18 02:55 Dose: 650 mg Acetaminophen/Hydrocodone Bitart ([place] 5mg/325mg) 1 tab PO Q6H PRN PRN Reason: Pain (Severe) 7-10 Stop: 08/09/18 21:57 Last Admin: 07/06/18 04:41 Dose: 1 tab Divalproex Sodium (Depakote Dr) 250 mg PO QAM [facility]; Protocol Stop: 07/24/18 08:59 Last Admin: 07/06/18 08:08 Dose: 250 mg Divalproex Sodium (Depakote Er) 500 mg PO QPM [facility]; Protocol Stop: 07/23/18 16:59 Last Admin: 07/05/18 16:05 Dose: 500 mg Famotidine (Pepcid) 20 mg PO DAILY [facility] Stop: 07/24/18 08:59 Last Admin: 07/06/18 08:05 Dose: 20 mg Gabapentin (Neurontin) 300 mg PO BID [facility] Stop: 07/23/18 16:59 Last Admin: 07/06/18 08:05 Dose: 300 mg Lactulose (Cephulac) 30 gm PO DAILY PRN PRN Reason: Constipation Stop: 08/06/18 13:18 Last Admin: 06/15/18 18:18 Dose: 30 gm Lorazepam (Ativan) 1 mg PO Q4HR PRN; Protocol PRN Reason: Agitation Stop: 07/30/18 12:30 Last Admin: 07/06/18 03:15 Dose: 1 mg Magnesium Hydroxide (Milk Of Magnesia) 30 ml PO DAILY PRN PRN Reason: Constipation Stop: 08/03/18 17:37 Last Admin: 07/05/18 14:36 Dose: 30 ml Memantine (Namenda) 10 mg PO BID [facility] Stop: 07/23/18 16:59 Last Admin: 07/06/18 08:05 Dose: 10 mg Metformin HCl (Glucophage) 500 mg PO BID [facility] Stop: 07/23/18 16:59 Last Admin: 07/06/18 08:05 Dose: 500 mg Propranolol HCl (Inderal) 10 mg PO BID [facility] Stop: 07/23/18 16:59 Last Admin: 07/06/18 08:05 Dose: 10 mg Quetiapine Fumarate (Seroquel) 25 mg PO TID [facility]; Protocol Stop: 07/23/18 13:59 Last Admin: 07/06/18 13:07 Dose: 25 mg Risperidone (Risperdal) 3 mg PO HS [facility]; Protocol Stop: 07/23/18 20:59 Last Admin: 07/05/18 21:27 Dose: 3 mg Simvastatin (Zocor) 20 mg PO HS [facility]; Protocol Stop: 07/23/18 20:59 Last Admin: 07/05/18 21:23 Dose: 20 mg Sodium Chloride (Nacl Tab) 2 gm PO BID [facility] Stop: 08/10/18 08:59 Last Admin: 07/06/18 08:06 Dose: 2 gm General: No acute distress HEENT: Atraumatic, PERRLA Neck: Supple, JVD, Thyromegaly Cardiovascular: Regular rate, Normal S1, Normal S2 Lungs: Clear to auscultation Abdomen: Bowel sounds Assessment/Plan - Problem List Patient Problems: All Active Problems Dementia (Acute) F03.90 HTN (hypertension) (Acute) I10 Hyperlipidemia (Acute) E78.5 Right humeral fracture (Acute) S42.301A Status post fall (Acute) Z91.81 - Plan Plan: continue current management labs monitor vitals diet Nutritional Asmnt/Malnutr-PDOC - Dietary Evaluation Malnutrition Findings (Please click <Entered> for more info): Nutritional Asmnt/Malnutrition Start: 05/24/18 16: 46 Text: Status: Complete Freq: Protocol: Document 05/24/18 16:46 LCHENG (Rec: 05/24/18 16:53 [email or web address] [email or web address]) Nutritional Asmnt/Malnutrition Patient General Information Nutritional Screening High Risk Diagnosis altered mental status Pertinent Medical Hx/Surgical Hx HTN, DM, dyslipidemia, dementia, bipolar Subjective Information Pt seen lying in bed at time of visit, has 1:1 sitter. Per Sitter, pt ate very well 100% of lunch. Pt is [place] speaking noted per nurse note. Current Diet Order/ Nutrition Support CCHO 60gm Pertinent Medications pepcid, glucophage, seroquel, nacl 0.45% Pertinent Labs 05/24 Na 132, Cl 96, Cr 0.5, glucose 209, POC 136-141 Nutritional Hx/Data Height 1.68 m Height (Calculated Centimeters) 167.6 Current Weight (lbs) 55.792 kg Weight (Calculated Kilograms) 55.8 Weight (Calculated Grams) 87905.9 [place] Body Weight 142 Body Mass Index (BMI) 19.8 Weight Status Approriate GI Symptoms GI Symptoms None Last BM not indicated Difficult in: None Skin Integrity/Comment: old abdominal midline incision scar Current %PO Good (75-100%) Estimated Nutritional Goals BEE in Kcals: Using Current wt Calories/Kcals/Kg 25-30 Kcals Calculated 1597-6020 Protein: Using Current wt Protein g/k-1.2 Protein Calculated 56-67 Fluid: ml 1400-1680ml (1ml/kcal) Nutritional Problem 1. Problem Problem altered nutrition related labs Etiology hx of DM, electrolytes imbalance Signs/Symptoms: glucose 209, POC 136-141, Na 132, Cl 96 Malnutrition Alert Is there a minimum of two criteria No selected? Query Text:Check all the applicable criteria. A minimum of two criteria are recommended for diagnosis of either severe or non-severe malnutrition. Malnutrition Related to Morbid Obesity Malnutrition related to morbid obesity No Intervention/Recommendation Comments 1. [facility] diet as ordered. 2. Monitor PO intake, wt, labs and skin integrity 3. F/U as moderate risk in 3-5 days, 05/27-05/29 Expected Outcomes/Goals Expected Outcomes/Goals 1. PO intake to meet at least 75% of nutritional needs. 2. Wt stability, skin to remain intact, labs to approach WNL.
--- NOTE | 2018-07-06 22:42 | Progress Notes ---
DATE: PSYCHIATRIC PROGRESS NOTE SUBJECTIVE: Chart reviewed and the patient interviewed. Also discussed her condition with the staff and reviewed records and labs. The patient continued to be extremely . Also, it still nervous and is still pacing up and down in the room in a confused state. She also still monitored 1:1 observation because of her confusion and irritability. She also still has difficulty following directions. Otherwise, the patient is compliant with taking medications with no side effects. ASSESSMENT: The patient is still psychotic. TREATMENT PLAN: The patient is alert and also to continue to work on discharge plans and placement issue. No side effects of medications. JOB# [id number]
[2018-07-07] MEDS: Hydrocodone/APAP 5mg/325mg Tab PO PRN (08:25)
--- NOTE | 2018-07-07 09:24 | Progress Notes ---
DATE: Chart reviewed and the patient interviewed. Also discussed the patient's condition with the staff and reviewed the records and labs. The patient continued to be anxious. The patient is still pacing up and down inside her room, but no major behavioral problems. The patient also is still monitored closely because of her pacing, but no aggression or agitation. The patient also continued to comply with taking her medications with no side effects of medications. ASSESSMENT: The patient is still psychotic and seems to be responding. TREATMENT PLAN: We will discontinue Risperdal. Also, we will increase Seroquel to 37.5 mg twice a day. Also, we will start the patient on Klonopin 0.5 mg 3 times a day and we will continue to follow. Also, we will get Depakote blood level. JOB# [id number]
--- NOTE | 2018-07-07 12:57 | Internal Medicine Prog Note ---
Internal Medicine Subjective - Subjective Service Date: 07/07/18 (s/p fall ) Patient is:: awake, agitated, confused Patient Complaints of:: unable to sleep Per staff patient has:: no adverse event, tolerating meds Internal Medicine Objective - Results Result Diagrams: 07/02/18 05:58 07/03/18 04:40 Recent Labs: Laboratory Last Values WBC 7.6 Th/cmm (4.8-10.8) 07/02/18 05:58 RBC 3.68 Mil/cmm (3.80-5.10) L 07/02/18 05:58 Hgb 11.9 gm/dL (12-16) L 07/02/18 05:58 Hct 35.5 % (41.0-60) L 07/02/18 05:58 MCV 96.5 fl (81-100) 07/02/18 05:58 MCH 32.3 pg (27.0-31.0) H 07/02/18 05:58 MCHC Differential 33.5 pg (28.0-36.0) 07/02/18 05:58 RDW 13.0 % (11.5-20.0) 07/02/18 05:58 Plt Count 249 Th/cmm (150-400) 07/02/18 05:58 MPV 7.9 fl 07/02/18 05:58 Neutrophils % 70.2 % (40.0-80.0) 07/02/18 05:58 Lymphocytes % 19.3 % (20.0-50.0) L 07/02/18 05:58 Monocytes % 9.4 % (2.0-10.0) 07/02/18 05:58 Eosinophils % 0.8 % (0.0-5.0) 07/02/18 05:58 Basophils % 0.3 % (0.0-2.0) 07/02/18 05:58 Sodium 133 mEq/L (136-145) L 07/03/18 04:40 Potassium 4.1 mEq/L (3.5-5.1) 07/03/18 04:40 Chloride 98 mEq/L (98-107) 07/03/18 04:40 Carbon Dioxide 27.1 mEq/L (21.0-31.0) 07/03/18 04:40 Anion Gap 12.0 (7.0-16.0) 07/03/18 04:40 BUN 17 mg/dL (7-25) 07/03/18 04:40 Creatinine 0.5 mg/dL (0.6-1.2) L 07/03/18 04:40 Est GFR ( Amer) > 60.0 ml/min (>90) 07/03/18 04:40 Est GFR (Non-Af Amer) > 60.0 ml/min 07/03/18 04:40 BUN/Creatinine Ratio 34.0 07/03/18 04:40 Glucose 233 mg/dL (70-105) H 07/03/18 04:40 POC Glucose 141 MG/DL (70 - 105) H 05/24/18 11:49 Hemoglobin A1c % 5.9 % (4.0-6.0) 05/23/18 20:08 Calcium 9.6 mg/dL (8.6-10.3) 07/03/18 04:40 Total Bilirubin 0.4 mg/dL (0.3-1.0) 07/02/18 05:58 AST 9 U/L (13-39) L 07/02/18 05:58 ALT 7 U/L (7-52) 07/02/18 05:58 Alkaline Phosphatase 141 U/L (34-104) H 07/02/18 05:58 Troponin I 0.01 ng/mL (0.01-0.05) 05/23/18 20:08 B-Natriuretic Peptide 44.6 pg/mL (5.0-100.0) 05/23/18 20:08 Total Protein 6.5 gm/dL (6.0-8.3) 07/02/18 05:58 Albumin 3.8 gm/dL (3.7-5.3) 07/02/18 05:58 Globulin 2.7 gm/dL 07/02/18 05:58 Albumin/Globulin Ratio 1.4 (1.0-1.8) 07/02/18 05:58 Triglycerides 191 mg/dL (<150) H 05/24/18 08:14 Cholesterol 171 mg/dL (<200) 05/24/18 08:14 LDL Cholesterol Direct 80 mg/dL (75-193) 05/24/18 08:14 HDL Cholesterol 67 mg/dL (23-92) 05/24/18 08:14 Urine Source RANDOM 05/23/18 20:30 Urine Color YELLOW 05/23/18 20:30 Urine Clarity CLEAR (CLEAR) 05/23/18 20:30 Urine pH 7.5 (4.6 - 8.0) 05/23/18 20:30 Ur Specific [place] 1.010 (1.005-1.030) 05/23/18 20:30 Urine Protein NEGATIVE mg/dL (NEGATIVE) 05/23/18 20:30 Urine Glucose (UA) 100 mg/dL (NEGATIVE) H 05/23/18 20:30 Urine Ketones NEGATIVE mg/dL (NEGATIVE) 05/23/18 20:30 Urine Blood NEGATIVE (NEGATIVE) 05/23/18 20:30 Urine Nitrate NEGATIVE (NEGATIVE) 05/23/18 20:30 Urine Bilirubin NEGATIVE (NEGATIVE) 05/23/18 20:30 Urine Urobilinogen 0.2 E.U./dL (0.2 - 1.0) 05/23/18 20:30 Ur Leukocyte Esterase NEGATIVE (NEGATIVE) 05/23/18 20:30 Urine RBC 0-2 /hpf (0-5) 05/23/18 20:30 Urine WBC 0-2 /hpf (0-5) 05/23/18 20:30 Ur Epithelial Cells FEW /lpf (FEW) 05/23/18 20:30 Urine Bacteria OCCASIONAL /hpf (NONE SEEN) 05/23/18 20:30 Valproic Acid 38.1 ug/mL (50.0-100.0) L 07/07/18 07:00 - Physical Exam Vitals and I&O: Vital Signs Temp 98.0 F 07/07/18 12:00 Pulse 77 07/07/18 12:00 Resp 18 07/07/18 12:00 BP 145/98 07/07/18 12:00 Pulse Ox 98 07/07/18 12:00 Intake & Output 07/06/18 07/07/18 07/07/18 18:59 06:59 18:59 Intake Total 500 500 Balance 500 500 Weight (lbs) 126 lb 126 lb Intake: Oral 500 500 Other: # Voids 2 3 Weight Source Bedscale Bedscale Active Medications: Current Medications Acetaminophen (Tylenol) 650 mg PO Q4H PRN PRN Reason: Pain (Moderate) Stop: 08/09/18 19:58 Last Admin: 07/07/18 11:05 Dose: 650 mg Acetaminophen/Hydrocodone Bitart ([place] 5mg/325mg) 1 tab PO Q6H PRN PRN Reason: Pain (Severe) 7-10 Stop: 08/09/18 21:57 Last Admin: 07/07/18 08:25 Dose: 1 tab Clonazepam (Klonopin) 0.5 mg PO TID [facility]; Protocol Stop: 09/05/18 08:59 Last Admin: 07/07/18 09:19 Dose: 0.5 mg Divalproex Sodium (Depakote Dr) 250 mg PO QAM [facility]; Protocol Stop: 07/24/18 08:59 Last Admin: 07/07/18 08:25 Dose: 250 mg Divalproex Sodium (Depakote Er) 500 mg PO QPM [facility]; Protocol Stop: 07/23/18 16:59 Last Admin: 07/06/18 16:32 Dose: 500 mg Famotidine (Pepcid) 20 mg PO DAILY [facility] Stop: 07/24/18 08:59 Last Admin: 07/07/18 08:25 Dose: 20 mg Gabapentin (Neurontin) 300 mg PO BID [facility] Stop: 07/23/18 16:59 Last Admin: 07/07/18 08:25 Dose: 300 mg Lactulose (Cephulac) 30 gm PO DAILY PRN PRN Reason: Constipation Stop: 08/06/18 13:18 Last Admin: 06/15/18 18:18 Dose: 30 gm Lorazepam (Ativan) 1 mg PO Q4HR PRN; Protocol PRN Reason: Agitation Stop: 07/30/18 12:30 Last Admin: 07/07/18 08:25 Dose: 1 mg Magnesium Hydroxide (Milk Of Magnesia) 30 ml PO DAILY PRN PRN Reason: Constipation Stop: 08/03/18 17:37 Last Admin: 07/05/18 14:36 Dose: 30 ml Memantine (Namenda) 10 mg PO BID [facility] Stop: 07/23/18 16:59 Last Admin: 07/07/18 08:25 Dose: 10 mg Metformin HCl (Glucophage) 500 mg PO BID [facility] Stop: 07/23/18 16:59 Last Admin: 07/07/18 08:25 Dose: 500 mg Propranolol HCl (Inderal) 10 mg PO BID [facility] Stop: 07/23/18 16:59 Last Admin: 07/07/18 08:22 Dose: 10 mg Quetiapine Fumarate (Seroquel) 37.5 mg PO TID [facility]; Protocol Stop: 09/05/18 10:59 Last Admin: 07/07/18 11:06 Dose: 37.5 mg Simvastatin (Zocor) 20 mg PO HS [facility]; Protocol Stop: 07/23/18 20:59 Last Admin: 07/06/18 20:41 Dose: 20 mg Sodium Chloride (Nacl Tab) 2 gm PO BID [facility] Stop: 08/10/18 08:59 Last Admin: 07/07/18 08:25 Dose: 2 gm General: alert HEENT: NC/AT, PERRLA Neck: Supple Lungs: CTAB Cardiovascular: RRR, Normal S1, Normal S2, without murmur Abdomen: soft, non-tender, non-distended Neurological: alert Internal Medicine Assmt/Plan - Assessment Assessment: abnormal ekg htn hyperlipidemia dementia - Plan Plan: fall precautions continue current plan of care Nutritional Asmnt/Malnutr-PDOC - Dietary Evaluation Malnutrition Findings (Please click <Entered> for more info): Nutritional Asmnt/Malnutrition Start: 05/24/18 16: 46 Text: Status: Complete Freq: Protocol: Document 05/24/18 16:46 LCHENG (Rec: 05/24/18 16:53 [email or web address] [email or web address]) Nutritional Asmnt/Malnutrition Patient General Information Nutritional Screening High Risk Diagnosis altered mental status Pertinent Medical Hx/Surgical Hx HTN, DM, dyslipidemia, dementia, bipolar Subjective Information Pt seen lying in bed at time of visit, has 1:1 sitter. Per Sitter, pt ate very well 100% of lunch. Pt is Syriac speaking noted per nurse note. Current Diet Order/ Nutrition Support CCHO 60gm Pertinent Medications pepcid, glucophage, seroquel, nacl 0.45% Pertinent Labs 05/24 Na 132, Cl 96, Cr 0.5, glucose 209, POC 136-141 Nutritional Hx/Data Height 5 ft 6 in Height (Calculated Centimeters) 167.6 Current Weight (lbs) 123 lb Weight (Calculated Kilograms) 55.8 Weight (Calculated Grams) [address]68.9 [place] Body Weight 142 Body Mass Index (BMI) 19.8 Weight Status Approriate GI Symptoms GI Symptoms None Last BM not indicated Difficult in: None Skin Integrity/Comment: old abdominal midline incision scar Current %PO Good (75-100%) Estimated Nutritional Goals BEE in Kcals: Using Current wt Calories/Kcals/Kg 25-30 Kcals Calculated 9812-3674 Protein: Using Current wt Protein g/k-1.2 Protein Calculated 56-67 Fluid: ml 1400-1680ml (1ml/kcal) Nutritional Problem 1. Problem Problem altered nutrition related labs Etiology hx of DM, electrolytes imbalance Signs/Symptoms: glucose 209, POC 136-141, Na 132, Cl 96 Malnutrition Alert Is there a minimum of two criteria No selected? Query Text:Check all the applicable criteria. A minimum of two criteria are recommended for diagnosis of either severe or non-severe malnutrition. Malnutrition Related to Morbid Obesity Malnutrition related to morbid obesity No Intervention/Recommendation Comments 1. Continue with CCHO 60gm diet as ordered. 2. Monitor PO intake, wt, labs and skin integrity 3. F/U as moderate risk in 3-5 days, 05/27-05/29 Expected Outcomes/Goals Expected Outcomes/Goals 1. PO intake to meet at least 75% of nutritional needs. 2. Wt stability, skin to remain intact, labs to approach WNL.
--- NOTE | 2018-07-07 14:21 | Diagnostic Imaging Report ---
Pelvis and bilateral hips 2 views Indication: Fall Comparison: none Findings: Mild degenerative changes of both hip joints are noted. No evidence of an acute fracture or dislocation. Copious stool is noted. Focal surgical changes of the right lower quadrant is noted. 1 cm calcification, likely injection granuloma the right upper pelvis is noted. Impression: No evidence of an acute fracture or dislocation. Mild degenerative changes. In the setting of trauma, if clinical symptoms persist and there is continued concern for an occult fracture, follow up exams in 5-7 days is suggested.
--- NOTE | 2018-07-07 14:22 | Diagnostic Imaging Report ---
Head CT without intravenous contrast Indication: Trauma Comparison: None Technique: Axial images were obtained from the vertex to the skull base without IV contrast. Coronal reconstructions were made. Total DLP: 648, CTDI36 FINDINGS: Images of the brain obtained without contrast demonstrate no evidence of an acute hemorrhage. Faint left basal and calcification is noted. There is probable old lacunar infarct adjacent to the right caudate head. The ventricles and basal cisterns are patent. No mass effect or midline shift. No evidence of a skull fracture or focal soft tissue swelling. There is mucosal thickening in the paranasal sinuses. IMPRESSION: No evidence of an acute intracranial hemorrhage Chronic appearing lacunar infarct adjacent the right caudate head.
--- NOTE | 2018-07-08 10:24 | Progress Notes ---
DATE: 07/08/2018 SUBJECTIVE: The patient was seen in room. The patient is currently asleep with a 1:1 sitter at bedside for safety precautions. Otherwise, the patient appears to be in no acute distress. OBJECTIVE: VITAL SIGNS: Temperature 97.8, heart rate 75, respiration 18, blood pressure 135/72, 98% on room air. HEENT: Head is atraumatic and normocephalic. Eyes: Bilateral conjunctivae are clear. Bilateral pupils equal, round and reactive. NECK: Supple. No JVD. CARDIOVASCULAR: S1 and S2, without murmur. PULMONARY: Clear to auscultation. GASTROINTESTINAL: Soft and nontender without guarding. Positive bowel sounds. MUSCULOSKELETAL: No clubbing. No cyanosis noted. ASSESSMENT: 1. Dementia. 2. Hypertension. 3. Hyperlipidemia. 4. Status post fall. PLAN: We will continue 1:1 sitter. We will put the patient on fall precaution. We will follow up with the home health care social worker for placement. Treatment plans were discussed with the patient's nurse. Treatment plans were discussed with Dr. Patiño. JOB# [id number]
--- NOTE | 2018-07-08 12:53 | Progress Notes ---
DATE: SUBJECTIVE: Chart reviewed and the patient interviewed. Also discussed the patient's condition with the staff and reviewed records and labs. The patient remains extremely anxious and in irritable moods. The patient also is still suspicious and is still irritable and pacing up and down and did not sleep at all last night. She also is still pacing in the room and staff trying to redirect her with no help. On the other hand, the patient is compliant with taking her medications with no side effects. ASSESSMENT: The patient is still agitated and in irritable mood and having difficulty sleeping at night. TREATMENT PLAN: We will increase Seroquel to 100 mg 3 times a day and also will give trazodone at a dose of 100 mg at bedtime. Also, we will increase Klonopin to 1 mg 3 times a day because of severe agitation and aggressive behavior. JOB# [id number]
[2018-07-08] MEDS: Hydrocodone/APAP 5mg/325mg Tab PO PRN (23:32)
--- NOTE | 2018-07-09 05:29 | Progress Notes ---
DATE: Chart reviewed and the patient interviewed. Also discussed the patient's condition with the staff and reviewed records and labs. The patient is still agitated and still has difficulty sleeping at night and difficulty following any of staff directions. The patient also is still restless and she is still having severe mood swings. The patient also is still unable to follow [facility]# [id number]
--- NOTE | 2018-07-09 05:41 | Progress Notes ---
DATE: SUBJECTIVE: Chart reviewed and the patient interviewed. Also discussed the patient's condition with the staff and reviewed records and labs. The patient still has difficulty sleeping at night and she is still severely agitated and restless. The patient also is still in an irritable and angry mood and she is still having difficulty sleeping at night. She also still has been resisting care because of her confusion. The patient also still needs lots of redirections. Otherwise, the patient is compliant with taking medications with no side effects. ASSESSMENT: The patient is still agitated and irritable and confused. TREATMENT PLAN: We will increase Depakote to 500 mg twice a day and we will increase Seroquel to 150 mg 3 times a day. Also, continue monitoring her behavior and work on her irritability and agitation. JOB# [id number]
--- NOTE | 2018-07-09 08:53 | General Progress Note ---
Subjective - Review of Systems Events since last encounter: patient confused and irritable Objective - Results Result Diagrams: 07/02/18 05:58 07/03/18 04:40 Recent Labs: Laboratory Last Values WBC 7.6 Th/cmm (4.8-10.8) 07/02/18 05:58 RBC 3.68 Mil/cmm (3.80-5.10) L 07/02/18 05:58 Hgb 11.9 gm/dL (12-16) L 07/02/18 05:58 Hct 35.5 % (41.0-60) L 07/02/18 05:58 MCV 96.5 fl (81-100) 07/02/18 05:58 MCH 32.3 pg (27.0-31.0) H 07/02/18 05:58 MCHC Differential 33.5 pg (28.0-36.0) 07/02/18 05:58 RDW 13.0 % (11.5-20.0) 07/02/18 05:58 Plt Count 249 Th/cmm (150-400) 07/02/18 05:58 MPV 7.9 fl 07/02/18 05:58 Neutrophils % 70.2 % (40.0-80.0) 07/02/18 05:58 Lymphocytes % 19.3 % (20.0-50.0) L 07/02/18 05:58 Monocytes % 9.4 % (2.0-10.0) 07/02/18 05:58 Eosinophils % 0.8 % (0.0-5.0) 07/02/18 05:58 Basophils % 0.3 % (0.0-2.0) 07/02/18 05:58 Sodium 133 mEq/L (136-145) L 07/03/18 04:40 Potassium 4.1 mEq/L (3.5-5.1) 07/03/18 04:40 Chloride 98 mEq/L (98-107) 07/03/18 04:40 Carbon Dioxide 27.1 mEq/L (21.0-31.0) 07/03/18 04:40 Anion Gap 12.0 (7.0-16.0) 07/03/18 04:40 BUN 17 mg/dL (7-25) 07/03/18 04:40 Creatinine 0.5 mg/dL (0.6-1.2) L 07/03/18 04:40 Est GFR ( Amer) > 60.0 ml/min (>90) 07/03/18 04:40 Est GFR (Non-Af Amer) > 60.0 ml/min 07/03/18 04:40 BUN/Creatinine Ratio 34.0 07/03/18 04:40 Glucose 233 mg/dL (70-105) H 07/03/18 04:40 POC Glucose 141 MG/DL (70 - 105) H 05/24/18 11:49 Hemoglobin A1c % 5.9 % (4.0-6.0) 05/23/18 20:08 Calcium 9.6 mg/dL (8.6-10.3) 07/03/18 04:40 Total Bilirubin 0.4 mg/dL (0.3-1.0) 07/02/18 05:58 AST 9 U/L (13-39) L 07/02/18 05:58 ALT 7 U/L (7-52) 07/02/18 05:58 Alkaline Phosphatase 141 U/L (34-104) H 07/02/18 05:58 Troponin I 0.01 ng/mL (0.01-0.05) 05/23/18 20:08 B-Natriuretic Peptide 44.6 pg/mL (5.0-100.0) 05/23/18 20:08 Total Protein 6.5 gm/dL (6.0-8.3) 07/02/18 05:58 Albumin 3.8 gm/dL (3.7-5.3) 07/02/18 05:58 Globulin 2.7 gm/dL 07/02/18 05:58 Albumin/Globulin Ratio 1.4 (1.0-1.8) 07/02/18 05:58 Triglycerides 191 mg/dL (<150) H 05/24/18 08:14 Cholesterol 171 mg/dL (<200) 05/24/18 08:14 LDL Cholesterol Direct 80 mg/dL (75-193) 05/24/18 08:14 HDL Cholesterol 67 mg/dL (23-92) 05/24/18 08:14 Urine Source RANDOM 05/23/18 20:30 Urine Color YELLOW 05/23/18 20:30 Urine Clarity CLEAR (CLEAR) 05/23/18 20:30 Urine pH 7.5 (4.6 - 8.0) 05/23/18 20:30 Ur Specific [place] 1.010 (1.005-1.030) 05/23/18 20:30 Urine Protein NEGATIVE mg/dL (NEGATIVE) 05/23/18 20:30 Urine Glucose (UA) 100 mg/dL (NEGATIVE) H 05/23/18 20:30 Urine Ketones NEGATIVE mg/dL (NEGATIVE) 05/23/18 20:30 Urine Blood NEGATIVE (NEGATIVE) 05/23/18 20:30 Urine Nitrate NEGATIVE (NEGATIVE) 05/23/18 20:30 Urine Bilirubin NEGATIVE (NEGATIVE) 05/23/18 20:30 Urine Urobilinogen 0.2 E.U./dL (0.2 - 1.0) 05/23/18 20:30 Ur Leukocyte Esterase NEGATIVE (NEGATIVE) 05/23/18 20:30 Urine RBC 0-2 /hpf (0-5) 05/23/18 20:30 Urine WBC 0-2 /hpf (0-5) 05/23/18 20:30 Ur Epithelial Cells FEW /lpf (FEW) 05/23/18 20:30 Urine Bacteria OCCASIONAL /hpf (NONE SEEN) 05/23/18 20:30 Valproic Acid 38.1 ug/mL (50.0-100.0) L 07/07/18 07:00 - Physical Exam Vitals and I&O: Vital Signs Temp 98 F 07/08/18 16:00 Pulse 76 07/08/18 16:04 Resp 18 07/09/18 08:00 BP 169/70 07/08/18 16:04 Pulse Ox 98 07/08/18 16:00 Intake & Output 07/08/18 07/09/18 07/09/18 18:59 06:59 18:59 Intake Total 1000 300 Output Total 3 Balance 1000 297 Weight (lbs) 56.699 kg 56.699 kg Intake: Oral 1000 300 Output: Urine 3 Other: # Voids 4 3 # Bowel Movements 1 Weight Source Bedscale Bedscale Active Medications: Current Medications Acetaminophen (Tylenol) 650 mg PO Q4H PRN PRN Reason: Pain (Moderate) Stop: 08/09/18 19:58 Last Admin: 07/07/18 11:05 Dose: 650 mg Acetaminophen/Hydrocodone Bitart ([place] 5mg/325mg) 1 tab PO Q6H PRN PRN Reason: Pain (Severe) 7-10 Stop: 08/09/18 21:57 Last Admin: 07/08/18 23:32 Dose: 1 tab Clonazepam (Klonopin) 1 mg PO TID [facility]; Protocol Stop: 09/06/18 08:59 Last Admin: 07/08/18 22:00 Dose: 1 mg Divalproex Sodium (Depakote Er) 500 mg PO QPM [facility]; Protocol Stop: 07/23/18 16:59 Last Admin: 07/08/18 16:04 Dose: 500 mg Divalproex Sodium (Depakote Dr) 500 mg PO QAM [facility]; Protocol Stop: 09/07/18 08:59 Famotidine (Pepcid) 20 mg PO DAILY [facility] Stop: 07/24/18 08:59 Last Admin: 07/08/18 08:12 Dose: 20 mg Gabapentin (Neurontin) 300 mg PO BID [facility] Stop: 07/23/18 16:59 Last Admin: 07/08/18 16:04 Dose: 300 mg Lorazepam (Ativan) 1 mg PO Q4HR PRN; Protocol PRN Reason: Agitation Stop: 07/30/18 12:30 Last Admin: 07/08/18 23:33 Dose: 1 mg Magnesium Hydroxide (Milk Of Magnesia) 30 ml PO DAILY PRN PRN Reason: Constipation Stop: 08/03/18 17:37 Last Admin: 07/05/18 14:36 Dose: 30 ml Memantine (Namenda) 10 mg PO BID [facility] Stop: 07/23/18 16:59 Last Admin: 07/08/18 16:04 Dose: 10 mg Metformin HCl (Glucophage) 500 mg PO BID [facility] Stop: 07/23/18 16:59 Last Admin: 07/08/18 16:04 Dose: 500 mg Propranolol HCl (Inderal) 10 mg PO BID [facility] Stop: 07/23/18 16:59 Last Admin: 07/08/18 16:04 Dose: 10 mg Quetiapine Fumarate (Seroquel) 150 mg PO TID [facility]; Protocol Stop: 09/07/18 08:59 Simvastatin (Zocor) 20 mg PO HS [facility]; Protocol Stop: 07/23/18 20:59 Last Admin: 07/08/18 22:00 Dose: 20 mg Sodium Chloride (Nacl Tab) 2 gm PO BID [facility] Stop: 08/10/18 08:59 Last Admin: 07/08/18 16:04 Dose: 2 gm Trazodone HCl (Desyrel) 150 mg PO HS [facility]; Protocol Stop: 09/07/18 20:59 General: No acute distress HEENT: Atraumatic, PERRLA Neck: Supple, JVD, Thyromegaly Cardiovascular: Regular rate, Normal S1, Normal S2 Lungs: Clear to auscultation Abdomen: Bowel sounds Assessment/Plan - Problem List Patient Problems: All Active Problems Dementia (Acute) F03.90 HTN (hypertension) (Acute) I10 Hyperlipidemia (Acute) E78.5 Right humeral fracture (Acute) S42.301A Status post fall (Acute) Z91.81 - Plan Plan: continue current management labs monitor vitals diet Nutritional Asmnt/Malnutr-PDOC - Dietary Evaluation Malnutrition Findings (Please click <Entered> for more info): Nutritional Asmnt/Malnutrition Start: 05/24/18 16: 46 Text: Status: Complete Freq: Protocol: Document 05/24/18 16:46 LCHENG (Rec: 05/24/18 16:53 LCHENG [email or web address]) Nutritional Asmnt/Malnutrition Patient General Information Nutritional Screening High Risk Diagnosis altered mental status Pertinent Medical Hx/Surgical Hx HTN, DM, dyslipidemia, dementia, bipolar Subjective Information Pt seen lying in bed at time of visit, has 1:1 sitter. Per Sitter, pt ate very well 100% of lunch. Pt is Tajik speaking noted per nurse note. Current Diet Order/ Nutrition Support CCHO 60gm Pertinent Medications pepcid, glucophage, seroquel, nacl 0.45% Pertinent Labs 05/24 Na 132, Cl 96, Cr 0.5, glucose 209, POC 136-141 Nutritional Hx/Data Height 1.68 m Height (Calculated Centimeters) 167.6 Current Weight (lbs) 55.792 kg Weight (Calculated Kilograms) 55.8 Weight (Calculated Grams) 89355.9 [place] Body Weight 142 Body Mass Index (BMI) 19.8 Weight Status Approriate GI Symptoms GI Symptoms None Last BM not indicated Difficult in: None Skin Integrity/Comment: old abdominal midline incision scar Current %PO Good (75-100%) Estimated Nutritional Goals BEE in Kcals: Using Current wt Calories/Kcals/Kg 25-30 Kcals Calculated 3833-9767 Protein: Using Current wt Protein g/k-1.2 Protein Calculated 56-67 Fluid: ml 1400-1680ml (1ml/kcal) Nutritional Problem 1. Problem Problem altered nutrition related labs Etiology hx of DM, electrolytes imbalance Signs/Symptoms: glucose 209, POC 136-141, Na 132, Cl 96 Malnutrition Alert Is there a minimum of two criteria No selected? Query Text:Check all the applicable criteria. A minimum of two criteria are recommended for diagnosis of either severe or non-severe malnutrition. Malnutrition Related to Morbid Obesity Malnutrition related to morbid obesity No Intervention/Recommendation Comments 1. Continue with [facility] 60gm diet as ordered. 2. Monitor PO intake, wt, labs and skin integrity 3. F/U as moderate risk in 3-5 days, 05/27-05/29 Expected Outcomes/Goals Expected Outcomes/Goals 1. PO intake to meet at least 75% of nutritional needs. 2. Wt stability, skin to remain intact, labs to approach WNL.
[2018-07-10] MEDS: Hydrocodone/APAP 5mg/325mg Tab PO PRN (08:50)
--- NOTE | 2018-07-10 11:33 | General Progress Note ---
Subjective - Review of Systems Events since last encounter: no change no signs of pain Objective - Results Result Diagrams: 07/02/18 05:58 07/03/18 04:40 Recent Labs: Laboratory Last Values WBC 7.6 Th/cmm (4.8-10.8) 07/02/18 05:58 RBC 3.68 Mil/cmm (3.80-5.10) L 07/02/18 05:58 Hgb 11.9 gm/dL (12-16) L 07/02/18 05:58 Hct 35.5 % (41.0-60) L 07/02/18 05:58 MCV 96.5 fl (81-100) 07/02/18 05:58 MCH 32.3 pg (27.0-31.0) H 07/02/18 05:58 MCHC Differential 33.5 pg (28.0-36.0) 07/02/18 05:58 RDW 13.0 % (11.5-20.0) 07/02/18 05:58 Plt Count 249 Th/cmm (150-400) 07/02/18 05:58 MPV 7.9 fl 07/02/18 05:58 Neutrophils % 70.2 % (40.0-80.0) 07/02/18 05:58 Lymphocytes % 19.3 % (20.0-50.0) L 07/02/18 05:58 Monocytes % 9.4 % (2.0-10.0) 07/02/18 05:58 Eosinophils % 0.8 % (0.0-5.0) 07/02/18 05:58 Basophils % 0.3 % (0.0-2.0) 07/02/18 05:58 Sodium 133 mEq/L (136-145) L 07/03/18 04:40 Potassium 4.1 mEq/L (3.5-5.1) 07/03/18 04:40 Chloride 98 mEq/L (98-107) 07/03/18 04:40 Carbon Dioxide 27.1 mEq/L (21.0-31.0) 07/03/18 04:40 Anion Gap 12.0 (7.0-16.0) 07/03/18 04:40 BUN 17 mg/dL (7-25) 07/03/18 04:40 Creatinine 0.5 mg/dL (0.6-1.2) L 07/03/18 04:40 Est GFR ( Amer) > 60.0 ml/min (>90) 07/03/18 04:40 Est GFR (Non-Af Amer) > 60.0 ml/min 07/03/18 04:40 BUN/Creatinine Ratio 34.0 07/03/18 04:40 Glucose 233 mg/dL (70-105) H 07/03/18 04:40 POC Glucose 141 MG/DL (70 - 105) H 05/24/18 11:49 Hemoglobin A1c % 5.9 % (4.0-6.0) 05/23/18 20:08 Calcium 9.6 mg/dL (8.6-10.3) 07/03/18 04:40 Total Bilirubin 0.4 mg/dL (0.3-1.0) 07/02/18 05:58 AST 9 U/L (13-39) L 07/02/18 05:58 ALT 7 U/L (7-52) 07/02/18 05:58 Alkaline Phosphatase 141 U/L (34-104) H 07/02/18 05:58 Troponin I 0.01 ng/mL (0.01-0.05) 05/23/18 20:08 B-Natriuretic Peptide 44.6 pg/mL (5.0-100.0) 05/23/18 20:08 Total Protein 6.5 gm/dL (6.0-8.3) 07/02/18 05:58 Albumin 3.8 gm/dL (3.7-5.3) 07/02/18 05:58 Globulin 2.7 gm/dL 07/02/18 05:58 Albumin/Globulin Ratio 1.4 (1.0-1.8) 07/02/18 05:58 Triglycerides 191 mg/dL (<150) H 05/24/18 08:14 Cholesterol 171 mg/dL (<200) 05/24/18 08:14 LDL Cholesterol Direct 80 mg/dL (75-193) 05/24/18 08:14 HDL Cholesterol 67 mg/dL (23-92) 05/24/18 08:14 Urine Source RANDOM 05/23/18 20:30 Urine Color YELLOW 05/23/18 20:30 Urine Clarity CLEAR (CLEAR) 05/23/18 20:30 Urine pH 7.5 (4.6 - 8.0) 05/23/18 20:30 Ur Specific [place] 1.010 (1.005-1.030) 05/23/18 20:30 Urine Protein NEGATIVE mg/dL (NEGATIVE) 05/23/18 20:30 Urine Glucose (UA) 100 mg/dL (NEGATIVE) H 05/23/18 20:30 Urine Ketones NEGATIVE mg/dL (NEGATIVE) 05/23/18 20:30 Urine Blood NEGATIVE (NEGATIVE) 05/23/18 20:30 Urine Nitrate NEGATIVE (NEGATIVE) 05/23/18 20:30 Urine Bilirubin NEGATIVE (NEGATIVE) 05/23/18 20:30 Urine Urobilinogen 0.2 E.U./dL (0.2 - 1.0) 05/23/18 20:30 Ur Leukocyte Esterase NEGATIVE (NEGATIVE) 05/23/18 20:30 Urine RBC 0-2 /hpf (0-5) 05/23/18 20:30 Urine WBC 0-2 /hpf (0-5) 05/23/18 20:30 Ur Epithelial Cells FEW /lpf (FEW) 05/23/18 20:30 Urine Bacteria OCCASIONAL /hpf (NONE SEEN) 05/23/18 20:30 Valproic Acid 38.1 ug/mL (50.0-100.0) L 07/07/18 07:00 - Physical Exam Vitals and I&O: Vital Signs Temp 98.7 F 07/10/18 08:18 Pulse 71 07/10/18 08:28 Resp 18 07/10/18 08:18 BP 154/84 07/10/18 08:28 Pulse Ox 71 07/10/18 08:18 Intake & Output 07/09/18 07/10/18 07/10/18 18:59 06:59 18:59 Intake Total 1999 150 Balance 1999 150 Weight (lbs) 56.699 kg 56.699 kg Intake: Oral 1999 150 Other: # Voids 4 1 # Bowel Movements 0 Weight Source Bedscale Bedscale Active Medications: Current Medications Acetaminophen (Tylenol) 650 mg PO Q4H PRN PRN Reason: Pain (Moderate) Stop: 08/09/18 19:58 Last Admin: 07/07/18 11:05 Dose: 650 mg Acetaminophen/Hydrocodone Bitart ([place] 5mg/325mg) 1 tab PO Q6H PRN PRN Reason: Pain (Severe) 7-10 Stop: 08/09/18 21:57 Last Admin: 07/10/18 08:50 Dose: 1 tab Clonazepam (Klonopin) 1 mg PO TID [facility]; Protocol Stop: 09/06/18 08:59 Last Admin: 07/10/18 08:26 Dose: 1 mg Divalproex Sodium (Depakote Er) 500 mg PO QPM [facility]; Protocol Stop: 07/23/18 16:59 Last Admin: 07/09/18 17:30 Dose: 500 mg Divalproex Sodium (Depakote Dr) 500 mg PO QAM [facility]; Protocol Stop: 09/07/18 08:59 Last Admin: 07/10/18 08:25 Dose: 500 mg Famotidine (Pepcid) 20 mg PO DAILY [facility] Stop: 07/24/18 08:59 Last Admin: 07/10/18 08:25 Dose: 20 mg Gabapentin (Neurontin) 300 mg PO BID [facility] Stop: 07/23/18 16:59 Last Admin: 07/10/18 08:26 Dose: 300 mg Lorazepam (Ativan) 1 mg PO Q4HR PRN; Protocol PRN Reason: Agitation Stop: 07/30/18 12:30 Last Admin: 07/10/18 08:50 Dose: 1 mg Magnesium Hydroxide (Milk Of Magnesia) 30 ml PO DAILY PRN PRN Reason: Constipation Stop: 08/03/18 17:37 Last Admin: 07/05/18 14:36 Dose: 30 ml Memantine (Namenda) 10 mg PO BID [facility] Stop: 07/23/18 16:59 Last Admin: 07/10/18 08:26 Dose: 10 mg Metformin HCl (Glucophage) 500 mg PO BID [facility] Stop: 07/23/18 16:59 Last Admin: 07/10/18 08:26 Dose: 500 mg Propranolol HCl (Inderal) 10 mg PO BID [facility] Stop: 07/23/18 16:59 Last Admin: 07/10/18 08:28 Dose: 10 mg Quetiapine Fumarate (Seroquel) 150 mg PO TID [facility]; Protocol Stop: 09/07/18 08:59 Last Admin: 07/10/18 08:25 Dose: 150 mg Simvastatin (Zocor) 20 mg PO HS [facility]; Protocol Stop: 07/23/18 20:59 Last Admin: 07/09/18 22:03 Dose: 20 mg Sodium Chloride (Nacl Tab) 2 gm PO BID [facility] Stop: 08/10/18 08:59 Last Admin: 07/10/18 08:26 Dose: 2 gm Trazodone HCl (Desyrel) 150 mg PO HS [facility]; Protocol Stop: 09/07/18 20:59 General: No acute distress HEENT: Atraumatic, PERRLA Neck: Supple, JVD, Thyromegaly Cardiovascular: Regular rate, Normal S1, Normal S2 Lungs: Clear to auscultation Abdomen: Bowel sounds Assessment/Plan - Problem List Patient Problems: All Active Problems Dementia (Acute) F03.90 HTN (hypertension) (Acute) I10 Hyperlipidemia (Acute) E78.5 Right humeral fracture (Acute) S42.301A Status post fall (Acute) Z91.81 - Plan Plan: continue current management labs monitor vitals diet Nutritional Asmnt/Malnutr-PDOC - Dietary Evaluation Malnutrition Findings (Please click <Entered> for more info): Nutritional Asmnt/Malnutrition Start: 05/24/18 16: 46 Text: Status: Complete Freq: Protocol: Document 05/24/18 16:46 LCHENG (Rec: 05/24/18 16:53 [email or web address] [id number]) Nutritional Asmnt/Malnutrition Patient General Information Nutritional Screening High Risk Diagnosis altered mental status Pertinent Medical Hx/Surgical Hx HTN, DM, dyslipidemia, dementia, bipolar Subjective Information Pt seen lying in bed at time of visit, has 1:1 sitter. Per Sitter, pt ate very well 100% of lunch. Pt is Polish speaking noted per nurse note. Current Diet Order/ Nutrition Support CCHO 60gm Pertinent Medications pepcid, glucophage, seroquel, nacl 0.45% Pertinent Labs 05/24 Na 132, Cl 96, Cr 0.5, glucose 209, POC 136-141 Nutritional Hx/Data Height 1.68 m Height (Calculated Centimeters) 167.6 Current Weight (lbs) 55.792 kg Weight (Calculated Kilograms) 55.8 Weight (Calculated Grams) 18551.9 [place] Body Weight 142 Body Mass Index (BMI) 19.8 Weight Status Approriate GI Symptoms GI Symptoms None Last BM not indicated Difficult in: None Skin Integrity/Comment: old abdominal midline incision scar Current %PO Good (75-100%) Estimated Nutritional Goals BEE in Kcals: Using Current wt Calories/Kcals/Kg 25-30 Kcals Calculated 0242-5791 Protein: Using Current wt Protein g/k-1.2 Protein Calculated 56-67 Fluid: ml 1400-1680ml (1ml/kcal) Nutritional Problem 1. Problem Problem altered nutrition related labs Etiology hx of DM, electrolytes imbalance Signs/Symptoms: glucose 209, POC 136-141, Na 132, Cl 96 Malnutrition Alert Is there a minimum of two criteria No selected? Query Text:Check all the applicable criteria. A minimum of two criteria are recommended for diagnosis of either severe or non-severe malnutrition. Malnutrition Related to Morbid Obesity Malnutrition related to morbid obesity No Intervention/Recommendation Comments 1. [facility] as ordered. 2. Monitor PO intake, wt, labs and skin integrity 3. F/U as moderate risk in 3-5 days, 05/27-05/29 Expected Outcomes/Goals Expected Outcomes/Goals 1. PO intake to meet at least 75% of nutritional needs. 2. Wt stability, skin to remain intact, labs to approach WNL.
--- NOTE | 2018-07-11 12:11 | Internal Medicine Prog Note ---
Internal Medicine Subjective - Subjective Service Date: 07/11/18 Patient is:: awake, agitated, confused Patient Complaints of:: unable to sleep Per staff patient has:: no adverse event, tolerating meds Internal Medicine Objective - Results Result Diagrams: 07/02/18 05:58 07/03/18 04:40 Recent Labs: Laboratory Last Values WBC 7.6 Th/cmm (4.8-10.8) 07/02/18 05:58 RBC 3.68 Mil/cmm (3.80-5.10) L 07/02/18 05:58 Hgb 11.9 gm/dL (12-16) L 07/02/18 05:58 Hct 35.5 % (41.0-60) L 07/02/18 05:58 MCV 96.5 fl (81-100) 07/02/18 05:58 MCH 32.3 pg (27.0-31.0) H 07/02/18 05:58 MCHC Differential 33.5 pg (28.0-36.0) 07/02/18 05:58 RDW 13.0 % (11.5-20.0) 07/02/18 05:58 Plt Count 249 Th/cmm (150-400) 07/02/18 05:58 MPV 7.9 fl 07/02/18 05:58 Neutrophils % 70.2 % (40.0-80.0) 07/02/18 05:58 Lymphocytes % 19.3 % (20.0-50.0) L 07/02/18 05:58 Monocytes % 9.4 % (2.0-10.0) 07/02/18 05:58 Eosinophils % 0.8 % (0.0-5.0) 07/02/18 05:58 Basophils % 0.3 % (0.0-2.0) 07/02/18 05:58 Sodium 133 mEq/L (136-145) L 07/03/18 04:40 Potassium 4.1 mEq/L (3.5-5.1) 07/03/18 04:40 Chloride 98 mEq/L (98-107) 07/03/18 04:40 Carbon Dioxide 27.1 mEq/L (21.0-31.0) 07/03/18 04:40 Anion Gap 12.0 (7.0-16.0) 07/03/18 04:40 BUN 17 mg/dL (7-25) 07/03/18 04:40 Creatinine 0.5 mg/dL (0.6-1.2) L 07/03/18 04:40 Est GFR ( Amer) > 60.0 ml/min (>90) 07/03/18 04:40 Est GFR (Non-Af Amer) > 60.0 ml/min 07/03/18 04:40 BUN/Creatinine Ratio 34.0 07/03/18 04:40 Glucose 233 mg/dL (70-105) H 07/03/18 04:40 POC Glucose 141 MG/DL (70 - 105) H 05/24/18 11:49 Hemoglobin A1c % 5.9 % (4.0-6.0) 05/23/18 20:08 Calcium 9.6 mg/dL (8.6-10.3) 07/03/18 04:40 Total Bilirubin 0.4 mg/dL (0.3-1.0) 07/02/18 05:58 AST 9 U/L (13-39) L 07/02/18 05:58 ALT 7 U/L (7-52) 07/02/18 05:58 Alkaline Phosphatase 141 U/L (34-104) H 07/02/18 05:58 Troponin I 0.01 ng/mL (0.01-0.05) 05/23/18 20:08 B-Natriuretic Peptide 44.6 pg/mL (5.0-100.0) 05/23/18 20:08 Total Protein 6.5 gm/dL (6.0-8.3) 07/02/18 05:58 Albumin 3.8 gm/dL (3.7-5.3) 07/02/18 05:58 Globulin 2.7 gm/dL 07/02/18 05:58 Albumin/Globulin Ratio 1.4 (1.0-1.8) 07/02/18 05:58 Triglycerides 191 mg/dL (<150) H 05/24/18 08:14 Cholesterol 171 mg/dL (<200) 05/24/18 08:14 LDL Cholesterol Direct 80 mg/dL (75-193) 05/24/18 08:14 HDL Cholesterol 67 mg/dL (23-92) 05/24/18 08:14 Urine Source RANDOM 05/23/18 20:30 Urine Color YELLOW 05/23/18 20:30 Urine Clarity CLEAR (CLEAR) 05/23/18 20:30 Urine pH 7.5 (4.6 - 8.0) 05/23/18 20:30 Ur Specific [place] 1.010 (1.005-1.030) 05/23/18 20:30 Urine Protein NEGATIVE mg/dL (NEGATIVE) 05/23/18 20:30 Urine Glucose (UA) 100 mg/dL (NEGATIVE) H 05/23/18 20:30 Urine Ketones NEGATIVE mg/dL (NEGATIVE) 05/23/18 20:30 Urine Blood NEGATIVE (NEGATIVE) 05/23/18 20:30 Urine Nitrate NEGATIVE (NEGATIVE) 05/23/18 20:30 Urine Bilirubin NEGATIVE (NEGATIVE) 05/23/18 20:30 Urine Urobilinogen 0.2 E.U./dL (0.2 - 1.0) 05/23/18 20:30 Ur Leukocyte Esterase NEGATIVE (NEGATIVE) 05/23/18 20:30 Urine RBC 0-2 /hpf (0-5) 05/23/18 20:30 Urine WBC 0-2 /hpf (0-5) 05/23/18 20:30 Ur Epithelial Cells FEW /lpf (FEW) 05/23/18 20:30 Urine Bacteria OCCASIONAL /hpf (NONE SEEN) 05/23/18 20:30 Valproic Acid 38.1 ug/mL (50.0-100.0) L 07/07/18 07:00 - Physical Exam Vitals and I&O: Vital Signs Temp 96.1 F 07/11/18 08:00 Pulse 92 07/11/18 09:37 Resp 18 07/11/18 08:00 BP 139/77 07/11/18 09:37 Pulse Ox 98 07/11/18 08:00 Intake & Output 07/10/18 07/11/18 07/11/18 18:59 06:59 18:59 Intake Total 1800 500 Balance 1800 500 Weight (lbs) 125 lb 125 lb Intake: Oral 1800 500 Other: # Voids 3 3 # Bowel Movements 0 Weight Source Bedscale Bedscale Active Medications: Current Medications Acetaminophen (Tylenol) 650 mg PO Q4H PRN PRN Reason: Pain (Moderate) Stop: 08/09/18 19:58 Last Admin: 07/07/18 11:05 Dose: 650 mg Acetaminophen/Hydrocodone Bitart ([place] 5mg/325mg) 1 tab PO Q6H PRN PRN Reason: Pain (Severe) 7-10 Stop: 08/09/18 21:57 Last Admin: 07/10/18 08:50 Dose: 1 tab Clonazepam (Klonopin) 1 mg PO TID [facility]; Protocol Stop: 09/06/18 08:59 Last Admin: 07/11/18 09:32 Dose: 1 mg Divalproex Sodium (Depakote Er) 500 mg PO QPM [facility]; Protocol Stop: 07/23/18 16:59 Last Admin: 07/10/18 16:36 Dose: Not Given Divalproex Sodium (Depakote Dr) 500 mg PO QAM [facility]; Protocol Stop: 09/07/18 08:59 Last Admin: 07/11/18 09:31 Dose: 500 mg Famotidine (Pepcid) 20 mg PO DAILY [facility] Stop: 07/24/18 08:59 Last Admin: 07/11/18 09:32 Dose: 20 mg Gabapentin (Neurontin) 300 mg PO BID [facility] Stop: 07/23/18 16:59 Last Admin: 07/11/18 09:31 Dose: 300 mg Lorazepam (Ativan) 1 mg PO Q4HR PRN; Protocol PRN Reason: Agitation Stop: 07/30/18 12:30 Last Admin: 07/11/18 09:31 Dose: 1 mg Magnesium Hydroxide (Milk Of Magnesia) 30 ml PO DAILY PRN PRN Reason: Constipation Stop: 08/03/18 17:37 Last Admin: 07/05/18 14:36 Dose: 30 ml Memantine (Namenda) 10 mg PO BID [facility] Stop: 07/23/18 16:59 Last Admin: 07/11/18 09:31 Dose: 10 mg Metformin HCl (Glucophage) 500 mg PO BID [facility] Stop: 07/23/18 16:59 Last Admin: 07/11/18 09:31 Dose: 500 mg Propranolol HCl (Inderal) 10 mg PO BID [facility] Stop: 07/23/18 16:59 Last Admin: 07/11/18 09:37 Dose: 10 mg Quetiapine Fumarate (Seroquel) 150 mg PO TID [facility]; Protocol Stop: 09/07/18 08:59 Last Admin: 07/11/18 09:31 Dose: 150 mg Simvastatin (Zocor) 20 mg PO HS [facility]; Protocol Stop: 07/23/18 20:59 Last Admin: 07/10/18 22:58 Dose: 20 mg Sodium Chloride (Nacl Tab) 2 gm PO BID [facility] Stop: 08/10/18 08:59 Last Admin: 07/11/18 09:31 Dose: 2 gm Trazodone HCl (Desyrel) 150 mg PO HS [facility]; Protocol Stop: 09/07/18 20:59 General: alert HEENT: NC/AT, PERRLA Neck: Supple Lungs: CTAB Cardiovascular: RRR, Normal S1, Normal S2, without murmur Abdomen: soft, non-tender, non-distended Neurological: alert Internal Medicine Assmt/Plan - Assessment Assessment: abnormal ekg htn hyperlipidemia dementia - Plan Plan: fall precautions continue current plan of care Nutritional Asmnt/Malnutr-PDOC - Dietary Evaluation Malnutrition Findings (Please click <Entered> for more info): Nutritional Asmnt/Malnutrition Start: 05/24/18 16: 46 Text: Status: Complete Freq: Protocol: Document 05/24/18 16:46 LCHENG (Rec: 05/24/18 16:53 [email or web address]) Nutritional Asmnt/Malnutrition Patient General Information Nutritional Screening High Risk Diagnosis altered mental status Pertinent Medical Hx/Surgical Hx HTN, DM, dyslipidemia, dementia, bipolar Subjective Information Pt seen lying in bed at time of visit, has 1:1 sitter. Per Sitter, pt ate very well 100% of lunch. Pt is Persian speaking noted per nurse note. Current Diet Order/ Nutrition Support CCHO 60gm Pertinent Medications pepcid, glucophage, seroquel, nacl 0.45% Pertinent Labs 05/24 Na 132, Cl 96, Cr 0.5, glucose 209, POC 136-141 Nutritional Hx/Data Height 5 ft 6 in Height (Calculated Centimeters) 167.6 Current Weight (lbs) 123 lb Weight (Calculated Kilograms) 55.8 Weight (Calculated Grams) 62880.9 [place] Body Weight 142 Body Mass Index (BMI) 19.8 Weight Status Approriate GI Symptoms GI Symptoms None Last BM not indicated Difficult in: None Skin Integrity/Comment: old abdominal midline incision scar Current %PO Good (75-100%) Estimated Nutritional Goals BEE in Kcals: Using Current wt Calories/Kcals/Kg 25-30 Kcals Calculated 5994-2489 Protein: Using Current wt Protein g/k-1.2 Protein Calculated 56-67 Fluid: ml 1400-1680ml (1ml/kcal) Nutritional Problem 1. Problem Problem altered nutrition related labs Etiology hx of DM, electrolytes imbalance Signs/Symptoms: glucose 209, POC 136-141, Na 132, Cl 96 Malnutrition Alert Is there a minimum of two criteria No selected? Query Text:Check all the applicable criteria. A minimum of two criteria are recommended for diagnosis of either severe or non-severe malnutrition. Malnutrition Related to Morbid Obesity Malnutrition related to morbid obesity No Intervention/Recommendation Comments 1. Continue with [facility] 60gm diet as ordered. 2. Monitor PO intake, wt, labs and skin integrity 3. F/U as moderate risk in 3-5 days, 05/27-05/29 Expected Outcomes/Goals Expected Outcomes/Goals 1. PO intake to meet at least 75% of nutritional needs. 2. Wt stability, skin to remain intact, labs to approach WNL.
[2018-07-11] MEDS: Hydrocodone/APAP 5mg/325mg Tab PO PRN (13:24)
[2018-07-12] MEDS: Hydrocodone/APAP 5mg/325mg Tab PO PRN ×2 (02:45→10:20)
--- NOTE | 2018-07-12 16:45 | Internal Medicine Prog Note ---
Internal Medicine Subjective - Subjective Patient is:: awake, agitated, confused Patient Complaints of:: unable to sleep Per staff patient has:: no adverse event, tolerating meds Internal Medicine Objective - Results Result Diagrams: 07/02/18 05:58 07/03/18 04:40 Recent Labs: Laboratory Last Values WBC 7.6 Th/cmm (4.8-10.8) 07/02/18 05:58 RBC 3.68 Mil/cmm (3.80-5.10) L 07/02/18 05:58 Hgb 11.9 gm/dL (12-16) L 07/02/18 05:58 Hct 35.5 % (41.0-60) L 07/02/18 05:58 MCV 96.5 fl (81-100) 07/02/18 05:58 MCH 32.3 pg (27.0-31.0) H 07/02/18 05:58 MCHC Differential 33.5 pg (28.0-36.0) 07/02/18 05:58 RDW 13.0 % (11.5-20.0) 07/02/18 05:58 Plt Count 249 Th/cmm (150-400) 07/02/18 05:58 MPV 7.9 fl 07/02/18 05:58 Neutrophils % 70.2 % (40.0-80.0) 07/02/18 05:58 Lymphocytes % 19.3 % (20.0-50.0) L 07/02/18 05:58 Monocytes % 9.4 % (2.0-10.0) 07/02/18 05:58 Eosinophils % 0.8 % (0.0-5.0) 07/02/18 05:58 Basophils % 0.3 % (0.0-2.0) 07/02/18 05:58 Sodium 133 mEq/L (136-145) L 07/03/18 04:40 Potassium 4.1 mEq/L (3.5-5.1) 07/03/18 04:40 Chloride 98 mEq/L (98-107) 07/03/18 04:40 Carbon Dioxide 27.1 mEq/L (21.0-31.0) 07/03/18 04:40 Anion Gap 12.0 (7.0-16.0) 07/03/18 04:40 BUN 17 mg/dL (7-25) 07/03/18 04:40 Creatinine 0.5 mg/dL (0.6-1.2) L 07/03/18 04:40 Est GFR ( Amer) > 60.0 ml/min (>90) 07/03/18 04:40 Est GFR (Non-Af Amer) > 60.0 ml/min 07/03/18 04:40 BUN/Creatinine Ratio 34.0 07/03/18 04:40 Glucose 233 mg/dL (70-105) H 07/03/18 04:40 POC Glucose 141 MG/DL (70 - 105) H 05/24/18 11:49 Hemoglobin A1c % 5.9 % (4.0-6.0) 05/23/18 20:08 Calcium 9.6 mg/dL (8.6-10.3) 07/03/18 04:40 Total Bilirubin 0.4 mg/dL (0.3-1.0) 07/02/18 05:58 AST 9 U/L (13-39) L 07/02/18 05:58 ALT 7 U/L (7-52) 07/02/18 05:58 Alkaline Phosphatase 141 U/L (34-104) H 07/02/18 05:58 Troponin I 0.01 ng/mL (0.01-0.05) 05/23/18 20:08 B-Natriuretic Peptide 44.6 pg/mL (5.0-100.0) 05/23/18 20:08 Total Protein 6.5 gm/dL (6.0-8.3) 07/02/18 05:58 Albumin 3.8 gm/dL (3.7-5.3) 07/02/18 05:58 Globulin 2.7 gm/dL 07/02/18 05:58 Albumin/Globulin Ratio 1.4 (1.0-1.8) 07/02/18 05:58 Triglycerides 191 mg/dL (<150) H 05/24/18 08:14 Cholesterol 171 mg/dL (<200) 05/24/18 08:14 LDL Cholesterol Direct 80 mg/dL (75-193) 05/24/18 08:14 HDL Cholesterol 67 mg/dL (23-92) 05/24/18 08:14 Urine Source RANDOM 05/23/18 20:30 Urine Color YELLOW 05/23/18 20:30 Urine Clarity CLEAR (CLEAR) 05/23/18 20:30 Urine pH 7.5 (4.6 - 8.0) 05/23/18 20:30 Ur Specific [place] 1.010 (1.005-1.030) 05/23/18 20:30 Urine Protein NEGATIVE mg/dL (NEGATIVE) 05/23/18 20:30 Urine Glucose (UA) 100 mg/dL (NEGATIVE) H 05/23/18 20:30 Urine Ketones NEGATIVE mg/dL (NEGATIVE) 05/23/18 20:30 Urine Blood NEGATIVE (NEGATIVE) 05/23/18 20:30 Urine Nitrate NEGATIVE (NEGATIVE) 05/23/18 20:30 Urine Bilirubin NEGATIVE (NEGATIVE) 05/23/18 20:30 Urine Urobilinogen 0.2 E.U./dL (0.2 - 1.0) 05/23/18 20:30 Ur Leukocyte Esterase NEGATIVE (NEGATIVE) 05/23/18 20:30 Urine RBC 0-2 /hpf (0-5) 05/23/18 20:30 Urine WBC 0-2 /hpf (0-5) 05/23/18 20:30 Ur Epithelial Cells FEW /lpf (FEW) 05/23/18 20:30 Urine Bacteria OCCASIONAL /hpf (NONE SEEN) 05/23/18 20:30 Valproic Acid 38.1 ug/mL (50.0-100.0) L 07/07/18 07:00 - Physical Exam Vitals and I&O: Vital Signs Temp 97.2 F 07/12/18 12:00 Pulse 81 07/12/18 12:00 Resp 18 07/12/18 12:00 BP 131/81 07/12/18 12:00 Pulse Ox 98 07/12/18 12:00 Intake & Output 07/11/18 07/12/18 07/12/18 18:59 06:59 18:59 Intake Total 1200 240 240 Balance 1200 240 240 Weight (lbs) 56.699 kg 56.699 kg 57.153 kg Intake: Oral 1200 240 240 Other: # Voids 3 1 5 # Bowel Movements 1 0 Weight Source Bedscale Bedscale Bedscale Active Medications: Current Medications Acetaminophen (Tylenol) 650 mg PO Q4H PRN PRN Reason: Pain (Moderate) Stop: 08/09/18 19:58 Last Admin: 07/07/18 11:05 Dose: 650 mg Acetaminophen/Hydrocodone Bitart ([place] 5mg/325mg) 1 tab PO Q6H PRN PRN Reason: Pain (Severe) 7-10 Stop: 08/09/18 21:57 Last Admin: 07/12/18 10:20 Dose: 1 tab Clonazepam (Klonopin) 2 mg PO TID [facility]; Protocol Stop: 09/10/18 08:59 Divalproex Sodium (Depakote Er) 500 mg PO QPM [facility]; Protocol Stop: 07/23/18 16:59 Last Admin: 07/11/18 17:38 Dose: 500 mg Divalproex Sodium (Depakote Dr) 500 mg PO QAM [facility]; Protocol Stop: 09/07/18 08:59 Last Admin: 07/12/18 10:14 Dose: 500 mg Famotidine (Pepcid) 20 mg PO DAILY [facility] Stop: 07/24/18 08:59 Last Admin: 07/12/18 10:16 Dose: 20 mg Gabapentin (Neurontin) 300 mg PO BID [facility] Stop: 07/23/18 16:59 Last Admin: 07/12/18 10:15 Dose: 300 mg Magnesium Hydroxide (Milk Of Magnesia) 30 ml PO DAILY PRN PRN Reason: Constipation Stop: 08/03/18 17:37 Last Admin: 07/05/18 14:36 Dose: 30 ml Memantine (Namenda) 10 mg PO BID [facility] Stop: 07/23/18 16:59 Last Admin: 07/12/18 10:15 Dose: 10 mg Metformin HCl (Glucophage) 500 mg PO BID [facility] Stop: 07/23/18 16:59 Last Admin: 07/12/18 10:15 Dose: 500 mg Propranolol HCl (Inderal) 10 mg PO BID [facility] Stop: 07/23/18 16:59 Last Admin: 07/12/18 10:16 Dose: 10 mg Quetiapine Fumarate (Seroquel) 150 mg PO TID [facility]; Protocol Stop: 09/07/18 08:59 Last Admin: 07/12/18 13:36 Dose: 150 mg Simvastatin (Zocor) 20 mg PO HS [facility]; Protocol Stop: 07/23/18 20:59 Last Admin: 07/12/18 03:45 Dose: Not Given Sodium Chloride (Nacl Tab) 2 gm PO BID [facility] Stop: 08/10/18 08:59 Last Admin: 07/12/18 10:14 Dose: 2 gm Trazodone HCl (Desyrel) 150 mg PO HS [facility]; Protocol Stop: 09/07/18 20:59 Last Admin: 07/12/18 03:44 Dose: Not Given General: alert HEENT: NC/AT, PERRLA Neck: Supple Lungs: CTAB Cardiovascular: RRR, Normal S1, Normal S2, without murmur Abdomen: soft, non-tender, non-distended Neurological: alert Internal Medicine Assmt/Plan - Assessment Assessment: dementia htn hyperlipidemia abnormal ekg - Plan Plan: continue current management labs monitor vitals diet Nutritional Asmnt/Malnutr-PDOC - Dietary Evaluation Malnutrition Findings (Please click <Entered> for more info): Nutritional Asmnt/Malnutrition Start: 05/24/18 16: 46 Text: Status: Complete Freq: Protocol: Document 05/24/18 16:46 LCHENG (Rec: 05/24/18 16:53 [email or web address] [email or web address]) Nutritional Asmnt/Malnutrition Patient General Information Nutritional Screening High Risk Diagnosis altered mental status Pertinent Medical Hx/Surgical Hx HTN, DM, dyslipidemia, dementia, bipolar Subjective Information Pt seen lying in bed at time of visit, has 1:1 sitter. Per Sitter, pt ate very well 100% of lunch. Pt is Lao speaking noted per nurse note. Current Diet Order/ Nutrition Support CCHO 60gm Pertinent Medications pepcid, glucophage, seroquel, nacl 0.45% Pertinent Labs 05/24 Na 132, Cl 96, Cr 0.5, glucose 209, POC 136-141 Nutritional Hx/Data Height 1.68 m Height (Calculated Centimeters) 167.6 Current Weight (lbs) 55.792 kg Weight (Calculated Kilograms) 55.8 Weight (Calculated Grams) 85587.9 [place] Body Weight 142 Body Mass Index (BMI) 19.8 Weight Status Approriate GI Symptoms GI Symptoms None Last BM not indicated Difficult in: None Skin Integrity/Comment: old abdominal midline incision scar Current %PO Good (75-100%) Estimated Nutritional Goals BEE in Kcals: Using Current wt Calories/Kcals/Kg 25-30 Kcals Calculated 2318-9455 Protein: Using Current wt Protein g/k-1.2 Protein Calculated 56-67 Fluid: ml 1400-1680ml (1ml/kcal) Nutritional Problem 1. Problem Problem altered nutrition related labs Etiology hx of DM, electrolytes imbalance Signs/Symptoms: glucose 209, POC 136-141, Na 132, Cl 96 Malnutrition Alert Is there a minimum of two criteria No selected? Query Text:Check all the applicable criteria. A minimum of two criteria are recommended for diagnosis of either severe or non-severe malnutrition. Malnutrition Related to Morbid Obesity Malnutrition related to morbid obesity No Intervention/Recommendation Comments 1. Continue with [facility] 60gm diet as ordered. 2. Monitor PO intake, wt, labs and skin integrity 3. F/U as moderate risk in 3-5 days, 05/27-05/29 Expected Outcomes/Goals Expected Outcomes/Goals 1. PO intake to meet at least 75% of nutritional needs. 2. Wt stability, skin to remain intact, labs to approach WNL.
--- NOTE | 2018-07-12 18:01 | Progress Notes ---
DATE: 07/12/2018 SUBJECTIVE: Chart reviewed and the patient interviewed. Also, discussed the patient's condition with the staff and reviewed records and labs. The patient is still severely agitated and is still yelling and screaming constantly. The patient also still has difficulty following directions. The patient also still did not sleep most of the night in spite of giving her a relatively high dose of psychotropic medications. The patient has been taking Depakote 500 mg in the morning and in the evening as well as gabapentin 300 mg twice a day and Seroquel with not much effect. Also, she is taking trazodone 150 mg at bedtime, but the patient is still not able to sleep at night. She also taken Klonopin in a dose of 1 mg 3 times a day. ASSESSMENT: The patient is still agitated and still can be dangerous to self. TREATMENT PLAN: We will increase Klonopin to 2 mg 3 times a day and will continue to follow up closely. JOB# [id number]
[2018-07-13] MEDS: Hydrocodone/APAP 5mg/325mg Tab PO PRN ×2 (04:10→17:15)
--- NOTE | 2018-07-13 13:48 | Internal Medicine Prog Note ---
Internal Medicine Subjective - Subjective Service Date: 07/13/18 Patient is:: awake, in bed, agitated, confused Patient Complaints of:: unable to sleep Per staff patient has:: no adverse event, tolerating meds Internal Medicine Objective - Results Result Diagrams: 07/02/18 05:58 07/03/18 04:40 Recent Labs: Laboratory Last Values WBC 7.6 Th/cmm (4.8-10.8) 07/02/18 05:58 RBC 3.68 Mil/cmm (3.80-5.10) L 07/02/18 05:58 Hgb 11.9 gm/dL (12-16) L 07/02/18 05:58 Hct 35.5 % (41.0-60) L 07/02/18 05:58 MCV 96.5 fl (81-100) 07/02/18 05:58 MCH 32.3 pg (27.0-31.0) H 07/02/18 05:58 MCHC Differential 33.5 pg (28.0-36.0) 07/02/18 05:58 RDW 13.0 % (11.5-20.0) 07/02/18 05:58 Plt Count 249 Th/cmm (150-400) 07/02/18 05:58 MPV 7.9 fl 07/02/18 05:58 Neutrophils % 70.2 % (40.0-80.0) 07/02/18 05:58 Lymphocytes % 19.3 % (20.0-50.0) L 07/02/18 05:58 Monocytes % 9.4 % (2.0-10.0) 07/02/18 05:58 Eosinophils % 0.8 % (0.0-5.0) 07/02/18 05:58 Basophils % 0.3 % (0.0-2.0) 07/02/18 05:58 Sodium 133 mEq/L (136-145) L 07/03/18 04:40 Potassium 4.1 mEq/L (3.5-5.1) 07/03/18 04:40 Chloride 98 mEq/L (98-107) 07/03/18 04:40 Carbon Dioxide 27.1 mEq/L (21.0-31.0) 07/03/18 04:40 Anion Gap 12.0 (7.0-16.0) 07/03/18 04:40 BUN 17 mg/dL (7-25) 07/03/18 04:40 Creatinine 0.5 mg/dL (0.6-1.2) L 07/03/18 04:40 Est GFR ( Amer) > 60.0 ml/min (>90) 07/03/18 04:40 Est GFR (Non-Af Amer) > 60.0 ml/min 07/03/18 04:40 BUN/Creatinine Ratio 34.0 07/03/18 04:40 Glucose 233 mg/dL (70-105) H 07/03/18 04:40 POC Glucose 141 MG/DL (70 - 105) H 05/24/18 11:49 Hemoglobin A1c % 5.9 % (4.0-6.0) 05/23/18 20:08 Calcium 9.6 mg/dL (8.6-10.3) 07/03/18 04:40 Total Bilirubin 0.4 mg/dL (0.3-1.0) 07/02/18 05:58 AST 9 U/L (13-39) L 07/02/18 05:58 ALT 7 U/L (7-52) 07/02/18 05:58 Alkaline Phosphatase 141 U/L (34-104) H 07/02/18 05:58 Troponin I 0.01 ng/mL (0.01-0.05) 05/23/18 20:08 B-Natriuretic Peptide 44.6 pg/mL (5.0-100.0) 05/23/18 20:08 Total Protein 6.5 gm/dL (6.0-8.3) 07/02/18 05:58 Albumin 3.8 gm/dL (3.7-5.3) 07/02/18 05:58 Globulin 2.7 gm/dL 07/02/18 05:58 Albumin/Globulin Ratio 1.4 (1.0-1.8) 07/02/18 05:58 Triglycerides 191 mg/dL (<150) H 05/24/18 08:14 Cholesterol 171 mg/dL (<200) 05/24/18 08:14 LDL Cholesterol Direct 80 mg/dL (75-193) 05/24/18 08:14 HDL Cholesterol 67 mg/dL (23-92) 05/24/18 08:14 Urine Source RANDOM 05/23/18 20:30 Urine Color YELLOW 05/23/18 20:30 Urine Clarity CLEAR (CLEAR) 05/23/18 20:30 Urine pH 7.5 (4.6 - 8.0) 05/23/18 20:30 Ur Specific [place] 1.010 (1.005-1.030) 05/23/18 20:30 Urine Protein NEGATIVE mg/dL (NEGATIVE) 05/23/18 20:30 Urine Glucose (UA) 100 mg/dL (NEGATIVE) H 05/23/18 20:30 Urine Ketones NEGATIVE mg/dL (NEGATIVE) 05/23/18 20:30 Urine Blood NEGATIVE (NEGATIVE) 05/23/18 20:30 Urine Nitrate NEGATIVE (NEGATIVE) 05/23/18 20:30 Urine Bilirubin NEGATIVE (NEGATIVE) 05/23/18 20:30 Urine Urobilinogen 0.2 E.U./dL (0.2 - 1.0) 05/23/18 20:30 Ur Leukocyte Esterase NEGATIVE (NEGATIVE) 05/23/18 20:30 Urine RBC 0-2 /hpf (0-5) 05/23/18 20:30 Urine WBC 0-2 /hpf (0-5) 05/23/18 20:30 Ur Epithelial Cells FEW /lpf (FEW) 05/23/18 20:30 Urine Bacteria OCCASIONAL /hpf (NONE SEEN) 05/23/18 20:30 Valproic Acid 38.1 ug/mL (50.0-100.0) L 07/07/18 07:00 - Physical Exam Vitals and I&O: Vital Signs Temp 97.8 F 07/13/18 08:30 Pulse 77 07/13/18 08:30 Resp 18 07/13/18 08:30 BP 122/87 07/13/18 08:30 Pulse Ox 96 07/13/18 08:30 Intake & Output 07/12/18 07/13/18 07/13/18 18:59 06:59 18:59 Intake Total 2240 720 Balance 2240 720 Weight (lbs) 57.153 kg 57.198 kg Intake: Oral 2240 720 Other: # Voids 4 6 # Bowel Movements 1 0 Weight Source Bedscale Bedscale Active Medications: Current Medications Acetaminophen (Tylenol) 650 mg PO Q4H PRN PRN Reason: Pain (Moderate) Stop: 08/09/18 19:58 Last Admin: 07/07/18 11:05 Dose: 650 mg Acetaminophen/Hydrocodone Bitart ([place] 5mg/325mg) 1 tab PO Q6H PRN PRN Reason: Pain (Severe) 7-10 Stop: 08/09/18 21:57 Last Admin: 07/13/18 04:10 Dose: 1 tab Clonazepam (Klonopin) 2 mg PO TID [facility]; Protocol Stop: 09/10/18 08:59 Last Admin: 07/13/18 08:12 Dose: 2 mg Divalproex Sodium (Depakote Er) 500 mg PO QPM [facility]; Protocol Stop: 07/23/18 16:59 Last Admin: 07/12/18 17:17 Dose: 500 mg Divalproex Sodium (Depakote Dr) 500 mg PO QAM [facility]; Protocol Stop: 09/07/18 08:59 Last Admin: 07/13/18 08:11 Dose: 500 mg Famotidine (Pepcid) 20 mg PO DAILY [facility] Stop: 07/24/18 08:59 Last Admin: 07/13/18 08:11 Dose: 20 mg Gabapentin (Neurontin) 300 mg PO BID [facility] Stop: 07/23/18 16:59 Last Admin: 07/13/18 08:10 Dose: 300 mg Lorazepam (Ativan) 1 mg PO Q4HR PRN; Protocol PRN Reason: Agitation Stop: 09/10/18 17:40 Last Admin: 07/13/18 08:11 Dose: 1 mg Magnesium Hydroxide (Milk Of Magnesia) 30 ml PO DAILY PRN PRN Reason: Constipation Stop: 08/03/18 17:37 Last Admin: 07/05/18 14:36 Dose: 30 ml Memantine (Namenda) 10 mg PO BID [facility] Stop: 07/23/18 16:59 Last Admin: 07/13/18 08:09 Dose: 10 mg Metformin HCl (Glucophage) 500 mg PO BID [facility] Stop: 07/23/18 16:59 Last Admin: 07/13/18 08:11 Dose: 500 mg Propranolol HCl (Inderal) 10 mg PO BID [facility] Stop: 07/23/18 16:59 Last Admin: 07/13/18 08:30 Dose: Not Given Quetiapine Fumarate (Seroquel) 150 mg PO TID [facility]; Protocol Stop: 09/07/18 08:59 Last Admin: 07/13/18 08:10 Dose: 150 mg Simvastatin (Zocor) 20 mg PO HS [facility]; Protocol Stop: 07/23/18 20:59 Last Admin: 07/12/18 20:08 Dose: 20 mg Sodium Chloride (Nacl Tab) 2 gm PO BID [facility] Stop: 08/10/18 08:59 Last Admin: 07/13/18 08:11 Dose: 2 gm Trazodone HCl (Desyrel) 150 mg PO HS [facility]; Protocol Stop: 09/07/18 20:59 Last Admin: 07/13/18 01:42 Dose: 150 mg General: alert HEENT: NC/AT, PERRLA Neck: Supple Lungs: CTAB Cardiovascular: RRR, Normal S1, Normal S2, without murmur Abdomen: soft, non-tender, non-distended Extremities: clear Neurological: alert Internal Medicine Assmt/Plan - Assessment Assessment: dementia htn hyperlipidemia abnormal ekg - Plan Plan: continue current management labs monitor vitals diet Nutritional Asmnt/Malnutr-PDOC - Dietary Evaluation Malnutrition Findings (Please click <Entered> for more info): Nutritional Asmnt/Malnutrition Start: 05/24/18 16: 46 Text: Status: Complete Freq: Protocol: Document 05/24/18 16:46 LCHENG (Rec: 05/24/18 16:53 LCHENG [email or web address]) Nutritional Asmnt/Malnutrition Patient General Information Nutritional Screening High Risk Diagnosis altered mental status Pertinent Medical Hx/Surgical Hx HTN, DM, dyslipidemia, dementia, bipolar Subjective Information Pt seen lying in bed at time of visit, has 1:1 sitter. Per Sitter, pt ate very well 100% of lunch. Pt is Lithuanian speaking noted per nurse note. Current Diet Order/ Nutrition Support CCHO 60gm Pertinent Medications pepcid, glucophage, seroquel, nacl 0.45% Pertinent Labs 05/24 Na 132, Cl 96, Cr 0.5, glucose 209, POC 136-141 Nutritional Hx/Data Height 1.68 m Height (Calculated Centimeters) 167.6 Current Weight (lbs) 55.792 kg Weight (Calculated Kilograms) 55.8 Weight (Calculated Grams) 53303.9 [place] Body Weight 142 Body Mass Index (BMI) 19.8 Weight Status Approriate GI Symptoms GI Symptoms None Last BM not indicated Difficult in: None Skin Integrity/Comment: old abdominal midline incision scar Current %PO Good (75-100%) Estimated Nutritional Goals BEE in Kcals: Using Current wt Calories/Kcals/Kg 25-30 Kcals Calculated 9547-1302 Protein: Using Current wt Protein g/k-1.2 Protein Calculated 56-67 Fluid: ml 1400-1680ml (1ml/kcal) Nutritional Problem 1. Problem Problem altered nutrition related labs Etiology hx of DM, electrolytes imbalance Signs/Symptoms: glucose 209, POC 136-141, Na 132, Cl 96 Malnutrition Alert Is there a minimum of two criteria No selected? Query Text:Check all the applicable criteria. A minimum of two criteria are recommended for diagnosis of either severe or non-severe malnutrition. Malnutrition Related to Morbid Obesity Malnutrition related to morbid obesity No Intervention/Recommendation Comments 1. [facility]. 2. Monitor PO intake, wt, labs and skin integrity 3. F/U as moderate risk in 3-5 days, 05/27-05/29 Expected Outcomes/Goals Expected Outcomes/Goals 1. PO intake to meet at least 75% of nutritional needs. 2. Wt stability, skin to remain intact, labs to approach WNL.
--- NOTE | 2018-07-17 09:02 | Discharge Summary ---
DATE OF DISCHARGE: 07/13/2018 DISCHARGE SUMMARY: This patient came from [facility] and [facility]. Apparently, the patient was yelling and screaming and having a history of diabetes, hypertension, dementia, nonsmoker, history of bipolar disorder, who was admitted and had a very high fall risk and also had 1 fall, fracture of her left humerus. EKG was abnormal, left fascicular block. The patient had multiple consultants including orthopedic doctor, psychiatric doctor, and cardiology doctor. All of them saw the patient, but apparently very difficult to control this patient as I and eventually arrangements were made to send the patient to [facility] on 07/13[facility]2018 with a stable condition with a diagnosis of bipolar disorder, history of agitation, history of status post left hip humerus fracture, history of hypertension, diabetes, history of dementia, and history of abnormal EKG was made and the patient was sent in stable condition and I will be following the patient there. JOB# [id number]
== END 2018-07-13 19:02 | DRG 52 ==
LOC: ER 19:32 → MSI 05-24 00:30 → TELE 05-24 17:06 → MSI 05-25 07:02 → UNDODISIN 05-29 15:40 → TELE 06-16 18:47 → MSI 06-16 18:48
PROVIDERS: ADMIT Internal Medicine; ATTEND Internal Medicine
DX: G93.40 Encephalopathy, unspecified (principal); E44.0 Moderate protein-calorie malnutrition; E87.1 Hypo-osmolality and hyponatremia; F03.90 Unspecified dementia, unspecified severity, without behavioral disturbance, psychotic disturbance, mood disturbance, and anxiety; F31.64 Bipolar disorder, current episode mixed, severe, with psychotic features; E11.9 Type 2 diabetes mellitus without complications; I44.60 Unspecified fascicular block; E78.5 Hyperlipidemia, unspecified; I10 Essential (primary) hypertension; K59.00 Constipation, unspecified; I25.2 Old myocardial infarction; S42.201A Unspecified fracture of upper end of right humerus, initial encounter for closed fracture; W18.30XA Fall on same level, unspecified, initial encounter; Y93.89 Activity, other specified; Y92.89 Other specified places as the place of occurrence of the external cause; Y99.8 Other external cause status; Z68.20 Body mass index [BMI] 20.0-20.9, adult; Z79.84 Long term (current) use of oral hypoglycemic drugs
CPT/HCPCS: 36415-UA; 70450-TC; 71045-TC; 73030-TC-RT; 73521; 80048-TC; 80053-TC; 80061-TC; 80164-TC; 81001-TC; 82948-90; 83036-90; 83880-TC; 84484-TC; 85025-TC; 90732; 93005; 97530; J1200; J1630; J2060; X3904; Z7610